=== PATIENT | male | born 1935 | race Caucasian/White ===

== ENCOUNTER → 2016-08-09 | Outpatient (CLI) | payer MEDICARE ==
[2016-08-09 10:20] LABS: Blood Urea Nitrogen 12 mg/dL (9-20); Non-African American GFR(MDRD) >60 (>60 ml/min/1.73 sqM)
--- NOTE | 2016-08-09 13:09 | CT ---
EXAMINATION TYPE: CT ChestAbdPelvis w con DATE OF EXAM: 08/09/2016 11:58 AM COMPARISON: CT CAP April 09, 2016. Original PET/CT April 13, 2014. HISTORY: Patient complains of known history of lymphoma diagnosed 2013. Patient has no complaints at time of service. CT DLP: 1687.4 mGycm. Automated Exposure Control for Dose Reduction was Utilized. CONTRAST: CT scan of the thorax, abdomen and pelvis is performed with oral and with IV Contrast, patient inject ed with 100 mL of Omnipaque 300. FINDINGS: LUNGS: Right basilar linear atelectasis and/or scarring is redemonstrated. No pleural effusion or pne umothorax seen bilaterally. Tracheobronchial tree is patent. MEDIASTINUM: There remain enlarged thoracic lymph nodes predominantly paratracheal and AP window lymp h nodes. Due to multiple lymph nodes present though difficult to accurately measure as they are predo minantly subcentimeter in size but slightly confluent. No significant change from most recent CT is felt present. Improvement from original PET/CT is noted. No cardiomegaly or pericardial effusion is s een. OTHER: Small degree of bilateral gynecomastia is redemonstrated. LIVER/GB: Dependent density or small gallstones is again seen. PANCREAS: No significant abnormality is seen. SPLEEN: Small splenule in inferior splenic hilum on axial image 55 in the anterior superior to spleen on axial image 47 are both redemonstrated. ADRENALS: No significant abnormality is seen. KIDNEYS: There are 3 nonobstructing calculi in the right kidney and single nonobstructing calculus in left kidney all measuring 3 mm in size or smaller redemonstrated. BOWEL: The oral contrast reaches level of the proximal left colon. There is no suspicious small or la rge bowel dilatation. A few diverticula are seen in the sigmoid colon. No CT evidence for acute diver ticulitis. There is stable duodenal diverticulum on axial image 62. GENITAL ORGANS: No gross abnormality seen. LYMPH NODES: No greater than 1cm abdominal or pelvic lymph nodes are appreciated. There are stable pr ominent but subcentimeter retroperitoneal lymph nodes, most prominent are left periaortic level below renal vessels axial image 70. Prominent AP window lymph nodes are stable near axial image 65. OSSEOUS STRUCTURES: S-shaped scoliosis is again seen. There is multilevel spurring and disc space katie rowing. Mild to moderate height loss with sclerosis superior T7 endplate is redemonstrated. OTHER: No significant additional abnormality is seen. IMPRESSION: Stable prominent but subcentimeter adenopathy in the thorax and to lesser degree abdomina l retroperitoneum. No new mass or adenopathy identified.
== END | disposition home or self-care (01) ==
LOC: RADCTMAIN 09:26
PROVIDERS: ATTEND Internal Medicine Hematology & Oncology
DX: C85.90 Non-Hodgkin lymphoma, unspecified, unspecified site (principal); R59.0 Localized enlarged lymph nodes
CPT/HCPCS: 82565; 84520; 71260; 74177; 36415; Q9967

== ENCOUNTER → 2017-02-10 | Outpatient (CLI) | payer MEDICARE ==
[2017-02-10 09:55] LABS: Blood Urea Nitrogen 14 mg/dL (9-20); Non-African American GFR(MDRD) >60 (>60 ml/min/1.73 sqM)
--- NOTE | 2017-02-10 11:21 | CT ---
EXAMINATION TYPE: CT ChestAbdPelvis w con DATE OF EXAM: 02/10/2017 COMPARISON: CT CAP August 09, 2016 and older exams back through PET/CT April 13, 2014 HISTORY: follow up to lymphoma progress study. CT DLP: 2166 mGycm. Automated Exposure Control for Dose Reduction was Utilized. CONTRAST: CT scan of the thorax, abdomen and pelvis is performed with IV Contrast, patient injected with 100 mL of Omnipaque 300. FINDINGS: LUNGS: There is persistent patchy right greater than left bibasilar scarring and/or atelectasis. No concerning new parenchymal nodule or mass is present bilaterally. There is no pleural effusion or pne umothorax seen bilaterally. The tracheobronchial tree is patent. MEDIASTINUM: There are persistent prominent thoracic lymph nodes predominantly paratracheal and AP wi ndow with multiple lymph nodes near 1 cm in size redemonstrated. Due to confluent appearance they're difficult to accurately measure though they are not significantly changed in appearance from prior s tudy, largest measure lymph node right pericarinal region is 1.8 x 1.0 cm on axial image 29 unchanged from prior. No cardiomegaly or pericardial effusion is seen. Supraclavicular region slightly subopt imal evaluation due to streak artifact from left shoulder metallic hardware. OTHER: There is right-sided subclavian Mediport catheter with tip in SVC. Small degree of bilateral g ynecomastia is redemonstrated. LIVER/GB: Dependent density in gallbladder is felt to reflect gallbladder sludge or small stones. PANCREAS: No significant abnormality is seen. SPLEEN: Small splenule's are stable. ADRENALS: No significant abnormality is seen. KIDNEYS: There are small nonobstructing renal calculi redemonstrated bilaterally measuring up to 4 mm in size without significant change in size or number. BOWEL: A few diverticula are redemonstrated in the sigmoid colon. There is no CT evidence for acute d iverticulitis. No suspicious bowel dilatation is seen. GENITAL ORGANS: No gross abnormality seen. LYMPH NODES: No greater than 1cm abdominal or pelvic lymph nodes are appreciated. There are stable pr ominent but subcentimeter retroperitoneal lymph nodes aortocaval region. OSSEOUS STRUCTURES: Slight S-shaped scoliosis is redemonstrated. There is multilevel spurring in the spine. Prominent disc space narrowing with sclerosis and spurring is seen right L1-L2 and L2-L3 level s at left L3-L4 level. Mild to moderate height loss superior T7 endplate is redemonstrated. OTHER: No significant additional abnormality is seen. IMPRESSION: Stable prominent but subcentimeter lymph nodes above and below diaphragm. No new adenopat hy is seen. Findings significantly improved 2014 PET/CT.
== END | disposition home or self-care (01) ==
LOC: RADCTMAIN 09:23
PROVIDERS: ATTEND Internal Medicine Hematology & Oncology
DX: C81.98 Hodgkin lymphoma, unspecified, lymph nodes of multiple sites (principal)
CPT/HCPCS: 82565; 84520; 71260; 74177; 36415; Q9967

== ENCOUNTER → 2017-08-15 | Outpatient (CLI) | payer MEDICARE ==
[2017-08-15 10:49] LABS: Blood Urea Nitrogen 16 mg/dL (9-20)
--- NOTE | 2017-08-15 15:32 | CT ---
EXAMINATION TYPE: CT ChestAbdPelvis w con DATE OF EXAM: 08/15/2017 INDICATION: Follow up to lymphoma COMPARISON: NONE CT DLP: 2626 mGycm CONTRAST: Performed with Oral Contrast and with IV Contrast, patient injected with 100 mL of Omnipaque 300. TECHNIQUE: Axial images at 5 mm thick sections. Reconstructed images in the coronal plane. Delayed images through the kidneys. FINDINGS: CT CHEST: Portion of the thyroid visualized is normal. Some pneumonitis type changes in the periphery of the right upper lobe There are multiple enlarged pretracheal lymph nodes. Two public service representative larger lymph nodes measure 1. 4 and 1.5 cm in transverse dimension. These are slightly greater in size than the comparison study. A dditional smaller lymphadenopathy appears to be present as well. The ascending aorta diameter at the level of the main pulmonary artery is 3.9 cm. The main pulmonary artery diameter at the bifurcation is 4.3 cm. Consider pulmonary hypertension. CT ABDOMEN: A 0.6 cm lymph nodes in the subcarinal space which is slightly prominent. This was presen t previously. Scattered periaortic lymph nodes are present. Liver: Normal Spleen: Normal Pancreas: Normal Adrenal glands: The adrenal glands are normal. Gallbladder: Normal Kidneys: No masses are evident. No hydronephrosis is present. No cysts are present. Some scattered nonobstructing superior pole right renal stones are present measuring approximately 0.3 cm each. The re is an inferior pole nonobstructing left renal stone 0.5 cm. Aorta: Vascular calcification is within the aorta. Inferior vena cava: Normal. CT PELVIS: Loops of bowel within the abdomen and pelvis are normal. Scattered diverticuli within the sigmoid colon. Large pelvic adenopathy is not identified. No suspicious inguinal adenopathy is evident. Appendix: Not identified. Urinary bladder: Normal. Genitourinary structures: Prostate appears unremarkable. Osseous structures: No suspicious lytic or sclerotic lesions. Facet hypertrophy and endplate changes are causing some spinal canal narrowing the region of L4-5. Additional lumbar spine degenerative sherman ges are present. IMPRESSIONS: 1. Multiple prominent mediastinal lymph nodes discussed above. This may has some slight increase in s ize compared to the February 2017 comparison.
== END | disposition home or self-care (01) ==
LOC: RADPROMAIN 09:56
PROVIDERS: ATTEND Internal Medicine Hematology & Oncology
DX: C81.98 Hodgkin lymphoma, unspecified, lymph nodes of multiple sites (principal); Z88.1 Allergy status to other antibiotic agents; Z88.6 Allergy status to analgesic agent; Z88.8 Allergy status to other drugs, medicaments and biological substances
CPT/HCPCS: 82565; 84520; 71260; 74177; 36415; Q9967; J1642

== ENCOUNTER → 2017-11-09 | Outpatient (CLI) | payer MEDICARE ==
[2017-11-09 11:36] LABS: Blood Urea Nitrogen 10 mg/dL (9-20)
--- NOTE | 2017-11-09 12:54 | CT ---
EXAMINATION TYPE: CT ChestAbdPelvis w con DATE OF EXAM: 11/09/2017 COMPARISON: Prior CT chest abdomen and pelvis June 14, 2018 and older studies. Original PET/CT Oc tober 2013 HISTORY: Follow up to hodgkins lymphoma, last chemo [id number] CT DLP: 2056.3 mGycm. Automated Exposure Control for Dose Reduction was Utilized. CONTRAST: CT scan of the thorax, abdomen and pelvis is performed with oral and with IV Contrast, patient inject ed with 100 mL of Isovue 300. FINDINGS: LUNGS: There are some mild scattered areas of linear fibrosis bilaterally The lungs are grossly clear , there is no concerning new greater than 5 mm parenchymal mass or nodule identified. There is stable 2 mm nodule left upper lobe axial image 26. There is no pleural effusion or pneumothorax seen. The tracheobronchial tree is patent. MEDIASTINUM: There are stable prominent thoracic lymph nodes involving anterior superior mediastinum, paratracheal, prevascular, AP window, and to lesser degree bilateral hilar and subcarinal regions. N o new greater than 1 cm adenopathy is present. No cardiomegaly or pericardial effusion is seen. Asc ending aorta measures up to 3.9 cm in diameter stable from prior. Prominent main pulmonary artery at bifurcation is redemonstrated. OTHER: There is stable right-sided Mediport catheter. Bilateral gynecomastia is redemonstrated, left more prominent than right felt stable. LIVER/GB: Small dependent stones and/or gallbladder sludge in gallbladder is identified. PANCREAS: No significant abnormality is seen. SPLEEN: There is subcentimeter splenule axial image 59 redemonstrated. ADRENALS: No significant abnormality is seen. KIDNEYS: A simple appearing 1 cm cyst medially lower pole level right kidney series 5 image 41 is sta ble. There are 4-5 small nonobstructing right-sided renal calculi redemonstrated and 1-2 small left-s ided renal calculi again seen. There is symmetric cortical medullary uptake and excretion from both k idneys without evidence of hydronephrosis bilaterally BOWEL: There is stable duodenal diverticulum near axial image 69. No suspicious small or large bowel dilatation is present. Diverticula in the sigmoid colon are redemonstrated without CT evidence for ac henrietta diverticulitis. There is suboptimal evaluation of stomach due to poor distention. GENITAL ORGANS: No gross abnormality seen. LYMPH NODES: No new greater than 1cm abdominal or pelvic lymph nodes are appreciated. There are stabl e prominent but subcentimeter retroperitoneal lymph nodes OSSEOUS STRUCTURES: No significant abnormality is seen. There is exaggerated curvature to the spine. There is advanced disc space narrowing with endplate sclerosis L1-L2 level. There is mild to moderate compression type fracture at T7 level. S-shaped scoliosis is redemonstrated on coronal images. OTHER: No significant additional abnormality is seen. IMPRESSION: Stable appearance of prominent thoracic and to lesser degree of abdominal retroperitoneal lymph nodes from recent CT. No new suspicious adenopathy identified. Liver and spleen remain normal in size.
== END | disposition home or self-care (01) ==
LOC: RADPROMAIN 10:20
PROVIDERS: ATTEND Internal Medicine Hematology & Oncology
DX: C81.98 Hodgkin lymphoma, unspecified, lymph nodes of multiple sites (principal); Z88.1 Allergy status to other antibiotic agents; Z88.6 Allergy status to analgesic agent; Z88.8 Allergy status to other drugs, medicaments and biological substances
CPT/HCPCS: 82565; 84520; 71260; 74177; J1642; Q9967

== ENCOUNTER → 2018-03-02 | Outpatient (CLI) | payer MEDICARE ==
--- NOTE | 2018-03-02 18:22 | XR ---
EXAMINATION TYPE: PA chest and right rib series DATE OF EXAM: 03/02/2018 COMPARISON: 10/10/2015 HISTORY: 82-year-old male right lower rib pain after fall, intercostal pain. TECHNIQUE: 5 views FINDINGS: Right anterior chest wall injection port with subclavian access in tip at the lower SVC/cavoatrial ju nction region. Heart upper limits of normal in size. Strandy lower lung densities likely relate to at electasis. Otherwise, no consolidation or pleural effusion seen. Reverse left shoulder arthroplasty n oted. Evaluation of the right-sided ribs shows focal angulation of the right eighth anterior rib and some c ortical indentation along the right anterior ninth rib. IMPRESSION: Findings suspicious for fractures of the right anterior eighth and ninth ribs. Bibasilar densities campbell ve a strandy appearance suggesting atelectasis.
== END | disposition home or self-care (01) ==
LOC: RADXRYALE 15:43
PROVIDERS: ATTEND Physician Assistant Medical
DX: R07.82 Intercostal pain (principal); J98.4 Other disorders of lung

== ENCOUNTER → 2018-05-15 | Outpatient (CLI) | payer MEDICARE ==
[2018-05-15 11:01] LABS: Blood Urea Nitrogen 15 mg/dL (9-20)
--- NOTE | 2018-05-15 18:32 | CT ---
EXAMINATION TYPE: CT ChestAbdPelvis w con DATE OF EXAM: 05/15/2018 INDICATION: Follow up known lymphoma, chest. COMPARISON: 11/09/2017 CT DLP: 1742.8 mGycm CONTRAST: Performed with Oral Contrast and with IV Contrast, patient injected with 100 mL of Isovue 300. TECHNIQUE: Axial images at 5 mm thick sections. Reconstructed images in the coronal plane. Delayed images through the kidneys. FINDINGS: CT CHEST: Portion of the thyroid visualized is normal. No suspicious lung nodules or focal infiltrates are present. There are numerous lymph nodes scattered throughout the mediastinum. Number of lymph nodes are enlarg ed by CT criteria. Reference lymph node to include a 1.1 cm lymph node in the anterior superior media stinum, a 1.2 cm node in the pretracheal space. A 1.0 cm lymph node in the paratracheal space, 1.3 cm lymph node and pretracheal space above the right main pulmonary artery. Additional shotty lymphadeno abilio is present. Size of the lymphadenopathy appears to be increasing from the comparison. The ascending aorta diameter at the level of the main pulmonary artery is 4.0 cm. The main pulmonary artery diameter at the bifurcation is 3.[address] ABDOMEN: A few retrocrural lymph nodes are present which are prominent by CT measurement criteria. Liver: Normal Spleen: Normal Pancreas: Normal Adrenal glands: The adrenal glands are normal. Gallbladder: Small gallstones are within the gallbladder. Kidneys: No masses are evident. No hydronephrosis is present. No cysts are present. Punctate renal stones without obstruction may be present within the right mid kidney at the inferior pole left kidn ey. Aorta: Vascular calcification is within the aorta. Inferior vena cava: Normal. CT PELVIS: Loops of bowel within the abdomen and pelvis are normal. There are loops of bowel which are incom pletely distended or lack oral contrast limiting their evaluation. Appendix: Not identified. No suspicious tubular structures or laboratory changes are evident. Urinary bladder: Normal. Genitourinary structures: Prostate is slightly prominent. Osseous structures: No suspicious lytic or sclerotic lesions. Degenerative disc changes are through t he thoracic and lumbar spine. There is a compression deformity in the region of T7 and L1. These were present previously. IMPRESSIONS: 1. Enlarging mediastinal adenopathy. Some prominent retrocrural pleural adenopathy is also present. F indings are increasing in size from 11/09/2017 comparison A Yellow level critical message alert has been initiated for Robby العلي MD via the [employer] on 05/15/2018 6:29 PM. This message alert has been sent to Robby العلي MD via t he preferences provided by the clinician for the receipt of Radiology Critical Findings. Message ID [id number].
== END | disposition home or self-care (01) ==
LOC: RADPROMAIN 10:12
PROVIDERS: ATTEND Internal Medicine Hematology & Oncology
DX: R59.0 Localized enlarged lymph nodes (principal); C81.98 Hodgkin lymphoma, unspecified, lymph nodes of multiple sites; Z88.3 Allergy status to other anti-infective agents; Z88.6 Allergy status to analgesic agent; Z88.8 Allergy status to other drugs, medicaments and biological substances
CPT/HCPCS: 82565; 84520; 71260; 74177; J1642; Q9967

== ENCOUNTER → 2018-05-24 | Outpatient (CLI) | payer MEDICARE ==
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
== END ==
LOC: RADUSWWP 14:13
PROVIDERS: ATTEND Family Medicine
DX: R22.41 Localized swelling, mass and lump, right lower limb (principal)

== ENCOUNTER → 2018-08-16 | Outpatient (CLI) | payer MEDICARE ==
[2018-08-16 10:39] LABS: Blood Urea Nitrogen 19 mg/dL (9-20)
--- NOTE | 2018-08-16 13:48 | CT ---
EXAMINATION TYPE: CT ChestAbdPelvis w con DATE OF EXAM: 08/16/2018 COMPARISON: Prior CT chest abdomen pelvis 05/15/2018 HISTORY: Follow up for Hodgkin's lymphoma. No complaints at time of study. CT DLP: 2134 mGycm Automated exposure control for dose reduction was used. CONTRAST: CT scan of the chest, abdomen and pelvis is performed with Oral Contrast and with IV Contrast, patien t injected with 100 mL of Isovue 300. FINDINGS: LUNGS: The lungs are stable. There is no pleural effusion or pneumothorax seen. The tracheobronchial tree is patent. MEDIASTINUM: There are mediastinal nodes which are too numerous to count varying sizes. Right paratra cheal node shows a short axis measurement of approximately 12 mm as on prior exam but shows a fatty h ilus. Small prevascular nodes are again noted. Multiple retrocaval pretracheal nodes are essentially stable in size mild enlargement AORTA: No significant abnormality is seen. OTHER: No additional significant abnormality is seen. LIVER/GB: No significant interval change is appreciated. Dependent hyperdensity within the gallbladde r is compatible with cholelithiasis. PANCREAS: No significant abnormality is seen. SPLEEN: No significant abnormality is seen. ADRENALS: No significant abnormality is seen. KIDNEYS: No significant interval change is seen. Nonobstructive punctate calculi are present bilatera lly. REPRODUCTIVE ORGANS: No gross abnormality seen. BOWEL: No significant interval change is seen. There is a duodenal diverticulum present at the head of the pancreas. Colonic interposition noted anterior to the liver. Diverticular change associated wi th the sigmoid colon. FREE AIR: No Free Air visible. ASCITES: None seen. RETROPERITONEAL ADENOPATHY: No retroperitoneal adenopathy is seen. LYMPH NODES: No greater than 1 cm abdominal or pelvic lymph nodes are appreciated. URINARY BLADDER: Wall thickening could be due to chronic outlet obstruction. Correlate to exclude cy stitis. PELVIC ADENOPATHY: None visualized. OSSEOUS STRUCTURES: No significant interval change is seen. Degenerative disc disease again noted wi thin the spine, there is a spinal curvature. Wedge compression deformity at T7 is stable. Multilevel intervertebral vacuum disc phenomenon again noted. Possible spinal stenosis L4-5. IMPRESSION: No significant interval change in patient's adenopathy. Additional findings above.
== END | disposition home or self-care (01) ==
LOC: RADCTMAIN 10:02
PROVIDERS: ATTEND Internal Medicine Hematology & Oncology
DX: C81.98 Hodgkin lymphoma, unspecified, lymph nodes of multiple sites (principal)
CPT/HCPCS: 82565; 84520; 71260; 74177; 36415; Q9967

== ENCOUNTER → 2018-11-29 | Outpatient (CLI) | payer MEDICARE ==
--- NOTE | 2018-11-29 15:15 | XR ---
EXAMINATION TYPE: XR chest 2V DATE OF EXAM: 11/29/2018 COMPARISON: March 02, 2018 HISTORY: Shortness of breath TECHNIQUE: Frontal and lateral views of the chest are obtained. FINDINGS: Scattered senescent parenchymal changes noted. Hyperinflation compatible with COPD. No evidence for infiltrate. No evidence for atelectasis. Heart size is stable. Mediastinal structures are stable and grossly unremarkable. No evidence for hilar prominence. Degenerative changes dorsal spine. IMPRESSION: 1. No evidence for acute pulmonary disease.
== END | disposition home or self-care (01) ==
LOC: RADXRYALE 13:39
PROVIDERS: ATTEND Physician Assistant Medical
DX: R05 Cough (principal)
CPT/HCPCS: 71046

== ENCOUNTER → 2019-02-19 | Outpatient (CLI) | payer MEDICARE ==
[2019-02-19 10:26] LABS: African American GFR (CKD) >90 (>60 ml/min/1.73 sqM); Blood Urea Nitrogen 16 mg/dL (9-20); Non-African American GFR(CKD) 81 (>60 ml/min/1.73 sqM)
--- NOTE | 2019-02-19 15:15 | CT ---
EXAMINATION TYPE: CT ChestAbdPelvis w con DATE OF EXAM: 02/19/2019 INDICATION: Lymphoma COMPARISON: 08/16/2018 CT DLP: 2280.5 mGycm CONTRAST: Performed with Oral Contrast and with IV Contrast, patient injected with 100 mL of Isovue 300. TECHNIQUE: Axial images at 5 mm thick sections. Reconstructed images in the coronal plane. Delayed images through the kidneys. FINDINGS: CT CHEST: Portion of the thyroid visualized is normal. There is some minimal infiltrate at right apex. This is an interval development. Series 4 image 9 there is extensive lymphadenopathy within the mediastinum. Enlarged lymph nodes including pretracheal lymph node at the level the lissette measuring 1.3 cm and 1.3 cm pretracheal lymph node at the level o f the aortic arch. Additional superior mediastinal and aortopulmonic window shotty lymphadenopathy is present. The ascending aorta diameter at the level of the main pulmonary artery is 4.1 cm. The main pulmonary artery diameter at the bifurcation is 3.[address] ABDOMEN: Liver: Normal Spleen: Normal. Small splenule is at the splenic hilum. Pancreas: Normal Adrenal glands: The adrenal glands are normal. Gallbladder: Small gallstones are present. Kidneys: No masses are evident. There is thinning of the renal cortex bilaterally. Multiple punctate renal stones are present proximally 0.3 cm each. No hydronephrosis or hydroureter is present. 1.7 cm cyst on the inferior anterior right kidney. No cysts are present. Delayed images were obtained throu gh the kidneys. Aorta: Vascular calcification is within the aorta. Inferior vena cava: Normal. CT PELVIS: Loops of bowel within the abdomen and pelvis are normal. There are loops of bowel which are incom pletely distended or lack oral contrast limiting their evaluation. The proximal stomach wall may be t hickened. This is incompletely distended which may account for the findings well. Appendix: Normal as visualized. Urinary bladder: Normal. Genitourinary structures: Prostate is unremarkable. Osseous structures: No suspicious lytic or sclerotic lesions. Scoliosis is through the lumbar spine. Lymphadenopathy: Below the level of the diaphragm enlarged lymphadenopathy is not evident. Some minim al shotty lymphadenopathy may be in the periaortic region. Obturator canal and iliac regions appear n ormal. No inguinal adenopathy is evident. IMPRESSIONS: 1. Multiple mediastinal lymph nodes some of which are enlarged. Significant change from 08/16/2018 is not apparent. 2. Tiny gallbladder stones 3. Other may be thickening of the proximal stomach wall. Lymphoma involvement is not excluded. Consid er upper GI for additional evaluation. #4 nonobstructing bilateral renal stones, more so on the right than the left.
== END ==
LOC: RADPROMAIN 09:25
PROVIDERS: ATTEND Internal Medicine Hematology & Oncology
DX: C81.98 Hodgkin lymphoma, unspecified, lymph nodes of multiple sites (principal); N20.0 Calculus of kidney; K80.20 Calculus of gallbladder without cholecystitis without obstruction; R59.0 Localized enlarged lymph nodes; Z88.6 Allergy status to analgesic agent; Z88.8 Allergy status to other drugs, medicaments and biological substances; Z88.3 Allergy status to other anti-infective agents
CPT/HCPCS: 82565; 84520; 71260; 74177; 36415; Q9967 ×2

== ENCOUNTER 2019-03-22 10:17 | Day surgery (SDC) | payer MEDICARE ==
[2019-03-20 15:27] VITALS: BMI 35.6
[~2019-03-22 10:17] MED LIST: LACTATED RINGERS 1,000 ML IV SCH; LIDOCAINE 1% 20 ML VIAL (10MG/ML) FOR IV START INTRADERMA PRN
[2019-03-22 10:59] VITALS: TEMP 98
[2019-03-22] MEDS ORDERED: LIDOCAINE 1% INJ 10MG/ML (20 ML MDV) ONE (11:29)
[2019-03-22] MEDS ORDERED: PROPOFOL 10 MG/ML 20 ML VIAL IV ONE (11:29)
--- NOTE | 2019-03-22 12:03 | P.PCN ---
Date of Procedure: 03/22/19 Description of Procedure: BRIEF HISTORY: Patient is a 83-year-old, pleasant, male patient who presents for outpatient EGD. The patient has a history significant for asthma and GERD as well as lymphoma for which she is under the care of Dr. العلي. The patient had computed tomography scan of the abdomen which showed some gastric thickening as well as stable mediastinal lymphadenopathy. Overall the patient is doing well and. No unintentional weight loss, nausea or vomiting. He does report occasional solid food dysphagia which he describes as his throat being dry. Last EGD and colonoscopy were in 2013 and significant for some mild gastritis, hiatal hernia as well as diverticulosis and a cecal polyp. PROCEDURE PERFORMED: Esophagogastroduodenoscopy with biopsy. PREOPERATIVE DIAGNOSIS: GERD, abnormal computed tomography scan abdomen. ESTIMATED BLOOD LOSS: Minimal. IV sedation per anesthesia. PROCEDURE: After informed consent was obtained, the patient was brought into the endoscopy unit. IV sedation was administered by Anesthesia under continuous monitoring. Initially the Olympus GIF-190 video endoscope was inserted into the mouth. Esophagus intubated without any difficulty. It was gradually advanced into the stomach and duodenum and carefully examined. The bulb and the second part of the duodenum appeared normal, with biopsies taken. The scope at this time was withdrawn to the stomach, adequately insufflated with air, and upon careful examination, mucosa of the antrum appeared normal except for some scattered mild erythema suggestive of mild gastritis with biopsies of the antrum taken. There was diffuse nodularity in the body of the stomach with biopsies taken. Nodularity was also noted in the cardia and fundus with biopsies taken.a small 1 cm hiatal hernia was noted. The scope was then withdrawn into the esophagus. The GE junction was located at 41 cm from the incisors. The esophagus appeared normal, except for a widely patent nonobstructing distal esophageal Schatzki's ring, with biopsies of the distal esophagus/GE junction taken. There were no ero sions or ulcerations seen and the patient tolerated the procedure well. IMPRESSION: 1. Mild gastritis antrum, biopsied. 2. Nodularity of the body, cardia and fundus biopsied. 3. Small hiatal hernia. 4. Nonobstructing distal esophageal Schatzki's ring. 5. Biopsies of the distal esophagus/GE junction. RECOMMENDATIONS: The findings of this examination were discussed with the patient and his daughter. Okay to resume diet. Await pathology from biopsies. Continue treatment of underlying reflux disease. Follow-up in clinic as previously scheduled.
[2019-03-22 12:23] VITALS: BP 138/67; PULSE 78; RESP 18
== END 2019-03-22 12:27 | disposition home or self-care (01) ==
LOC: ORWHC2ENDO 10:17
PROVIDERS: ATTEND Internal Medicine
DX: K29.50 Unspecified chronic gastritis without bleeding (principal); K44.9 Diaphragmatic hernia without obstruction or gangrene; K22.2 Esophageal obstruction; K31.7 Polyp of stomach and duodenum; K21.0 Gastro-esophageal reflux disease with esophagitis; J45.909 Unspecified asthma, uncomplicated; E66.9 Obesity, unspecified; I27.20 Pulmonary hypertension, unspecified; M19.90 Unspecified osteoarthritis, unspecified site; E07.9 Disorder of thyroid, unspecified; I10 Essential (primary) hypertension; G57.93 Unspecified mononeuropathy of bilateral lower limbs; Z85.72 Personal history of non-Hodgkin lymphomas; Z85.71 Personal history of Hodgkin lymphoma; Z87.891 Personal history of nicotine dependence; Z88.6 Allergy status to analgesic agent; Z88.8 Allergy status to other drugs, medicaments and biological substances; Z79.82 Long term (current) use of aspirin; Z79.890 Hormone replacement therapy; Z79.899 Other long term (current) drug therapy; Z96.651 Presence of right artificial knee joint; Z98.890 Other specified postprocedural states; Z68.35 Body mass index [BMI] 35.0-35.9, adult; Z86.14 Personal history of Methicillin resistant Staphylococcus aureus infection; Z87.442 Personal history of urinary calculi; Z86.79 Personal history of other diseases of the circulatory system
CPT/HCPCS: 88305; 43239; J2001; J2704

== ENCOUNTER → 2019-08-21 | Outpatient (CLI) | payer MEDICARE ==
[2019-08-21 10:45] LABS: African American GFR (CKD) >90 (>60 ml/min/1.73 sqM); Blood Urea Nitrogen 16 mg/dL (9-20); Non-African American GFR(CKD) 82 (>60 ml/min/1.73 sqM)
--- NOTE | 2019-08-21 14:03 | CT ---
EXAMINATION TYPE: CT ChestAbdPelvis w con DATE OF EXAM: 08/21/2019 COMPARISON: Prior exam 02/19/2019 HISTORY: Hodgkins Lymphoma, retroperitoneum and mediastinum CT DLP: 2330 mGycm Automated exposure control for dose reduction was used. CONTRAST: CT scan of the chest, abdomen and pelvis is performed with Oral Contrast and with IV Contrast, patien t injected with 100 ml mL of Isovue 300. FINDINGS: Right subclavian vein stenosis is present. LUNGS: The lungs are grossly clear, there is no concerning parenchymal mass or nodule identified. T here is no pleural effusion or pneumothorax seen. The tracheobronchial tree is patent. MEDIASTINUM: There are no greater than 1 cm hilar or mediastinal lymph nodes. No pericardial effusi on is seen. Shotty nodes persist as on prior exam AORTA: No significant abnormality is seen. OTHER: No additional significant abnormality is seen. LIVER/GB: No significant abnormality is appreciated. Dependent high attenuation within the gallbladde r compatible with stones. PANCREAS: No significant abnormality is seen. SPLEEN: No significant abnormality is seen. ADRENALS: No significant abnormality is seen. KIDNEYS: Nonobstructive left lower pole renal calculus is stable, there are nonobstructive right-side d renal calculi at the upper pole as on prior exam as well as single calculus in the lower pole REPRODUCTIVE ORGANS: No gross abnormality seen. BOWEL: No significant abnormality is seen. Duodenal diverticulum again noted at the head of the panc reas. FREE AIR: No Free Air visible. No change in shotty retroperitoneal nodes, bones are stable. No pelvic adenopathy. IMPRESSION: Recurrence is not evident. Bilateral nephrolithiasis. Cholelithiasis.
== END | disposition home or self-care (01) ==
LOC: RADCTMAIN 09:47
PROVIDERS: ATTEND Internal Medicine Hematology & Oncology
DX: N20.0 Calculus of kidney (principal); K80.20 Calculus of gallbladder without cholecystitis without obstruction; C81.98 Hodgkin lymphoma, unspecified, lymph nodes of multiple sites; Z88.8 Allergy status to other drugs, medicaments and biological substances; Z88.6 Allergy status to analgesic agent; Z88.3 Allergy status to other anti-infective agents
CPT/HCPCS: 82565; 84520; 71260; 74177; 36415; Q9967

== ENCOUNTER → 2019-08-29 | Outpatient (CLI) | payer MEDICARE ==
--- NOTE | 2019-08-29 16:45 | XR ---
EXAMINATION TYPE: XR lumbosacral spine min 4V DATE OF EXAM: 08/29/2019 COMPARISON: None HISTORY: Chronic low back pain TECHNIQUE: Lumbar spine is examined in 5 views. FINDINGS: Disc space narrowing is present L3-4. Posterior disc space narrowing is present L4-5 L5-S1. There is loss of disc height L2-3 L1-2. Some wedge deformity of L1 is present. Spondylosis is presen t. Facet hypertrophy is present. Scoliosis is present. IMPRESSION: 1. Degenerative disc changes through the lumbar spine. 2. Wedge deformity of L1. This was present on the CT exam of 02/18/2019
== END | disposition home or self-care (01) ==
LOC: RADXRYALE 14:11
PROVIDERS: ATTEND Physician Assistant Medical
DX: M51.26 Other intervertebral disc displacement, lumbar region (principal); M43.8X6 Other specified deforming dorsopathies, lumbar region; M54.41 Lumbago with sciatica, right side
CPT/HCPCS: 72110

== ENCOUNTER → 2019-09-07 | Outpatient (CLI) | payer MEDICARE | END | disposition home or self-care (01) | LOC: RADUSWWP 11:17 | PROVIDERS: ATTEND Family Medicine | DX: I70.203 Unspecified atherosclerosis of native arteries of extremities, bilateral legs (principal); L60.2 Onychogryphosis | CPT/HCPCS: 93922 ==

== ENCOUNTER → 2020-01-01 | Outpatient (CLI) | payer MEDICARE ==
--- NOTE | 2020-01-01 11:45 | CT ---
EXAMINATION TYPE: CT abdomen pelvis wo con DATE OF EXAM: 01/01/2020 COMPARISON: 08/21/2019 HISTORY: 84-year-old male R19.4, change in bowel habits, constipation CT DLP: 880.1 mGycm. Automated exposure control for dose reduction was used. TECHNIQUE: Contiguous axial scanning of the abdomen and pelvis without IV contrast. Coronal and sagit jackson reconstructions performed. FINDINGS: Heart upper limits of normal in size without pericardial effusion. Similar strandy and groundglass re ticular densities at the lung bases suggesting chronic interstitial changes and fibrosis, possible in terstitial pneumonitis. 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 Ectatic abdominal aorta measuring up to 2.6 cm. Noncontrast appearance of the liver, adrenal glands, spleen with anterior and hilar splenules, and at rophic pancreas show no gross abnormality. Small diverticulum of the second portion of the duodenum p rojecting into the pancreatic head region. Numerous tiny gallstones dependently in the gallbladder. No abnormal gallbladder distention. Small ph rygian cap is noted. Bilateral nonobstructive renal calculi. Approximately 4 calculi are present on the right measuring up to 6 mm. One on the left measures 6 mm as well. 1.4 cm cortical hypodensity medial lower pole right kidney inadequately characterized, likely cysts. No dilated small bowel, free fluid, or free air. Numerous scattered nonenlarged borderline sized retroperitoneal lymph nodes measuring up to 6 mm are unchanged. No evident progressive lymphadenopathy seen. Mild stool burden. Mild left-sided colonic diverticulosis. No pericolonic inflammatory change. Bladder is collapsed but with circumferential wall thickening. No abnormal fluid collection in the pe lvis or pelvic lymphadenopathy. Bones: Degenerative changes of the pubic symphysis, mild at the hips and SI joints, and moderate to a dvanced throughout the lumbar spine with a degenerated levoconvex scoliosis. IMPRESSION: 1. Mild overall stool burden. Scattered mild diverticular change along the left seventh colon withou t acute diverticulitis. 2. Cholelithiasis and bilateral nonobstructive renal calculi are demonstrated measuring up to 6 mm. 3. Circumferential bladder wall thickening could represent chronic bladder wall hypertrophy. Correla te to exclude cystitis. 4. Redemonstrated mildly aneurysmal lower descending thoracic aorta at 3.3 cm.
== END | disposition home or self-care (01) ==
LOC: RADCTMAIN 10:28
PROVIDERS: ATTEND Physician Assistant Medical
DX: K59.00 Constipation, unspecified (principal); K80.20 Calculus of gallbladder without cholecystitis without obstruction; N20.0 Calculus of kidney; N32.89 Other specified disorders of bladder; I71.2 Thoracic aortic aneurysm, without rupture
CPT/HCPCS: 74176

== ENCOUNTER → 2020-10-13 | Outpatient (CLI) | payer MEDICARE ==
--- NOTE | 2020-10-13 20:57 | XR ---
EXAMINATION TYPE: XR thoracic spine 2V, XR lumbosacral spine 5 views DATE OF EXAM: 10/13/2020 COMPARISON: CT 08/21/2019 HISTORY: 85-year-old male [id number], M545 THOR PAIN, LBP FINDINGS: Thoracic spine: Right anterior chest wall injection port with catheter tip at the lower SVC level. Th ere is an S-shaped scoliotic curvature of the thoracolumbar spine. Accentuated mid to lower thoracic kyphosis. Moderate endplate spondylosis mid to lower thoracic spine. There is anterior wedge deformit y of a midthoracic vertebral body. Remaining vertebral body heights are preserved and alignment is ma intained. Lumbar spine: Multilevel moderate to advanced degenerative disc disease associated with the levoconve x curvature of the lumbar spine. Degenerative disc disease is more advanced in the upper and mid lumb ar spine. Degenerative grade 1 retrolisthesis L1-L2 and L2-L3. Degenerative grade 1 anterolisthesis L 3-L4. Multilevel hypertrophic facet arthropathy. Vertebral body heights are preserved. IMPRESSION: 1. Thoracic spine: S-shaped scoliosis of the thoracolumbar spine. Moderate endplate spondylosis mid t o lower thoracic spine. Anterior wedge deformity mid thoracic spine was present back to at least 08/21 compatible with old compression injury. Accentuated mid to lower thoracic kyphosis. 2. Lumbar spine: Moderate to advanced degenerative disc disease upper and mid lumbar spine. Hypertrop hic facet arthropathy. Grade 1 spondylolisthesis seen from L1 through L4 levels. No vertebral blanca franki collapse.
== END | disposition home or self-care (01) ==
LOC: RADXRYALE 10:42
PROVIDERS: ATTEND Physician Assistant Medical
DX: M51.36 Other intervertebral disc degeneration, lumbar region (principal); M41.85 Other forms of scoliosis, thoracolumbar region; M47.816 Spondylosis without myelopathy or radiculopathy, lumbar region; M43.16 Spondylolisthesis, lumbar region; M47.814 Spondylosis without myelopathy or radiculopathy, thoracic region; M40.204 Unspecified kyphosis, thoracic region
CPT/HCPCS: 72070; 72110

== ENCOUNTER 2021-03-31 06:05 | Day surgery (SDC) | payer MEDICARE ==
[~2021-03-31 06:05] MED LIST changes: -LACTATED RINGERS 1,000 ML IV SCH; -LIDOCAINE 1% 20 ML VIAL (10MG/ML) FOR IV START INTRADERMA PRN; +SODIUM CHLORIDE 0.9% 1,000 ML IV SCH
[2021-03-31] MEDS ORDERED: SODIUM CHLORIDE 0.9% 500 ML 500 ML IV ONE (06:55)
[2021-03-31 07:16] VITALS: TEMP 99
[2021-03-31] MEDS ORDERED: PROPOFOL 10 MG/ML 20 ML VIAL IV ONE (07:27)
[2021-03-31] MEDS: BENZOCAINE SPRAY 1 CAN MUCOUS MEM ONE ×2 (07:32→07:41)
[2021-03-31] MEDS ORDERED: SODIUM CHLORIDE 0.9% 1,000 ML IV SCH ×2 (08:30)
--- NOTE | 2021-03-31 08:32 | P.PCN ---
Date of Procedure: 03/31/21 Preoperative Diagnosis: Atrial fibrillation with controlled and corresponds Postoperative Diagnosis: Successful conversion to sinus rhythm Procedure(s) Performed: MARLENY followed by cardioversion Description of Procedure: This 85-year-old gentleman was brought in for elective cardioversion. He was diagnosed to have atrial fibrillation with controlled and corresponds associated with exertional shortness of breath. Patient was explained the risks and benefits of the procedure. Procedure: Patient was brought to the lab in a fasting state. He was prepped and draped in the usual fashion. The department of anesthesia is provided anesthesia. He'll lubricated Omni probe was introduced in the oropharynx and was advanced into the esophagus. Multiple views were obtained both from stomach and esophagus. Patient tolerated the procedure well. Findings: The aortic valve is tricuspid and function normally. Mitral valves showed central 1-2+ regurgitation. Tricuspid valve appears to be normal. Left atrial appendage is free of any clot. The interatrial septum appeared to be intact without any spontaneous shunt. Saline contrast bubble injection did not reveal any evidence of bubbles crossing the interatrial septum. Left ventricle function appeared to be fair. Plan: No evidence of clot in the left atrial appendage. We'll proceed with cardioversion. CARDIOVERSION: After completion of the MARLENY, anterior-posterior paddles were applied. Patient continued to be under anesthesia . A synchronized shock of 200 J was applied. Patient converted back to sinus rhythm. No immediate complications. Final impression: #1. Successful cardioversion without any complications. Plan: Patient will continue with current medical therapy including anticoagulation. Follow-up in the office in one week
[2021-03-31 09:54] VITALS: RESP 16
[2021-03-31 09:58] VITALS: BP 148/72
[2021-03-31 12:37] VITALS: PULSE 55
--- NOTE | 2021-04-02 08:14 | CDI ---
Outpatient Documentation Clarification Form Date: 04/02/21 CDS/[employer] Equipment [employer] Name: Berta Garzon Phone: If any questions, call Meri Wills Manager Multicultural at [phone] Patient Name: Venkat Richmond Admit Date: 03/31/21 Discharge Date: 03/31/21 ATTENTION: The [facility] Coding Staff appreciate your assistance in clarifying documentation. Please respond to the clarification below the line at the bottom and electronically sign. The [facility] Coding staff will review the response and follow-up if needed. Please note: Queries are made part of the Legal Health Record. If you have any questions, please contact the Manager Multicultural. Dear Dr. Burton, Please provide clarification as to the test that was performed. In order to code to specificity and medical necessity, a full description of the test is needed. Please clarify which of the following if any were performed. 12389 - Echocardiography, transesophageal, real time with image documentation (2D) (with or without M-mode) complete 13453 - Doppler echocardiography, pulsed wave and/or continuous wave with spectral display - complete 50762 -Doppler echocardiography color flow mapping Thank you for your kind consideration. [id number] - MARLENY complete MTDD
== END 2021-03-31 10:12 | disposition home or self-care (01) ==
LOC: CATHCVL 06:05
PROVIDERS: ATTEND Internal Medicine Cardiovascular Disease
DX: I34.0 Nonrheumatic mitral (valve) insufficiency (principal); I48.19 Other persistent atrial fibrillation; I10 Essential (primary) hypertension; Z72.0 Tobacco use; Z85.72 Personal history of non-Hodgkin lymphomas; Z87.01 Personal history of pneumonia (recurrent); I42.8 Other cardiomyopathies; Z79.01 Long term (current) use of anticoagulants; Z79.890 Hormone replacement therapy; Z79.899 Other long term (current) drug therapy
CPT/HCPCS: 93312; 92960; J2704; 93320; 93325

== ENCOUNTER → 2021-11-04 | Outpatient (CLI) | payer MEDICARE ==
--- NOTE | 2021-11-04 14:32 | XR ---
EXAMINATION TYPE: XR chest 2V DATE OF EXAM: 11/04/2021 COMPARISON: 11/29/2018 HISTORY: Shortness of breath TECHNIQUE: Frontal and lateral views of the chest are obtained. FINDINGS: Scattered senescent parenchymal changes noted. Hyperinflation compatible with COPD. No evidence for infiltrate. Linear atelectasis right lung base. Heart size is stable. Mediastinal structures are stable and grossly unremarkable. No evidence for hilar prominence. Degenerative changes dorsal spine. IMPRESSION: 1. No evidence for acute pulmonary disease.
== END | disposition home or self-care (01) ==
LOC: RADXRYALE 13:38
PROVIDERS: ATTEND Physician Assistant Medical
DX: R06.02 Shortness of breath (principal)
CPT/HCPCS: 71046

== ENCOUNTER 2023-03-03 16:36 | Inpatient (IN) | payer MEDICARE ==
--- NOTE | 2023-03-03 17:56 | XR ---
EXAMINATION TYPE: XR chest 2V DATE OF EXAM: 03/03/2023 5:46 PM COMPARISON: Chest radiographs from 11/04/2021 TECHNIQUE: XR chest 2V Frontal and lateral views of the chest. CLINICAL INDICATION:Male, 87 years old with history of difficulty breathing; FINDINGS: Lungs/Pleura: There is flattening of the diaphragm with increased lucency of the lungs. No evidence o f pneumothorax, pleural effusion or focal consolidation. Chronic senescent parenchymal change. Pulmonary vascularity: Unremarkable. Heart/mediastinum: Cardiomediastinal silhouette is unremarkable. Musculoskeletal: Multiple level degenerative disc disease changes seen throughout the spine. Left clyde ulder prosthesis. Other findings: None Lines/Tubes: Right subclavian approach Mediport catheter in stable position. IMPRESSION: Chronic changes without acute pulmonary process. No significant change from prior.
[2023-03-03 18:07] LABS: HCT 37.3 % (39.0-53.0); HGB 12.3 gm/dL (13.0-17.5); MCH 32.5 pg (25.0-35.0); MCV 98.4 fL (80.0-100.0); Mean Platelet Volume 8.3; Platelet Count 204 k/uL (150-450); RBC 3.79 m/uL (4.30-5.90); RDW 12.9 % (11.5-15.5); WBC 12.7 k/uL (3.8-10.6)
[2023-03-03 18:14] LABS: Partial Thromboplastin Time 24.8 sec (22.0-30.0); Prothrombin Time 10.9 sec (9.0-12.0)
[2023-03-03 18:44] LABS: ALT 24 U/L (4-49); AST 39 U/L (17-59); African American GFR (CKD) 88 (>60 ml/min/1.73 sqM); Albumin 4.6 g/dL (3.5-5.0); Alkaline Phosphatase 73 U/L (38-126); Anion Gap 10 mmol/L; Blood Urea Nitrogen 20 mg/dL (9-20); Calcium 9.4 mg/dL (8.4-10.2); Carbon Dioxide 26 mmol/L (22-30); Chloride 103 mmol/L (98-107); Glucose 93 mg/dL (74-99); Magnesium 1.4 mg/dL (1.6-2.3); Non-African American GFR(CKD) 76 (>60 ml/min/1.73 sqM); Potassium 4.3 mmol/L (3.5-5.1); Sodium 139 mmol/L (137-145); Total Bilirubin 0.6 mg/dL (0.2-1.3); Total Protein 7.3 g/dL (6.3-8.2)
[2023-03-03 18:50] LABS: NT-Pro-B-Type Natriuretic Pept 2790 pg/mL
[2023-03-03 18:57] LABS: Appearance,Urine Clear (Clear); Bilirubin,Urine Negative (Negative); Blood,Urine Negative (Negative); Color,Urine Colorless; Glucose,Urine (UA) Negative (Negative); Hyaline Casts,Urine 1 /lpf (0-2); Ketones,Urine Negative (Negative); Leukocyte Esterase,Urine Moderate (Negative); Mucus,Urine Rare /hpf; Nitrite,Urine Negative (Negative); Protein,Urine Negative (Negative); RBC,Urine 2 /hpf (0-5); Specific Gravity,Urine 1.014 (1.001-1.035); Urobilinogen,Urine <2.0 mg/dL (<2.0); WBC,Urine 6 /hpf (0-5)
[2023-03-03 19:39] LABS: Eosinophils # (M) 0.38 k/uL (0-0.7); Monocytes # (M) 0.51 k/uL (0-1.0); Neutrophils # (M) 2.41 k/uL (1.3-7.7); Neutrophils % (M) 19 %; Nucleated Red Blood Cells 0 /100 WBC (0-0); Total Cells Counted 100
[2023-03-03 19:46] LABS: Polychromasia Present
[2023-03-03] MEDS ORDERED: MAGNESIUM SULFATE-D5W PMX 1 GM in DEXTROSE/WATER 1 100ML.BAG IVPB ONE (20:26)
[2023-03-03] MEDS ORDERED: NALOXONE 0.4 MG/ML 1 ML VIAL IV PRN (20:27)
[2023-03-03] MEDS ORDERED: ALBUTEROL NEBULIZED 2.5 MG/3 ML INHALATION PRN (20:28)
[2023-03-03] MEDS ORDERED: amLODIPine 5 MG TAB PO SCH (21:00)
[2023-03-03] MEDS: METOPROLOL TARTRATE 25 MG TAB PO SCH (22:11)
[2023-03-03] MEDS: PANTOPRAZOLE 40 MG TABLET PO SCH (22:11)
[2023-03-03] MEDS: APIXABAN 5 MG TAB PO SCH (22:11)
[2023-03-03] MEDS: FUROSEMIDE 10 MG/ML 4 ML VIAL IV SCH (22:12)
[2023-03-03] MEDS: MELATONIN 3 MG TABLET PO SCH (22:12)
[2023-03-03] MEDS: LEVOTHYROXINE 75 MCG TAB PO SCH (22:24)
--- NOTE | 2023-03-03 23:01 | ED ---
General Adult HPI - General Chief complaint: Shortness of Breath Stated complaint: sent by UC Time Seen by Provider: 03/03/23 17:11 Source: patient, RN notes reviewed, old records reviewed Mode of arrival: ambulatory Limitations: no limitations - History of Present Illness Initial comments: Patient is an 87-year-old male who presents emergency Department complaining of shortness of breath. Has been ongoing for the last month. States it is worse with exertion. Endorses mild orthopnea. Endorses lower extremity edema. Denies any PND. Denies any chest pain. Denies any abdominal pain, nausea, vomiting. Patient states is been getting slightly worse over the last month each day. He presented to urgent care who recommended he come to the emergency department for further evaluation. Has no other acute complaints at this time. Is resting comfortably in bed. States the shortness of breath is only on exertion at this time. No history of congestive heart failure. Is on blood thinners for atrial fibrillation. No history of blood clots. Patient's for further evaluation at this time. - Related Data Home Medications Medication Instructions Recorded Confirmed Omeprazole [PriLOSEC] 20 mg PO HS 11/14/13 03/03/23 Multivitamin [Men's Multi-Vitamin] 1 tab PO HS 10/09/14 03/03/23 Metoprolol Tartrate [Lopressor] 25 mg PO BID 09/29/15 03/03/23 amLODIPine [Norvasc] 5 mg PO HS 03/20/19 03/03/23 Apixaban [Eliquis] 5 mg PO BID 03/30/21 03/03/23 Levothyroxine Sodium [Synthroid] 150 mcg PO HS 03/30/21 03/03/23 Albuterol Inhaler [Ventolin Hfa 2 puff INHALATION RT-Q6H PRN 03/03/23 03/03/23 Inhaler] Fish Oil/Dha/Epa [Fish Oil 1,200 1 cap PO HS 03/03/23 03/03/23 mg Fish Oil] Melatonin 3 mg PO HS 03/03/23 03/03/23 Allergies Allergy/AdvReac Type Severity Reaction Status Date / Time celecoxib [From Celebrex] AdvReac muscle Verified 03/03/23 18:10 cramps niacin AdvReac muscle Verified 03/03/23 18:10 cramps nystatin AdvReac muscle Verified 03/03/23 18:10 cramps Kdnqrlg-ORL-LuK Reductase AdvReac muscle Verified 03/03/23 18:10 Inhibitor cramps [Wxuclkg-Ski-Kbi Reductase Inhibitor] Review of Systems ROS Statement: Those systems with pertinent positive or pertinent negative responses have been documented in the HPI. Review of Systems: CONST: Denies fever EYES: Denies blurry vision ENT: Denies nasal congestion C/V: Denies Chest pain RESP: Endorses shortness of breath GI: Denies abdominal pain : Denies dysuria SKIN: Denies rash. MSK: Denies joint pain. NEURO: Denies headache ROS Other: All systems not noted in ROS Statement are negative. Past Medical History Past Medical History: Atrial Fibrillation, Cancer, GERD/Reflux, Hypertension, Osteoarthritis (OA), Thyroid Disorder Additional Past Medical History / Comment(s): hx kidney stones, hodgkins lymphoma,. 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 hx rapid heart rate History of Any Multi-Drug Resistant Organisms: MRSA Date of last positivie culture/infection: 2014 MDRO Source:: lung Past Surgical History: Joint Replacement Additional Past Surgical History / Comment(s): right knee replacement, sinan knee scope, sinan carpal tunnel lymph node biopsy, lt shoulder rotator cuff Past Anesthesia/Blood Transfusion Reactions: No Reported Reaction Past Psychological History: No Psychological Hx Reported Additional Psychological History / Comment(s): . Lives with family home with his . She is status post stroke and he has a usual caregiver. 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 Smoking Status: Former smoker Past Alcohol Use History: None Reported Additional Past Alcohol Use History / Comment(s): SMOKED 26 YEARS, < 1/2 PPD. Past Drug Use History: None Reported - Past Family History Sister(s) Family Medical History: Cancer Mother Family Medical History: No Reported History Father Family Medical History: No Reported History General Exam - General Exam Comments Initial Comments: General: Appears in no acute distress. HEAD: Normal with no signs of head trauma. EYES: PERRLA, EOMI, conjunctiva normal, no discharge. ENT: Hearing grossly intact, normal oropharynx. RESPIRATORY: Clear breath sounds bilaterally. No wheezes, rales, or rhonchi. Ambulatory pulse ox results and hypoxia to 88%. C/V: Regular rate and rhythm. S1 and S2 auscultated, bilateral symmetrical pitting edema of the lower extremities, peripheral pulses 2+ and intact throughout ABD: Abd is soft, nontender, nondistended EXT: Normal range of motion, no obvious deformity SKIN: No rashes or lesions observed on exposed skin. NEURO: Alert and oriented 4. Limitations: no limitations Course Vital Signs 03/03/23 03/03/23 03/03/23 16:59 18:12 18:13 Temperature 97.8 F Pulse Rate 66 66 Pulse Rate [ Pulse Oximetery ] Respiratory 18 18 20 Rate Blood Pressure 153/88 149/85 Blood Pressure [Left Arm Sitting] O2 Sat by Pulse 97 97 Oximetry 03/03/23 03/03/23 03/03/23 20:12 20:47 22:03 Temperature 98.4 F Pulse Rate 75 Pulse Rate [ 84 Pulse Oximetery ] Respiratory 18 22 Rate Blood Pressure 139/86 Blood Pressure 156/88 [Left Arm Sitting] O2 Sat by Pulse 89 L 96 97 Oximetry Medical Decision Making - Medical Decision Making Was pt. sent in by a medical professional or institution (, PA, MINING SUPPORT WORKER, urgent care, hospital, or long term...) When possible be specific @ -No Did you speak to anyone other than the patient for history (EMS, parent, family, police, friend...)? What history was obtained from this source @ -No Did you review nursing and triage notes (agree or disagree)? Why? @ -I reviewed and agree with nursing and triage notes Were old charts reviewed (outside hosp., previous admission, EMS record, old EKG, old radiological studies, urgent care reports/EKG's, long term records)? Report findings @ -Old charts reviewed Differential Diagnosis (chest pain, altered mental status, abdominal pain women, abdominal pain men, vaginal bleeding, weakness, fever, dyspnea, syncope, headache, dizziness, GI bleed, back pain, seizure, CVA, palpatations, mental health, musculoskeletal)? @ -Differential Dyspnea: Coronary syndrome, arrhythmia, tamponade, asthma, COPD, pulmonary embolism, pneumonia, pneumothorax, pulmonary effusion, anaphylaxis, diabetic ketoacidosis, flailed chest, pulmonary contusion, diaphragmatic rupture, anemia, neuromuscular, this is not meant to be an all-inclusive list. EKG interpreted by me (3pts min.). @ -As above X-rays interpreted by me (1pt min.). @ -Chest x-ray as interpreted by myself shows mild pulmonary vascular congestion. Radiology did not note this. CT interpreted by me (1pt min.). @ -None done U/S interpreted by me (1pt. min.). @ -None done What testing was considered but not performed or refused? (CT, X-rays, U/S, labs)? Why? @ -None What meds were considered but not given or refused? Why? @ -None Did you discuss the management of the patient with other professionals (professionals i.e. Dr., PA, MINING SUPPORT WORKER, lab, RT, psych nurse, protective services social worker, travel registered nurse oncology, teacher, navy airspace officer, casey saw operator)? Give summary @ -Discussed with the admitting team, Dr. Umaña [facility] who accepted the admission Was smoking cessation discussed for >3mins.? @ -No Was critical care preformed (if so, how long)? @ -No Were there social determinants of health that impacted care today? How? (Homelessness, low income, unemployed, alcoholism, drug addiction, transportation, low edu. Level, literacy, decrease access to med. care, group home, rehab)? @ -No Was there de-escalation of care discussed even if they declined (Discuss DNR or withdrawal of care, Hospice)? DNR status @ -No What co-morbidities impacted this encounter? (DM, HTN, Smoking, COPD, CAD, Cancer, CVA, ARF, Chemo, Hep., AIDS, mental health diagnosis, sleep apnea, morbid obesity)? @ -None Was patient admitted / discharged? Hospital course, mention meds given and route, prescriptions, significant lab abnormalities, going to OR and other pertinent info. @ -Based on the patient's presentation and physical exam, I'm concerned for crit of pulmonary etiology for his current symptoms. Clinically is presenting as congestive heart failure. Chest x-ray and cardiac labs will be obtained. Patient was in agreement this plan. Vital signs within acceptable limits. EKG shows A. fib with no other findings. Chest x-ray shows mild pulmonary vascular congestion. Labs remarkable for mild leukocytosis of 12, hypomagnesemia 1.4, as well as an elevated BNP of 2700. Vital signs negative. Patient hypoxic on ambulation down to 88-90% which improves on rest. Patient ever has chest pain. I discussed the results with the patient. This does seem to be a worsening chronic process and I do highly suspect CHF. Recommended be admitted for cardiology evaluation and echo. He was in agreement this plan. Patient was started on twice a day Lasix. Cardiology consulted. I spoke with Dr. Juarez who accepted the admission. Undiagnosed new problem with uncertain prognosis? @ -No Drug Therapy requiring intensive monitoring for toxicity (Heparin, Nitro, Insulin, Cardizem)? @ -No Were any procedures done? @ -No Diagnosis/symptom? @ -Exertional hypoxia, suspect CHF new-onset Acute, or Chronic, or Acute on Chronic? @ -Acute Uncomplicated (without systemic symptoms) or Complicated (systemic symptoms)? @ -Complicated Side effects of treatment? @ -No Exacerbation, Progression, or Severe Exacerbation? @ -No Poses a threat to life or bodily function? How? (Chest pain, [place], [place], pneumonia, PE, COPD, DKA, ARF, appy, cholecystitis, CVA, Diverticulitis, Homicidal, Suicidal, threat to staff... and all critical care pts) @ -Yes - Lab Data Result diagrams: 03/03/23 17:58 03/03/23 17:58 Lab Results 03/03/23 03/03/23 03/03/23 Range/Units 17:32 17:58 17:58 WBC 12.7 H (3.8-10.6) k/uL RBC 3.79 L (4.30-5.90) m/uL Hgb 12.3 L (13.0-17.5) gm/dL Hct 37.3 L (39.0-53.0) % MCV 98.4 (80.0-100.0) fL MCH 32.5 (25.0-35.0) pg MCHC 33.0 (31.0-37.0) g/dL RDW 12.9 (11.5-15.5) % Plt Count 204 (150-450) k/uL MPV 8.3 Neutrophils % (Manual) 19 % Lymphocytes % (Manual) 74 % Monocytes % (Manual) 4 % Eosinophils % (Manual) 3 % Neutrophils # (Manual) 2.41 (1.3-7.7) k/uL Lymphocytes # (Manual) 9.40 H (1.0-4.8) k/uL Monocytes # (Manual) 0.51 (0-1.0) k/uL Eosinophils # (Manual) 0.38 (0-0.7) k/uL Nucleated RBCs 0 (0-0) /100 WBC Manual Slide Review Performed Polychromasia Present PT 10.9 (9.0-12.0) sec INR 1.0 (<1.2) APTT 24.8 (22.0-30.0) sec Sodium (137-145) mmol/L Potassium (3.5-5.1) mmol/L Chloride (98-107) mmol/L Carbon Dioxide (22-30) mmol/L Anion Gap mmol/L BUN (9-20) mg/dL Creatinine (0.66-1.25) mg/dL Est GFR (CKD-EPI)AfAm (>60 ml/min/1.73 sqM) Est GFR (CKD-EPI)NonAf (>60 ml/min/1.73 sqM) Glucose (74-99) mg/dL Calcium (8.4-10.2) mg/dL Magnesium (1.6-2.3) mg/dL Total Bilirubin (0.2-1.3) mg/dL AST (17-59) U/L ALT (4-49) U/L Alkaline Phosphatase (38-126) U/L NT-Pro-B Natriuret Pep pg/mL Total Protein (6.3-8.2) g/dL Albumin (3.5-5.0) g/dL Urine Color Colorless Urine Appearance Clear (Clear) Urine pH 7.0 (5.0-8.0) Ur Specific [place] 1.014 (1.001-1.035) Urine Protein Negative (Negative) Urine Glucose (UA) Negative (Negative) Urine Ketones Negative (Negative) Urine Blood Negative (Negative) Urine Nitrite Negative (Negative) Urine Bilirubin Negative (Negative) Urine Urobilinogen <2.0 (<2.0) mg/dL Ur Leukocyte Esterase Moderate H (Negative) Urine RBC 2 (0-5) /hpf Urine WBC 6 H (0-5) /hpf Hyaline Casts 1 (0-2) /lpf Urine Mucus Rare H (None) /hpf Influenza Type A (PCR) (Not Detectd) Influenza Type B (PCR) (Not Detectd) RSV (PCR) (Not Detectd) SARS-CoV-2 (PCR) (Not Detectd) 03/03/23 03/03/23 Range/Units 17:58 18:17 WBC (3.8-10.6) k/uL RBC (4.30-5.90) m/uL Hgb (13.0-17.5) gm/dL Hct (39.0-53.0) % MCV (80.0-100.0) fL MCH (25.0-35.0) pg MCHC (31.0-37.0) g/dL RDW (11.5-15.5) % Plt Count (150-450) k/uL MPV Neutrophils % (Manual) % Lymphocytes % (Manual) % Monocytes % (Manual) % Eosinophils % (Manual) % Neutrophils # (Manual) (1.3-7.7) k/uL Lymphocytes # (Manual) (1.0-4.8) k/uL Monocytes # (Manual) (0-1.0) k/uL Eosinophils # (Manual) (0-0.7) k/uL Nucleated RBCs (0-0) /100 WBC Manual Slide Review Polychromasia PT (9.0-12.0) sec INR (<1.2) APTT (22.0-30.0) sec Sodium 139 (137-145) mmol/L Potassium 4.3 (3.5-5.1) mmol/L Chloride 103 (98-107) mmol/L Carbon Dioxide 26 (22-30) mmol/L Anion Gap 10 mmol/L BUN 20 (9-20) mg/dL Creatinine 0.91 (0.66-1.25) mg/dL Est GFR (CKD-EPI)AfAm 88 (>60 ml/min/1.73 sqM) Est GFR (CKD-EPI)NonAf 76 (>60 ml/min/1.73 sqM) Glucose 93 (74-99) mg/dL Calcium 9.4 (8.4-10.2) mg/dL Magnesium 1.4 L (1.6-2.3) mg/dL Total Bilirubin 0.6 (0.2-1.3) mg/dL AST 39 (17-59) U/L ALT 24 (4-49) U/L Alkaline Phosphatase 73 (38-126) U/L NT-Pro-B Natriuret Pep 2790 pg/mL Total Protein 7.3 (6.3-8.2) g/dL Albumin 4.6 (3.5-5.0) g/dL Urine Color Urine Appearance (Clear) Urine pH (5.0-8.0) Ur Specific [place] (1.001-1.035) Urine Protein (Negative) Urine Glucose (UA) (Negative) Urine Ketones (Negative) Urine Blood (Negative) Urine Nitrite (Negative) Urine Bilirubin (Negative) Urine Urobilinogen (<2.0) mg/dL Ur Leukocyte Esterase (Negative) Urine RBC (0-5) /hpf Urine WBC (0-5) /hpf Hyaline Casts (0-2) /lpf Urine Mucus (None) /hpf Influenza Type A (PCR) Not Detected (Not Detectd) Influenza Type B (PCR) Not Detected (Not Detectd) RSV (PCR) Not Detected (Not Detectd) SARS-CoV-2 (PCR) Not Detected (Not Detectd) - EKG Data -: EKG Interpreted by Me EKG Comments: 12-lead Electrocardiogram Interpretation Note EKG was reviewed and interpreted by myself. 12-lead ECG performed at 1746 is interpreted by me as revealing atrial fibrillation at a rate of 72 beats per minute. [place] is leftward deviated. QRS duration is 129 ms, QTc is 431 ms.. There were no ST or T wave abnormalities to suggest myocardial ischemia or i njury. R wave progression across the precordium was satisfactory. By my interpretation this EKG is non-diagnostic for acute ischemia. Disposition Clinical Impression: Congestive heart failure, Hypomagnesemia, Exercise hypoxemia Disposition: ADMITTED IP TO THIS HOSP Condition: Stable Time of Disposition: 20:10
--- NOTE | 2023-03-04 01:26 | P.HPIM ---
History of Present Illness H&P Date: 03/03/23 Patient is a 87 -year-old male with a PMH of A. fib on Eliquis, history of Hodgkin's lymphoma (diagnosed March 2014 status post chemotherapy now in remission), hypertension, and hypothyroidism who presented to the emergency room with complaints of shortness of breath. Patient reports that he has been having intermittent exertional dyspnea over the past 1 month. Reports that earlier today he was using his sit on lawnmower and when he walked back into the house, he felt very short of breath and had to sit down. During the last one month he was also noted some lower extremity edema and has been experiencing some orthopnea. He denied experiencing chest discomfort. Also denied fever, chills, cough. The patient does have a history of A. fib with no prior MIs or congestive heart failure history. Patient lives at home with his and is independent in essentially all ADLs. In the emergency room, chest x-ray revealed chronic changes without acute abnormalities noted. Laboratory evaluation was remarkable for leukocytosis of 12.7, hemoglobin 12.3, magnesium 1.4, with proBNP 2790. In the emergency room, the patient and SpO2 97% on room air which dropped to 89% upon ambulation. ED documentation reviewed and case discussed with ED provider. Review of systems: Pertinent positives and negatives as discussed in HPI, a complete review of systems was performed and all other systems are negative. Physical examination: Vital signs reviewed General: non toxic, no distress, appears at stated age, normal weight Derm: no unusual rashes/lesions, warm Head: atraumatic, normocephalic, symmetric Eyes: EOMI, no lid lag, anicteric sclera, pupils equal round reactive to light ENT: Nose and ears atraumatic Neck: No cervical lymphadenopathy, trachea midline, supple Mouth: no lip lesion, mucus membranes moist Cardiovascular: S1S2 reg, no murmur, positive dorsalis pedis pulse bilateral, trace bilateral lower extremity pitting edema Lungs: CTA bilateral, no rhonchi, no rales, no accessory muscle use Abdominal: soft, nontender to palpation, no guarding Ext: muscle strength 5 out of 5 in all 4 extremities grossly, no gross muscle a trophy, no contractures, Neuro: CN II-XI grossly intact, no gross focal neuro deficits Psych: Alert, oriented, appropriate affect Assessment: Acute hypoxic respiratory failure, suspected secondary to fluid overload with newly diagnosed CHF Leukocytosis, appears chronic Hypomagnesemia Chronic conditions: A. fib, history of Hodgkin's lymphoma, hypertension, hypothyroidism Imaging: In the emergency room, chest x-ray revealed chronic changes without acute abnormalities noted. Data Review: Laboratory evaluation was remarkable for leukocytosis of 12.7, hemoglobin 12.3, magnesium 1.4, with proBNP 2790. In the emergency room, the patient and SpO2 97% on room air which dropped to 89% upon ambulation. Plan: Continue Lasix IVP 40 mg IV every 12 hourly Cardiac monitoring Cardiology consult Intake and output Daily weights Obtain echocardiogram Replace magnesium and monitor Monitor electrolytes Continue home medications including Norvasc, Synthroid, Lopressor, and Eliquis DVT prophylaxis: Eliquis The patient is admitted with an anticipated greater than 2 midnight stay for evaluation of fluid overload CODE STATUS: Full Code Discussed with: Patient Anticipated discharge place: Home Past Medical History Past Medical History: Atrial Fibrillation, Cancer, GERD/Reflux, Hypertension, Osteoarthritis (OA), Thyroid Disorder Additional Past Medical History / Comment(s): hx kidney stones, hodgkins lymphoma,. 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 hx rapid heart rate History of Any Multi-Drug Resistant Organisms: MRSA Date of last positivie culture/infection: 2014 MDRO Source:: lung Past Surgical History: Joint Replacement Additional Past Surgical History / Comment(s): right knee replacement, sinan knee scope, isnan carpal tunnel lymph node biopsy, lt shoulder rotator cuff Past Anesthesia/Blood Transfusion Reactions: No Reported Reaction Past Psychological History: No Psychological Hx Reported Additional Psychological History / Comment(s): . Lives with family home with his . She is status post stroke and he has a usual caregiver. 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 Smoking Status: Former smoker Past Alcohol Use History: None Reported Additional Past Alcohol Use History / Comment(s): SMOKED 26 YEARS, < 1/2 PPD. Past Drug Use History: None Reported - Past Family History Sister(s) Family Medical History: Cancer Mother Family Medical History: No Reported History Father Family Medical History: Hypertension Medications and Allergies Home Medications Medication Instructions Recorded Confirmed Type Omeprazole [PriLOSEC] 20 mg PO HS 11/14/13 03/03/23 History Multivitamin [Men's Multi-Vitamin] 1 tab PO HS 10/09/14 03/03/23 History Metoprolol Tartrate [Lopressor] 25 mg PO BID 09/29/15 03/03/23 History amLODIPine [Norvasc] 5 mg PO HS 03/20/19 03/03/23 History Apixaban [Eliquis] 5 mg PO BID 03/30/21 03/03/23 History Levothyroxine Sodium [Synthroid] 150 mcg PO HS 03/30/21 03/03/23 History Albuterol Inhaler [Ventolin Hfa 2 puff INHALATION RT-Q6H PRN 03/03/23 03/03/23 History Inhaler] Fish Oil/Dha/Epa [Fish Oil 1,200 1 cap PO HS 03/03/23 03/03/23 History mg Fish Oil] Melatonin 3 mg PO HS 03/03/23 03/03/23 History Allergies Allergy/AdvReac Type Severity Reaction Status Date / Time celecoxib [From Celebrex] AdvReac muscle Verified 03/03/23 18:10 cramps niacin AdvReac muscle Verified 03/03/23 18:10 cramps nystatin AdvReac muscle Verified 03/03/23 18:10 cramps Xdqkgft-VGC-BeK Reductase AdvReac muscle Verified 03/03/23 18:10 Inhibitor cramps [Xgoknnp-Lxr-Oms Reductase Inhibitor] Physical Exam Vitals: Vital Signs Temp Pulse Pulse Resp BP BP Pulse Ox 03/03/23 22:03 98.4 F 84 22 156/88 97 03/03/23 20:47 75 18 139/86 96 03/03/23 20:12 89 L 03/03/23 18:13 20 03/03/23 18:12 66 18 149/85 97 03/03/23 16:59 97.8 F 66 18 153/88 97 Intake and Output 03/03/23 03/03/23 03/04/23 14:59 22:59 06:59 Intake Total 240 Output Total 150 600 Balance 90 -600 Intake: Oral 240 Output: Urine 150 600 Other: Voiding Method Urinal # Voids 1 Weight 101.151 kg Results CBC & Chem 7: 03/03/23 17:58 03/03/23 17:58 Labs: Abnormal Lab Results - Last 24 Hours (Table) 03/03/23 03/03/23 03/03/23 Range/Units 17:32 17:58 17:58 WBC 12.7 H (3.8-10.6) k/uL RBC 3.79 L (4.30-5.90) m/uL Hgb 12.3 L (13.0-17.5) gm/dL Hct 37.3 L (39.0-53.0) % Lymphocytes # (Manual) 9.40 H (1.0-4.8) k/uL Magnesium 1.4 L (1.6-2.3) mg/dL Ur Leukocyte Esterase Moderate H (Negative) Urine WBC 6 H (0-5) /hpf Urine Mucus Rare H (None) /hpf Thrombosis Risk Factor Assmnt - Choose All That Apply Any of the Below Risk Factors Present?: Yes Each Factor Represents 1 point: History of prior major surgery (<1month), Obesity (BMI >25), Swollen legs (current) Other Risk Factors: Yes Each Risk Factor Represents 3 Points: Age 75 years or older Other congenital or acquired thrombophilia - If yes, enter type in comment: No Thrombosis Risk Factor Assessment Total Risk Factor Score: 6 Thrombosis Risk Factor Assessment Level: High Risk
[2023-03-04] MEDS: FUROSEMIDE 10 MG/ML 4 ML VIAL IV SCH ×2 (08:05→20:06)
[2023-03-04] MEDS: METOPROLOL TARTRATE 25 MG TAB PO SCH ×2 (08:05→20:06)
[2023-03-04] MEDS: APIXABAN 5 MG TAB PO SCH ×2 (08:05→20:06)
[2023-03-04 09:15] LABS: African American GFR (CKD) 82 (>60 ml/min/1.73 sqM); Anion Gap 12 mmol/L; Basophils # (A) 0.1 k/uL (0-0.2); Basophils % (A) 1 %; Blood Urea Nitrogen 19 mg/dL (9-20); Calcium 9.5 mg/dL (8.4-10.2); Carbon Dioxide 27 mmol/L (22-30); Chloride 101 mmol/L (98-107); Eosinophils # (A) 0.3 k/uL (0-0.7); Eosinophils % (A) 2 %; Glucose 128 mg/dL (74-99); HCT 39.8 % (39.0-53.0); HGB 13.3 gm/dL (13.0-17.5); Lymphocytes # (A) 7.1 k/uL (1.0-4.8); Lymphocytes % (A) 62 %; MCH 33.1 pg (25.0-35.0); MCHC 33.3 g/dL (31.0-37.0); MCV 99.4 fL (80.0-100.0); Mean Platelet Volume 8.5; Monocytes # (A) 0.6 k/uL (0-1.0); Monocytes % (A) 5 %; Neutrophils # (A) 3.1 k/uL (1.3-7.7); Neutrophils % (A) 27 %; Non-African American GFR(CKD) 71 (>60 ml/min/1.73 sqM); Platelet Count 206 k/uL (150-450); Potassium 4.1 mmol/L (3.5-5.1); Sodium 140 mmol/L (137-145); WBC 11.4 k/uL (3.8-10.6)
--- NOTE | 2023-03-04 12:19 | CA ---
Transthoracic Echo Report Name: Venkat Richmond Age: 87 Gender: M : 1935 Exam Date: 03/04/2023 08:58 Exam Location: [facility] Ht (in): 69 Wt (lb): 223 Ordering Physician: Cecil Gilliam MD Attending/Referring Phys: Milk Pasteurizer Shanell Castro RDCS Procedure CPT: Indications: chf Cardiac Hx: Technical Quality: Fair Contrast 1: Total Dose (mL): Contrast 2: Total Dose (mL): MEASUREMENTS (Male / Female) Normal Values 2D ECHO LV Diastolic Diameter PLAX 4.1 cm 4.2 - 5.9 / 3.9 - 5.3 cm LV Systolic Diameter PLAX 2.4 cm IVS Diastolic Thickness 1.2 cm 0.6 - 1.0 / 0.6 - 0.9 cm LVPW Diastolic Thickness 1.6 cm 0.6 - 1.0 / 0.6 - 0.9 cm LV Relative Wall Thickness 0.7 RV Internal Dim ED PLAX 3.3 cm LV Diastolic Volume MOD BP 127.0 cm??? 67 - 155 / 56 - 104 cm??? LV Systolic Volume MOD BP 85.2 cm??? 22 - 58 / 19 - 49 cm??? LV Ejection Fraction MOD BP 32.9 % >= 55 % LV Cardiac Index MOD BP 1094.5 cm???/min???m??? LV Diastolic Volume MOD 4C 159.0 cm??? LV Systolic Volume MOD 4C 88.8 cm??? LV Ejection Fraction MOD 4C 44.2 % LV Cardiac Index MOD 4C 1839.5 cm???/min???m??? LV Diastolic Length 4C 8.8 cm LV Systolic Length 4C 8.1 cm LV Diastolic Volume MOD 2C 96.7 cm??? LV Systolic Volume MOD 2C 72.8 cm??? LV Ejection Fraction MOD 2C 24.7 % LV Cardiac Index MOD 2C 624.3 cm???/min???m??? LV Diastolic Length 2C 8.3 cm LV Systolic Length 2C 6.9 cm LA Volume 113.6 cm??? 18 - 58 / 22 - 52 cm??? M-MODE Aortic Root Diameter MM 3.5 cm AV Cusp Separation MM 1.8 cm DOPPLER AV Peak Velocity 166.5 cm/s AV Peak Gradient 11.1 mmHg AV Mean Velocity 113.9 cm/s AV Mean Gradient 5.7 mmHg AV Velocity Time Integral 29.0 cm LVOT Peak Velocity 94.7 cm/s LVOT Peak Gradient 3.6 mmHg LVOT Velocity Time Integral 16.3 cm MV Area PHT 3.0 cm??? Mitral E Point Velocity 78.1 cm/s Mitral A Point Velocity 30.4 cm/s Mitral E to A Ratio 2.6 MV Deceleration Time 250.7 ms MV E' Velocity 8.6 cm/s Mitral E to MV E' Ratio 9.0 TR Peak Velocity 208.7 cm/s TR Peak Gradient 17.4 mmHg Right Ventricular Systolic Press 22.2 mmHg FINDINGS Left Ventricle Mildly increased septal wall thickness. Severely increased left ventricular systolic volume. Moderately decreased left ventricular ejection fraction. Left ventricular ejection fraction is estimated at 35-40 %. Right Ventricle Normal right ventricular size and function. Right ventricular systolic pressure within normal limits. Right Atrium Normal right atrial size. Left Atrium Severely increased left atrial volume. Mildly increased left atrial area. Mitral Valve Structurally normal mitral valve. No mitral stenosis. Mild mitral annular calcification. Jwzl-zo-vdttjnqf mitral regurgitation. Aortic Valve No aortic valve stenosis or regurgitation. Thickened aortic valve without stenosis. Tricuspid Valve Structurally normal tricuspid valve. Mild tricuspid regurgitation. Pulmonic Valve Trace pulmonic regurgitation. Pericardium No pericardial effusion. Aorta Normal size aortic root and proximal ascending aorta. CONCLUSIONS Dilated LV. Impaired LV function. The ejection fraction is about 40% Normal RV systolic function Peom-uy-dvnoeack mitral regurgitation Aortic sclerosis with mild gradient across aortic valve Previewed by: Dr. Kevin Hendrickson MD (Electronically Signed) Final Date: 04 March 2023 12:17
[2023-03-04] MEDS: DAPAGLIFLOZIN PROPANEDIOL 10 MG TABLET PO SCH (12:24)
--- NOTE | 2023-03-04 13:27 | P.CRDCN ---
History of Present Illness Consult date: 03/04/23 Consult reason: congestive heart failure (New onset) History of present illness: History of present illness: This is an 87-year-old female patient of Dr. Patel with past medical history of paroxysmal atrial fibrillation, moderate mitral insufficiency, hypertension, hyperlipidemia, coronary artery disease. We have been asked to evaluate the [place] for new onset heart failure. Patient has history that yesterday morning he was out with friends and for about one hour he felt faint and weak. This subsided somewhat and he drove home. He watched TV, fell asleep for a bit and was feeling well when he woke up. He then went outside to mow the lawn and when he went into the house he had to sit down he was having shortness of breath that lasted briefly for a few minutes. He states he is having this occur a couple times every day for the past 6 months. He denies any weight gain but he states he's had increased lower extremity edema. When he is shopping at [employer], he needs to lean on the cart in [employer] through the building but if he was not leaning on the car he would have significant shortness of breath. He also has cough with phlegm production that has been chronic. He states he has been on Lasix 1-2 years ago but it caused cramps in his legs and was discontinued. Patient quit smoking in 1984, no alcohol abuse. Patient is status post IV Lasix with good urine output and he feels his symptoms are significantly better. He denies shortness of breath with short ambulation to the bathroom. He states the lower extremity edema has resolved. EKG atrial fibrillation at a ventricular rate of 72 Chest x-ray: Chronic changes without acute pulmonary process WBC 11.4, hemoglobin 13.3. Potassium 4.1 with normal electrolytes, blood sugar 128. BUN 19 creatinine 0.97. Troponin negative 1. ProBNP 2790 Home cardiac medications: Amlodipine 5 mg at bedtime, eliquis 5 mg twice daily, fish oil at bedtime, metoprolol tartrate 25 mg twice daily, levothyroxine 150 g at bedtime Echocardiogram performed in the office 08/2022 and normal EF with ejection fraction of 50%. Moderate left ventricular hypertrophy. Moderate FRIEDA. Dilated left atrium. Moderate mitral regurgitation, moderate tricuspid regurgitation, moderately increased pulmonary artery systolic pressure of 58 mmHg, trace to mild pulmonary regurgitation [facility] performed 01/2021 negative ejection fraction 40% Review Of Systems: At the time of my evaluation: Constitutional: No fever, no chills. No weakness, fatigue or lethargy. EENT: No headache. No dizziness. Lungs: No shortness of breath, cough, no sputum production. No wheezing. Dyspnea with exertion Cardiovascular: No chest pain, no lower extremity edema. No palpitations. No paroxysmal nocturnal dyspnea. No orthopnea. No lightheadedness or dizziness. No syncopal episodes. Abdominal: No abdominal pain. No nausea, vomiting. No diarrhea. No constipation. No bloody or tarry stools. Genitourinary: No dysuria.. No urinary retention. Musculoskeletal: No myalgias. No muscle weakness, no frequent falls. No back pain. No neck pain. Integumentary: No wounds. No rash. No unusual bruising. Neurologic: No aphasia. No facial droop. No change in mentation. No head injury. No headache. Physical examination: Gen: This is an 87-year-old male. He is resting in bed appears to be comfortable in no acute distress. VS: reviewed HEENT: Head is atraumatic, normocephalic. Pupils equal, round. Sclerae is anicteric. NECK: Supple. No JVD. . LUNGS: Clear to auscultation. No wheezes or rhonchi. No intercostal retractions. HEART: Regular rate and rhythm. Systolic murmur. ABDOMEN: Soft No tenderness. EXTREMITIES: No pedal edema. No calf tenderness. NEUROLOGICAL: Patient is awake, alert and oriented x3. Assessment: Acute diastolic heart failure Paroxysmal atrial fibrillation, possible permanent Moderate mitral regurgitation Hypertension Hyperlipidemia Coronary artery disease Plan: Resume patient's home medications with the following changes Discontinue amlodipine and start patient on lisinopril 5 mg twice daily Add Farxiga 10 mg daily Continue patient on IV Lasix Monitor I&O, daily weights, electrolytes and renal function Obtain 2-D echocardiogram and Doppler study to assess cardiac structure and function Further recommendations to follow based upon clinical course Thank you kindly for this consultation. Nurse practitioner note has been reviewed, I agree with documented findings and plan of care. Patient was seen and examined. Past Medical History Past Medical History: Atrial Fibrillation, Cancer, GERD/Reflux, Hypertension, Osteoarthritis (OA), Thyroid Disorder Additional Past Medical History / Comment(s): hx kidney stones, hodgkins lymphoma,. 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 hx rapid heart rate History of Any Multi-Drug Resistant Organisms: MRSA Date of last positivie culture/infection: 2014 MDRO Source:: lung Past Surgical History: Joint Replacement Additional Past Surgical History / Comment(s): right knee replacement, sinan knee scope, sinan carpal tunnel lymph node biopsy, lt shoulder rotator cuff Past Anesthesia/Blood Transfusion Reactions: No Reported Reaction Past Psychological History: No Psychological Hx Reported Additional Psychological History / Comment(s): . Lives with family home with his . She is status post stroke and he has a usual caregiver. 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 Smoking Status: Former smoker Past Alcohol Use History: None Reported Additional Past Alcohol Use History / Comment(s): SMOKED 26 YEARS, < 1/2 PPD. Past Drug Use History: None Reported - Past Family History Sister(s) Family Medical History: Cancer Mother Family Medical History: No Reported History Father Family Medical History: Hypertension Medications and Allergies Home Medications Medication Instructions Recorded Confirmed Type Omeprazole [PriLOSEC] 20 mg PO HS 11/14/13 03/03/23 History Multivitamin [Men's Multi-Vitamin] 1 tab PO HS 10/09/14 03/03/23 History Metoprolol Tartrate [Lopressor] 25 mg PO BID 09/29/15 03/03/23 History amLODIPine [Norvasc] 5 mg PO HS 03/20/19 03/03/23 History Apixaban [Eliquis] 5 mg PO BID 03/30/21 03/03/23 History Levothyroxine Sodium [Synthroid] 150 mcg PO HS 03/30/21 03/03/23 History Albuterol Inhaler [Ventolin Hfa 2 puff INHALATION RT-Q6H PRN 03/03/23 03/03/23 History Inhaler] Fish Oil/Dha/Epa [Fish Oil 1,200 1 cap PO HS 03/03/23 03/03/23 History mg Fish Oil] Melatonin 3 mg PO HS 03/03/23 03/03/23 History Allergies Allergy/AdvReac Type Severity Reaction Status Date / Time celecoxib [From Celebrex] AdvReac muscle Verified 03/03/23 18:10 cramps niacin AdvReac muscle Verified 03/03/23 18:10 cramps nystatin AdvReac muscle Verified 03/03/23 18:10 cramps Thfqnou-XQP-DwH Reductase AdvReac muscle Verified 03/03/23 18:10 Inhibitor cramps [Jgduxyn-Wwm-Rmi Reductase Inhibitor] Physical Exam Vitals: Vital Signs Temp Pulse Pulse Resp BP BP Pulse Ox 03/04/23 07:52 97.6 F 91 15 113/76 98 03/04/23 03:13 98.2 F 68 20 119/73 98 03/03/23 22:03 98.4 F 84 22 156/88 97 03/03/23 20:47 75 18 139/86 96 03/03/23 20:12 89 L 03/03/23 18:13 20 03/03/23 18:12 66 18 149/85 97 03/03/23 16:59 97.8 F 66 18 153/88 97 Intake and Output 03/03/23 03/04/23 03/04/23 22:59 06:59 14:59 Intake Total 240 250 Output Total 150 2150 625 Balance 90 -2150 -375 Intake: IV 10 Invasive Line 1 10 Oral 240 240 Output: Urine 150 2150 625 Other: Voiding Method Urinal Urinal Urinal # Voids 1 500 Weight 101.151 kg 95.5 kg Results 03/04/23 08:11 03/04/23 08:11 Cardiac Enzymes 03/03/23 03/04/23 Range/Units 17:58 08:11 AST 39 (17-59) U/L Troponin I <0.012 (0.000-0.034) ng/mL Coagulation 03/03/23 Range/Units 17:58 PT 10.9 (9.0-12.0) sec APTT 24.8 (22.0-30.0) sec CBC 03/03/23 03/04/23 Range/Units 17:58 08:11 WBC 12.7 H 11.4 H (3.8-10.6) k/uL RBC 3.79 L 4.00 L (4.30-5.90) m/uL Hgb 12.3 L 13.3 (13.0-17.5) gm/dL Hct 37.3 L 39.8 (39.0-53.0) % Plt Count 204 206 (150-450) k/uL Comprehensive Metabolic Panel 03/03/23 03/04/23 Range/Units 17:58 08:11 Sodium 139 140 (137-145) mmol/L Potassium 4.3 4.1 (3.5-5.1) mmol/L Chloride 103 101 (98-107) mmol/L Carbon Dioxide 26 27 (22-30) mmol/L BUN 20 19 (9-20) mg/dL Creatinine 0.91 0.97 (0.66-1.25) mg/dL Glucose 93 128 H (74-99) mg/dL Calcium 9.4 9.5 (8.4-10.2) mg/dL AST 39 (17-59) U/L ALT 24 (4-49) U/L Alkaline Phosphatase 73 (38-126) U/L Total Protein 7.3 (6.3-8.2) g/dL Albumin 4.6 (3.5-5.0) g/dL Current Medications Generic Name Dose Route Start Last Admin Trade Name Freq PRN Reason Stop Dose Admin Albuterol Sulfate 2.5 mg 03/03/23 20:28 Albuterol Nebulized 2.5 Mg/3 Ml INHALATION RT-Q6H PRN Shortness Of Breath Amlodipine Besylate 5 mg 03/03/23 21:00 03/03/23 22:11 Amlodipine 5 Mg Tab PO 5 mg HS CHRISTIANA Administration Apixaban 5 mg 03/03/23 21:00 03/04/23 08:05 Apixaban 5 Mg Tab PO 5 mg BID CHRISTIANA Administration Protocol Furosemide 40 mg 03/03/23 21:00 03/04/23 08:05 Furosemide 10 Mg/Ml 4 Ml Vial IV 40 mg Q12HR CHRISTIANA Administration Levothyroxine Sodium 150 mcg 03/03/23 21:00 03/03/23 22:24 Levothyroxine 75 Mcg Tab PO Not Given HS CHRISTIANA Melatonin 3 mg 03/03/23 21:00 03/03/23 22:12 Melatonin 3 Mg Tablet PO 3 mg HS CHRISTIANA Administration Metoprolol Tartrate 25 mg 03/03/23 21:00 03/04/23 08:05 Metoprolol Tartrate 25 Mg Tab PO 25 mg BID CHRISTIANA Administration Naloxone HCl 0.2 mg 03/03/23 20:27 Naloxone 0.4 Mg/Ml 1 Ml Vial IV Q2M PRN Opioid Reversal Pantoprazole Sodium 40 mg 03/03/23 21:00 03/03/23 22:11 Pantoprazole 40 Mg Tablet PO 40 mg HS CHRISTIANA Administration Intake and Output 03/03/23 03/04/23 03/04/23 22:59 06:59 14:59 Intake Total 240 250 Output Total 150 2150 625 Balance 90 -2150 -375 Intake: IV 10 Invasive Line 1 10 Oral 240 240 Output: Urine 150 2150 625 Other: Voiding Method Urinal Urinal Urinal # Voids 1 500 Weight 101.151 kg 95.5 kg 03/04/23 08:11 03/04/23 08:11
--- NOTE | 2023-03-04 14:24 | P.PN ---
Subjective Progress Note Date: 03/04/23 Hospital Course: 87 -year-old male with a PMH of Jeane tellez on Eliquis, history of Hodgkin's lymphoma (diagnosed March 2014 status post chemotherapy now in remission), hypertension, and hypothyroidism who presented to the emergency room with complaints of shortness of breath. In the emergency room, chest x-ray revealed chronic changes without acute abnormalities noted. Laboratory evaluation was remarkable for leukocytosis of 12.7, hemoglobin 12.3, magnesium 1.4, with proBNP 2790. In the emergency room, the patient and SpO2 97% on room air which dropped to 89% upon ambulation. Patient admitted for acute hypoxic respiratory failure secondary to likely newly diagnosed CHF. Echo shows reduced LVEF 35-40%. Currently on IV Lasix. Cardiology consulted. Subjective: Patient seen and examined at bedside. No acute events overnight. He claims that his breathing is slightly better. Pertinent positives and negatives as discussed above, a complete review of systems was performed and all other systems are negative. Vitals Signs Reviewed. General: nontoxic, no distress, appears at stated age Derm: warm, dry Head: atraumatic, normocephalic, symmetric Eyes: EOMI, no lid lag, anicteric sclera Mouth: no lip lesion, mucus membranes moist Cardiovascular: S1S2 reg, no murmur Lungs: CTA bilateral, no rhonchi, no rales , no accessory muscle use Abdominal: soft, nontender to palpation, no guarding, no appreciable organomegaly Ext: no gross muscle atrophy, trace peripheral edema, no contractures Neuro: CN II-XI grossly intact, no focal neuro deficits Psych: Alert, oriented, appropriate affect Data Reviewed Today: Pertinent Labs: WBC 11.4, potassium 4.1, creatinine 0.97, magnesium 1.6, troponin negative 2 Imaging: Echocardiogram report, moderately decreased LV systolic function EF 35- 40% Assessment and Plan: Systolic heart failure exacerbation Cardiomyopathy, unclear etiology Paroxysmal atrial fibrillation, currently rate controlled Hypertension Dyslipidemia Hypomagnesemia, resolved -Cardiology note reviewed, amlodipine discontinued, patient started on l isinopril, farxiga added -Patient was reduced systolic function, unsure if ischemic or nonischemic -Continue Lasix 40 mg IV twice a day, monitor renal function and electrolytes -Continue Eliquis -Lipid panel pending, patient ALLERGIC to statins -can consider zetia DVT ppx: eliquis Code status: full code Anticipated discharge place: home Anticipated discharge time: 1-2 days Objective - Vital Signs Vital signs: Vital Signs Temp 97.6 F 03/04/23 07:52 Pulse 99 03/04/23 12:23 Resp 20 03/04/23 12:23 BP 113/76 03/04/23 12:23 Pulse Ox 98 03/04/23 12:23 FiO2 Intake & Output 03/03/23 03/04/23 03/04/23 18:59 06:59 18:59 Intake Total 240 368 Output Total 2300 1425 Balance -2059 Weight 101.151 kg 95.5 kg Intake: IV 10 Invasive Line 1 10 Oral 240 358 Output: Urine 2300 1425 Other: Voiding Method Urinal Urinal # Voids 500 - Labs CBC & Chem 7: 03/04/23 08:11 03/04/23 08:11 Labs: Abnormal Lab Results - Last 24 Hours (Table) 03/03/23 03/03/23 03/03/23 Range/Units 17:32 17:58 17:58 WBC 12.7 H (3.8-10.6) k/uL RBC 3.79 L (4.30-5.90) m/uL Hgb 12.3 L (13.0-17.5) gm/dL Hct 37.3 L (39.0-53.0) % Lymphocytes # (1.0-4.8) k/uL Lymphocytes # (Manual) 9.40 H (1.0-4.8) k/uL Glucose (74-99) mg/dL Magnesium 1.4 L (1.6-2.3) mg/dL Ur Leukocyte Esterase Moderate H (Negative) Urine WBC 6 H (0-5) /hpf Urine Mucus Rare H (None) /hpf 03/04/23 03/04/23 Range/Units 08:11 08:11 WBC 11.4 H (3.8-10.6) k/uL RBC 4.00 L (4.30-5.90) m/uL Hgb (13.0-17.5) gm/dL Hct (39.0-53.0) % Lymphocytes # 7.1 H (1.0-4.8) k/uL Lymphocytes # (Manual) (1.0-4.8) k/uL Glucose 128 H (74-99) mg/dL Magnesium (1.6-2.3) mg/dL Ur Leukocyte Esterase (Negative) Urine WBC (0-5) /hpf Urine Mucus (None) /hpf
[2023-03-04] MEDS: PANTOPRAZOLE 40 MG TABLET PO SCH (20:06)
[2023-03-04] MEDS: LEVOTHYROXINE 75 MCG TAB PO SCH (20:06)
[2023-03-04] MEDS: MELATONIN 3 MG TABLET PO SCH (20:06)
[2023-03-04] MEDS: lisinopriL 5 MG TAB PO SCH (20:06)
[2023-03-05] MEDS: METOPROLOL TARTRATE 25 MG TAB PO SCH ×2 (08:12→20:01)
[2023-03-05] MEDS: FUROSEMIDE 10 MG/ML 4 ML VIAL IV SCH (08:12)
[2023-03-05] MEDS: APIXABAN 5 MG TAB PO SCH ×2 (08:12→20:00)
[2023-03-05] MEDS: DAPAGLIFLOZIN PROPANEDIOL 10 MG TABLET PO SCH (08:12)
[2023-03-05 10:16] LABS: Basophils % (A) 0 %; Eosinophils # (A) 0.3 k/uL (0-0.7); Eosinophils % (A) 2 %; HCT 39.1 % (39.0-53.0); HGB 13.1 gm/dL (13.0-17.5); Lymphocytes # (A) 7.3 k/uL (1.0-4.8); Lymphocytes % (A) 65 %; MCH 33.4 pg (25.0-35.0); MCHC 33.5 g/dL (31.0-37.0); MCV 99.8 fL (80.0-100.0); Mean Platelet Volume 8.5; Monocytes # (A) 0.5 k/uL (0-1.0); Monocytes % (A) 4 %; Neutrophils # (A) 2.7 k/uL (1.3-7.7); Neutrophils % (A) 24 %; Platelet Count 208 k/uL (150-450); RBC 3.92 m/uL (4.30-5.90); RDW 12.8 % (11.5-15.5); WBC 11.2 k/uL (3.8-10.6)
[2023-03-05 10:34] LABS: African American GFR (CKD) 50 (>60 ml/min/1.73 sqM); Anion Gap 9 mmol/L; Blood Urea Nitrogen 35 mg/dL (9-20); Calcium 9.2 mg/dL (8.4-10.2); Carbon Dioxide 29 mmol/L (22-30); Chloride 100 mmol/L (98-107); Glucose 80 mg/dL (74-99); Non-African American GFR(CKD) 44 (>60 ml/min/1.73 sqM); Potassium 3.9 mmol/L (3.5-5.1); Sodium 138 mmol/L (137-145)
[2023-03-05] MEDS: lisinopriL 5 MG TAB PO SCH (11:22)
[2023-03-05] MEDS: MAGNESIUM SULFATE-D5W PMX 1 GM in DEXTROSE/WATER 1 100ML.BAG IVPB SCH ×3 (12:49→15:14)
[2023-03-05 13:55] LABS: Chol/HDL Ratio 4.41 Ratio; LDL Cholesterol,Calculated 103.9 mg/dL (0.0-131.0); VLDL Calculation 18.34 mg/dL (5.00-40.00)
--- NOTE | 2023-03-05 13:56 | P.PN ---
Subjective Progress Note Date: 03/05/23 PROGRESS NOTE The patient is an 87-year-old male with history of atrial fibrillation, mitral regurgitation, coronary disease, hypertension, hyperlipidemia who presented with symptoms progressive dyspnea. He is feeling better at this point, continues to have mild dyspnea but no chest discomfort. He denies any dizziness or palpitations. His echocardiogram showed a moderately impaired left ventricular systolic function. His ejection fraction is 35-40% with qtub-mb-[id number] mitral regurgitation. He continues to be in atrial fibrillation Medications: Furosemide 40 mg IV every 12, Zestril 2.5 mg twice a day, metoprolol 25 mg twice a day, Farxiga 10 mg daily, Eliquis 5 mg twice a day PHYSICAL EXAMINATION: Blood pressure 100/60 heart rate 60 LUNGS: Clear to auscultation HEART: Irregular rate and rhythm, S1, S2. No S3. Systolic ejection murmur ABDOMEN: Soft, nontender, no organomegaly EXTREMETIES: No edema LAB: BUN 35, creatinine 1.44, potassium 3.9 IMPRESSION: 1. CHF with reduced ejection fraction 2. Atrial fibrillation, rate controlled 3. Acute renal injury from diuresis 4. History of CAD PLAN: 1. Changed to oral diuretics 2. Follow renal functions 3. Increase physical activity 4. Depending on his progress further recommendations will be made Objective - Vital Signs Vital signs: Vital Signs Temp 97.8 F 03/05/23 11:13 Pulse 55 L 03/05/23 11:13 Resp 16 03/05/23 11:13 BP 85/54 03/05/23 11:13 Pulse Ox 99 03/05/23 11:13 FiO2 Intake & Output 03/04/23 03/05/23 03/05/23 18:59 06:59 18:59 Intake Total 888 240 370 Output Total 1425 500 Balance -537 -260 370 Intake: IV 10 10 Invasive Line 1 10 10 Oral 878 240 360 Output: Urine 1425 500 Other: Voiding Method Urinal Urinal Urinal - Labs CBC & Chem 7: 03/05/23 08:48 03/05/23 08:48 Labs: Abnormal Lab Results - Last 24 Hours (Table) 03/05/23 03/05/23 03/05/23 Range/Units 08:48 08:48 08:48 WBC 11.2 H (3.8-10.6) k/uL RBC 3.92 L (4.30-5.90) m/uL BUN 35 H (9-20) mg/dL Creatinine 1.44 H (0.66-1.25) mg/dL Magnesium 1.4 L (1.6-2.3) mg/dL
[2023-03-05] MEDS: FUROSEMIDE 20 MG TAB PO SCH (15:14)
--- NOTE | 2023-03-05 16:02 | P.PN ---
Subjective Progress Note Date: 03/05/23 (delayed charting seen at 1130) Patient is an 87-year-old male with atrial fibrillation on Eliquis, history of non-Hodgkin's lymphoma (status post chemo in 2013 currently in remission), hy pertension, and hypothyroidism who initially presented to the ER with complaints of shortness of breath. In the ER he underwent extensive evaluation. Initial chest x-ray didn't showed chronic changes. Initial laboratory analysis was remarkable for white blood cell count 12.7, hemoglobin 12.3, magnesium 1.4, and BNP 2790. He was slightly hypoxic in the ER at 89% with ambulation. He was subsequently admitted for acute hypoxic respiratory failure likely secondary to the acute exacerbation of CHF. Cardiology was consulted. He underwent an echocardiogram which showed a reduced left ventricular ejection fraction of 35- 40%, prior 50% in August 2021. He was continued on IV Lasix. Cardiology started him on farxigaand lisinopril. He did have a slight increase in his creatinine on the morning of 03/05/23. Patient seen and examined at bedside. He states that his breathing is doing fine, his edema significantly improved. He denies any nausea or vomiting. He has come off of oral Lasix in the past due to severe muscle cramping. However he had never been on magnesium replacement and this hospital stay his magnesium is 1.4. He is in agreement of trialing Lasix again with magnesium s upplementation on discharge. Vital signs reviewed General: nontoxic, no distress, appears at stated age Cardiovascular: S1S2 reg, no murmur, positive posterior tibial pulse bilateral, Lungs: Coarse breath sounds bilateral, no rhonchi, no rales , no accessory muscle use Abdominal: soft, nontender to palpation, no guarding, no appreciable organomegaly Ext: no gross muscle atrophy, 1+ edema b/l lower extremities, no contractures Neuro: CN II-XI grossly intact, no focal neuro deficits Psych: Alert, oriented, appropriate affect Assessment/Plan: Acute exacerbation of systolic congestive heart failure with ejection fraction 35-40% Acute hypoxic respiratory failure Paroxysmal atrial fibrillation, currently rate controlled Hypertension Dyslipidemia -Metoprolol 25 mg twice daily, lisinopril 2.5 mg twice daily, Farxiga 10 mg daily, ELqiuis 5 mg BID -Cardiology note reviewed: Change to oral diuretics, follow renal function -Strict I's and O's, daily weight Elevated creatinine -Suspect that elevated creatinine is likely due to low blood pressures in conjunction with initiating lisinopril. However the increased creatinine is near the 30% increase expected when starting an Aime or an ARB. Therefore we will continue lisinopril but decrease dose to 2.5 mg twice daily given the patient's blood pressures of 85/55. -Repeat renal profile in a.m. Hypomagnesemia -Magnesium sulfate 3 g IV piggyback -Repeat in a.m. Chronic: GERD Hypothyroidism History of Hodgkin's lymphoma Imaging: None new Data Review: Vitals reviewed temperature 97.8, pulse 55, respirations 16, blood pressure 85/54, O2 sat 99% on room air Afebrile the last 24 hours White blood cell count 11.2, BUN 35, creatinine 1.44, magnesium 1.4, cholesterol profile reviewed and within normal limits other than a mildly depressed HDL at 35.8 DVT prophylaxis: Elqiuis Anticipated discharge date: in AM Anticipated discharge place: Home This dictation was prepared using [employer] voice recognition software. Though every attempt is made to correct errors during dictation some may still exist. Objective - Vital Signs Vital signs: Vital Signs Temp 97.6 F 03/05/23 15:15 Pulse 56 L 03/05/23 15:15 Resp 16 03/05/23 15:15 BP 86/54 03/05/23 15:15 Pulse Ox 99 03/05/23 15:15 FiO2 Intake & Output 03/04/23 03/05/23 03/05/23 18:59 06:59 18:59 Intake Total 888 240 370 Output Total 1425 500 Balance -537 -260 370 Intake: IV 10 10 Invasive Line 1 10 10 Oral 878 240 360 Output: Urine 1425 500 Other: Voiding Method Urinal Urinal Urinal - Labs CBC & Chem 7: 03/05/23 08:48 03/05/23 08:48 Labs: Abnormal Lab Results - Last 24 Hours (Table) 03/05/23 03/05/23 03/05/23 Range/Units 08:48 08:48 08:48 WBC 11.2 H (3.8-10.6) k/uL RBC 3.92 L (4.30-5.90) m/uL Lymphocytes # 7.3 H (1.0-4.8) k/uL BUN (9-20) mg/dL Creatinine (0.66-1.25) mg/dL Magnesium 1.4 L (1.6-2.3) mg/dL HDL Cholesterol 35.80 L (40.00-60.00) mg/dL 03/05/23 Range/Units 08:48 WBC (3.8-10.6) k/uL RBC (4.30-5.90) m/uL Lymphocytes # (1.0-4.8) k/uL BUN 35 H (9-20) mg/dL Creatinine 1.44 H (0.66-1.25) mg/dL Magnesium (1.6-2.3) mg/dL HDL Cholesterol (40.00-60.00) mg/dL
[2023-03-05] MEDS: PANTOPRAZOLE 40 MG TABLET PO SCH (20:00)
[2023-03-05] MEDS: MELATONIN 3 MG TABLET PO SCH (20:00)
[2023-03-05] MEDS: LEVOTHYROXINE 75 MCG TAB PO SCH (20:01)
[2023-03-06 08:25] VITALS: RESP 16
[2023-03-06] MEDS: FUROSEMIDE 20 MG TAB PO SCH ×2 (08:31→16:18)
[2023-03-06] MEDS: APIXABAN 5 MG TAB PO SCH (08:31)
[2023-03-06] MEDS: DAPAGLIFLOZIN PROPANEDIOL 10 MG TABLET PO SCH (08:31)
--- NOTE | 2023-03-06 11:24 | P.PN ---
Subjective Progress Note Date: 03/06/23 PROGRESS NOTE The patient is an 87-year-old male with history of atrial fibrillation, mitral regurgitation, coronary disease, hypertension, hyperlipidemia who presented with symptoms progressive dyspnea. He is feeling better at this point, continues to have mild dyspnea but no chest discomfort. He denies any dizziness or palpitations. His echocardiogram showed a moderately impaired left ventricular systolic function. His ejection fraction is 35-40% with [id number] mitral regurgitation. He continues to be in atrial fibrillation March 06: The patient feels better today, he is ambulating. He denies any chest discomfort, dizziness or palpitations. He continues to be in atrial fibrillati on. He is on oral diuretics. He has episodes of hypotension. He has no nausea or vomiting. Medications: Furosemide 20 mg by mouth every 12, Zestril 2.5 mg once a day, metoprolol 25 mg twice a day, Farxiga 10 mg daily, Eliquis 5 mg twice a day PHYSICAL EXAMINATION: Blood pressure 108/70 heart rate 63 LUNGS: Clear to auscultation HEART: Irregular rate and rhythm, S1, S2. No S3. Systolic ejection murmur ABDOMEN: Soft, nontender, no organomegaly EXTREMETIES: No edema LAB: Pending IMPRESSION: 1. CHF with reduced ejection fraction 2. Atrial fibrillation, rate controlled 3. Acute renal injury from diuresis 4. History of CAD PLAN: 1. Decrease beta vania 2. Follow renal functions 3. Increase physical activity 4. Depending on his progress further recommendations will be made Objective - Vital Signs Vital signs: Vital Signs Temp 98.0 F 03/06/23 11:09 Pulse 63 03/06/23 11:09 Resp 16 03/06/23 11:09 BP 108/70 03/06/23 11:09 Pulse Ox 99 03/06/23 11:09 FiO2 Intake & Output 03/05/23 03/06/23 03/06/23 18:59 06:59 18:59 Intake Total 488 10 Balance 488 10 Weight 95.5 kg Intake: IV 10 10 Invasive Line 1 10 10 Oral 478 Other: Voiding Method Urinal Urinal Urinal - Labs CBC & Chem 7: 03/05/23 08:48 03/05/23 08:48 Labs: Abnormal Lab Results - Last 24 Hours (Table) 03/05/23 03/05/23 Range/Units 08:48 08:48 WBC 11.2 H (3.8-10.6) k/uL RBC 3.92 L (4.30-5.90) m/uL Lymphocytes # 7.3 H (1.0-4.8) k/uL HDL Cholesterol 35.80 L (40.00-60.00) mg/dL
[2023-03-06] MEDS: METOPROLOL TARTRATE 25 MG TAB PO SCH (11:34)
[2023-03-06 12:13] LABS: African American GFR (CKD) 64 (>60 ml/min/1.73 sqM); Anion Gap 14 mmol/L; Blood Urea Nitrogen 38 mg/dL (9-20); Calcium 9.5 mg/dL (8.4-10.2); Carbon Dioxide 21 mmol/L (22-30); Chloride 101 mmol/L (98-107); Glucose 85 mg/dL (74-99); Non-African American GFR(CKD) 56 (>60 ml/min/1.73 sqM); Potassium 4.8 mmol/L (3.5-5.1); Sodium 136 mmol/L (137-145)
[2023-03-06 14:48] VITALS: BP 103/67; PULSE 65; TEMP 97.8
--- NOTE | 2023-03-06 15:35 | P.DS ---
Providers Date of admission: 03/03/23 20:27 Expected date of discharge: 03/06/23 Attending physician: Kyle Juarez MD Consults: 03/03/23 20:27 Consult Physician Routine Consulting Provider: [facility] Consult Reason/Comments: suspect new onset chf Do you want consulting provider notified?: Yes Primary care physician: Gama Moses Hospital Course: Discharge Diagnosis: Acute exacerbation of systolic congestive heart failure with ejection fraction 35-40% Acute hypoxic respiratory failure Paroxysmal atrial fibrillation, currently rate controlled Hypertension Dyslipidemia Elevated creatinine, improved Hypomagnesemia GERD Hypothyroidism History of Hodgkin's lymphoma Hospital Course: Patient is an 87-year-old male with atrial fibrillation on Eliquis, history of non-Hodgkin's lymphoma (status post chemo in 2013 currently in remission), hypertension, and hypothyroidism who initially presented to the ER with complaints of shortness of breath. In the ER he underwent extensive evaluation. Initial chest x-ray didn't showed chronic changes. Initial laboratory analysis was remarkable for white blood cell count 12.7, hemoglobin 12.3, magnesium 1.4, and BNP 2790. He was slightly hypoxic in the ER at 89% with ambulation. He was subsequently admitted for acute hypoxic respiratory failure likely secondary to the acute exacerbation of CHF. Cardiology was consulted. He underwent an echocardiogram which showed a reduced left ventricular ejection fraction of 35- 40%, prior 50% in August 2021. He was continued on IV Lasix. Cardiology started him on farxiga and lisinopril. He did have a slight increase in his creatinine on the morning of 03/05/23 and he was slight hypotension. His lisinopri l and lasix doses were adjusted. his renal function and BP improved.He was felling better and he was determined stable for discharge home. Follow-up: Dr. Patel in 1 week, Dr. Moses in 1 week, Repeat BMP and Mg on 03/09 or 03/10. Lasix 20 mg twice dialy, lisinoprli 2.5 mg daily, and metoprolol 12.5 mg twice daily, monitor BP at home make a log to bring to Dr. Patel's appointment . Magnesium 400 mg daily. Jardiance 10 mg daily Patient seen and examined at bedside. Doing well. Breathing much easier, swelling resolved. No lightheadedness, dizziness, chest pain. Wants to go home. Amenable to home health. Vital signs reviewed and stable. General: nontoxic, no distress, appears at stated age Cardiovascular: S1S2 reg, no murmur, positive posterior tibial pulse bilateral, Lungs: CTA bilateral, no rhonchi, no rales , no accessory muscle use Abdominal: soft, nontender to palpation, no guarding, no appreciable organomegaly Ext: no gross muscle atrophy, no edema b/l lower extremities, no contractures Neuro: CN II-XI grossly intact, no focal neuro deficits Psych: Alert, oriented, appropriate affect A total of 42 minutes of time were spent preparing this complex discharge summa ry. Patient was discharged on 03/06/23. This dictation was prepared using [employer] voice recognition software. Though every attempt is made to correct errors during dictation some may still exist. Patient Condition at Discharge: Stable Plan - Discharge Summary Discharge Rx Participant: No New Discharge Prescriptions: New Empagliflozin [Jardiance] 10 mg PO DAILY #30 tablet Metoprolol Tartrate [Lopressor] 12.5 mg PO BID #60 tab Magnesium Oxide [Mag-Ox] 400 mg PO DAILY #30 tablet lisinopriL [Zestril] 2.5 mg PO DAILY #30 tab Furosemide [Lasix] 20 mg PO BID@0900,1600 #60 tab Continue Omeprazole [PriLOSEC] 20 mg PO HS Multivitamin [Men's Multi-Vitamin] 1 tab PO HS Levothyroxine Sodium [Synthroid] 150 mcg PO HS Apixaban [Eliquis] 5 mg PO BID Fish Oil/Dha/Epa [Fish Oil 1,200 mg Fish Oil] 1 cap PO HS Melatonin 3 mg PO HS Albuterol Inhaler [Ventolin Hfa Inhaler] 2 puff INHALATION RT-Q6H PRN PRN Reason: Shortness Of Breath Discontinued Metoprolol Tartrate [Lopressor] 25 mg PO BID amLODIPine [Norvasc] 5 mg PO HS Discharge Medication List Omeprazole [PriLOSEC] 20 mg PO HS 11/14/13 [History] Multivitamin [Men's Multi-Vitamin] 1 tab PO HS 10/09/14 [History] Apixaban [Eliquis] 5 mg PO BID 03/30/21 [History] Levothyroxine Sodium [Synthroid] 150 mcg PO HS 03/30/21 [History] Albuterol Inhaler [Ventolin Hfa Inhaler] 2 puff INHALATION RT-Q6H PRN 03/03/23 [History] Fish Oil/Dha/Epa [Fish Oil 1,200 mg Fish Oil] 1 cap PO HS 03/03/23 [History] Melatonin 3 mg PO HS 03/03/23 [History] Empagliflozin [Jardiance] 10 mg PO DAILY #30 tablet 03/06/23 [Rx] Furosemide [Lasix] 20 mg PO BID@0900,1600 #60 tab 03/06/23 [Rx] Magnesium Oxide [Mag-Ox] 400 mg PO DAILY #30 tablet 03/06/23 [Rx] Metoprolol Tartrate [Lopressor] 12.5 mg PO BID #60 tab 03/06/23 [Rx] lisinopriL [Zestril] 2.5 mg PO DAILY #30 tab 03/06/23 [Rx] Follow up Appointment(s)/Referral(s): Gama Moses DO [Primary Care Provider] - 1 Week (Please call office Tuesday03/08/2023 when offices are open to make a post hospital follow up appointment.) Rick Patel MD [STAFF PHYSICIAN] - 1 Week Ambulatory/Diagnostic Orders: Basic Metabolic Panel [LAB.AMB] Time Frame: 3 Days, Location: None Selected Magnesium [LAB.AMB] Time Frame: 3 Days, Location: None Selected Patient Instructions/Handouts: Heart Failure (DC) Activity/Diet/Wound Care/Special Instructions: Activity: As tolerated Diet: Low salt, heart healthy Special Instructions: Weigh yourself every morning after you urinate. If you gain 2-3 pounds overnight or 5 pounds in one week, call your primary physician for guidance on your medications. Keep a log of your weights. Avoid salt, or foods with hidden salt. Extra salt makes your heart work harder and traps the fluid in your body for longer. Take all of your medications as directed, especially your water pills. NEVER skip a dose. Elevate your legs when you are not up moving around to help with circulation and prevent swelling. Call your physician if you notice any extra swelling in your legs, ankles, feet or abdomen, if you have a new dry cough, if your shortness of breath worsens with activity or at rest, or if you feel more fatigued. Please take your blood pressure daily and orantes a log to bring to our appointment with Dr. Patel If Jardiance is cost-prohibitive you can chose to not fill this medication (it decrease the risk of hospitalization and major cardiac events, but does not help with symptom management) Thank you for trusting us with your care. We wish you well on your journey to better health. Discharge Disposition: HOME WITH HOME HEALTH SERVICES
[2023-03-06] MEDS ORDERED: METOPROLOL TARTRATE 12.5 MG TAB PO SCH (21:00)
== END 2023-03-06 16:32 | disposition home health service (06) | DRG 291 ==
LOC: EC 16:36 → 3SCARD 20:27
PROVIDERS: ADMIT Internal Medicine; ATTEND Internal Medicine
DX: I11.0 Hypertensive heart disease with heart failure (principal); I50.23 Acute on chronic systolic (congestive) heart failure; J96.01 Acute respiratory failure with hypoxia; N17.9 Acute kidney failure, unspecified; I42.9 Cardiomyopathy, unspecified; I25.10 Atherosclerotic heart disease of native coronary artery without angina pectoris; I48.0 Paroxysmal atrial fibrillation; I08.1 Rheumatic disorders of both mitral and tricuspid valves; K21.9 Gastro-esophageal reflux disease without esophagitis; E83.42 Hypomagnesemia; Z96.651 Presence of right artificial knee joint; E78.5 Hyperlipidemia, unspecified; E03.9 Hypothyroidism, unspecified; Z20.822 Contact with and (suspected) exposure to COVID-19; Z79.01 Long term (current) use of anticoagulants; Z79.84 Long term (current) use of oral hypoglycemic drugs; Z79.890 Hormone replacement therapy; Z79.899 Other long term (current) drug therapy; Z82.49 Family history of ischemic heart disease and other diseases of the circulatory system; Z85.71 Personal history of Hodgkin lymphoma; Z85.72 Personal history of non-Hodgkin lymphomas; Z86.73 Personal history of transient ischemic attack (TIA), and cerebral infarction without residual deficits; Z87.442 Personal history of urinary calculi; Z88.8 Allergy status to other drugs, medicaments and biological substances; Z92.21 Personal history of antineoplastic chemotherapy; Z87.891 Personal history of nicotine dependence
CPT/HCPCS: 36415; 71046; 80048; 80053; 80061; 81001; 83735; 83880; 84100; 84484; 85025; 85610; 85730; 87636; 93005; 93306; 94760; 96365; 99285

== ENCOUNTER 2023-05-10 15:41 | Emergency (ER) | payer MEDICARE ==
[2023-05-10 16:23] VITALS: TEMP 97.8
--- NOTE | 2023-05-10 17:02 | ED ---
Nausea/Vomiting/Diarrhea HPI - General Chief complaint: Nausea/Vomiting/Diarrhea Stated complaint: Diarrhea Source: patient, RN notes reviewed Mode of arrival: wheelchair Limitations: no limitations - History of Present Illness Initial comments: 87-year-old male coming in for diarrhea for the last 3 weeks. States he was diagnosed with Giardia. Has been on vancomycin. Complaining of mild abdominal discomfort but states no pain. Patient had stool studies done in [place] he was initially treated with vancomycin. Apparently resulting back today and he was instructed to switch the medication. Patient here with his daughter. Patient states that they tested positive for Giardia, they did not test positive for C. diff colitis. Patient is not vomiting. Able to hold down fluids. Denying any abdominal pain. Denies any hematochezia or melena. No fever or chills. Patient does have a history of CLL, atrial fibrillation, hypertension. - Related Data Home Medications Medication Instructions Recorded Confirmed Omeprazole [PriLOSEC] 20 mg PO HS 11/14/13 03/03/23 Multivitamin [Men's Multi-Vitamin] 1 tab PO HS 10/09/14 03/03/23 Apixaban [Eliquis] 5 mg PO BID 03/30/21 03/03/23 Levothyroxine Sodium [Synthroid] 150 mcg PO HS 03/30/21 03/03/23 Albuterol Inhaler [Ventolin Hfa 2 puff INHALATION RT-Q6H PRN 03/03/23 03/03/23 Inhaler] Fish Oil/Dha/Epa [Fish Oil 1,200 1 cap PO HS 03/03/23 03/03/23 mg Fish Oil] Melatonin 3 mg PO HS 03/03/23 03/03/23 Previous Rx's Medication Instructions Recorded Empagliflozin [Jardiance] 10 mg PO DAILY #30 tab 03/06/23 Furosemide [Lasix] 20 mg PO BID@0900,1600 #60 tab 03/06/23 Magnesium Oxide [Mag-Ox] 400 mg PO DAILY #30 tablet 03/06/23 Metoprolol Tartrate [Lopressor] 12.5 mg PO BID #60 tab 03/06/23 lisinopriL [Zestril] 2.5 mg PO DAILY #30 tab 03/06/23 metroNIDAZOLE [Flagyl] 250 mg PO TID 10 Days #30 tab 11/07/23 Allergies Allergy/AdvReac Type Severity Reaction Status Date / Time celecoxib [From Celebrex] AdvReac muscle Verified 03/03/23 18:10 cramps niacin AdvReac muscle Verified 03/03/23 18:10 cramps nystatin AdvReac muscle Verified 03/03/23 18:10 cramps Ifaldci-OFY-UwA Reductase AdvReac muscle Verified 03/03/23 18:10 Inhibitor cramps [Oeqozsg-Ybk-Tnf Reductase Inhibitor] Review of Systems ROS Statement: Those systems with pertinent positive or pertinent negative responses have been documented in the HPI. ROS Other: All systems not noted in ROS Statement are negative. Past Medical History Past Medical History: Atrial Fibrillation, Cancer, GERD/Reflux, Hypertension, Osteoarthritis (OA), Thyroid Disorder Additional Past Medical History / Comment(s): hx kidney stones, hodgkins lymphoma,. 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 hx rapid heart rate History of Any Multi-Drug Resistant Organisms: MRSA Date of last positivie culture/infection: 2014 MDRO Source:: lung Past Surgical History: Joint Replacement Additional Past Surgical History / Comment(s): right knee replacement, sinan knee scope, sinan carpal tunnel lymph node biopsy, lt shoulder rotator cuff Past Anesthesia/Blood Transfusion Reactions: No Reported Reaction Past Psychological History: No Psychological Hx Reported Smoking Status: Former smoker Past Alcohol Use History: None Reported Past Drug Use History: None Reported - Past Family History Sister(s) Family Medical History: Cancer Mother Family Medical History: No Reported History Father Family Medical History: Hypertension General Exam - General Exam Comments Initial Comments: This does not appear to be ill or toxic. Vital signs stable, patient afebrile. Does not appear to be in any distress. Refill less than 2 seconds. No mottling. Limitations: no limitations General appearance: alert, in no apparent distress Head exam: Present: atraumatic, normocephalic, normal inspection Eye exam: Present: normal appearance, PERRL, EOMI. Absent: scleral icterus, conjunctival injection, periorbital swelling ENT exam: Present: normal exam, mucous membranes moist Neck exam: Present: normal inspection, full ROM. Absent: tenderness, meningismus, lymphadenopathy Respiratory exam: Present: normal lung sounds bilaterally. Absent: respiratory distress, wheezes, rales, rhonchi, stridor, chest wall tenderness, accessory muscle use, decreased breath sounds, prolonged expiratory Cardiovascular Exam: Present: regular rate, normal rhythm, normal heart sounds. Absent: systolic murmur, diastolic murmur, rubs, gallop, clicks GI/Abdominal exam: Present: soft, normal bowel sounds. Absent: distended, tenderness, guarding, rebound, rigid Extremities exam: Present: normal inspection, full ROM, normal capillary refill. Absent: tenderness, pedal edema, joint swelling, calf tenderness Back exam: Present: normal inspection, full ROM Neurological exam: Present: alert, oriented X3, CN II-XII intact, normal gait. Absent: motor sensory deficit Psychiatric exam: Present: normal affect, normal mood. Absent: anxious, flat affect Skin exam: Present: warm, dry, intact, normal color. Absent: rash Course Vital Signs 05/10/23 16:05 Temperature 97.8 F Pulse Rate 106 H Respiratory 20 Rate Blood Pressure 118/67 O2 Sat by Pulse 99 Oximetry - Reevaluation(s) Reevaluation #1: 05/10/23 22:24 Patient reevaluated, patient had no distress. No abdominal tenderness. Stable. The white blood cell count, likely due to the patient's known leukemia. Medical Decision Making - Medical Decision Making Visual Physical Exam Vital signs reviewed General: Well-appearing, nontoxic, no acute distress. Head: Normocephalic, atraumatic Eyes: PERRLA, EOMI ENT: Airway patent Chest: Nonlabored breathing Skin: No visual rash, normal skin tone Neuro: Alert and oriented 3 Musculoskeletal: No gross abnormalities Signed by Manish Pearson PAC Was pt. sent in by a medical professional or institution? @ -Sent in by PCP Did you speak to anyone other than the patient for history? @ -Daughter Did you review nursing and triage notes? @ -Agree Were old charts reviewed? @ -Old charts reviewed Differential Diagnosis? @ -Differential diagnosis includes but not limited to: C. diff colitis, viral gastroenteritis, other causes of infectious diarrhea such as Salmonella, Campylobacter, Shigella, patient apparently tested positive for Giardia outside laboratory. By the patient's daughter. EKG interpreted by me (3pts min.)? @ -[none] X-rays interpreted by me (1pt min.)? @ -[none] CT interpreted by me (1pt min.)? @ -[none] U/S interpreted by me (1pt. min.)? @ -[none] What testing was considered but not performed? (CT, X-rays, U/S, labs)? Why? @ Imaging was considered, however the patient had no abdominal tenderness. Was in no distress. She tested positive for Giardia both per the patient's report as well as the daughter's report. We'll switch the patient from vancomycin to metronidazole 250 mg daily for 10 days. Eyes no alcohol. What meds were considered but not given? Why? @ -[none] Did you discuss the management of the patient with other professionals? @ -The case was discussed in detail with ED attending physician. Presentation, findings, treatment plan discussed in detail. Did you reconcile home meds? @ -[none] Was smoking cessation discussed for >3mins.? @ -[none] Was critical care preformed (if so, how long)? @ -[none] Were there social determinants of health that impacted care today? How? (Homelessness, low income, unemployed, alcoholism, drug addiction, transportation, low edu. Level, literacy, decrease access to med. care, penitentiary, rehab)? @ -Elderly patient, here with daughter. Was there de-escalation of care discussed even if they declined? (Discuss DNR or withdrawal of care, Hospice)? @ -[Discuss DNR or withdrawal of care, Hospice?] What co-morbidities impacted this encounter? (DM, HTN, Smoking, COPD, CAD, Cancer, CVA, Hep., AIDS, mental health diagnosis, sleep apnea, morbid obesity)? @ History of leukemia, atrial fibrillation. Was patient admitted / discharged? @ -Patient discharged to shared decision-making. Did offer admission to the patient. After long discussion with both patient and his daughter. Patient feels well enough to go home. In no distress. Did hydrate the patient, give the patient his first dose of metronidazole here. Undiagnosed new problem with uncertain prognosis? @ -Diagnosed, laboratory results not available from the outside facility Drug Therapy requiring intensive monitoring for toxicity (Heparin, Nitro, Insulin, Cardizem)? @ -[none] Were any procedures done? @ -[none] Diagnosis/symptom? @ -Acute diarrheaGiardia by outside testing and patient/daughter's report Acute, or Chronic, or Acute on Chronic? @ -Patient looks well, unlikely depose threat to life or bodily function., Acute Uncomplicated (without systemic symptoms) or Complicated (systemic symptoms)? @ -Uncomplicated Side effects of treatment? @ -[none] Exacerbation, Progression, or Severe Exacerbation] @ -[no] Poses a threat to life or bodily function? @ -Unlikely depose threat to life or bodily function at this time Patient was told to return to the ER for any signs or symptoms worsen. Told to return immediately if any other problems arise. All questions answered. Treatment plan discussed. Patient in agreement Every effort has been made to ensure accuracy of this dictation. However, due to the limitations of electronic medical records and dictation devices, errors in charting still occur. Metronidazole 250 mg 3 times a day for 10 days. Rest treatment plan in detail with the patient and his daughter. Patient informed that this is a provisional diagnosis East on the fact that we cannot obtain the outside laboratory investigations. Patient feels well enough to go home. - Lab Data Result diagrams: 05/10/23 18:27 05/10/23 18:27 Lab Results 05/10/23 05/10/23 Range/Units 18:27 18:27 WBC 15.9 H (3.8-10.6) k/uL RBC 3.81 L (4.30-5.90) m/uL Hgb 12.8 L (13.0-17.5) gm/dL Hct 37.7 L (39.0-53.0) % MCV 98.9 (80.0-100.0) fL MCH 33.4 (25.0-35.0) pg MCHC 33.8 (31.0-37.0) g/dL RDW 13.2 (11.5-15.5) % Plt Count 255 (150-450) k/uL MPV 8.4 Neutrophils % (Manual) 32 % Lymphocytes % (Manual) 65 % Monocytes % (Manual) 3 % Eosinophils % (Manual) 1 % Neutrophils # (Manual) 5.09 (1.3-7.7) k/uL Lymphocytes # (Manual) 10.34 H (1.0-4.8) k/uL Monocytes # (Manual) 0.48 (0-1.0) k/uL Eosinophils # (Manual) 0.16 (0-0.7) k/uL Nucleated RBCs 0 (0-0) /100 WBC Manual Slide Review Performed Sodium 139 (137-145) mmol/L Potassium 4.5 (3.5-5.1) mmol/L Chloride 106 (98-107) mmol/L Carbon Dioxide 22 (22-30) mmol/L Anion Gap 11 mmol/L BUN 19 (9-20) mg/dL Creatinine 1.06 (0.66-1.25) mg/dL Est GFR (CKD-EPI)AfAm 74 (>60 ml/min/1.73 sqM) Est GFR (CKD-EPI)NonAf 64 (>60 ml/min/1.73 sqM) Glucose 85 (74-99) mg/dL Calcium 9.0 (8.4-10.2) mg/dL Total Bilirubin 0.7 (0.2-1.3) mg/dL AST 40 (17-59) U/L ALT 20 (4-49) U/L Alkaline Phosphatase 77 (38-126) U/L Total Protein 6.3 (6.3-8.2) g/dL Albumin 3.8 (3.5-5.0) g/dL Lipase 35 (23-300) U/L Disposition Clinical Impression: Diarrhea, Giardia Disposition: HOME SELF-CARE Condition: Stable Instructions (If sedation given, give patient instructions): Acute Diarrhea (ED), Giardiasis (ED) Additional Instructions: Take the antibiotic as directed. Call your regular physician for further guidance in the morning. Ensure adequate hydration with plenty of oral fluids. Call at 8 AM tomorrow morning to set up a follow-up appointment with your regular physician in one to 2 days. Follow-up with your regular physician as directed. Return to the ER immediately if any symptoms worsen, new symptoms arise, or any other problems develop. Is patient prescribed a controlled substance at d/c from ED?: No When asked, does pt state using other controlled substances?: No Referrals: Gama Moses DO [Primary Care Provider] - 1-2 days Time of Disposition: 22:28
[2023-05-10 18:44] LABS: HCT 37.7 % (39.0-53.0); HGB 12.8 gm/dL (13.0-17.5); MCH 33.4 pg (25.0-35.0); MCHC 33.8 g/dL (31.0-37.0); MCV 98.9 fL (80.0-100.0); Mean Platelet Volume 8.4; Platelet Count 255 k/uL (150-450); RBC 3.81 m/uL (4.30-5.90); RDW 13.2 % (11.5-15.5); WBC 15.9 k/uL (3.8-10.6)
[2023-05-10 18:59] LABS: ALT 20 U/L (4-49); AST 40 U/L (17-59); African American GFR (CKD) 74 (>60 ml/min/1.73 sqM); Albumin 3.8 g/dL (3.5-5.0); Alkaline Phosphatase 77 U/L (38-126); Anion Gap 11 mmol/L; Blood Urea Nitrogen 19 mg/dL (9-20); Carbon Dioxide 22 mmol/L (22-30); Chloride 106 mmol/L (98-107); Glucose 85 mg/dL (74-99); Lipase 35 U/L (23-300); Non-African American GFR(CKD) 64 (>60 ml/min/1.73 sqM); Potassium 4.5 mmol/L (3.5-5.1); Sodium 139 mmol/L (137-145); Total Bilirubin 0.7 mg/dL (0.2-1.3); Total Protein 6.3 g/dL (6.3-8.2)
[2023-05-10 19:56] LABS: Eosinophils # (M) 0.16 k/uL (0-0.7); Lymphocytes # (M) 10.34 k/uL (1.0-4.8); Monocytes # (M) 0.48 k/uL (0-1.0); Neutrophils # (M) 5.09 k/uL (1.3-7.7); Neutrophils % (M) 32 %; Nucleated Red Blood Cells 0 /100 WBC (0-0); Total Cells Counted 200
[2023-05-10] MEDS ORDERED: SODIUM CHLORIDE 0.9% 500 ML 500 ML IV ONE (21:36)
[2023-05-10] MEDS ORDERED: metroNIDAZOLE 500 MG TAB PO STA (21:45)
[2023-05-10] MEDS ORDERED: SODIUM CHLORIDE 0.9% 1,000 ML IV ONE (21:52)
[2023-05-10 23:29] VITALS: BP 134/105; PULSE 99; RESP 19
== END 2023-05-10 23:22 | disposition home or self-care (01) ==
LOC: EC 15:41
DX: A07.1 Giardiasis [lambliasis] (principal); K21.9 Gastro-esophageal reflux disease without esophagitis; I10 Essential (primary) hypertension; I48.91 Unspecified atrial fibrillation; M19.90 Unspecified osteoarthritis, unspecified site; E07.9 Disorder of thyroid, unspecified; Z79.1 Long term (current) use of non-steroidal anti-inflammatories (NSAID); Z79.01 Long term (current) use of anticoagulants; Z79.899 Other long term (current) drug therapy; Z79.890 Hormone replacement therapy; Z87.891 Personal history of nicotine dependence; Z88.8 Allergy status to other drugs, medicaments and biological substances; Z88.1 Allergy status to other antibiotic agents; Z88.6 Allergy status to analgesic agent
CPT/HCPCS: 36415; 80053; 83690; 85025; 96360; 99284

== ENCOUNTER → 2023-09-12 | Outpatient (CLI) | payer MEDICARE ==
[2023-09-12 19:04] LABS: NT-Pro-B-Type Natriuretic Pept 1586 pg/mL (0-450)
[2023-09-12 19:46] LABS: Calcium 9.9 mg/dL (8.7-10.3); Carbon Dioxide 23.6 mmol/L (21.6-31.8); Chloride 106 mmol/L (96-109); Glucose 100 mg/dL (70-110); Potassium 4.5 mmol/L (3.5-5.5); Sodium 144 mmol/L (135-145)
== END | disposition home or self-care (01) ==
LOC: LABWHC1 10:14
PROVIDERS: ATTEND Internal Medicine Cardiovascular Disease
DX: I25.10 Atherosclerotic heart disease of native coronary artery without angina pectoris (principal); I48.0 Paroxysmal atrial fibrillation; I50.22 Chronic systolic (congestive) heart failure; E78.2 Mixed hyperlipidemia
CPT/HCPCS: 36415; 80048; 83880

== ENCOUNTER → 2023-10-24 | Outpatient (CLI) | payer MEDICARE ==
--- NOTE | 2023-10-25 10:57 | XR ---
EXAMINATION TYPE: XR chest 2V DATE OF EXAM: 10/24/2023 1:31 PM CLINICAL INDICATION:Male, 88 years old with history of R0602 SOB; [facility] COMPARISON: Chest radiographs from 03/03/2023 TECHNIQUE: XR chest 2V Frontal and lateral views of the chest. FINDINGS: Lungs/Pleura: Patchy airspace disease right lung base. No pleural effusion. No pneumothorax. Pulmonary vascularity: Unremarkable. Heart/mediastinum: Cardiomediastinal silhouette is unremarkable. Musculoskeletal: No acute osseous pathology. Other findings: None Lines/Tubes: Central venous port bridging from the right has its tip in the cavoatrial junction IMPRESSION: No acute cardiopulmonary disease/process.
== END | disposition home or self-care (01) ==
LOC: RADXRYALE 11:54
PROVIDERS: ATTEND Physician Assistant Medical
DX: R06.02 Shortness of breath (principal)
CPT/HCPCS: 71046

== ENCOUNTER → 2023-11-02 | Outpatient (CLI) | payer MEDICARE ==
[2023-11-02 21:56] LABS: NT-Pro-B-Type Natriuretic Pept 2742 pg/mL (0-450)
[2023-11-02 22:12] LABS: BUN/Creat Ratio 13.64 Ratio (12.00-20.00); Calcium 9.5 mg/dL (8.7-10.3); Carbon Dioxide 25.6 mmol/L (21.6-31.8); Chloride 102 mmol/L (96-109); Glucose 116 mg/dL (70-110); Potassium 4.4 mmol/L (3.5-5.5); Sodium 142 mmol/L (135-145)
== END | disposition home or self-care (01) ==
LOC: LABWHC1 14:04
PROVIDERS: ATTEND Internal Medicine Cardiovascular Disease
DX: I50.23 Acute on chronic systolic (congestive) heart failure (principal)
CPT/HCPCS: 36415; 80048; 83880

== ENCOUNTER → 2023-11-25 | Outpatient (CLI) | payer MEDICARE ==
[2023-11-25 15:32] LABS: NT-Pro-B-Type Natriuretic Pept 2082 pg/mL (0-450)
[2023-11-25 18:17] LABS: BUN/Creat Ratio 17.73 Ratio (12.00-20.00); Blood Urea Nitrogen 19.5 mg/dL (9.0-27.0); Calcium 9.5 mg/dL (8.7-10.3); Carbon Dioxide 27.6 mmol/L (21.6-31.8); Chloride 104 mmol/L (96-109); Glucose 96 mg/dL (70-110); Potassium 4.4 mmol/L (3.5-5.5); Sodium 144 mmol/L (135-145)
== END | disposition home or self-care (01) ==
LOC: LABWHC1 10:29
PROVIDERS: ATTEND Internal Medicine Cardiovascular Disease
DX: I50.23 Acute on chronic systolic (congestive) heart failure (principal)
CPT/HCPCS: 36415; 80048; 83880

== ENCOUNTER 2024-01-13 13:43 | Emergency (ER) | payer MEDICARE ==
--- NOTE | 2024-01-13 14:01 | ED ---
Back Pain HPI - General Chief Complaint: Back Pain/Injury Stated Complaint: Back Pain Time Seen by Provider: 01/13/24 14:00 Source: patient, EMS, RN notes reviewed Limitations: no limitations - History of Present Illness Initial Comments: This is an 88-year-old male with a past medical history of chronic back pain presents to the emergency department via EMS for chief complaint of left lumbar back pain. Patient states that over the past 2 weeks his back pain has been worsening. He denies any acute injuries or falls that may have provoked his back pain. Denies radiation of pain down posterior legs, denies saddle anesthesias or loss of bladder or bowel continence. Denies fevers or chills. [facility] due to chronic back pain where epidura l injections were done on his back and he has a history of compression fractures. States that he has not followed up with specialist in 5 years. - Related Data Home Medications Medication Instructions Recorded Confirmed Omeprazole [PriLOSEC] 20 mg PO HS 11/14/13 03/03/23 Multivitamin [Men's Multi-Vitamin] 1 tab PO HS 10/09/14 03/03/23 Apixaban [Eliquis] 5 mg PO BID 03/30/21 03/03/23 Levothyroxine Sodium [Synthroid] 150 mcg PO HS 03/30/21 03/03/23 Albuterol Inhaler [Ventolin Hfa 2 puff INHALATION RT-Q6H PRN 03/03/23 03/03/23 Inhaler] Fish Oil/Dha/Epa [Fish Oil 1,200 1 cap PO HS 03/03/23 03/03/23 mg Fish Oil] Melatonin 3 mg PO HS 03/03/23 03/03/23 Previous Rx's Medication Instructions Recorded Empagliflozin [Jardiance] 10 mg PO DAILY #30 tab 03/06/23 Furosemide [Lasix] 20 mg PO BID@0900,1600 #60 tab 03/06/23 Magnesium Oxide [Mag-Ox] 400 mg PO DAILY #30 tablet 03/06/23 Metoprolol Tartrate [Lopressor] 12.5 mg PO BID #60 tab 03/06/23 lisinopriL [Zestril] 2.5 mg PO DAILY #30 tab 03/06/23 metroNIDAZOLE [Flagyl] 250 mg PO TID 10 Days #30 tab 05/10/23 Ketorolac [Toradol] 10 mg PO Q8HR #15 tab 01/13/24 Allergies Allergy/AdvReac Type Severity Reaction Status Date / Time celecoxib [From Celebrex] AdvReac muscle Verified 01/13/24 13:57 cramps niacin AdvReac muscle Verified 01/13/24 13:57 cramps nystatin AdvReac muscle Verified 01/13/24 13:57 cramps Wumcdve-WUP-[id number] Reductase AdvReac muscle Verified 01/13/24 13:57 Inhibitor cramps [Oejlxvu-Aig-Efj Reductase Inhibitor] Review of Systems ROS Statement: Those systems with pertinent positive or pertinent negative responses have been documented in the HPI. ROS Other: All systems not noted in ROS Statement are negative. Past Medical History Past Medical History: Atrial Fibrillation, Cancer, GERD/Reflux, Hypertension, Osteoarthritis (OA), Thyroid Disorder Additional Past Medical History / Comment(s): hx kidney stones, hodgkins lymphoma,. 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 hx rapid heart rate History of Any Multi-Drug Resistant Organisms: MRSA Date of last positivie culture/infection: 2014 MDRO Source:: lung Past Surgical History: Joint Replacement Additional Past Surgical History / Comment(s): right knee replacement, sinan knee scope, sinan carpal tunnel lymph node biopsy, lt shoulder rotator cuff Past Anesthesia/Blood Transfusion Reactions: No Reported Reaction Past Psychological History: No Psychological Hx Reported Smoking Status: Former smoker Past Alcohol Use History: None Reported Past Drug Use History: None Reported - Past Family History Sister(s) Family Medical History: Cancer Mother Family Medical History: No Reported History Father Family Medical History: Hypertension General Exam Limitations: no limitations General appearance: alert, in no apparent distress Head exam: Present: atraumatic, normocephalic, normal inspection ENT exam: Present: normal exam, mucous membranes moist Neck exam: Present: normal inspection. Absent: tenderness, meningismus, lymphadenopathy Respiratory exam: Present: normal lung sounds bilaterally. Absent: respiratory distress, wheezes, rales, rhonchi, stridor Cardiovascular Exam: Present: regular rate, normal rhythm, normal heart sounds. Absent: systolic murmur, diastolic murmur, rubs, gallop, clicks GI/Abdominal exam: Present: soft, normal bowel sounds. Absent: distended, tenderness, guarding, rebound, rigid Extremities exam: Present: normal inspection, full ROM, normal capillary refill. Absent: tenderness, pedal edema, joint swelling, calf tenderness Back exam: Present: normal inspection, full ROM, tenderness (left lumber), other (pain with ROM, pain of lumbar back with straight leg movement of bilateral LE) Neurological exam: Present: alert, oriented X3, CN II-XII intact Course Vital Signs 01/13/24 01/13/24 13:49 15:46 Temperature 98.7 F 98.9 F Pulse Rate 64 110 H Respiratory 18 15 Rate Blood Pressure 133/93 144/113 O2 Sat by Pulse 98 97 Oximetry Medical Decision Making - Medical Decision Making Was pt. sent in by a medical professional or institution ([facility] [employer], MI[employer] EQUIPMENT INSPECTOR, urgent care, hospital, or jail...) When possible be specific @ -No Did you speak to anyone other than the patient for history (EMS, parent, family, police, friend...)? What history was obtained from this source @ -No Did you review nursing and triage notes (agree or disagree)? Why? @ -I reviewed and agree with nursing and triage notes Were old charts reviewed (outside hosp., previous admission, EMS record, old EKG, old radiological studies, urgent care reports/EKG's, jail records)? Report findings @ -No old charts were reviewed Differential Diagnosis (chest pain, altered mental status, abdominal pain women, abdominal pain men, vaginal bleeding, weakness, fever, dyspnea, syncope, headache, dizziness, GI bleed, back pain, seizure, CVA, palpatations, mental health, musculoskeletal)? @ -Differential Back Pain: Strain, zoster, cauda equina syndrome, epidural abscess, vertebral osteomyelitis, discitis, fracture, subluxation, disc herniation, DJD, spinal stenosis, dissection, AAA, pancreatitis, peptic ulcer disease, pyelonephritis, kidney stone, this is not meant to be an all-inclusive list. EKG interpreted by me (3pts min.). @ -none X-rays interpreted by me (1pt min.). @ -XR of the lumbar spine reveals mild to moderate compression fracture of L1, multilevel degenerative disc disease. No significant interval change compared to previous. CT interpreted by me (1pt min.). @ -None done U/S interpreted by me (1pt. min.). @ -None done What testing was considered but not performed or refused? (CT, X-rays, U/S, labs)? Why? @ -None What meds were considered but not given or refused? Why? @ -None Did you discuss the management of the patient with other professionals (professionals i.e. , PA, MICROFILM EQUIPMENT INSPECTOR, lab, RT, psych nurse, oncology social worker, window glass installer, teacher, air defense artillery officer, case monitor)? Give summary @ -No Was smoking cessation discussed for >3mins.? @ -No Was critical care preformed (if so, how long)? @ -No Were there social determinants of health that impacted care today? How? (Homelessness, low income, unemployed, alcoholism, drug addiction, transportation, low edu. Level, literacy, decrease access to med. care, longterm, rehab)? @ -No Was there de-escalation of care discussed even if they declined (Discuss DNR or withdrawal of care, Hospice)? DNR status @ -No What co-morbidities impacted this encounter? (DM, HTN, Smoking, COPD, CAD, Cancer, CVA, ARF, Chemo, Hep., AIDS, mental health diagnosis, sleep apnea, morbid obesity)? @ -None Was patient admitted / discharged? Hospital course, mention meds given and route, prescriptions, significant lab abnormalities, going to OR and other pertinent info. @ -Discharge. 88-year-old male with back pain. On examination there are no red flag findings for cauda equina or further emergent pathology. Additionally patient's pain is provoked with range of motion. Patient's vitals are stable upon arrival. He will be provided with pain medication and in addition to send for imaging of his back for further evaluation. X-ray remarkable for a compression fracture of L1 however there are no significant changes compared to previous imaging. Recommend the patient follows up with his primary care provider for further evaluation. Patient states that he has an appointment scheduled with his primary care provider for referral to physical therapy. Patient will be sent a prescription for pain medication as needed over the next few days. All questions answered at bedside and strict return parameters discussed with the patient he is verbalized understanding. Case discussed with Dr. Mary Undiagnosed new problem with uncertain prognosis? @ -No Drug Therapy requiring intensive monitoring for toxicity (Heparin, Nitro, Insulin, Cardizem)? @ -No Were any procedures done? @ -No Diagnosis/symptom? @ -Lumbar back pain Acute, or Chronic, or Acute on Chronic? @ -Acute on chronic Uncomplicated (without systemic symptoms) or Complicated (systemic symptoms)? @ -Uncomplicated Side effects of treatment? @ -No Exacerbation, Progression, or Severe Exacerbation? @ -No Poses a threat to life or bodily function? How? (Chest pain, [place], [place], pneumonia, PE, COPD, DKA, ARF, appy, cholecystitis, CVA, Diverticulitis, Homicidal, S uicidal, threat to staff... and all critical care pts) @ -No Disposition Clinical Impression: Lumbar back pain Disposition: HOME SELF-CARE Condition: Good Instructions (If sedation given, give patient instructions): Chronic Back Pain (DC) Additional Instructions: Return to the emergency department if symptoms worsen or not improved. Recommend follow-up with your primary care provider next week for further evaluation. Take prescribed medication as needed for pain relief. Prescriptions: Ketorolac [Toradol] 10 mg PO Q8HR #15 tab Is patient prescribed a controlled substance at d/c from ED?: No Referrals: Gama Moses DO [Primary Care Provider] - 1-2 days Time of Disposition: 16:11
--- NOTE | 2024-01-13 14:53 | XR ---
Lumbar spine HISTORY: Neck pain COMPARISON: 10/13/2020. TECHNIQUE: 3 views of the lumbar spine. There is mild levoscoliosis of the thoracolumbar junction. There is a stable mild to moderate superior endplate compression fracture of L1. There is severe disc space narrowing and spondylosis at the L1-2, L2-3, L3-4 and L5-S1 levels. There is mild narrowing of the L4-5 disc space. IMPRESSION: Mild to moderate compression fracture of L1. Multilevel degenerative disc disease. No significant int erval change compared to previous.
[2024-01-13] MEDS: MORPHINE SULFATE 2 MG/ML SYRINGE IVP ONE (15:37)
[2024-01-13 16:47] VITALS: BP 148/97; PULSE 97; RESP 16; TEMP 98.6
== END 2024-01-13 16:58 | disposition home or self-care (01) ==
LOC: EC 13:43
DX: S32.010A Wedge compression fracture of first lumbar vertebra, initial encounter for closed fracture (principal); M51.36 Other intervertebral disc degeneration, lumbar region; Z88.1 Allergy status to other antibiotic agents; Z88.3 Allergy status to other anti-infective agents; Z88.6 Allergy status to analgesic agent; Z88.8 Allergy status to other drugs, medicaments and biological substances; Z87.891 Personal history of nicotine dependence; X58.XXXA Exposure to other specified factors, initial encounter
CPT/HCPCS: 72100; 99284; 96374; J2270

== ENCOUNTER → 2024-03-21 | Outpatient (CLI) | payer MEDICARE ==
[2024-03-21 14:23] VITALS: BP 150/103; PULSE 118; RESP 16; TEMP 98
--- NOTE | 2024-03-21 14:46 | P.PAINPG ---
PQRS Measure Charge Sheet Comment: HISTORY OF PRESENT ILLNESS: A 88 yr old male as a referral from Dr Justice presents today w severe and chronic LBP > 1 yr secondary to radiculopathy, spondylosis and facet arthropathy without myelopathy for evaluation. Pt states pain level is provoked at 6 /10 in intensity, constant, localized in the lumbar spine, predominantly axial, dull in character w occasional shooting pain towards the LEs. Pain is provoked by standing from a sitting position. Pain is alleviated by massage therapy in 2022, physician guided home stretches every other day since 2019, heat, ice, medications, use of a LSO, use of a walker for ambulatory assistance, repositioning and rest . Pt is frail, scoliotic and walks with a hunched forward gait. He has been told he is not a candidate for PT. PMH: OA, aFib, Hodgkins Lymphoma, GERD, HTN, Hypothyroidism, Nephrolithiasis PSH: R Knee Replacement, BL Knee Arthroscopies, BL CTR, Lymph Node Biopsy, L RCT Repair SH: Former tobacco user, No ETOH use, No illicit drug use FH: Sis- Ca. Mo- No Reported History. Fa- CAD All: See list Meds: See list including Lyrica REVIEW OF ORGAN SYSTEMS: CONSTITUTIONAL: No fevers or chills. No recent weight loss. NEUROLOGICAL: + numbness and tingling along the distal extremities. No seizure disorders or headaches. MUSCULOSKELETAL: + pain PSYCHIATRIC: Denies current depression or suicidal thoughts. Physical Examinations : Constitutional : Cooperative , not in acute distress . Neurologic : Cranial nerve II to XII intact. No focal neurological deficits. Psychiatric : alert & oriented x 3. Matching mood & appropriate affect. Judgment & insight intact. Musculoskeletal : Cervical Spine Motor strength in the deltoid and biceps: Normal right side. Normal Left side Motor strength biceps and the wrist extensors: Normal right side . Normal left side Motor strength in the triceps muscle: Normal right side. Normal left side Deep tendon reflexes: Normal at the biceps. Normal at Brachioradialis. Normal at triceps Vertebral body tenderness to deep palpation over Cervical facet loading test: positive bilaterally Spurling test: positive bilaterally Neck distraction test: positive bilaterally Alverto sign: positive bilaterally Lumbar spine Motor strength lower extremities ,thigh and legs 5/5 Right side , 5/5 Left side Deep tendon reflexes : Normal Knee Jerk. Normal Ankle Jerk Vertebral body tenderness over Beaver Test positive Lumbar facet Loading Test: positive Right / positive Left Range of motion of the lumbar spine Flexion 30 degrees, extension 10 degrees Straight Leg Raise test: Left/ Right positive at degrees Archana test: positive right / positive left. Severe tenderness over the Sacroiliac joint on the Right / Left sides Gaenslen test: positive bilaterally Seated flexion test: positive bilaterally. Sacral spine : Severe tenderness over the Sacroiliac joint: right side / left side Range of motion: Flexion of the lumbar spine <60 degrees Range of motion: Extension of the lumbar spine <20 degrees Gaenslen's Test positive Archana test: positive right side / left side Thigh Thrust Test Sacral Thrust Test Imaging: MRI non contrast of the lumbar spine from 01/26/24 reviewed Assessment/ Plan : Lumbar radiculopathy Recommendation of medication management. Diclofenac gel 3% apply to AA BID for pain Disp 1 tube w 1 RF. Use, side effects, adverse reactions, safe storage discussed. Pt is disinterested in injections as they've been ineffective in the past. He does not want narcotic pain management. All questions answered. I have spent greater than 30 minutes on patient care today. Dr Hussein was available by phone for the evaluation of this patient. The time was used to review the medical records including relevant urine studies and Prescription history (MAPs), review of the available imaging, evaluation and examination of the patient, coordination of care with the medical staff and if applicable referring physicians, as well as creation of the medical record PQRS Narrative: Smoking Status Former smoker Home Medications: Ambulatory Orders Omeprazole [PriLOSEC] 20 mg PO HS 11/14/13 Multivitamin [Men's Multi-Vitamin] 1 tab PO HS 10/09/14 Apixaban [Eliquis] 5 mg PO BID 03/30/21 Levothyroxine Sodium [Synthroid] 150 mcg PO HS 03/30/21 Albuterol Inhaler [Ventolin Hfa Inhaler] 2 puff INHALATION RT-Q6H PRN 03/03/23 Fish Oil/Dha/Epa [Fish Oil 1,200 mg Fish Oil] 1 cap PO HS 03/03/23 Melatonin 3 mg PO HS 03/03/23 Empagliflozin [Jardiance] 10 mg PO DAILY #30 tab 03/06/23 Furosemide [Lasix] 20 mg PO BID@0900,1600 #60 tab 03/06/23 Magnesium Oxide [Mag-Ox] 400 mg PO DAILY #30 tablet 03/06/23 Metoprolol Tartrate [Lopressor] 12.5 mg PO BID #60 tab 03/06/23 lisinopriL [Zestril] 2.5 mg PO DAILY #30 tab 03/06/23 metroNIDAZOLE [Flagyl] 250 mg PO TID 10 Days #30 tab 05/10/23 Ketorolac [Toradol] 10 mg PO Q8HR #15 tab 01/13/24 Diclofenac Sodium Gel [Voltaren 1% Gel] 50 gm TOPICAL DAILY 30 Days #1 each 03/21/24 Controlled Substance Measures - Controlled Substance Measures Is patient prescribed a controlled substance at discharge?: No
== END ==
LOC: PNWHC3 13:31
PROVIDERS: ATTEND Specialist
DX: M51.16 Intervertebral disc disorders with radiculopathy, lumbar region (principal); M47.26 Other spondylosis with radiculopathy, lumbar region; Z87.891 Personal history of nicotine dependence; Z88.8 Allergy status to other drugs, medicaments and biological substances; Z88.1 Allergy status to other antibiotic agents
CPT/HCPCS: 99211

== ENCOUNTER 2024-04-27 08:11 | Emergency (ER) | payer MEDICARE ==
[2024-04-27 08:21] VITALS: PULSE 72; TEMP 98.1
--- NOTE | 2024-04-27 08:33 | ED ---
General Adult HPI - General Chief complaint: Weakness Stated complaint: Feeling unwell Time Seen by Provider: 04/27/24 08:31 Source: patient, RN notes reviewed Mode of arrival: EMS Limitations: physical limitation - History of Present Illness Initial comments: 88-year-old male presented to the ER with a chief complaint of insomnia. Patient states last night he went through his normal nighttime routine. He typically sleeps in his recliner due to back pain. He was sitting in his recliner and turned off the television around 11 PM. He states he was unable to fall asleep until 5:30 AM when he decided to be seen as he was concerned something may be going on. He does report he started taking Flomax approximately 48 hours ago. He denies any fevers, cough, congestion, chest discomfort/pain/palpitations, shortness of breath, abdominal pain, const ipation/diarrhea, urinary complaints or peripheral edema. - Related Data Home Medications Medication Instructions Recorded Confirmed Omeprazole [PriLOSEC] 20 mg PO DAILY 11/14/13 04/27/24 Apixaban [Eliquis] 5 mg PO DIRECTED 03/30/21 04/27/24 Levothyroxine Sodium [Synthroid] 150 mcg PO DAILY 03/30/21 04/27/24 Furosemide [Lasix] 40 mg PO Q2D 04/27/24 04/27/24 Metoprolol Tartrate [Lopressor] 12.5 mg PO BID 04/27/24 04/27/24 Tamsulosin [Flomax] 0.4 mg PO HS 04/27/24 04/27/24 fluorouraciL [Efudex] 1 applic TOPICAL DIRECTED 04/27/24 04/27/24 Previous Rx's Medication Instructions Recorded Magnesium Oxide [Mag-Ox] 400 mg PO DAILY #30 tablet 03/06/23 lisinopriL [Zestril] 2.5 mg PO DAILY #30 tab 03/06/23 Allergies Allergy/AdvReac Type Severity Reaction Status Date / Time celecoxib [From Celebrex] AdvReac muscle Verified 04/27/24 10:55 cramps niacin AdvReac muscle Verified 04/27/24 10:55 cramps nystatin AdvReac muscle Verified 04/27/24 10:55 cramps [id number]-IWE-GbF Reductase AdvReac muscle Verified 04/27/24 10:55 Inhibitor cramps [Frpnnid-Fpy-Rrg Reductase Inhibitor] Review of Systems ROS Statement: Those systems with pertinent positive or pertinent negative responses have been documented in the HPI. ROS Other: All systems not noted in ROS Statement are negative. Past Medical History Past Medical History: Atrial Fibrillation, Cancer, GERD/Reflux, Hypertension, Osteoarthritis (OA), Thyroid Disorder Additional Past Medical History / Comment(s): hx kidney stones, hodgkins lymphoma,. 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 hx rapid heart rate History of Any Multi-Drug Resistant Organisms: MRSA Date of last positivie culture/infection: 2014 MDRO Source:: lung Past Surgical History: Joint Replacement Additional Past Surgical History / Comment(s): right knee replacement, sinan knee scope, sinan carpal tunnel lymph node biopsy, lt shoulder rotator cuff Past Anesthesia/Blood Transfusion Reactions: No Reported Reaction Past Psychological History: No Psychological Hx Reported Smoking Status: Former smoker Past Alcohol Use History: None Reported Past Drug Use History: None Reported - Past Family History Sister(s) Family Medical History: Cancer Mother Family Medical History: No Reported History Father Family Medical History: Hypertension General Exam Limitations: physical limitation General appearance: alert, in no apparent distress Respiratory exam: Present: normal lung sounds bilaterally. Absent: respiratory distress, wheezes, rales, rhonchi, stridor Cardiovascular Exam: Present: regular rate, irregular rhythm, normal heart sound s GI/Abdominal exam: Present: soft, normal bowel sounds. Absent: distended, tenderness, guarding, rebound, rigid Extremities exam: Present: normal inspection, full ROM, normal capillary refill. Absent: tenderness, pedal edema, joint swelling, calf tenderness Neurological exam: Present: alert, oriented X3, CN II-XII intact Skin exam: Present: warm, dry, intact, normal color. Absent: rash Course Vital Signs 04/27/24 04/27/24 08:13 11:00 Temperature 98.1 F Pulse Rate 72 72 Respiratory 16 20 Rate Blood Pressure 162/94 134/79 O2 Sat by Pulse 99 98 Oximetry EKG Findings - EKG Comments: EKG Findings:: EKG taken at 8: 37 showing atrial fibrillation. No acute ST segment or T wave abnormalities. Ventricular rate 71, QRS duration 126, QT/QTc 405/427. Medical Decision Making - Medical Decision Making Was pt. sent in by a medical professional or institution ([facility], SQL ENGINEER, urgent care, hospital, or shelter...) When possible be specific @ -No Did you speak to anyone other than the patient for history (EMS, parent, family, police, friend...)? What history was obtained from this source @ -No Did you review nursing and triage notes (agree or disagree)? Why? @ -I reviewed and agree with nursing and triage notes Were old charts reviewed (outside hosp., previous admission, EMS record, old EKG, old radiological studies, urgent care reports/EKG's, shelter records)? Report findings @ -No old charts were reviewed Differential Diagnosis (chest pain, altered mental status, abdominal pain women, abdominal pain men, vaginal bleeding, weakness, fever, dyspnea, syncope, headache, dizziness, GI bleed, back pain, seizure, CVA, palpatations, mental health, musculoskeletal)? @ -Differential Weakness:Hypoglycemia, shock, sepsis, hyponatremia, anemia, infection, MN, ETOH, adverse medicine reaction, overdose, stroke, this is not meant to be an all-inclusive list. EKG interpreted by me (3pts min.). @ -As above X-rays interpreted by me (1pt min.). @ -CXR interpreted by me negative for acute cardiopulmonary process. CT interpreted by me (1pt min.). @ -None done U/S interpreted by me (1pt. min.). @ -None done What testing was considered but not performed or refused? (CT, X-rays, U/S, lab s)? Why? @ -None What meds were considered but not given or refused? Why? @ -None Did you discuss the management of the patient with other professionals (professionals i.e. [facility], SQL ENGINEER, lab, RT, psych nurse, social media manager, 4th grade teacher, teacher, legal compliance officer, egg caser)? Give summary @ -No Was smoking cessation discussed for >3mins.? @ -No Was critical care preformed (if so, how long)? @ -No Were there social determinants of health that impacted care today? How? (Homelessness, low income, unemployed, alcoholism, drug addiction, transportation, low edu. Level, literacy, decrease access to med. care, [facility], rehab)? @ -No Was there de-escalation of care discussed even if they declined (Discuss DNR or withdrawal of care, Hospice)? DNR status @ -No What co-morbidities impacted this encounter? (DM, HTN, Smoking, COPD, CAD, Cancer, CVA, ARF, Chemo, Hep., AIDS, mental health diagnosis, sleep apnea, morbid obesity)? @ -None Was patient admitted / discharged? Hospital course, mention meds given and route, prescriptions, significant lab abnormalities, going to OR and other pertinent info. @ -Discharged. 88-year-old male presenting to the ER with a chief complaint of insomnia. History and physical exam completed. Vitals within normal limits. Patient in no signs of acute distress. Laboratory studies show mild dehydration. Chronic anemia hemoglobin 11.3. Magnesium 1.4 patient states he is taking oral magnesium at home. Viral swabs negative. EKG showing in no acute evidence of infarct. As patient reports a history of heart failure IV bolus held. Patient stable for discharge and outpatient follow-up. Strict return parameters discussed. Patient discharged in stable condition with follow-up to PCP. Patient verbally expressed understanding and agreement with care plan. Case discussed with ED attending, Dr. Sue Undiagnosed new problem with uncertain prognosis? @ -No Drug Therapy requiring intensive monitoring for toxicity (Heparin, Nitro, I nsulin, Cardizem)? @ -No Were any procedures done? @ -No Diagnosis/symptom? @ -Insomnia Acute, or Chronic, or Acute on Chronic? @ -Acute Uncomplicated (without systemic symptoms) or Complicated (systemic symptoms)? @ -Uncomplicated Side effects of treatment? @ -No Exacerbation, Progression, or Severe Exacerbation? @ -No Poses a threat to life or bodily function? How? (Chest pain, USA, MN, pneumonia, PE, COPD, DKA, ARF, appy, cholecystitis, CVA, Diverticulitis, Homicidal, Suicidal, threat to staff... and all critical care pts) @ -No - Lab Data Result diagrams: 04/27/24 08:32 04/27/24 08:32 Lab Results 04/27/24 04/27/24 04/27/24 Range/Units 08:32 08:32 08:32 WBC 5.5 (3.8-10.6) k/uL RBC 3.36 L (4.30-5.90) m/uL Hgb 11.3 L (13.0-17.5) gm/dL Hct 33.4 L (39.0-53.0) % MCV 99.5 (80.0-100.0) fL MCH 33.7 (25.0-35.0) pg MCHC 33.9 (31.0-37.0) g/dL RDW 13.4 (11.5-15.5) % Plt Count 186 (150-450) k/uL MPV 8.6 Neutrophils % (Manual) 38 % Lymphocytes % (Manual) 53 % Monocytes % (Manual) 9 % Eosinophils % (Manual) 1 % Neutrophils # (Manual) 2.09 (1.3-7.7) k/uL Lymphocytes # (Manual) 2.92 (1.0-4.8) k/uL Monocytes # (Manual) 0.50 (0-1.0) k/uL Eosinophils # (Manual) 0.06 (0-0.7) k/uL Nucleated RBCs 0 (0-0) /100 WBC Manual Slide Review Performed RBC Morphology Normal Sodium 140 (137-145) mmol/L Potassium 3.9 (3.5-5.1) mmol/L Chloride 100 (98-107) mmol/L Carbon Dioxide 32 H (22-30) mmol/L Anion Gap 8 mmol/L BUN 31 H (9-20) mg/dL Creatinine 1.21 (0.66-1.25) mg/dL Est GFR (CKD-EPI)AfAm 62 (>60 ml/min/1.73 sqM) Est GFR (CKD-EPI)NonAf 54 (>60 ml/min/1.73 sqM) Glucose 103 H (74-99) mg/dL Calcium 9.4 (8.4-10.2) mg/dL Magnesium 1.4 L (1.6-2.3) mg/dL Total Bilirubin 0.8 (0.2-1.3) mg/dL AST 37 (17-59) U/L ALT 20 (4-49) U/L Alkaline Phosphatase 78 (38-126) U/L Total Protein 6.8 (6.3-8.2) g/dL Albumin 4.5 (3.5-5.0) g/dL Influenza Type A (PCR) Not Detected (Not Detectd) Influenza Type B (PCR) Not Detected (Not Detectd) RSV (PCR) Not Detected (Not Detectd) SARS-CoV-2 (PCR) Not Detected (Not Detectd) - Radiology Data Radiology results: report reviewed, image reviewed Disposition Clinical Impression: Insomnia, Hypomagnesemia Disposition: HOME SELF-CARE Condition: Stable Instructions (If sedation given, give patient instructions): Insomnia (ED) Additional Instructions: Follow-up with PCP in the next 1 to 2 days. Return to the ER for any new or worsening concerns. Is patient prescribed a controlled substance at d/c from ED?: No Referrals: Gama Moses DO [Primary Care Provider] - 1-2 days Time of Disposition: 10:44
[2024-04-27 09:06] LABS: HCT 33.4 % (39.0-53.0); HGB 11.3 gm/dL (13.0-17.5); MCH 33.7 pg (25.0-35.0); MCHC 33.9 g/dL (31.0-37.0); MCV 99.5 fL (80.0-100.0); Mean Platelet Volume 8.6; Platelet Count 186 k/uL (150-450); RBC 3.36 m/uL (4.30-5.90); RDW 13.4 % (11.5-15.5); WBC 5.5 k/uL (3.8-10.6)
[2024-04-27 09:28] LABS: ALT 20 U/L (4-49); AST 37 U/L (17-59); African American GFR (CKD) 62 (>60 ml/min/1.73 sqM); Albumin 4.5 g/dL (3.5-5.0); Alkaline Phosphatase 78 U/L (38-126); Anion Gap 8 mmol/L; Blood Urea Nitrogen 31 mg/dL (9-20); Calcium 9.4 mg/dL (8.4-10.2); Carbon Dioxide 32 mmol/L (22-30); Chloride 100 mmol/L (98-107); Glucose 103 mg/dL (74-99); Magnesium 1.4 mg/dL (1.6-2.3); Non-African American GFR(CKD) 54 (>60 ml/min/1.73 sqM); Potassium 3.9 mmol/L (3.5-5.1); Sodium 140 mmol/L (137-145); Total Bilirubin 0.8 mg/dL (0.2-1.3); Total Protein 6.8 g/dL (6.3-8.2)
--- NOTE | 2024-04-27 09:28 | XR ---
EXAMINATION TYPE: XR chest 2V DATE OF EXAM: 04/27/2024 COMPARISON: 10/24/2023 HISTORY: Shortness of breath TECHNIQUE: Frontal and lateral views of the chest are obtained. FINDINGS: Scattered senescent parenchymal changes noted. No evidence for infiltrate. No evidence for atelectasis. Heart size is stable. Mediastinal structures are stable and grossly unremarkable. No evidence for hilar prominence. Degenerative changes dorsal spine. IMPRESSION: 1. No evidence for acute pulmonary disease. [facility], , 04/27/2024 9:17 AM
[2024-04-27 10:47] LABS: Eosinophils # (M) 0.06 k/uL (0-0.7); Lymphocytes # (M) 2.92 k/uL (1.0-4.8); Neutrophils # (M) 2.09 k/uL (1.3-7.7); Neutrophils % (M) 38 %; Nucleated Red Blood Cells 0 /100 WBC (0-0); Total Cells Counted 200
[2024-04-27 10:48] LABS: RBC Morphology Normal
[2024-04-27 11:01] VITALS: BP 134/79; RESP 20
== END 2024-04-27 11:01 | disposition home or self-care (01) ==
LOC: EC 08:11
CPT/HCPCS: 36415; 71046; 80053; 83735; 85025; 87636; 93005; 99285

== ENCOUNTER → 2024-06-13 | Outpatient (CLI) | payer MEDICARE ==
--- NOTE | 2024-06-13 11:32 | XR ---
EXAMINATION TYPE: XR chest 2V DATE OF EXAM: 06/13/2024 11:20 AM COMPARISON: Chest radiographs from 04/27/2024 TECHNIQUE: XR chest 2V Frontal and lateral views of the chest. CLINICAL INDICATION:Male, 88 years old with history of [id number] ACUTE COUGH,SOB; FINDINGS: Lungs/Pleura: There is flattening of the diaphragm with increased lucency of the lungs. No evidence o f pneumothorax, pleural effusion or focal consolidation. Chronic senescent parenchymal change. Pulmonary vascularity: Unremarkable. Heart/mediastinum: Cardiomediastinal silhouette is stable. Atherosclerotic calcifications are seen i n the aorta. Musculoskeletal: No acute osseous pathology. Postsurgical changes from left shoulder arthropathy. Lef t AC joint arthropathy. Dextrocurvature of the thoracic spine. Multilevel degenerative disc disease. Other findings: Right subclavian approach Mediport catheter in stable position. IMPRESSION: Chronic changes without acute pulmonary process. No significant change from prior. [facility], , 06/13/2024 11:30 AM
== END | disposition home or self-care (01) ==
LOC: RADXRYALE 11:06
PROVIDERS: ATTEND Physician Assistant Medical
DX: I70.0 Atherosclerosis of aorta (principal); R05.1 Acute cough; R06.02 Shortness of breath
CPT/HCPCS: 71046

== ENCOUNTER 2024-07-21 11:58 | Emergency (ER) | payer MEDICARE, OTHER ==
[2024-07-21 12:05] VITALS: TEMP 97.9
--- NOTE | 2024-07-21 12:39 | ED ---
Weakness HPI - General Chief complaint: Weakness Stated complaint: weakness Time Seen by Provider: 07/21/24 12:01 Source: patient, EMS, RN notes reviewed Mode of arrival: EMS Limitations: no limitations - History of Present Illness Initial comments: This is an 88-year-old male who presents to the emergency department for generalized weakness. This has been a progressive issue over the last 6 months, but seems to be getting worse over the last 5 days. Patient states that he has compression fractures in his back and this causes him to have to sleep in a recliner most of the nights because of the pain. He tried tried getting a new mattress, but states that he is still unable to sleep more than a few hours each night, which he believes is contributing to his problem. He does take Trevor as needed for pain relief, but tries to only take this once or twice a day. He is also not eating as he states he has no appetite. Denies any abdominal pain, nausea, or vomiting. He does report some shortness of breath. Denies any chest pain. His daughter states that she has been concerned about some increased confusion over the last couple of days. She was looking over his bills and checkbooks and states that words and dates were put in the wrong place. MD Complaint: generalized weakness - Related Data Home Medications Medication Instructions Recorded Confirmed Omeprazole [PriLOSEC] 20 mg PO DAILY 11/14/13 04/27/24 Apixaban [Eliquis] 5 mg PO DIRECTED 03/30/21 04/27/24 Levothyroxine Sodium [Synthroid] 150 mcg PO DAILY 03/30/21 04/27/24 Furosemide [Lasix] 40 mg PO Q2D 04/27/24 04/27/24 Metoprolol Tartrate [Lopressor] 12.5 mg PO BID 04/27/24 04/27/24 Tamsulosin [Flomax] 0.4 mg PO HS 04/27/24 04/27/24 fluorouraciL [Efudex] 1 applic TOPICAL DIRECTED 04/27/24 04/27/24 Previous Rx's Medication Instructions Recorded Magnesium Oxide [Mag-Ox] 400 mg PO DAILY #30 tablet 03/06/23 lisinopriL [Zestril] 2.5 mg PO DAILY #30 tab 03/06/23 Cyclobenzaprine [Flexeril] 5 mg PO HS #20 tab 07/21/24 Cyclobenzaprine [Flexeril] 5 mg PO HS #20 tab 07/21/24 Allergies Allergy/AdvReac Type Severity Reaction Status Date / Time celecoxib [From Celebrex] AdvReac muscle Verified 07/21/24 12:05 cramps niacin AdvReac muscle Verified 07/21/24 12:05 cramps nystatin AdvReac muscle Verified 07/21/24 12:05 cramps Locpsyp-WGH-HdO Reductase AdvReac muscle Verified 07/21/24 12:05 Inhibitor cramps [Prqyvya-Xzx-Ywf Reductase Inhibitor] Review of Systems ROS Statement: Those systems with pertinent positive or pertinent negative responses have been documented in the HPI. ROS Other: All systems not noted in ROS Statement are negative. Past Medical History Past Medical History: Atrial Fibrillation, Cancer, GERD/Reflux, Hypertension, Osteoarthritis (OA), Thyroid Disorder Additional Past Medical History / Comment(s): hx kidney stones, hodgkins lymphoma,. 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 hx rapid heart rate History of Any Multi-Drug Resistant Organisms: MRSA Date of last positivie culture/infection: 2014 MDRO Source:: lung Past Surgical History: Joint Replacement Additional Past Surgical History / Comment(s): right knee replacement, sinan knee scope, sinan carpal tunnel lymph node biopsy, lt shoulder rotator cuff Past Anesthesia/Blood Transfusion Reactions: No Reported Reaction Past Psychological History: No Psychological Hx Reported Smoking Status: Former smoker Past Alcohol Use History: None Reported Past Drug Use History: None Reported - Past Family History Sister(s) Family Medical History: Cancer Mother Family Medical History: No Reported History Father Family Medical History: Hypertension General Exam Limitations: no limitations General appearance: alert, in no apparent distress Head exam: Present: atraumatic, normocephalic, normal inspection Respiratory exam: Present: normal lung sounds bilaterally. Absent: respiratory distress, wheezes, rales, rhonchi, stridor Cardiovascular Exam: Present: regular rate, normal rhythm, normal heart sounds. Absent: systolic murmur, diastolic murmur, rubs, gallop, clicks GI/Abdominal exam: Present: soft, normal bowel sounds. Absent: distended, tenderness, guarding, rebound, rigid Neurological exam: Present: alert, oriented X3, CN II-XII intact Psychiatric exam: Present: normal affect, normal mood Skin exam: Present: warm, dry, intact, normal color. Absent: rash Course Vital Signs 07/21/24 07/21/24 11:59 14:18 Temperature 97.9 F Pulse Rate 78 72 Respiratory 16 18 Rate Blood Pressure 163/83 170/89 O2 Sat by Pulse 98 93 L Oximetry Medical Decision Making - Medical Decision Making This is an 88 year old male who presents to the emergency department for weakness. Was pt. sent in by a medical professional or institution? @ -No Did you speak to anyone other than the patient for history? @ -Family provided information about his confusion Did you review nursing and triage notes? @ -Yes, and I agree, it is accurate with regards to the patient's symptoms. Were old charts reviewed? @ -No Differential Diagnosis? @ -Differential Weakness: Hypoglycemia, shock, sepsis, hyponatremia, anemia, infection, MD, ETOH, adverse medicine reaction, overdose, stroke, this is not meant to be an all-inclusive list. EKG interpreted by me (3pts min.)? @ -EKG interpreted by me demonstrating the following: Atrial fibrillation. Ventricular rate 75 bpm, QRS duration 114 ms, QTc 401 ms. X-rays interpreted by me (1pt min.)? @ -Chest x-ray obtained, my interpretation identifies no localized con solidations or infiltrates. CT interpreted by me (1pt min.)? @ -Not obtained U/S interpreted by me (1pt. min.)? @ -Not obtained What testing was considered but not performed? (CT, X-rays, U/S, labs)? Why? @ -None What meds were considered but not given? Why? @ -None Did you discuss the management of the patient with other professionals? @ -No Did you reconcile home meds? @ -No Was smoking cessation discussed for >3mins.? @ -No Was critical care preformed (if so, how long)? @ -No Were there social determinants of health that impacted care today? How? (Homelessness, low income, unemployed, alcoholism, drug addiction, transportation, low edu. Level, literacy, decrease access to med. care, longterm, rehab)? @ -No Was there de-escalation of care discussed even if they declined? (Discuss DNR or withdrawal of care, Hospice)? @ -No What co-morbidities impacted this encounter? (DM, HTN, Smoking, COPD, CAD, Cancer, CVA, Hep., AIDS, mental health diagnosis, sleep apnea, morbid obesity)? @ -A-fib, history of cancer Was patient admitted / discharged? @ -Discharged. Lab work demonstrates slightly decreased hemoglobin which has been similar in the past. Lab work also demonstrate signs of dehydration. Magnesium slightly low at 1.5. BNP elevated at 5730, however he has no pulmonary vascular congestion or pleural effusions and is clinically not presenting like a CHF case. Urinalysis negative for signs of infection. Chest x-ray reveals no acute process. He was given a liter bolus of IV fluids for the dehydration along with 800 mg of magnesium oxide. Patient's progressive weakn ess is likely due to poor dietary intake as well as poor sleeping habits. Additionally, his age and potential anemia are also likely contributing to this. Flexeril 5 mg prescribed to be taken at night to see if this helps with his pain and sleeping. We also discussed the importance of adequate nutritional intake. Advised an [id number]-xcjqbhy iron supplement for the possible anemia. He may benefit from physical and occupational therapy to help improve his strength. Family did not think he was ready for a care home or rehab placement. We did get the patient up to ambulate and after receiving the medication and IV fluids he was more energetic and able to move around easier. Advised discussing more long-term options with his primary care provider as well. Patient discharged home with family in stable condition. Case discussed with ED attending Dr. Ramirez. Return precautions reviewed in depth, the patient is instructed to return to the emergency department with any new, worsening, or concerning symptoms. Patient verbalized understanding. Undiagnosed new problem with uncertain prognosis? @ -None Drug Therapy requiring intensive monitoring for toxicity (Heparin, Nitro, Insulin, Cardizem)? @ -None Were any procedures done? @ -None Diagnosis/symptom? @ -Weakness, insomnia, dehydration, anemia Acute, or Chronic, or Acute on Chronic? @ -Acute Uncomplicated (without systemic symptoms) or Complicated (systemic symptoms)? @ -Uncomplicated Side effects of treatment? @ -None Exacerbation, Progression, or Severe Exacerbation] @ -Not applicable Poses a threat to life or bodily function? @ -This will depend on how he progresses - Lab Data Result diagrams: 07/21/24 12:28 07/21/24 12:28 Lab Results 07/21/24 07/21/24 07/21/24 Range/Units 12:28 12:28 12:28 WBC 6.4 (3.8-10.6) k/uL RBC 2.87 L (4.30-5.90) m/uL Hgb 9.6 L (13.0-17.5) gm/dL Hct 28.7 L (39.0-53.0) % MCV 100.1 H (80.0-100.0) fL MCH 33.5 (25.0-35.0) pg MCHC 33.5 (31.0-37.0) g/dL RDW 13.1 (11.5-15.5) % Plt Count 188 (150-450) k/uL MPV 8.1 Neutrophils % 43 % Lymphocytes % 47 % Monocytes % 5 % Eosinophils % 1 % Basophils % 0 % Neutrophils # 2.7 (1.3-7.7) k/uL Lymphocytes # 3.0 (1.0-4.8) k/uL Monocytes # 0.3 (0-1.0) k/uL Eosinophils # 0.0 (0-0.7) k/uL Basophils # 0.0 (0-0.2) k/uL PT 13.3 H (10.0-12.5) sec INR 1.2 H (<1.2) APTT 28.2 (22.0-30.0) sec Sodium (137-145) mmol/L Potassium (3.5-5.1) mmol/L Chloride (98-107) mmol/L Carbon Dioxide (22-30) mmol/L Anion Gap mmol/L BUN (9-20) mg/dL Creatinine (0.66-1.25) mg/dL Est GFR (CKD-EPI)AfAm (>60 ml/min/1.73 sqM) Est GFR (CKD-EPI)NonAf (>60 ml/min/1.73 sqM) Glucose (74-99) mg/dL Plasma Lactic Acid Adam (0.7-2.0) mmol/L Calcium (8.4-10.2) mg/dL Magnesium (1.6-2.3) mg/dL Total Bilirubin (0.2-1.3) mg/dL AST (17-59) U/L ALT (4-49) U/L Alkaline Phosphatase (38-126) U/L NT-Pro-B Natriuret Pep pg/mL Total Protein (6.3-8.2) g/dL Albumin (3.5-5.0) g/dL TSH (0.465-4.680) mIU/L Urine Color Light Yellow Urine Appearance Clear (Clear) Urine pH 6.5 (5.0-8.0) Ur Specific [place] 1.015 (1.001-1.035) Urine Protein 1+ H (Negative) Urine Glucose (UA) Negative (Negative) Urine Ketones Negative (Negative) Urine Blood Moderate H (Negative) Urine Nitrite Negative (Negative) Urine Bilirubin Negative (Negative) Urine Urobilinogen <2.0 (<2.0) mg/dL Ur Leukocyte Esterase Trace H (Negative) Urine RBC 28 H (0-5) /hpf Urine WBC 7 H (0-5) /hpf Ur Squamous Epith Cells 1 (0-4) /hpf Hyaline Casts 1 (0-2) /lpf Urine Mucus Rare H (None) /hpf 07/21/24 07/21/24 Range/Units 12:28 12:28 WBC (3.8-10.6) k/uL RBC (4.30-5.90) m/uL Hgb (13.0-17.5) gm/dL Hct (39.0-53.0) % MCV (80.0-100.0) fL MCH (25.0-35.0) pg MCHC (31.0-37.0) g/dL RDW (11.5-15.5) % Plt Count (150-450) k/uL MPV Neutrophils % % Lymphocytes % % Monocytes % % Eosinophils % % Basophils % % Neutrophils # (1.3-7.7) k/uL Lymphocytes # (1.0-4.8) k/uL Monocytes # (0-1.0) k/uL Eosinophils # (0-0.7) k/uL Basophils # (0-0.2) k/uL PT (10.0-12.5) sec INR (<1.2) APTT (22.0-30.0) sec Sodium 139 (137-145) mmol/L Potassium 3.8 (3.5-5.1) mmol/L Chloride 103 (98-107) mmol/L Carbon Dioxide 29 (22-30) mmol/L Anion Gap 7 mmol/L BUN 26 H (9-20) mg/dL Creatinine 1.34 H (0.66-1.25) mg/dL Est GFR (CKD-EPI)AfAm 55 (>60 ml/min/1.73 sqM) Est GFR (CKD-EPI)NonAf 48 (>60 ml/min/1.73 sqM) Glucose 88 (74-99) mg/dL Plasma Lactic Acid Adam 0.8 (0.7-2.0) mmol/L Calcium 10.8 H (8.4-10.2) mg/dL Magnesium 1.5 L (1.6-2.3) mg/dL Total Bilirubin 0.7 (0.2-1.3) mg/dL AST 54 (17-59) U/L ALT 31 (4-49) U/L Alkaline Phosphatase 88 (38-126) U/L NT-Pro-B Natriuret Pep 5730 pg/mL Total Protein 6.0 L (6.3-8.2) g/dL Albumin 3.9 (3.5-5.0) g/dL TSH 3.030 (0.465-4.680) mIU/L Urine Color Urine Appearance (Clear) Urine pH (5.0-8.0) Ur Specific [place] (1.001-1.035) Urine Protein (Negative) Urine Glucose (UA) (Negative) Urine Ketones (Negative) Urine Blood (Negative) Urine Nitrite (Negative) Urine Bilirubin (Negative) Urine Urobilinogen (<2.0) mg/dL Ur Leukocyte Esterase (Negative) Urine RBC (0-5) /hpf Urine WBC (0-5) /hpf Ur Squamous Epith Cells (0-4) /hpf Hyaline Casts (0-2) /lpf Urine Mucus (None) /hpf - Radiology Data Radiology results: report reviewed, image reviewed Disposition Clinical Impression: Weakness, Insomnia, Dehydration, Anemia Disposition: HOME SELF-CARE Instructions (If sedation given, give patient instructions): Dehydration (ED), Insomnia (ED), Anemia (ED) Additional Instructions: Return to the emergency department with any new, worsening, or concerning symptoms. Try taking the Flexeril at night to see if this helps with your pain and helps you sleep better. You can take this up to 3 times a day, however it may make you drowsy. If the dose is too strong you can also try breaking it in half. You can also try something like [id number] melatonin to see if this helps. Additionally, your blood work showed that you are likely anemic. Try taking a daily iron supplement. Ferrous gluconate is less likely to make you constipated. However, discuss iron replacement options with your primary care provider in the event something like an iron transfusion may be more beneficial for you. Consider starting a daily multivitamin as well. Do your best to try to eat even when you do not have an appetite. Increasing how much you eat each day in small increments will also help to increase your appetite. Follow up with your primary care provider in 1-2 days. Prescriptions: Cyclobenzaprine [Flexeril] 5 mg PO HS #20 tab Cyclobenzaprine [Flexeril] 5 mg PO HS #20 tab Is patient prescribed a controlled substance at d/c from ED?: No Referrals: Gama Moses DO [Primary Care Provider] - 1-2 days Time of Disposition: 14:51
[2024-07-21 12:46] LABS: Basophils % (A) 0 %; Eosinophils % (A) 1 %; HCT 28.7 % (39.0-53.0); HGB 9.6 gm/dL (13.0-17.5); Lymphocytes % (A) 47 %; MCH 33.5 pg (25.0-35.0); MCHC 33.5 g/dL (31.0-37.0); MCV 100.1 fL (80.0-100.0); Mean Platelet Volume 8.1; Monocytes # (A) 0.3 k/uL (0-1.0); Monocytes % (A) 5 %; Neutrophils # (A) 2.7 k/uL (1.3-7.7); Neutrophils % (A) 43 %; Platelet Count 188 k/uL (150-450); RBC 2.87 m/uL (4.30-5.90); RDW 13.1 % (11.5-15.5); WBC 6.4 k/uL (3.8-10.6)
[2024-07-21 12:56] LABS: INR 1.2 (<1.2); Partial Thromboplastin Time 28.2 sec (22.0-30.0); Prothrombin Time 13.3 sec (10.0-12.5)
[2024-07-21] MEDS: SODIUM CHLORIDE 0.9% 1,000 ML IV STA (13:00)
--- NOTE | 2024-07-21 13:00 | XR ---
EXAMINATION TYPE: XR chest 2V DATE OF EXAM: 07/21/2024 12:48 PM COMPARISON: Chest radiographs from 06/13/2024 CLINICAL INDICATION: Male, 88 years old with history of Weakness; [facility] TECHNIQUE: XR chest 2V Frontal and lateral views of the chest. FINDINGS: Lungs/Pleura: Low lung volumes are present. There is no evidence of pleural effusion, focal consolida tion, or pneumothorax. Pulmonary vascularity: Unremarkable. Heart/mediastinum: Cardiomediastinal silhouette is unremarkable. Musculoskeletal: No acute osseous pathology. Left shoulder reverse arthroplasty appears intact. Right shoulder degeneration changes. Other findings: None Lines/Tubes: Right internal jugular central venous catheter with distal tip at the cavoatrial junction. IMPRESSION: No acute cardiopulmonary disease/process. [facility], , 07/21/2024 12:58 PM
[2024-07-21 13:01] LABS: ALT 31 U/L (4-49); AST 54 U/L (17-59); African American GFR (CKD) 55 (>60 ml/min/1.73 sqM); Albumin 3.9 g/dL (3.5-5.0); Alkaline Phosphatase 88 U/L (38-126); Anion Gap 7 mmol/L; Blood Urea Nitrogen 26 mg/dL (9-20); Calcium 10.8 mg/dL (8.4-10.2); Carbon Dioxide 29 mmol/L (22-30); Chloride 103 mmol/L (98-107); Glucose 88 mg/dL (74-99); Magnesium 1.5 mg/dL (1.6-2.3); Non-African American GFR(CKD) 48 (>60 ml/min/1.73 sqM); Potassium 3.8 mmol/L (3.5-5.1); Sodium 139 mmol/L (137-145); Total Bilirubin 0.7 mg/dL (0.2-1.3)
[2024-07-21 13:03] LABS: Appearance,Urine Clear (Clear); Bilirubin,Urine Negative (Negative); Blood,Urine Moderate (Negative); Color,Urine Light Yellow; Glucose,Urine (UA) Negative (Negative); Hyaline Casts,Urine 1 /lpf (0-2); Ketones,Urine Negative (Negative); Leukocyte Esterase,Urine Trace (Negative); Mucus,Urine Rare /hpf; Nitrite,Urine Negative (Negative); PH, Urine 6.5 (5.0-8.0); Protein,Urine 1+ (Negative); RBC,Urine 28 /hpf (0-5); Specific Gravity,Urine 1.015 (1.001-1.035); Squamous Epithelial Cell,Urine 1 /hpf (0-4); Urobilinogen,Urine <2.0 mg/dL (<2.0); WBC,Urine 7 /hpf (0-5)
[2024-07-21 13:10] LABS: NT-Pro-B-Type Natriuretic Pept 5730 pg/mL
[2024-07-21] MEDS: MAGNESIUM OXIDE 400 MG TAB PO STA ×2 (13:41)
--- NOTE | 2024-07-21 14:15 | CT ---
EXAMINATION TYPE: CT brain wo con DATE OF EXAM: 07/21/2024 1:43 PM COMPARISON: None. CLINICAL INDICATION: Male, 88 years old with history of Confusion, confused TECHNIQUE: Brain: Axial CT images of the brain were obtained with coronal and sagittal reformats created and rev iewed. Contrast used: None. Oral contrast used: None. CT DLP: 1213.4 mGycm, Automated exposure control for dose reduction was used. FINDINGS: Brain: Extra-axial spaces: No abnormal extra-axial fluid collections. Ventricular system: Dilatation in proportion to cerebral atrophy. Cerebral parenchyma: Cerebral atrophy. No acute intraparenchymal hemorrhage or mass effect. The calvillo -white junction is well differentiated. Scattered hypoattenuating areas are seen within the white mat ter. Cerebellum: Unremarkable. Mass effect: No evidence of midline shift. Intracranial vasculature: Atherosclerotic calcifications of the intracranial vessels. Soft tissues: Normal. Calvarium/osseous structures: No depressed skull fracture. Paranasal sinuses and mastoid air cells: Mild scattered paranasal sinus disease. Visualized orbits: Orbital contents are intact. IMPRESSION: 1. No acute intracranial process. 2. Nonspecific white matter changes, likely secondary to chronic small vessel ischemic disease. [facility], , 07/21/2024 2:13 PM
[2024-07-21 14:24] VITALS: BP 170/89; PULSE 72; RESP 18
[2024-07-21] MEDS: CYCLOBENZAPRINE 10MG STARTER 3 TAB BTL PO STA (15:26)
[2024-07-21] MEDS: ONDANSETRON 4 MG ODT STARTER PACK 2 TAB BTL PO STA (15:26)
== END 2024-07-21 15:34 | disposition home or self-care (01) ==
LOC: EC 11:58
DX: R53.1 Weakness (principal); D64.9 Anemia, unspecified; E86.0 Dehydration; G47.00 Insomnia, unspecified; I48.91 Unspecified atrial fibrillation; Z85.9 Personal history of malignant neoplasm, unspecified; Z87.891 Personal history of nicotine dependence; Z88.6 Allergy status to analgesic agent; Z88.8 Allergy status to other drugs, medicaments and biological substances; Z88.1 Allergy status to other antibiotic agents
CPT/HCPCS: 36415; 93005; 83880; 80053; 84443; 83605; 83735; 85025; 85610; 85730; 81001; 71046; 70450; 99285; S0119

== ENCOUNTER 2024-07-28 10:09 | Observation (INO) | payer OTHER, MEDICARE ==
--- NOTE | 2024-07-28 10:28 | ED ---
General Adult HPI - General Chief complaint: Abdominal Pain Stated complaint: Constipation Time Seen by Provider: 07/28/24 10:19 Source: patient, RN notes reviewed Limitations: no limitations - History of Present Illness Initial comments: Patient is a 88-year-old male present to the emergency department with concerns for constipation. Last bowel movement was around 8 days ago. No nausea or vomiting. No back pain. Patient states only mild abdominal discomfort. Patient states most of his discomfort is the right hip and extends down. No history of chronic hip pain however patient does have chronic back problems, no worse from normal. Discomfort does not increase with movement. Patient has some leg edema which is fairly chronic for him. - Related Data Home Medications Medication Instructions Recorded Confirmed Omeprazole [PriLOSEC] 20 mg PO DAILY 11/14/13 04/27/24 Apixaban [Eliquis] 5 mg PO DIRECTED 03/30/21 04/27/24 Levothyroxine Sodium [Synthroid] 150 mcg PO DAILY 03/30/21 04/27/24 Furosemide [Lasix] 40 mg PO Q2D 04/27/24 04/27/24 Metoprolol Tartrate [Lopressor] 12.5 mg PO BID 04/27/24 04/27/24 Tamsulosin [Flomax] 0.4 mg PO HS 04/27/24 04/27/24 fluorouraciL [Efudex] 1 applic TOPICAL DIRECTED 04/27/24 04/27/24 Previous Rx's Medication Instructions Recorded Magnesium Oxide [Mag-Ox] 400 mg PO DAILY #30 tablet 03/06/23 lisinopriL [Zestril] 2.5 mg PO DAILY #30 tab 03/06/23 Cyclobenzaprine [Flexeril] 5 mg PO HS #20 tab 07/21/24 Cyclobenzaprine [Flexeril] 5 mg PO HS #20 tab 07/21/24 Allergies Allergy/AdvReac Type Severity Reaction Status Date / Time celecoxib [From Celebrex] AdvReac muscle Verified 07/28/24 10:30 cramps niacin AdvReac muscle Verified 07/28/24 10:30 cramps nystatin AdvReac muscle Verified 07/28/24 10:30 cramps Bimqnde-VCF-KcV Reductase AdvReac muscle Verified 07/28/24 10:30 Inhibitor cramps [Dbodlvu-Yfm-Qdz Reductase Inhibitor] Review of Systems ROS Statement: Those systems with pertinent positive or pertinent negative responses have been documented in the HPI. ROS Other: All systems not noted in ROS Statement are negative. Constitutional: Denies: fever Eyes: Denies: eye pain ENT: Denies: ear pain Cardiovascular: Denies: chest pain Endocrine: Denies: fatigue Gastrointestinal: Reports: as per HPI, constipation Musculoskeletal: Reports: as per HPI. Denies: back pain, joint swelling Past Medical History Past Medical History: Atrial Fibrillation, Cancer, GERD/Reflux, Hypertension, Osteoarthritis (OA), Thyroid Disorder Additional Past Medical History / Comment(s): hx kidney stones, hodgkins lymphoma,. 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 hx rapid heart rate History of Any Multi-Drug Resistant Organisms: MRSA Date of last positivie culture/infection: 2014 MDRO Source:: lung Past Surgical History: Joint Replacement Additional Past Surgical History / Comment(s): right knee replacement, sinan knee scope, sinan carpal tunnel lymph node biopsy, lt shoulder rotator cuff Past Anesthesia/Blood Transfusion Reactions: No Reported Reaction Past Psychological History: No Psychological Hx Reported Smoking Status: Former smoker Past Alcohol Use History: None Reported Past Drug Use History: None Reported - Past Family History Sister(s) Family Medical History: Cancer Mother Family Medical History: No Reported History Father Family Medical History: Hypertension General Exam Limitations: no limitations General appearance: alert, in no apparent distress Head exam: Present: normocephalic Eye exam: Present: normal appearance Neck exam: Present: normal inspection Respiratory exam: Present: normal lung sounds bilaterally Cardiovascular Exam: Present: irregular rhythm Expanded Peripheral pulses: 2+: Dorsalis Pedis (R), Dorsalis Pedis (L) GI/Abdominal exam: Present: soft, normal bowel sounds. Absent: distended, tenderness, guarding, rebound, rigid, pulsatile mass Rectal exam: Present: normal inspection. Absent: fecal impaction Extremities exam: Present: normal inspection, full ROM. Absent: tenderness Back exam: Present: normal inspection. Absent: tenderness, vertebral tenderness Neurological exam: Present: alert Psychiatric exam: Present: normal affect, normal mood Skin exam: Present: normal color Course Vital Signs 07/28/24 07/28/24 07/28/24 10:12 10:30 12:30 Temperature 97.9 F Pulse Rate 87 96 81 Respiratory 17 17 17 Rate Blood Pressure 155/109 154/115 150/91 O2 Sat by Pulse 97 97 97 Oximetry EKG Findings - EKG Results: EKG: interpreted by ERICKA (Left axis. LVH criteria. QRS 129. QT 381. Nonspecific T waves.) EKG shows: atrial fibrillation Medical Decision Making - Medical Decision Making Family arrives and provides additional history of concerns for patient not being able to take care of himself. Patient has chronic back pain and this limits his ability to ambulate, patient is only able to ambulate a couple steps and not able to make it to the bathroom and has had accidents. They feel patient is all longer able to walk or take care of himself and needs rehab. Was pt. sent in by a medical professional or institution (, PA, RN PARALEGAL, urgent care, hospital, or detention...) When possible be specific @ -No Did you speak to anyone other than the patient for history (EMS, parent, family, police, friend...)? What history was obtained from this source @ -See above Did you review nursing and triage notes (agree or disagree)? Why? @ -I reviewed and agree with nursing and triage notes Were old charts reviewed (outside hosp., previous admission, EMS record, old EKG, old radiological studies, urgent care reports/EKG's, detention records)? Report findings @ -Previous x-ray lumbar spine reviewed Differential Diagnosis (chest pain, altered mental status, abdominal pain women, abdominal pain men, vaginal bleeding, weakness, fever, dyspnea, syncope, hea dache, dizziness, GI bleed, back pain, seizure, CVA, palpatations, mental health, musculoskeletal)? @ -Differential Weakness: Hypoglycemia, shock, sepsis, hyponatremia, anemia, infection, AR, ETOH, adverse medicine reaction, overdose, stroke, this is not meant to be an all-inclusive list. EKG interpreted by me (3pts min.). @ -As above X-rays interpreted by me (1pt min.). @ -Right hip and pelvis x-ray showed no acute process. Abdominal x-ray shows some increase stool. Chest x-ray unremarkable. Lumbar x-ray shows L4 compression new from January 2024 CT interpreted by me (1pt min.). @ -None done U/S interpreted by me (1pt. min.). @ -None done What testing was considered but not performed or refused? (CT, X-rays, U/S, labs)? Why? @ -None What meds were considered but not given or refused? Why? @ -None Did you discuss the management of the patient with other professionals (professionals i.e. , PA, RN PARALEGAL, lab, RT, psych nurse, licensed social worker, environmental lawyer, teacher, biosecurity officer, clinical case manager)? Give summary @ -Case was discussed with Dr. Saunders who will admit covering Dr. Parmar Was smoking cessation discussed for >3mins.? @ -No Was critical care preformed (if so, how long)? @ -No Were there social determinants of health that impacted care today? How? (Homelessness, low income, unemployed, alcoholism, drug addiction, transportation, low edu. Level, literacy, decrease access to med. care, fci, rehab)? @ -No Was there de-escalation of care discussed even if they declined (Discuss DNR or withdrawal of care, Hospice)? DNR status @ -No What co-morbidities impacted this encounter? (DM, HTN, Smoking, COPD, CAD, Cancer, CVA, ARF, Chemo, Hep., AIDS, mental health diagnosis, sleep apnea, morbid obesity)? @ -Chronic back problems Was patient admitted / discharged? Hospital course, mention meds given and route, prescriptions, significant lab abnormalities, going to OR and other pertinent info. @ -Patient presents with acute on chronic pain and inability to walk or take c are of himself. Family and patient feels he needs rehab. Patient to be admitted. [place] orders written. Patient and family updated. Undiagnosed new problem with uncertain prognosis? @ -No Drug Therapy requiring intensive monitoring for toxicity (Heparin, Nitro, Insulin, Cardizem)? @ -No Were any procedures done? @ -No Diagnosis/symptom? @ -Weakness, inability to ambulate, back pain Acute, or Chronic, or Acute on Chronic? @ -Acute, acute, chronic Uncomplicated (without systemic symptoms) or Complicated (systemic symptoms)? @ -Complicated with chronic back pain Side effects of treatment? @ -No Exacerbation, Progression, or Severe Exacerbation? @ -No Poses a threat to life or bodily function? How? (Chest pain, USA, AR, pneumonia, PE, COPD, DKA, ARF, appy, cholecystitis, CVA, Diverticulitis, Homicidal, Suicidal, threat to staff... and all critical care pts) @ -No - Lab Data Result diagrams: 07/28/24 12:15 07/28/24 12:15 Lab Results 07/28/24 07/28/24 07/28/24 Range/Units 12:15 12:15 12:15 WBC 6.2 (3.8-10.6) k/uL RBC 2.89 L (4.30-5.90) m/uL Hgb 10.0 L (13.0-17.5) gm/dL Hct 28.8 L (39.0-53.0) % MCV 99.8 (80.0-100.0) fL MCH 34.7 (25.0-35.0) pg MCHC 34.8 (31.0-37.0) g/dL RDW 14.0 (11.5-15.5) % Plt Count 188 (150-450) k/uL MPV 8.4 Neutrophils % 51 % Lymphocytes % 41 % Monocytes % 4 % Eosinophils % 1 % Basophils % 0 % Neutrophils # 3.2 (1.3-7.7) k/uL Lymphocytes # 2.5 (1.0-4.8) k/uL Monocytes # 0.2 (0-1.0) k/uL Eosinophils # 0.0 (0-0.7) k/uL Basophils # 0.0 (0-0.2) k/uL Sodium 137 (137-145) mmol/L Potassium 4.4 (3.5-5.1) mmol/L Chloride 100 (98-107) mmol/L Carbon Dioxide 27 (22-30) mmol/L Anion Gap 10 mmol/L BUN 26 H (9-20) mg/dL Creatinine 1.12 (0.66-1.25) mg/dL Est GFR (CKD-EPI)AfAm 68 (>60 ml/min/1.73 sqM) Est GFR (CKD-EPI)NonAf 59 (>60 ml/min/1.73 sqM) Glucose 86 (74-99) mg/dL Calcium 10.5 H (8.4-10.2) mg/dL Total Bilirubin 0.9 (0.2-1.3) mg/dL AST 37 (17-59) U/L ALT 21 (4-49) U/L Alkaline Phosphatase 83 (38-126) U/L Total Protein 6.2 L (6.3-8.2) g/dL Albumin 4.0 (3.5-5.0) g/dL Urine Color Colorless Urine Appearance Clear (Clear) Urine pH 7.5 (5.0-8.0) Ur Specific [place] 1.009 (1.001-1.035) Urine Protein Trace H (Negative) Urine Glucose (UA) Negative (Negative) Urine Ketones Negative (Negative) Urine Blood Trace H (Negative) Urine Nitrite Negative (Negative) Urine Bilirubin Negative (Negative) Urine Urobilinogen <2.0 (<2.0) mg/dL Ur Leukocyte Esterase Negative (Negative) Urine RBC 9 H (0-5) /hpf Urine WBC 1 (0-5) /hpf Urine Mucus Rare H (None) /hpf Disposition Clinical Impression: Weakness Disposition: ADMITTED IP TO THIS HOSP Is patient prescribed a controlled substance at d/c from ED?: No Referrals: Gama Moses DO [Primary Care Provider] - 1-2 days Time of Disposition: 14:58
[2024-07-28] MEDS: METOPROLOL TARTRATE 12.5 MG TAB PO STA (11:07)
--- NOTE | 2024-07-28 11:07 | XR ---
EXAMINATION TYPE: XR Hip RT and AP Pelvis DATE OF EXAM: 07/28/2024 COMPARISON: 02/02/2014 CLINICAL INDICATION: Male, 88 years old with history of constipation and hip pain; TECHNIQUE: A single AP view of the pelvis is obtained. Two views of the right hip are obtained. FINDINGS: There is no acute fracture/dislocation evident in the pelvis. The hip and sacroiliac join ts appear symmetric and unremarkable. The overlying soft tissue appears unremarkable. Two views of right hip show no acute fracture or dislocation. No focal lytic or sclerotic lesion see n in the proximal right femur. The overlying soft tissue is unremarkable. IMPRESSION: There is no acute fracture or dislocation in the pelvis or right hip. [facility], , 07/28/2024 11:05 AM
--- NOTE | 2024-07-28 11:09 | XR ---
Abdomen, 2 view. HISTORY: Constipation. COMPARISON: None TECHNIQUE: 2 supine views of the abdomen were obtained FINDINGS: Bowel gas pattern is nonspecific and there is no evidence of obstruction. There is a moderate amount of dense stool within the rectum. There are no suspicious abdominal or pelvic calcifications. There is multilevel advanced degenerative disc disease in the lumbar spine. Hips are normal and symmetric. IMPRESSION: 1. Nonspecific bowel gas pattern. 2. Moderate dense stool within the rectum. 3. Advanced degenerative disc disease throughout the lumbar spine [facility], , 07/28/2024 11:07 AM
[2024-07-28 12:52] LABS: Basophils % (A) 0 %; Eosinophils % (A) 1 %; HCT 28.8 % (39.0-53.0); Lymphocytes # (A) 2.5 k/uL (1.0-4.8); Lymphocytes % (A) 41 %; MCH 34.7 pg (25.0-35.0); MCHC 34.8 g/dL (31.0-37.0); MCV 99.8 fL (80.0-100.0); Mean Platelet Volume 8.4; Monocytes # (A) 0.2 k/uL (0-1.0); Monocytes % (A) 4 %; Neutrophils # (A) 3.2 k/uL (1.3-7.7); Neutrophils % (A) 51 %; Platelet Count 188 k/uL (150-450); RBC 2.89 m/uL (4.30-5.90); WBC 6.2 k/uL (3.8-10.6)
[2024-07-28 12:59] LABS: Appearance,Urine Clear (Clear); Bilirubin,Urine Negative (Negative); Blood,Urine Trace (Negative); Color,Urine Colorless; Glucose,Urine (UA) Negative (Negative); Ketones,Urine Negative (Negative); Leukocyte Esterase,Urine Negative (Negative); Mucus,Urine Rare /hpf; Nitrite,Urine Negative (Negative); PH, Urine 7.5 (5.0-8.0); Protein,Urine Trace (Negative); RBC,Urine 9 /hpf (0-5); Specific Gravity,Urine 1.009 (1.001-1.035); Urobilinogen,Urine <2.0 mg/dL (<2.0); WBC,Urine 1 /hpf (0-5)
[2024-07-28 13:40] LABS: ALT 21 U/L (4-49); AST 37 U/L (17-59); African American GFR (CKD) 68 (>60 ml/min/1.73 sqM); Alkaline Phosphatase 83 U/L (38-126); Anion Gap 10 mmol/L; Blood Urea Nitrogen 26 mg/dL (9-20); Calcium 10.5 mg/dL (8.4-10.2); Carbon Dioxide 27 mmol/L (22-30); Chloride 100 mmol/L (98-107); Glucose 86 mg/dL (74-99); Non-African American GFR(CKD) 59 (>60 ml/min/1.73 sqM); Potassium 4.4 mmol/L (3.5-5.1); Sodium 137 mmol/L (137-145); Total Bilirubin 0.9 mg/dL (0.2-1.3); Total Protein 6.2 g/dL (6.3-8.2)
--- NOTE | 2024-07-28 14:33 | XR ---
EXAMINATION TYPE: XR chest 2V DATE OF EXAM: 07/28/2024 2:26 PM COMPARISON: Previous chest radiograph 07/21/2024. CLINICAL INDICATION: Male, 88 years old with history of Weakness; [facility] TECHNIQUE: XR chest 2V Frontal and lateral views of the chest. FINDINGS: Lungs/Pleura: There is no evidence of pleural effusion, focal consolidation, or pneumothorax. Pulmonary vascularity: Unremarkable. Heart/mediastinum: Cardiomediastinal silhouette is unremarkable. Musculoskeletal: No acute osseous pathology. Left shoulder arthroplasty. Other findings: None Lines/Tubes: Right chest wall port catheter in stable position. IMPRESSION: No acute cardiopulmonary disease/process. [facility], , 07/28/2024 2:31 PM
--- NOTE | 2024-07-28 14:38 | XR ---
EXAMINATION TYPE: XR lumbar spine 2 or 3V DATE OF EXAM: 07/28/2024 2:26 PM COMPARISON: Previous radiograph of 01/13/2024. CLINICAL INDICATION: Male, 88 years old with history of pain; [facility] TECHNIQUE: XR lumbar spine 2 or 3V - Frontal, lateral and coned in L5-S1 lateral views of the spine. FINDINGS: 5 lumbar type vertebral bodies are present for the purposes of this examination. Worsening compressio n deformity involving the L4 vertebral body with approximately 50-60% height loss on today's study. O sseous structures demineralized. Multilevel intervertebral disc space loss. Mild compression deformit y of L1 and T12 again noted. Moderate T11 compression deformity similar to prior study. Multilevel ad vanced facet arthropathy, most pronounced at L4-5 and L5-S1. Levoconvex curvature centered at L1-L2. IMPRESSION: 1. Worsening age indeterminate moderate compression deformity of the L4 vertebral body compared to p revious study 01/13/2024. 2. Multilevel lumbosacral spinal degenerative changes. [facility], , 07/28/2024 2:35 PM
[2024-07-28] MEDS ORDERED: ACETAMINOPHEN TAB 325 MG TAB PO PRN (14:59)
[2024-07-28] MEDS ORDERED: NALOXONE 0.4 MG/ML 1 ML VIAL IV PRN (14:59)
[2024-07-28] MEDS ORDERED: HYDROmorphone 1 MG/ML 1 ML SYRINGE IVP PRN (14:59)
[2024-07-28] MEDS: HYDROmorphone 0.5 MG/0.5 ML SYRINGE IVP PRN (16:04)
--- NOTE | 2024-07-28 17:22 | P.HPIM ---
History of Present Illness H&P Date: 07/28/24 Patient is a an 88-year-old male with past medical history of A-fib on Eliquis, history of non-Hodgkin's lymphoma status post chemo in 2013, in remission, hypertension, hypothyroidism, systolic CHF, compression fractures, who presented to the ED with concern for constipation, inability to take care of himself. Patient has chronic back pain limiting his ADLs, ability to ambulate, can only make couple steps, needs placement. He was seen by orthopedic surgery in the outpatient settings, it was decided that he is not a candidate for surgery, proceed with medical management. ED course: Afebrile, BP mildly elevated 150s over 100s, heart rate in 80s, satting well on room air. Lab work significant for no leukocytosis, stable hemoglobin of 10.0, normal platelet count, normal sodium, potassium, chloride, creatinine, BUN, calcium is elevated 10.5. UA negative for UTI.. Patient received enema in the ED, had bowel movement, abdominal pressure resolved. Patient was provided with pain medications, admitted for placement, PT OT consulted. Of note, he was seen in the ER on 07/21/2024 for generalized weakness. Reported was progressively worsening over the past 6 months. It was believed that patient's weakness is likely due to poor dietary intake, poor sleeping habits. He was provided with Flexeril. Recommended to be evaluated by PT OT, family was not ready for care home or rehab placement at that time, patient was more energetic after IV fluids and magnesium. Discharged home Pertinent positives and negatives as discussed in HPI, a complete review of systems was performed and all other systems are negative. Patient seen and examined at bedside. Patient's family present. Patient complains of right hip pain, back pain Vital signs reviewed General: nontoxic, no distress, appears at stated age Derm: warm, dry Head: atraumatic, normocephalic, symmetric Eyes: EOMI, no lid lag, anicteric sclera, pupils equal round reactive to light ENT: Nose and ears atraumatic Neck: No thyromegaly, supple Mouth: no lip lesion, mucus membranes moist Cardiovascular: S1S2 reg, no murmur, no edema Lungs: clear to auscultation bilateral, no rhonchi, no rales, no wheeze, no accessory muscle use Abdominal: soft, nontender to palpation, no guarding, no appreciable organomegaly Ext: Right hip decreased range of motion mostly by muscle stretching, lateral aspect of the hip is tender to palpation, no groin tenderness, back tenderness present Neuro: CN II-XII grossly intact Psych: Alert, oriented, appropriate affect Assessment/Plan: Generalized weakness, debility Decreased oral intake Constipation -PT OT, social work -Nutrition consult -TSH, B12, B9, vitamin D - bowel regimen Urinary frequency, likely BPH -UA negative, start Flomax -Tylenol, Percocet, Dilaudid as needed -Orthopedic surgery consult discontinued as patient was previously evaluated multiple times, family states that he will be managed medically only, he also refused steroid injections in the past as they were not effective of A-fib on Eliquis systolic CHF history of non-Hodgkin's lymphoma status post chemo in 2013, in remission hypertension hypothyroidism compression fractures, -Resume home medications The patient is admitted with an anticipated [greater] than 2 midnight stay as [inpatient/observation] status for evaluation of acute on chronic back pain, constipation, decreased oral intake, needs placement CODE STATUS: DNR/DNI DVT prophylaxis: Eliquis Anticipated discharge date: Pending case management, PT OT evaluation Anticipated discharge place: [] A total of [] minutes was spent on the care of this complex patient more than 50% of the time was spent in counseling and care coordination. Past Medical History Past Medical History: Atrial Fibrillation, Cancer, GERD/Reflux, Hypertension, Osteoarthritis (OA), Thyroid Disorder Additional Past Medical History / Comment(s): hx kidney stones, hodgkins lymphoma,. 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 hx rapid heart rate History of Any Multi-Drug Resistant Organisms: MRSA Date of last positivie culture/infection: 2014 MDRO Source:: lung Past Surgical History: Joint Replacement Additional Past Surgical History / Comment(s): right knee replacement, sinan knee scope, sinan carpal tunnel lymph node biopsy, lt shoulder rotator cuff Past Anesthesia/Blood Transfusion Reactions: No Reported Reaction Past Psychological History: No Psychological Hx Reported Smoking Status: Former smoker Past Alcohol Use History: None Reported Past Drug Use History: None Reported - Past Family History Sister(s) Family Medical History: Cancer Mother Family Medical History: No Reported History Father Family Medical History: Hypertension Medications and Allergies Home Medications Medication Instructions Recorded Confirmed Type Omeprazole [PriLOSEC] 20 mg PO DAILY 11/14/13 07/28/24 History Apixaban [Eliquis] 5 mg PO BID 03/30/21 07/28/24 History Levothyroxine Sodium [Synthroid] 150 mcg PO HS 03/30/21 07/28/24 History lisinopriL [Zestril] 2.5 mg PO DAILY #30 tab 03/06/23 07/28/24 Rx Metoprolol Tartrate [Lopressor] 12.5 mg PO BID 04/27/24 07/28/24 History Cyclobenzaprine [Flexeril] 5 mg PO HS #20 tab 07/21/24 07/28/24 Rx Cholecalciferol [Vitamin D3 (125 125 mcg PO HS 07/28/24 07/28/24 History Mcg = 5000 Iu)] Diclofenac Sodium Gel [Voltaren 1% 2 gm TOPICAL DAILY 07/28/24 07/28/24 History Gel] Docusate [Colace] 100 mg PO HS 07/28/24 07/28/24 History Magnesium Oxide [Mag-Ox] 400 mg PO HS 07/28/24 07/28/24 History Allergies Allergy/AdvReac Type Severity Reaction Status Date / Time celecoxib [From Celebrex] AdvReac muscle Verified 07/28/24 16:59 cramps niacin AdvReac muscle Verified 07/28/24 16:59 cramps nystatin AdvReac muscle Verified 07/28/24 16:59 cramps Cgmecqo-QNY-VmX Reductase AdvReac muscle Verified 07/28/24 16:59 Inhibitor cramps [Xoddznd-Ttq-Mqv Reductase Inhibitor] Physical Exam Vitals: Vital Signs Temp Pulse Resp BP Pulse Ox 07/28/24 12:30 81 17 150/91 97 07/28/24 10:30 96 17 154/115 97 07/28/24 10:12 97.9 F 87 17 155/109 97 Intake and Output 07/28/24 07/28/24 07/28/24 06:59 14:59 22:59 Other: Weight 83.007 kg Results CBC & Chem 7: 07/28/24 12:15 07/28/24 12:15 Labs: Abnormal Lab Results - Last 24 Hours (Table) 07/28/24 07/28/24 07/28/24 Range/Units 12:15 12:15 12:15 RBC 2.89 L (4.30-5.90) m/uL Hgb 10.0 L (13.0-17.5) gm/dL Hct 28.8 L (39.0-53.0) % BUN 26 H (9-20) mg/dL Calcium 10.5 H (8.4-10.2) mg/dL Total Protein 6.2 L (6.3-8.2) g/dL Urine Protein Trace H (Negative) Urine Blood Trace H (Negative) Urine RBC 9 H (0-5) /hpf Urine Mucus Rare H (None) /hpf
[2024-07-28] MEDS: TAMSULOSIN 0.4 MG CAP.ER.24H PO SCH (17:57)
[2024-07-28] MEDS: oxyCODONE-APAP 7.5-325MG 1 EACH TAB PO PRN (18:29)
[2024-07-28] MEDS: DOCUSATE 100 MG CAP PO SCH (21:19)
[2024-07-28] MEDS: CHOLECALCIFEROL 125 MCG (5000 IU) TABLET PO SCH (21:19)
[2024-07-28] MEDS: MAGNESIUM OXIDE 400 MG TAB PO SCH (21:19)
[2024-07-28] MEDS: APIXABAN 5 MG TAB PO SCH (21:19)
[2024-07-28] MEDS: CYCLOBENZAPRINE 5 MG TAB PO SCH (21:19)
[2024-07-28] MEDS: LEVOTHYROXINE 75 MCG TAB PO SCH (21:19)
[2024-07-29] MEDS: DICLOFENAC SODIUM GEL 50 GM TUBE TOPICAL SCH (08:08)
[2024-07-29] MEDS: polyethylene glycoL 3350 17 GM POWD.PACK PO SCH (08:08)
[2024-07-29] MEDS: PANTOPRAZOLE 40 MG TABLET PO SCH (08:08)
[2024-07-29 09:39] LABS: HCT 29.1 % (39.6-50.0); HGB 9.3 g/dL (13.0-17.0); MCH 32.6 pg (27.0-32.0); MCV 102.1 FL (80.0-97.0); Mean Platelet Volume 11.1 FL (9.5-12.2); NRBC Per 100 WBC 0 X 10*3/uL (0.00-0.01); Platelet Count 187 X 10*3/uL (140-440); RBC 2.85 X 10*6/uL (4.40-5.60); RDW 13.7 % (11.5-14.5)
[2024-07-29 09:49] LABS: BUN/Creat Ratio 18.58 Ratio (12.00-20.00); Blood Urea Nitrogen 22.3 mg/dL (9.0-27.0); Calcium 9.9 mg/dL (8.7-10.3); Carbon Dioxide 26.1 mmol/L (21.6-31.8); Chloride 102 mmol/L (96-109); Glucose 82 mg/dL (70-110); Potassium 4.4 mmol/L (3.5-5.5); Sodium 139 mmol/L (135-145)
[2024-07-29 11:49] LABS: Basophils # (A) 0.02 X 10*3/uL (0.00-0.10); Basophils % (A) 0.3 %; Eosinophils # (A) 0.04 X 10*3/uL (0.04-0.35); Eosinophils % (A) 0.5 %; Lymphocytes # (A) 3.63 X 10*3/uL (0.90-5.00); Lymphocytes % (A) 49.7 %; Monocytes # (A) 0.46 X 10*3/uL (0.20-1.00); Monocytes % (A) 6.3 %; Neutrophils # (A) 3.11 X 10*3/uL (1.80-7.70); Neutrophils % (A) 42.7 %
[2024-07-29 11:50] LABS: RBC Morphology Normal (Normal)
--- NOTE | 2024-07-29 14:32 | P.PN ---
Subjective Progress Note Date: 07/29/24 Hospital Course: Patient is a an 88-year-old male with past medical history of A-fib on Eliquis, history of non-Hodgkin's lymphoma status post chemo in 2013, in remission, hypertension, hypothyroidism, systolic CHF, compression fractures, who presented to the ED with concern for constipation, inability to take care of himself. Patient has chronic back pain limiting his ADLs, ability to ambulate, can only make couple steps, needs placement. He was seen by orthopedic surgery in the outpatient settings, it was decided that he is not a candidate for surgery, proceed with medical management. ED course: Afebrile, BP mildly elevated 150s over 100s, heart rate in 80s, satting well on room air. Lab work significant for no leukocytosis, stable hemoglobin of 10.0, normal platelet count, normal sodium, potassium, chloride, creatinine, BUN, calcium is elevated 10.5. UA negative for UTI.. Patient received enema in the ED, had bowel movement, abdominal pressure resolved. Patient was provided with pain medications, admitted for placement, PT OT consulted. TSH normal, folate, B12, vitamin D normal. He was started on Flomax for concern of urinary frequency, nocturia, no signs of UTI on UA. 07/29, significantly improved patient's condition, his pain is well-controlled, abdomen does not bother him Pertinent Imaging: Imaging Subjective: Feeling better, pain is well-controlled Pertinent positives and negatives as discussed above, a complete review of systems was performed and all other systems are negative. Vitals Signs Reviewed. Vital signs reviewed General: nontoxic, no distress, appears at stated age Derm: warm, dry Head: atraumatic, normocephalic, symmetric Eyes: EOMI, no lid lag, anicteric sclera, pupils equal round reactive to light ENT: Nose and ears atraumatic Neck: No thyromegaly, supple Mouth: no lip lesion, mucus membranes moist Cardiovascular: S1S2 reg, no murmur, no edema Lungs: clear to auscultation bilateral, no rhonchi, no rales, no wheeze, no accessory muscle use Abdominal: soft, nontender to palpation, no guarding, no appreciable organomegaly Ext: Right hip decreased range of motion mostly by muscle stretching, lateral aspect of the hip is tender to palpation, no groin tenderness, back tenderness present Neuro: CN II-XII grossly intact Psych: Alert, oriented, appropriate affect Data Reviewed Today: Pertinent Labs: No leukocytosis, hemoglobin stable 9.3, platelet count normal, sodium, potassium, creatinine and BUN normal Assessment and Plan: Generalized weakness, debility Decreased oral intake Constipation -PT OT, social work -Nutrition consult -TSH normal, folate, B12, vitamin D normal - bowel regimen Urinary frequency, nocturia, likely BPH -UA negative, start Flomax -Tylenol, Percocet, Dilaudid as needed -Orthopedic surgery consult discontinued as patient was previously evaluated multiple times, family states that he will be managed medically only, he also refused steroid injections in the past as they were not effective of A-fib on Eliquis systolic CHF history of non-Hodgkin's lymphoma status post chemo in 2013, in remission hypertension hypothyroidism compression fractures, -Resume home medications DVT ppx: Eliquis Code status: DNR/DNI Anticipated discharge place: TBD Anticipated discharge time: Pending PT Objective - Vital Signs Vital signs: Vital Signs Temp 97.8 F 07/29/24 07:00 Pulse 75 07/29/24 07:00 Resp 18 07/29/24 13:11 BP 154/93 07/29/24 07:00 Pulse Ox 99 07/29/24 07:00 FiO2 Intake & Output 07/28/24 07/29/24 07/29/24 18:59 06:59 18:59 Intake Total 240 Output Total 200 300 Balance -200 -300 240 Weight 83.007 kg Intake: Oral 240 Output: Urine 200 300 Other: Voiding Method Urinal Urinal # Voids 3 2 - Labs CBC & Chem 7: 07/29/24 06:00 07/29/24 06:00 Labs: Abnormal Lab Results - Last 24 Hours (Table) 07/29/24 07/29/24 Range/Units 06:00 06:00 RBC 2.85 L (4.40-5.60) X 10*6/uL Hgb 9.3 L (13.0-17.0) g/dL Hct 29.1 L (39.6-50.0) % MCV 102.1 H (80.0-97.0) FL MCH 32.6 H (27.0-32.0) pg Est GFR (CKD-EPI) 59 L (>=60)
[2024-07-29] MEDS: ZINC OXIDE PASTE (Z-GUARD) 1 APPLIC TOPICAL PRN (17:37)
--- NOTE | 2024-07-30 13:26 | P.PN ---
Subjective Progress Note Date: 07/30/24 Hospital Course: Patient is a an 88-year-old male with past medical history of A-fib on Eliquis, history of non-Hodgkin's lymphoma status post chemo in 2013, in remission, hypertension, hypothyroidism, systolic CHF, compression fractures, who presented to the ED with concern for constipation, inability to take care of himself. Patient has chronic back pain limiting his ADLs, ability to ambulate, can only make couple steps, needs placement. He was seen by orthopedic surgery in the outpatient settings, it was decided that he is not a candidate for surgery, proceed with medical management. ED course: Afebrile, BP mildly elevated 150s over 100s, heart rate in 80s, satting well on room air. Lab work significant for no leukocytosis, stable hemoglobin of 10.0, normal platelet count, normal sodium, potassium, chloride, creatinine, BUN, calcium is elevated 10.5. UA negative for UTI.. Patient received enema in the ED, had bowel movement, abdominal pressure resolved. Patient was provided with pain medications, admitted for placement, PT OT consulted. TSH normal, folate, B12, vitamin D normal. He was started on Flomax for concern of urinary frequency, nocturia, no signs of UTI on UA. 07/29, significantly improved patient's condition, his pain is well-controlled, abdomen does not bother him Pertinent Imaging: Imaging Subjective: Feeling better, pain is well-controlled. Patient's family at bedside Pertinent positives and negatives as discussed above, a complete review of sys tems was performed and all other systems are negative. Vitals Signs Reviewed. Vital signs reviewed General: nontoxic, no distress, appears at stated age Derm: warm, dry Head: atraumatic, normocephalic, symmetric Eyes: EOMI, no lid lag, anicteric sclera, pupils equal round reactive to light ENT: Nose and ears atraumatic Neck: No thyromegaly, supple Mouth: no lip lesion, mucus membranes moist Cardiovascular: S1S2 reg, no murmur, no edema Lungs: clear to auscultation bilateral, no rhonchi, no rales, no wheeze, no accessory muscle use Abdominal: soft, nontender to palpation, no guarding, no appreciable organomegaly Ext: Right hip decreased range of motion mostly by muscle stretching, lateral aspect of the hip is tender to palpation, no groin tenderness, back tenderness present Neuro: CN II-XII grossly intact Psych: Alert, oriented, appropriate affect Data Reviewed Today: Pertinent Labs: No new blood work Assessment and Plan: Generalized weakness, debility Decreased oral intake Constipation -PT OT, social work -Nutrition consult -TSH normal, folate, B12, vitamin D normal - bowel regimen Urinary frequency, nocturia, likely BPH -UA negative, start Flomax -Tylenol, Percocet, Dilaudid as needed -Orthopedic surgery consult discontinued as patient was previously evaluated multiple times, family states that he will be managed medically only, he also refused steroid injections in the past as they were not effective -Discussed with case management of A-fib on Eliquis systolic CHF history of non-Hodgkin's lymphoma status post chemo in 2013, in remission hypertension hypothyroidism compression fractures, -Resume home medications DVT ppx: Eliquis Code status: DNR/DNI Anticipated discharge place: [facility] from, medically stable Anticipated discharge time: pEnding insurance authorization Objective - Vital Signs Vital signs: Vital Signs Temp 97.6 F 07/30/24 07:00 Pulse 90 07/30/24 07:00 Resp 18 07/30/24 07:00 BP 164/92 07/30/24 07:00 Pulse Ox 97 07/30/24 07:00 FiO2 Intake & Output 07/29/24 07/30/24 07/30/24 18:59 06:59 18:59 Intake Total 476 359 Balance 476 359 Intake: Oral 476 359 Other: Voiding Method Urinal Urinal # Voids 2 2 # Bowel Movements 1 - Labs CBC & Chem 7: 07/29/24 06:00 07/29/24 06:00
[2024-07-30 16:47] VITALS: BMI 27.0
--- NOTE | 2024-07-31 12:41 | P.PN ---
Subjective Progress Note Date: 07/31/24 Principal diagnosis: Hospital Course: Patient is a an 88-year-old male with past medical history of A-fib on Eliquis, history of non-Hodgkin's lymphoma status post chemo in 2013, in remission, hypertension, hypothyroidism, systolic CHF, compression fractures, who presented to the ED with concern for constipation, inability to take care of himself. Patient has chronic back pain limiting his ADLs, ability to ambulate, can only make couple steps, needs placement. He was seen by orthopedic surgery in the outpatient settings, it was decided that he is not a candidate for surgery, proceed with medical management. ED course: Afebrile, BP mildly elevated 150s over 100s, heart rate in 80s, satting well on room air. Lab work significant for no leukocytosis, stable hemoglobin of 10.0, normal platelet count, normal sodium, potassium, chloride, creatinine, BUN, calcium is elevated 10.5. UA negative for UTI.. patient seen and examined. daughter at bedside from [place]. no nausea/vomiting. pain under control. Objective - Vital Signs Vital signs: Vital Signs Temp 98.1 F 07/31/24 07:00 Pulse 79 07/31/24 07:00 Resp 18 07/31/24 08:00 BP 132/72 07/31/24 07:00 Pulse Ox 100 07/31/24 07:00 FiO2 Intake & Output 07/30/24 07/31/24 07/31/24 18:59 06:59 18:59 Intake Total 713 Balance 713 Weight 83.007 kg Intake: Oral 713 Other: Voiding Method Urinal # Voids 4 2 - Exam General: nontoxic, no distress, appears at stated age Derm: warm, dry Head: atraumatic, normocephalic, symmetric Eyes: EOMI, no lid lag, anicteric sclera, pupils equal round reactive to light ENT: Nose and ears atraumatic Neck: No thyromegaly, supple Mouth: no lip lesion, mucus membranes moist Cardiovascular: S1S2 reg, no murmur, no edema Lungs: clear to auscultation bilateral, no rhonchi, no rales, no wheeze, no accessory muscle use Abdominal: soft, nontender to palpation, no guarding, no appreciable organomegaly Ext: Right hip decreased range of motion mostly by muscle stretching Neuro: moving all extremeties spontanously Psych: calm and cooperative - Labs CBC & Chem 7: 07/29/24 06:00 07/29/24 06:00 Assessment and Plan Assessment: #) Generalized weakness/debility. along with decreased oral intake/constipation. PT/OT. medically acceptable for d/c planning #) BPH Continue flomasx #) Hx of non-hodkin's lymphoma s/p chemo in 2013, in remission #) Primary htn #) Hypothyroid dz Plan: awaiting d/c planning
[2024-08-01 07:45] VITALS: BP 128/82; PULSE 82; RESP 16; TEMP 98.3
--- NOTE | 2024-08-01 12:01 | P.DS ---
Providers Date of admission: 07/28/24 14:59 Attending physician: Shelley Benedict MD Primary care physician: [place] Hospital Course: Patient is a an 88-year-old male with past medical history of A-fib on Eliquis, history of non-Hodgkin's lymphoma status post chemo in 2013, in remission, hypertension, hypothyroidism, systolic CHF, compression fractures, who presented to the ED with concern for constipation, inability to take care of himself. Mahi dela cruz has chronic back pain limiting his ADLs, ability to ambulate, can only make couple steps, needs placement. He was seen by orthopedic surgery in the outpatient settings, it was decided that he is not a candidate for surgery, proceed with medical management. He was seen by therapy who recommended custodial rehab placement. The patient was not discharged to custodial rehab when checked right after the pain medication. Assessment: #) Generalized weakness/debility. along with decreased oral intake/constipation. The patient is to be discharged to custodial facility on August 01 #) Compression defmormit of l4- pain control with oxycodone-acetaminophen #) BPH Continue flomasx #) Hx of non-hodkin's lymphoma s/p chemo in 2013, in remission #) Primary htn #) Hypothyroid dz Patient Condition at Discharge: Fair Plan - Discharge Summary Discharge Rx Participant: No New Discharge Prescriptions: New Tamsulosin [Flomax] 0.4 mg PO PC-BRKFST cap polyethylene glycoL 3350 [Miralax] 17 gm PO DAILY packet oxyCODONE-APAP 7.5-325MG [Percocet 7.5-325 mg] 1 each PO Q6HR PRN 3 Days #12 tab PRN Reason: Moderate Pain (Scale 4 To 6) Acetaminophen Tab [Tylenol] 650 mg PO Q6HR PRN tab PRN Reason: Mild Pain Or Fever > 100.5 Continue Omeprazole [PriLOSEC] 20 mg PO DAILY Levothyroxine Sodium [Synthroid] 150 mcg PO HS Apixaban [Eliquis] 5 mg PO BID Cholecalciferol [Vitamin D3 (125 Mcg = 5000 Iu)] 125 mcg PO HS Docusate [Colace] 100 mg PO HS lisinopriL [Zestril] 2.5 mg PO DAILY #30 tab Metoprolol Tartrate [Lopressor] 12.5 mg PO BID Cyclobenzaprine [Flexeril] 5 mg PO HS #20 tab Diclofenac Sodium Gel [Voltaren 1% Gel] 2 gm TOPICAL DAILY Magnesium Oxide [Mag-Ox] 400 mg PO HS Discharge Medication List Omeprazole [PriLOSEC] 20 mg PO DAILY 11/14/13 [History] Apixaban [Eliquis] 5 mg PO BID 03/30/21 [History] Levothyroxine Sodium [Synthroid] 150 mcg PO HS 03/30/21 [History] lisinopriL [Zestril] 2.5 mg PO DAILY #30 tab 03/06/23 [Rx] Metoprolol Tartrate [Lopressor] 12.5 mg PO BID 04/27/24 [History] Cyclobenzaprine [Flexeril] 5 mg PO HS #20 tab 07/21/24 [Rx] Cholecalciferol [Vitamin D3 (125 Mcg = 5000 Iu)] 125 mcg PO HS 07/28/24 [History] Diclofenac Sodium Gel [Voltaren 1% Gel] 2 gm TOPICAL DAILY 07/28/24 [History] Docusate [Colace] 100 mg PO HS 07/28/24 [History] Magnesium Oxide [Mag-Ox] 400 mg PO HS 07/28/24 [History] Acetaminophen Tab [Tylenol] 650 mg PO Q6HR PRN tab 08/01/24 [Rx] Tamsulosin [Flomax] 0.4 mg PO PC-BRKFST cap 08/01/24 [Rx] oxyCODONE-APAP 7.5-325MG [Percocet 7.5-325 mg] 1 each PO Q6HR PRN 3 Days #12 tab 08/01/24 [Rx] polyethylene glycoL 3350 [Miralax] 17 gm PO DAILY packet 08/01/24 [Rx] Follow up Appointment(s)/Referral(s): Gama Moses DO [Primary Care Provider] - 1-2 days Discharge Disposition: TRANSFER TO SNF/ECF
[2024-08-01 12:57] LABS: Glucose,Whole Blood 198 mg/dL (70-110)
== END 2024-08-01 14:18 ==
LOC: EC 10:09 → 6NMEDSUR 14:59
PROVIDERS: ADMIT Student in an Organized Health Care Education/Training Program; ATTEND Student in an Organized Health Care Education/Training Program
DX: R53.1 Weakness (principal); K59.00 Constipation, unspecified; N40.1 Benign prostatic hyperplasia with lower urinary tract symptoms; R35.0 Frequency of micturition; I48.91 Unspecified atrial fibrillation; K21.9 Gastro-esophageal reflux disease without esophagitis; E03.9 Hypothyroidism, unspecified; I11.0 Hypertensive heart disease with heart failure; I50.22 Chronic systolic (congestive) heart failure; M48.56XA Collapsed vertebra, not elsewhere classified, lumbar region, initial encounter for fracture; Z66 Do not resuscitate; Z85.71 Personal history of Hodgkin lymphoma; Z87.891 Personal history of nicotine dependence; Z92.21 Personal history of antineoplastic chemotherapy; Z79.01 Long term (current) use of anticoagulants; Z79.890 Hormone replacement therapy; Z79.899 Other long term (current) drug therapy; Z88.6 Allergy status to analgesic agent
CPT/HCPCS: 96374; 99285; 36415; 97530; 97162; 97166; 80053; 80048; 84443; 82607; 82746; 85025 ×2; 81001; 82306; 72100; 73502; 71046; 74018; G0378 ×5; J1171

== ENCOUNTER 2024-08-08 12:22 | Inpatient (IN) | payer OTHER, MEDICARE ==
--- NOTE | 2024-08-08 12:43 | ED ---
General Adult HPI - General Chief complaint: Recheck/Abnormal Lab/Rx Stated complaint: abn labs Time Seen by Provider: 08/08/24 12:30 Source: patient, EMS, RN notes reviewed, old records reviewed Mode of arrival: EMS - History of Present Illness Initial comments: This is an 88-year-old male who presents to the emergency department complaining of chronic back pain. Patient was [facility] from the [facility] because his BUN/creatinine and potassium were elevated. Patient states his only complaint is his chronic back pain but according to the [facility]dc he has multiple comp ression fractures that is why he is at the [facility] to get rehabilitation. Patient denies chest pain difficulty breathing or shortness of breath. Patient [place] any fever chills or cough. Patient has any recent trauma. Patient denies any abdominal pain - Related Data Home Medications Medication Instructions Recorded Confirmed Omeprazole [PriLOSEC] 20 mg PO DAILY 11/14/13 07/28/24 Apixaban [Eliquis] 5 mg PO BID 03/30/21 07/28/24 Levothyroxine Sodium [Synthroid] 150 mcg PO HS 03/30/21 07/28/24 Metoprolol Tartrate [Lopressor] 12.5 mg PO BID 04/27/24 07/28/24 Cholecalciferol [Vitamin D3 (125 125 mcg PO HS 07/28/24 07/28/24 Mcg = 5000 Iu)] Diclofenac Sodium Gel [Voltaren 1% 2 gm TOPICAL DAILY 07/28/24 07/28/24 Gel] Docusate [Colace] 100 mg PO HS 07/28/24 07/28/24 Magnesium Oxide [Mag-Ox] 400 mg PO HS 07/28/24 07/28/24 Previous Rx's Medication Instructions Recorded lisinopriL [Zestril] 2.5 mg PO DAILY #30 tab 03/06/23 Cyclobenzaprine [Flexeril] 5 mg PO HS #20 tab 07/21/24 Acetaminophen Tab [Tylenol] 650 mg PO Q6HR PRN tab 08/01/24 Tamsulosin [Flomax] 0.4 mg PO PC-BRKFST cap 08/01/24 oxyCODONE-APAP 7.5-325MG [Percocet 1 each PO Q6HR PRN 3 Days #12 tab 08/01/24 7.5-325 mg] polyethylene glycoL 3350 [Miralax] 17 gm PO DAILY packet 08/01/24 Allergies Allergy/AdvReac Type Severity Reaction Status Date / Time celecoxib [From Celebrex] AdvReac muscle Verified 08/08/24 12:30 cramps niacin AdvReac muscle Verified 08/08/24 12:30 cramps nystatin AdvReac muscle Verified 08/08/24 12:30 cramps Zilclbd-UFS-HhO Reductase AdvReac muscle Verified 08/08/24 12:30 Inhibitor cramps [Rxnbmlr-Bbq-Apb Reductase Inhibitor] Review of Systems ROS Statement: Those systems with pertinent positive or pertinent negative responses have been documented in the HPI. ROS Other: All systems not noted in ROS Statement are negative. Past Medical History Past Medical History: Atrial Fibrillation, Cancer, GERD/Reflux, Hypertension, Osteoarthritis (OA), Thyroid Disorder Additional Past Medical History / Comment(s): hx kidney stones, hodgkins lymphoma,. 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 hx rapid heart rate History of Any Multi-Drug Resistant Organisms: MRSA Date of last positivie culture/infection: 2014 MDRO Source:: lung Past Surgical History: Joint Replacement Additional Past Surgical History / Comment(s): right knee replacement, sinan knee scope, sinan carpal tunnel lymph node biopsy, lt shoulder rotator cuff Past Anesthesia/Blood Transfusion Reactions: No Reported Reaction Past Psychological History: No Psychological Hx Reported Smoking Status: Former smoker Past Alcohol Use History: None Reported Past Drug Use History: None Reported - Past Family History Sister(s) Family Medical History: Cancer Mother Family Medical History: No Reported History Father Family Medical History: Hypertension General Exam - General Exam Comments Initial Comments: GENERAL: Patient is well-developed and well-nourished. Patient is nontoxic and well- hydrated and is in no acute distress. ENT: Neck is soft and supple. No significant lymphadenopathy is noted. Oropharynx is clear. Moist mucous membranes. Neck has full range of motion without eliciting any pain. EYES: The sclera were anicteric and conjunctiva were pink and moist. Extraocular movements were intact and pupils were equal round and reactive to light. Eyelids were unremarkable. PULMONARY: Unlabored respirations. Good breath sounds bilaterally. No audible rales rhonchi or wheezing was noted. CARDIOVASCULAR: There is a regular rate and rhythm without any murmurs gallops or rubs. ABDOMEN: Soft and nontender with normal bowel sounds. No palpable organomegaly was noted. There is no palpable pulsatile mass. SKIN: Skin is clear with no lesions or rashes and otherwise unremarkable. NEUROLOGIC: Patient is alert and oriented x3. Cranial nerves II through XII are grossly intact. Motor and sensory are also intact. Normal speech, volume and content. Symmetrical smile. MUSCULOSKELETAL: Normal extremities with adequate strength and full range of motion. No lower extremity swelling or edema. No calf tenderness. I was unable to reproduce the back pain with palpation however with movement and twisting that did seem to cause him some pain. LYMPHATICS: No significant lymphadenopathy is noted PSYCHIATRIC: Normal psychiatric evaluation. Course Vital Signs 08/08/24 12:26 Temperature 98.7 F Pulse Rate 96 Respiratory 18 Rate Blood Pressure 129/84 O2 Sat by Pulse 96 Oximetry Medical Decision Making - Medical Decision Making EKG is interpreted by myself. EKG shows atrial fibrillation at 81 bpm QRS 130 QT interval 361 QTc is 399. Patient's EKG shows no ST segment ovation or depression. Patient does have a right bundle branch block. Was pt. sent in by a medical professional or institution (, PA, TRANSPORTATION ECONOMICS TEACHER, urgent care, hospital, or fdc...) When possible be specific @ -No Did you speak to anyone other than the patient for history (EMS, parent, family, police, friend...)? What history was obtained from this source @ -No Did you review nursing and triage notes (agree or disagree)? Why? @ -I reviewed and agree with nursing and triage notes Were old charts reviewed (outside hosp., previous admission, EMS record, old EKG, old radiological studies, urgent care reports/EKG's, fdc records)? Report findings @ -No old charts were reviewed Differential Diagnosis? @ -Elevated potassium, hemolyzed outpatient draw, renal failure, this is not an all-inclusive list EKG interpreted by me (3pts min.). @ -As above X-rays interpreted by me (1pt min.). @ -None done CT interpreted by me (1pt min.). @ -None done U/S interpreted by me (1pt. min.). @ -None done What testing was considered but not performed or refused? (CT, X-rays, U/S, labs)? Why? @ -None What meds were considered but not given or refused? Why? @ -None Did you discuss the management of the patient with other professionals (professionals i.e. , SUZIE, TRANSPORTATION ECONOMICS TEACHER, lab, RT, psych nurse, psychiatric social worker, electrician constructor supervisor, teacher, district resource officer, case management specialist)? Give summary @ -I spoke with Dr. Gentile he agreed to admit the patient admit the patient recommending orders Was smoking cessation discussed for >3mins.? @ -No Was critical care preformed (if so, how long)? @ -35 minutes Were there social determinants of health that impacted care today? How? (Homelessness, low income, unemployed, alcoholism, drug addiction, transportation, low edu. Level, literacy, decrease access to med. care, halfway, rehab)? @ -No Was there de-escalation of care discussed even if they declined (Discuss DNR or withdrawal of care, Hospice)? DNR status @ -No What co-morbidities impacted this encounter? (DM, HTN, Smoking, COPD, CAD, Cancer, CVA, ARF, Chemo, Hep., AIDS, mental health diagnosis, sleep apnea, morbid obesity)? @ -None Was patient admitted / discharged? Hospital course, mention meds given and route, prescriptions, significant lab abnormalities, going to OR and other pertinent info. @ -Patient had an elevated potassium I gave the patient Lokelma, sodium bicarb, calcium chloride, D50, Lasix, insulin, I spoke with sound physicians he agreed to admit the patient I consulted nephrology and had her contacted immediately. Undiagnosed new problem with uncertain prognosis? @ -No Drug Therapy requiring intensive monitoring for toxicity (Heparin, Nitro, Insulin, Cardizem)? @ -No Were any procedures done? @ -No Diagnosis/symptom? @ -Acute renal failure Acute, or Chronic, or Acute on Chronic? @ -Acute Uncomplicated (without systemic symptoms) or Complicated (systemic symptoms)? @ -Complicated Side effects of treatment? @ -No Exacerbation, Progression, or Severe Exacerbation? @ -No Poses a threat to life or bodily function? How? (Chest pain, USA, VT, pneumonia, PE, COPD, DKA, ARF, appy, cholecystitis, CVA, Diverticulitis, Homicidal, Suicidal, threat to staff... and all critical care pts) @ -Yes this can lead to electrolyte abnormalities which could lead to Diagnosis/symptom? @ -Hyperkalemia Acute, or Chronic, or Acute on Chronic? @ -Acute Uncomplicated (without systemic symptoms) or Complicated (systemic symptoms)? @ -Complicated Side effects of treatment? @ -None Exacerbation, Progression, or Severe Exacerbation] @ -No Poses a threat to life or bodily function? @ -Yes this can lead to an arrhythmia and cause - Lab Data Result diagrams: 08/08/24 13:12 08/08/24 13:12 Lab Results 08/08/24 08/08/24 Range/Units 13:12 13:12 WBC 5.9 (3.8-10.6) k/uL RBC 2.95 L (4.30-5.90) m/uL Hgb 10.3 L (13.0-17.5) gm/dL Hct 29.9 L (39.0-53.0) % MCV 101.4 H (80.0-100.0) fL MCH 34.8 (25.0-35.0) pg MCHC 34.3 (31.0-37.0) g/dL RDW 13.5 (11.5-15.5) % Plt Count 189 (150-450) k/uL MPV 8.0 Neutrophils % 44 % Lymphocytes % 47 % Monocytes % 4 % Eosinophils % 1 % Basophils % 0 % Neutrophils # 2.6 (1.3-7.7) k/uL Lymphocytes # 2.8 (1.0-4.8) k/uL Monocytes # 0.2 (0-1.0) k/uL Eosinophils # 0.1 (0-0.7) k/uL Basophils # 0.0 (0-0.2) k/uL Macrocytosis Slight Sodium 133 L (137-145) mmol/L Potassium 6.6 H* (3.5-5.1) mmol/L Chloride 95 L (98-107) mmol/L Carbon Dioxide 26 (22-30) mmol/L Anion Gap 12 mmol/L BUN 74 H (9-20) mg/dL Creatinine 7.88 H* (0.66-1.25) mg/dL Est GFR (CKD-EPI)AfAm 6 (>60 ml/min/1.73 sqM) Est GFR (CKD-EPI)NonAf 6 (>60 ml/min/1.73 sqM) Glucose 86 (74-99) mg/dL Calcium 10.7 H (8.4-10.2) mg/dL Magnesium 2.7 H (1.6-2.3) mg/dL Total Bilirubin 0.8 (0.2-1.3) mg/dL AST 31 (17-59) U/L ALT 17 (4-49) U/L Alkaline Phosphatase 96 (38-126) U/L Total Protein 6.2 L (6.3-8.2) g/dL Albumin 4.0 (3.5-5.0) g/dL Disposition Clinical Impression: Hyperkalemia, Acute renal failure Dis[facility] Time of Disposition: 14:10
[2024-08-08 13:23] LABS: Basophils % (A) 0 %; Eosinophils # (A) 0.1 k/uL (0-0.7); Eosinophils % (A) 1 %; HCT 29.9 % (39.0-53.0); HGB 10.3 gm/dL (13.0-17.5); Lymphocytes # (A) 2.8 k/uL (1.0-4.8); Lymphocytes % (A) 47 %; MCH 34.8 pg (25.0-35.0); MCHC 34.3 g/dL (31.0-37.0); MCV 101.4 fL (80.0-100.0); Macrocytosis Slight; Monocytes # (A) 0.2 k/uL (0-1.0); Monocytes % (A) 4 %; Neutrophils # (A) 2.6 k/uL (1.3-7.7); Neutrophils % (A) 44 %; Platelet Count 189 k/uL (150-450); RBC 2.95 m/uL (4.30-5.90); RDW 13.5 % (11.5-15.5); WBC 5.9 k/uL (3.8-10.6)
[2024-08-08 13:34] LABS: ALT 17 U/L (4-49); AST 31 U/L (17-59); African American GFR (CKD) 6 (>60 ml/min/1.73 sqM); Alkaline Phosphatase 96 U/L (38-126); Anion Gap 12 mmol/L; Blood Urea Nitrogen 74 mg/dL (9-20); Calcium 10.7 mg/dL (8.4-10.2); Carbon Dioxide 26 mmol/L (22-30); Chloride 95 mmol/L (98-107); Glucose 86 mg/dL (74-99); Magnesium 2.7 mg/dL (1.6-2.3); Non-African American GFR(CKD) 6 (>60 ml/min/1.73 sqM); Sodium 133 mmol/L (137-145); Total Bilirubin 0.8 mg/dL (0.2-1.3); Total Protein 6.2 g/dL (6.3-8.2)
[2024-08-08 13:40] LABS: Potassium 6.6 mmol/L (3.5-5.1)
[2024-08-08] MEDS: DEXTROSE 50% SYRINGE 50 ML IVP STA (14:27)
[2024-08-08] MEDS: INSULIN REGULAR 100 UNIT/ML VIAL (IV) IV ONE (14:27)
[2024-08-08] MEDS: CALCIUM CHLORIDE 100 MG/ML 10 ML SYRINGE IVP STA (14:31)
[2024-08-08] MEDS: SODIUM BICARB 8.4% 50 ML SYR (1 MEQ/ML) IV STA (14:33)
[2024-08-08] MEDS: SODIUM ZIRCONIUM CYCLOSILICATE 10 GM PACKET PO ONE (14:34)
[2024-08-08] MEDS: KETOROLAC 15 MG/ML 1 ML VIAL IVP STA (14:41)
[2024-08-08] MEDS: FUROSEMIDE 10 MG/ML 2 ML VIAL IV ONE (15:48)
--- NOTE | 2024-08-08 17:12 | P.HPIM ---
History of Present Illness H&P Date: 08/08/24 History of present illness; 88-year-old man with PMH of atrial fibrillation currently on Eliquis, non- Hodgkin's lymphoma s/p chemotherapy in 2013 now in remission, hypertension, hypothyroidism, Systolic CHF, compression fractures in his back and GERD. Presenting to the emergency department to be sent from his detention due to elevation of his BUN/creatinine and potassium. Additionally, he was placed in the detention for rehabilitation purposes due to his chronic back pain due to multiple compression fractures. He endorses having had decreased urge to urinate over the past week or so. He denies chest pain, difficulty breathing, shortness of breath, fever, chills or cough. Labratory review: -WBC 5.9, hemoglobin 10.3, hematocrit 29.9, MCV 101.4, platelet 189; sodium 133, potassium 6.6, chloride 95, BUN 74, creatinine 7.88, calcium 10.7, magnesium 2.7 Imaging: N/A Vitals: Blood pressure 129/84, heart rate 96, respirate 18, SpO2 96% on room air Patient admitted to internal medicine service REVIEW OF SYSTEMS: Pertinent positives and negatives noted in HPI. Physical Exam: General: nontoxic, no distress, appears at stated age; Worrell catheter in place Derm: warm, dry, intact Head: atraumatic, normocephalic, symmetric Eyes: EOMI, anicteric sclera ENT: Patient has bilateral ear tubes Mouth: no lip lesion, mucus membranes moist Cardiovascular: Irregularly irregular rhythm Lungs: CTA bilateral, bilateral rhonchi, no rales, no accessory muscle use Abdominal: soft, non-tender to palpataion, no appreciable organomegaly Extremities: no gross muscle atrophy, no edema, no contractures. Back pain reproducible with twisting/movement. Neuro: Alert, Oriented, CNII-XII grossly intact, gait normal. Psych: well appearing, appropriate affect Assessment and plan 88-year-old PMH atrial fibrillation currently on Eliquis, non-Hodgkin's lymphoma s/p chemotherapy in 2013 on admission, hypertension, systolic CHF, compression fractures in his back, hypothyroidism, and GERD. Presents to the emergency department after being sent by his detention due to an elevation of his BUN/creatinine and potassium. #Oliguric or Non-oliguric Acute Kidney Injury in the setting of stage IIIa chronic kidney disease #Hyperkalemia #Hyponatremia #Hypercalcemia #Hypermagnesemia -Given 1000 mg IV push calcium chloride, 20 mg IV once Lasix, 10 units insulin, 50 mL IV push dextrose 50%, 50 mL IV sodium bicarb, 10 g Lokelma in the ED -Recheck BMP, magnesium after 1 hour; recheck in a.m. -Continue hourly glucose measurements for 3 hours -Worrell catheter placed -Started on LR 75 cc/h -US Bladder/Kidney ordered -UA ordered -Strict Is & O's -Cardiac monitoring -Nephrology consulted #Chronic anemia #Macrocytosis -Continue to monitor CBC daily -Most recent vitamin B12 381 (07/28/2024) -Most recent serum folate 18.2 (07/28/2024) #Systolic CHF, not in exacerbation -Continue current home medications -Most recent echocardiogram (03/03/2023) showed EF 35-40% #Chronic low back pain, secondary to compression fractures -Continue with lidocaine patch daily and Voltaren gel -Tylenol 650 mg every 6 hours as needed for pain #Hypothyroidism -Continue Synthroid 150 mcg daily #Hypertension -Continue to monitor vital signs -Continue home Lopressor 12.5 mg twice daily -Hold home lisinopril 2.5 mg daily secondary to HUNTER #GERD -Continue home omeprazole 20 mg daily #Benign prostatic hyperplasia -Continue home Flomax 0.4 mg daily GI prophylaxis: Omeprazole 20 mg daily DVT prophylaxis: Eliquis 5 mg twice daily The patient is admitted with an anticipated more than than 2 midnight stay for evaluation of of his hyperkalemia in the setting of acute kidney injury CODE STATUS: Full code Discussed with: Patient Anticipated discharge place: Pending clinical course Dictation was produced using [employer] dictation software. please excuse any grammatical, word or spelling errors. I have seen and evaluated the patient today. Discussed with the resident and agree with the residents finding and plan as documented in the resident's note. Changes highlighted in blue font. Past Medical History Past Medical History: Atrial Fibrillation, Cancer, GERD/Reflux, Hypertension, Osteoarthritis (OA), Thyroid Disorder Additional Past Medical History / Comment(s): hx kidney stones, hodgkins lymphoma,. 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 hx rapid heart rate History of Any Multi-Drug Resistant Organisms: MRSA Date of last positivie culture/infection: 2014 MDRO Source:: lung Past Surgical History: Joint Replacement Additional Past Surgical History / Comment(s): right knee replacement, sinan knee scope, sinan carpal tunnel lymph node biopsy, lt shoulder rotator cuff Past Anesthesia/Blood Transfusion Reactions: No Reported Reaction Past Psychological History: No Psychological Hx Reported Smoking Status: Former smoker Past Alcohol Use History: None Reported Past Drug Use History: None Reported - Past Family History Sister(s) Family Medical History: Cancer Mother Family Medical History: No Reported History Father Family Medical History: Hypertension Medications and Allergies Home Medications Medication Instructions Recorded Confirmed Type Omeprazole [PriLOSEC] 20 mg PO DAILY 11/14/13 08/08/24 History Apixaban [Eliquis] 5 mg PO BID 03/30/21 08/08/24 History Levothyroxine Sodium [Synthroid] 150 mcg PO HS 03/30/21 08/08/24 History lisinopriL [Zestril] 2.5 mg PO DAILY #30 tab 03/06/23 08/08/24 Rx Metoprolol Tartrate [Lopressor] 12.5 mg PO BID 04/27/24 08/08/24 History Cyclobenzaprine [Flexeril] 5 mg PO HS #20 tab 07/21/24 08/08/24 Rx Cholecalciferol [Vitamin D3 (125 125 mcg PO HS 07/28/24 08/08/24 History Mcg = 5000 Iu)] Diclofenac Sodium Gel [Voltaren 1% 1 applic TOPICAL DAILY 07/28/24 08/08/24 History Gel] Docusate [Colace] 100 mg PO BID@0800,1600 07/28/24 08/08/24 History Magnesium Oxide [Mag-Ox] 400 mg PO HS 07/28/24 08/08/24 History Acetaminophen Tab [Tylenol] 650 mg PO Q6HR PRN tab 08/01/24 08/08/24 Rx polyethylene glycoL 3350 [Miralax] 17 gm PO DAILY packet 08/01/24 08/08/24 Rx Lidocaine 4% Patch 1 patch TOPICAL DAILY 08/08/24 08/08/24 History Magnesium Hydroxide [Milk of 2,400 mg PO DAILY PRN 08/08/24 08/08/24 History Magnesia] Naloxone HCl [Narcan] 4 mg NASAL DIRECTED PRN 08/08/24 08/08/24 History Tamsulosin [Flomax] 0.4 mg PO DAILY 08/08/24 08/08/24 History bisacodyL [Dulcolax] 10 mg RECTAL DAILY PRN 08/08/24 08/08/24 History oxyCODONE-APAP 7.5-325MG [Percocet 1 tab PO Q6HR PRN 08/08/24 08/08/24 History 7.5-325 mg] Allergies Allergy/AdvReac Type Severity Reaction Status Date / Time celecoxib [From Celebrex] AdvReac muscle Verified 08/08/24 15:18 cramps niacin AdvReac muscle Verified 08/08/24 15:18 cramps nystatin AdvReac muscle Verified 08/08/24 15:18 cramps Lhualud-SFO-ZaJ Reductase AdvReac muscle Verified 08/08/24 15:18 Inhibitor cramps [Vwlhdsx-Hiz-Qef Reductase Inhibitor] Physical Exam Vitals: Vital Signs Temp Pulse Resp BP Pulse Ox 08/08/24 12:26 98.7 F 96 18 129/84 96 Intake and Output 08/08/24 08/08/24 08/08/24 06:59 14:59 22:59 Other: Weight 78.018 kg Results CBC & Chem 7: 08/08/24 13:12 08/08/24 13:12 Labs: Abnormal Lab Results - Last 24 Hours (Table) 08/08/24 08/08/24 Range/Units 13:12 13:12 RBC 2.95 L (4.30-5.90) m/uL Hgb 10.3 L (13.0-17.5) gm/dL Hct 29.9 L (39.0-53.0) % MCV 101.4 H (80.0-100.0) fL Sodium 133 L (137-145) mmol/L Potassium 6.6 H* (3.5-5.1) mmol/L Chloride 95 L (98-107) mmol/L BUN 74 H (9-20) mg/dL Creatinine 7.88 H* (0.66-1.25) mg/dL Calcium 10.7 H (8.4-10.2) mg/dL Magnesium 2.7 H (1.6-2.3) mg/dL Total Protein 6.2 L (6.3-8.2) g/dL
[2024-08-08 17:13] LABS: Glucose,Whole Blood 80 mg/dL (70-110)
--- NOTE | 2024-08-08 17:21 | US ---
EXAMINATION TYPE: US kidneys/renal and bladder DATE OF EXAM: 08/08/2024 COMPARISON: NONE CLINICAL INDICATION: Male, 88 years old with history of Hyperkalemia, HUNTER; HUNTER TECHNIQUE: Grayscale imaging of the bilateral kidneys and urinary bladder: FINDINGS: EXAM MEASUREMENTS: Right Kidney: 11.6x5.5x6.6 cm Left Kidney: 11.9x6.1x5.5 cm Right Kidney: cystic structure measures 1.6x1.6x1.6cm. punctuate echogenic foci scattered throughout Increased echotexture to the kidney. Left Kidney: 0.8cm shadowing echogenic focus. Several other scattered echogenic foci. Increased ech otexture to the kidney. Bladder: catheter in place exam limited by bowel and catheter IMPRESSION: 1. Medical renal disease suggested with increased echotexture to kidneys. 2. Right renal cysts. 3. Right nonobstructing renal calculi. 4. Worrell catheter in place. [facility], , 08/08/2024 5:18 PM
[2024-08-08 17:28] LABS: African American GFR (CKD) 6 (>60 ml/min/1.73 sqM); Anion Gap 12 mmol/L; Blood Urea Nitrogen 73 mg/dL (9-20); Calcium 11.6 mg/dL (8.4-10.2); Carbon Dioxide 28 mmol/L (22-30); Chloride 94 mmol/L (98-107); Glucose 52 mg/dL (74-99); Magnesium 2.8 mg/dL (1.6-2.3); Non-African American GFR(CKD) 5 (>60 ml/min/1.73 sqM); Potassium 5.7 mmol/L (3.5-5.1); Sodium 134 mmol/L (137-145)
[2024-08-08] MEDS: DOCUSATE 100 MG CAP PO SCH (17:51)
[2024-08-08] MEDS: LACTATED RINGERS 1,000 ML IV SCH (17:51)
[2024-08-08 17:58] LABS: Glucose,Whole Blood 63 mg/dL (70-110)
[2024-08-08 18:22] LABS: Glucose,Whole Blood 74 mg/dL (70-110)
[2024-08-08 18:56] LABS: Glucose,Whole Blood 71 mg/dL (70-110)
[2024-08-08] MEDS: METOPROLOL TARTRATE 12.5 MG TAB PO SCH (20:13)
[2024-08-08] MEDS: CHOLECALCIFEROL 125 MCG (5000 IU) TABLET PO SCH (20:13)
[2024-08-08] MEDS: APIXABAN 2.5 MG TABLET PO SCH (20:13)
[2024-08-08] MEDS: LEVOTHYROXINE 75 MCG TAB PO SCH (20:13)
[2024-08-08 20:35] LABS: Glucose,Whole Blood 141 mg/dL (70-110)
[2024-08-08] MEDS ORDERED: CYCLOBENZAPRINE 5 MG TAB PO SCH (21:00)
[2024-08-08] MEDS ORDERED: APIXABAN 5 MG TAB PO SCH (21:00)
[2024-08-08 23:40] LABS: Appearance,Urine Clear (Clear); Bilirubin,Urine Negative (Negative); Blood,Urine Moderate (Negative); Budding Yeast,Urine Occasional /hpf; Color,Urine Colorless; Glucose,Urine (UA) Negative (Negative); Hyaline Casts,Urine 1 /lpf (0-2); Ketones,Urine Negative (Negative); Leukocyte Esterase,Urine Negative (Negative); Mucus,Urine Rare /hpf; Nitrite,Urine Negative (Negative); Protein,Urine 1+ (Negative); RBC,Urine 38 /hpf (0-5); Squamous Epithelial Cell,Urine <1 /hpf (0-4); Urobilinogen,Urine <2.0 mg/dL (<2.0); WBC,Urine 2 /hpf (0-5)
[2024-08-09 00:26] LABS: African American GFR (CKD) 6 (>60 ml/min/1.73 sqM); Anion Gap 10 mmol/L; Blood Urea Nitrogen 73 mg/dL (9-20); Calcium 10.9 mg/dL (8.4-10.2); Carbon Dioxide 27 mmol/L (22-30); Chloride 94 mmol/L (98-107); Glucose 100 mg/dL (74-99); Magnesium 2.7 mg/dL (1.6-2.3); Non-African American GFR(CKD) 5 (>60 ml/min/1.73 sqM); Sodium 131 mmol/L (137-145)
[2024-08-09] MEDS: DEXTROSE 50% SYRINGE 50 ML IVP STA ×4 (00:54→20:39)
[2024-08-09] MEDS: SODIUM ZIRCONIUM CYCLOSILICATE 10 GM PACKET PO ONE ×3 (00:54→20:48)
[2024-08-09] MEDS: INSULIN REGULAR 100 UNIT/ML VIAL (IV) IV ONE ×3 (01:01→20:39)
[2024-08-09 07:22] LABS: Glucose,Whole Blood 52 mg/dL (70-110)
[2024-08-09 07:23] LABS: Basophils % (A) 0 %; Eosinophils % (A) 1 %; HCT 28.2 % (39.0-53.0); HGB 9.6 gm/dL (13.0-17.5); Lymphocytes # (A) 2.5 k/uL (1.0-4.8); Lymphocytes % (A) 39 %; MCH 34.3 pg (25.0-35.0); MCHC 33.8 g/dL (31.0-37.0); MCV 101.2 fL (80.0-100.0); Macrocytosis Slight; Mean Platelet Volume 8.3; Monocytes # (A) 0.3 k/uL (0-1.0); Monocytes % (A) 4 %; Neutrophils # (A) 3.5 k/uL (1.3-7.7); Neutrophils % (A) 54 %; Platelet Count 201 k/uL (150-450); RBC 2.79 m/uL (4.30-5.90); RDW 13.5 % (11.5-15.5); WBC 6.5 k/uL (3.8-10.6)
[2024-08-09 07:45] LABS: African American GFR (CKD) 6 (>60 ml/min/1.73 sqM); Anion Gap 9 mmol/L; Blood Urea Nitrogen 75 mg/dL (9-20); Calcium 10.9 mg/dL (8.4-10.2); Carbon Dioxide 29 mmol/L (22-30); Chloride 94 mmol/L (98-107); Magnesium 2.7 mg/dL (1.6-2.3); Non-African American GFR(CKD) 5 (>60 ml/min/1.73 sqM); Potassium 5.5 mmol/L (3.5-5.1); Sodium 132 mmol/L (137-145)
[2024-08-09 07:47] LABS: Glucose 48 mg/dL (74-99)
[2024-08-09] MEDS: LIDOCAINE 4% PATCH TOPICAL SCH (07:59)
[2024-08-09] MEDS: TAMSULOSIN 0.4 MG CAP.ER.24H PO SCH (08:00)
[2024-08-09] MEDS: PANTOPRAZOLE 40 MG TABLET PO SCH (08:00)
[2024-08-09 08:04] LABS: Glucose,Whole Blood 62 mg/dL (70-110)
[2024-08-09 08:38] LABS: Glucose,Whole Blood 86 mg/dL (70-110)
[2024-08-09] MEDS ORDERED: DICLOFENAC SODIUM GEL 100 GM TUBE TOPICAL PRN (09:00)
--- NOTE | 2024-08-09 10:53 | P.PN ---
Subjective Progress Note Date: 08/09/24 88-year-old man with PMH of atrial fibrillation currently on Eliquis, non- Hodgkin's lymphoma s/p chemotherapy in 2014 now in remission, hypertension, hypothyroidism, Systolic CHF, compression fractures in his back and GERD. Presenting to the emergency department to be [facility] due to elevation of his BUN/creatinine and potassium. Additionally, he was placed in the penitentiary for rehabilitation purposes due to his chronic back pain due to multiple compression fractures. He endorses having had decreased urge to urinate over the past week or so. He denies chest pain, difficulty breathing, shortness of breath, fever, chills or cough. 08/09/24 - Patient seen and examined at bedside this morning. Resting comfortably in bed. Stating he has no acute complaints. Overnight his potassium remained persistently elevated at 6.0 and he received 10 units IV insulin, one 50 mL IVP dextrose 50% syringe and 10 g Lokelma. Overnight course was uneventful. CBC and BMP this morning significant for Hgb 9.6, hct 28.2, MCV 101.2, sodium 132, potassium 5.5, chloride 94, BUN 75, creatinine 8.33, glucose 48, calcium 10.9, magnesium 2.7. As result of his glucose being 48 he received another one 50 mg IVP dextrose 50% syringe. Since placement, 500 cc urine collected from Worrell catheter. Fluid balance since arrival +1.4 L. Urinalysis completed yesterday showed 1+ urine protein, moderate urine blood, 38 urine RBCs. REVIEW OF SYSTEMS: Pertinent positives and negatives noted in HPI. Physical Exam: General: nontoxic, no distress, appears at stated age; Worrell catheter in place Derm: warm, dry, intact Head: atraumatic, normocephalic, symmetric Eyes: EOMI, anicteric sclera ENT: Patient has bilateral ear tubes Mouth: no lip lesion, mucus membranes moist Cardiovascular: Irregularly irregular rhythm Lungs: CTA bilateral, bilateral rhonchi, no rales, no accessory muscle use Abdominal: soft, non-tender to palpataion, no appreciable organomegaly Extremities: no gross muscle atrophy, no edema, no contractures. Back pain reproducible with twisting/movement. Neuro: Alert, Oriented, CNII-XII grossly intact, gait normal. Psych: well appearing, appropriate affect Data Received Today: Labs: WBC 6.5, hemoglobin 9.6, hematocrit 28.2, MCV one 1.2, platelet 201; sodium 132, potassium 5.5, chloride 94, BUN 75, creatinine 8.33, glucose 48, calcium 10.9, magnesium 2.7 -UA: 1+ urine protein, moderate urine blood, 38 urine RBCs Imagining: -Kidney/bladder ultrasound showed medical renal disease suggested with increased echotexture to the kidneys, right renal cyst, right nonobstructing renal calculi, Worrell catheter in place Assessment and plan 88-year-old PMH atrial fibrillation currently on Eliquis, non-Hodgkin's lymphoma s/p chemotherapy in 2013 on admission, hypertension, systolic CHF, compression fractures in his back, hypothyroidism, and GERD. Presents to the emergency department after being sent by his penitentiary due to an elevation of his BUN/creatinine and potassium. #Oliguric or Non-oliguric Acute Kidney Injury in the setting of stage IIIa chronic kidney disease #Hyperkalemia #Hyponatremia #Hypercalcemia #Hypermagnesemia -Given 1000 mg IV push calcium chloride, 20 mg IV once Lasix, 10 units insulin, 50 mL IV push dextrose 50%, 50 mL IV sodium bicarb, 10 g Lokelma in the ED -Worrell catheter placed -US Bladder/Kidney showed no evidence of hydronephrosis -UA showed 1+ protein, with moderate blood and 38 urine RBCs -Discontinued LR due to progressively worsening kidney function -Administered Lasix 80 mg IV once -Recheck BMP this afternoon and tomorrow a.m. -Strict Is & O's -Cardiac monitoring -Nephrology consulted #Episodic hypoglycemia -Multiple episodes of serum glucose <65 -This a.m. serum glucose 48, 52 and POC glucose recheck -Administered 50 mL IVP dextrose 50% syringe -Accu-Cheks ACHS ordered #Chronic anemia #Macrocytosis -Continue to monitor CBC daily -Most recent vitamin B12 381 (07/28/2024) -Most recent serum folate 18.2 (07/28/2024) #Systolic CHF, not in exacerbation -Continue current home medications -Most recent echocardiogram (03/03/2023) showed EF 35-40% #Chronic low back pain, secondary to compression fractures -Continue with lidocaine patch daily and Voltaren gel -Tylenol 650 mg every 6 hours as needed for pain #Hypothyroidism -Continue Synthroid 150 mcg daily #Hypertension -Continue to monitor vital signs -Continue home Lopressor 12.5 mg twice daily -Hold home lisinopril 2.5 mg daily secondary to HUNTER #GERD -Continue home omeprazole 20 mg daily #Benign prostatic hyperplasia -Continue home Flomax 0.4 mg daily GI prophylaxis: Omeprazole 20 mg daily DVT prophylaxis: Eliquis 5 mg twice daily Code status: No code F: None E: Replete as needed N: Renal diet A: Ambulatory Anticipated discharge place: Pending clinical course Anticipated discharge time: Pending clinical course Dictation was produced using [employer] dictation software. please excuse any grammatical, word or spelling errors. I have seen and evaluated the patient today. Discussed with the resident and agree with the residents finding and plan as documented in the resident's note. Changes highlighted in blue font. Objective - Vital Signs Vital signs: Vital Signs Temp 97.6 F 08/09/24 01:25 Pulse 68 08/09/24 01:25 Resp 16 08/09/24 01:25 BP 107/63 08/09/24 01:25 Pulse Ox 94 L 08/09/24 01:25 FiO2 Intake & Output 08/08/24 08/09/24 08/09/24 18:59 06:59 18:59 Intake Total 458 1460 Output Total 500 Balance 458 960 Weight 78.018 kg Intake: Intake, IV Titration 900 Amount Lactated Ringers 1,000 ml 900 @ 75 mls/hr IV .[id number] [facility] Rx#:[id number] Oral 458 560 Output: Urine 500 Other: Voiding Method Indwelling Catheter - Labs CBC & Chem 7: 08/09/24 07:05 08/09/24 07:00 Labs: Abnormal Lab Results - Last 24 Hours (Table) 08/08/24 08/08/24 08/08/24 Range/Units 13:12 13:12 16:15 RBC 2.95 L (4.30-5.90) m/uL Hgb 10.3 L (13.0-17.5) gm/dL Hct 29.9 L (39.0-53.0) % MCV 101.4 H (80.0-100.0) fL Sodium 133 L 134 L (137-145) mmol/L Potassium 6.6 H* 5.7 H (3.5-5.1) mmol/L Chloride 95 L 94 L (98-107) mmol/L BUN 74 H 73 H (9-20) mg/dL Creatinine 7.88 H* 8.02 H* (0.66-1.25) mg/dL Glucose 52 L (74-99) mg/dL POC Glucose (mg/dL) (70-110) mg/dL Calcium 10.7 H 11.6 H (8.4-10.2) mg/dL Magnesium 2.7 H 2.8 H (1.6-2.3) mg/dL Total Protein 6.2 L (6.3-8.2) g/dL Urine Protein (Negative) Urine Blood (Negative) Urine RBC (0-5) /hpf Urine Mucus (None) /hpf Urine Yeast (Budding) (None) /hpf 08/08/24 08/08/24 08/08/24 Range/Units 17:57 20:25 23:08 RBC (4.30-5.90) m/uL Hgb (13.0-17.5) gm/dL Hct (39.0-53.0) % MCV (80.0-100.0) fL Sodium (137-145) mmol/L Potassium (3.5-5.1) mmol/L Chloride (98-107) mmol/L BUN (9-20) mg/dL Creatinine (0.66-1.25) mg/dL Glucose (74-99) mg/dL POC Glucose (mg/dL) 63 L 141 H (70-110) mg/dL Calcium (8.4-10.2) mg/dL Magnesium (1.6-2.3) mg/dL Total Protein (6.3-8.2) g/dL Urine Protein 1+ H (Negative) Urine Blood Moderate H (Negative) Urine RBC 38 H (0-5) /hpf Urine Mucus Rare H (None) /hpf Urine Yeast (Budding) Occasional H (None) /hpf 08/08/24 08/09/24 08/09/24 Range/Units 23:32 07:00 07:05 RBC 2.79 L (4.30-5.90) m/uL Hgb 9.6 L (13.0-17.5) gm/dL Hct 28.2 L (39.0-53.0) % MCV 101.2 H (80.0-100.0) fL Sodium 131 L 132 L (137-145) mmol/L Potassium 6.0 H 5.5 H (3.5-5.1) mmol/L Chloride 94 L 94 L (98-107) mmol/L BUN 73 H 75 H (9-20) mg/dL Creatinine 8.18 H* 8.33 H* (0.66-1.25) mg/dL Glucose 100 H 48 L* (74-99) mg/dL POC Glucose (mg/dL) (70-110) mg/dL Calcium 10.9 H 10.9 H (8.4-10.2) mg/dL Magnesium 2.7 H 2.7 H (1.6-2.3) mg/dL Total Protein (6.3-8.2) g/dL Urine Protein (Negative) Urine Blood (Negative) Urine RBC (0-5) /hpf Urine Mucus (None) /hpf Urine Yeast (Budding) (None) /hpf 08/09/24 Range/Units 07:21 RBC (4.30-5.90) m/uL Hgb (13.0-17.5) gm/dL Hct (39.0-53.0) % MCV (80.0-100.0) fL Sodium (137-145) mmol/L Potassium (3.5-5.1) mmol/L Chloride (98-107) mmol/L BUN (9-20) mg/dL Creatinine (0.66-1.25) mg/dL Glucose (74-99) mg/dL POC Glucose (mg/dL) 52 L (70-110) mg/dL Calcium (8.4-10.2) mg/dL Magnesium (1.6-2.3) mg/dL Total Protein (6.3-8.2) g/dL Urine Protein (Negative) Urine Blood (Negative) Urine RBC (0-5) /hpf Urine Mucus (None) /hpf Urine Yeast (Budding) (None) /hpf
[2024-08-09] MEDS: FUROSEMIDE 10 MG/ML 10 ML VIAL IV STA (11:18)
[2024-08-09 12:24] LABS: Glucose,Whole Blood 187 mg/dL (70-110)
--- NOTE | 2024-08-09 13:07 | P.NPCON ---
History of Present Illness - Reason for Consult acute renal failure - History of Present Illness Patient is an 88-year-old male with history of non-Hodgkin's lymphoma status postchemotherapy in 2013 currently in remission. He also has a history of hypertension, chronic A-fib and CHF. He is admitted to the hospital due to elevated BUN and creatinine and potassium at [facility]. Serum creatinine was 7.8 on admission yesterday and it is 8.3 today. Previous creatinine 1.2 on 07/29/2024. Patient states he has not voided much recently. Currently with indwelling Worrell catheter with 500 mL of urine charted. Maintained on low-dose lisinopril at home. No NSAIDs noted. Blood pressure not significantly low. No significant nausea or vomiting. No evidence of obstruction on ultrasound of the kidneys. Serum potassium was 6.6 on admission and now down to 5.5. Past Medical History Past Medical History: Atrial Fibrillation, Cancer, GERD/Reflux, Hypertension, Osteoarthritis (OA), Thyroid Disorder Additional Past Medical History / Comment(s): hx kidney stones, hodgkins lymphoma,. 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 hx rapid heart rate History of Any Multi-Drug Resistant Organisms: MRSA Date of last positivie culture/infection: 2014 MDRO Source:: lung Past Surgical History: Joint Replacement Additional Past Surgical History / Comment(s): right knee replacement, sinan knee scope, sinan carpal tunnel lymph node biopsy, lt shoulder rotator cuff Past Anesthesia/Blood Transfusion Reactions: No Reported Reaction Past Psychological History: No Psychological Hx Reported Additional Psychological History / Comment(s): . Lives with family home with his . She is status post stroke and he has a usual caregiver. 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 Smoking Status: Former smoker Past Alcohol Use History: None Reported Additional Past Alcohol Use History / Comment(s): SMOKED 26 YEARS, < 1/2 PPD. quit 1984 Past Drug Use History: None Reported - Past Family History Sister(s) Family Medical History: Cancer Mother Family Medical History: No Reported History Father Family Medical History: Hypertension Medications and Allergies Home Medications Medication Instructions Recorded Confirmed Type Omeprazole [PriLOSEC] 20 mg PO DAILY 11/14/13 08/08/24 History Apixaban [Eliquis] 5 mg PO BID 03/30/21 08/08/24 History Levothyroxine Sodium [Synthroid] 150 mcg PO HS 03/30/21 08/08/24 History lisinopriL [Zestril] 2.5 mg PO DAILY #30 tab 03/06/23 08/08/24 Rx Metoprolol Tartrate [Lopressor] 12.5 mg PO BID 04/27/24 08/08/24 History Cyclobenzaprine [Flexeril] 5 mg PO HS #20 tab 07/21/24 08/08/24 Rx Cholecalciferol [Vitamin D3 (125 125 mcg PO HS 07/28/24 08/08/24 History Mcg = 5000 Iu)] Diclofenac Sodium Gel [Voltaren 1% 1 applic TOPICAL DAILY 07/28/24 08/08/24 History Gel] Docusate [Colace] 100 mg PO BID@0800,1600 07/28/24 08/08/24 History Magnesium Oxide [Mag-Ox] 400 mg PO HS 07/28/24 08/08/24 History Acetaminophen Tab [Tylenol] 650 mg PO Q6HR PRN tab 08/01/24 08/08/24 Rx polyethylene glycoL 3350 [Miralax] 17 gm PO DAILY packet 08/01/24 08/08/24 Rx Lidocaine 4% Patch 1 patch TOPICAL DAILY 08/08/24 08/08/24 History Magnesium Hydroxide [Milk of 2,400 mg PO DAILY PRN 08/08/24 08/08/24 History Magnesia] Naloxone HCl [Narcan] 4 mg NASAL DIRECTED PRN 08/08/24 08/08/24 History Tamsulosin [Flomax] 0.4 mg PO DAILY 08/08/24 08/08/24 History bisacodyL [Dulcolax] 10 mg RECTAL DAILY PRN 08/08/24 08/08/24 History oxyCODONE-APAP 7.5-325MG [Percocet 1 tab PO Q6HR PRN 08/08/24 08/08/24 History 7.5-325 mg] Allergies Allergy/AdvReac Type Severity Reaction Status Date / Time celecoxib [From Celebrex] AdvReac muscle Verified 08/08/24 15:18 cramps niacin AdvReac muscle Verified 08/08/24 15:18 cramps nystatin AdvReac muscle Verified 08/08/24 15:18 cramps Upujkde-CUR-AqA Reductase AdvReac muscle Verified 08/08/24 15:18 Inhibitor cramps [Jibeiup-Hwc-Yfc Reductase Inhibitor] Physical Exam Vitals: Vital Signs Temp Pulse Pulse Resp BP BP Pulse Ox 08/09/24 11:18 113/78 08/09/24 07:14 97.5 F L 52 L 18 108/66 96 08/09/24 01:25 97.6 F 68 16 107/63 94 L 08/08/24 19:52 97.6 F 55 L 16 127/75 98 08/08/24 19:40 55 L 16 08/08/24 17:34 97.8 F 65 18 146/78 93 L 08/08/24 15:58 66 20 107/83 95 Intake and Output 08/08/24 08/09/24 08/09/24 22:59 06:59 14:59 Intake Total 458 1460 Output Total 500 Balance 458 960 Intake: Intake, IV Titration 900 Amount Lactated Ringers 1,000 ml 900 @ 75 mls/hr IV .[id number] [facility] Rx#:[id number] Oral 458 560 Output: Urine 500 Other: Voiding Method Indwelling Catheter Indwelling Catheter Weight 78.018 kg Patient is awake, comfortable, no acute distress. Examination of the heart S1 and S2 Examination of the lungs bilateral breath sounds are heard Abdomen is soft nontender obese Examination of lower extremities shows chronic skin changes no significant edema. SODA JERKER exam grossly intact Results - Lab Results Most recent lab results Calcium 10.9 mg/dL (8.4-10.2) H 08/09/24 07:00 Magnesium 2.7 mg/dL (1.6-2.3) H 08/09/24 07:00 08/09/24 07:05 08/09/24 07:00 Assessment and Plan Assessment: 1. Acute kidney injury most likely ATN. Rule out acute interstitial nephritis. It is a rather significant and acute kidney injury with previous creatinine 1.2 on 07/29/2024. Proteinuria is not new. Hypercalcemia also possibly contributing to the acute kidney injury. 2. Chronic kidney disease stage IIIa with with baseline creatinine around 1 to 1.2 mg/dL, proteinuria noted. This needs to be quantified. 3. Hyperkalemia associated with acute kidney injury 4. Hypercalcemia rule out vitamin D toxicity. Basic workup will be ordered 5. Anemia rule out iron deficiency 6. A-fib maintained on Eliquis Plan: Check urine eosinophils Check basic serologies for workup for proteinuria and significant acute kidney injury Check immunofixation rule out underlying paraproteinemia DC vitamin D Check 25-hydroxy vitamin D level and PTH Check chest x-ray Add IV fluids Patient will likely need renal replacement therapy if there is no further improvement in renal function Thank you for the consultation. We will continue to follow the patient with you during his hospitalization.
[2024-08-09] MEDS: SODIUM CHLORIDE 0.9% 1,000 ML IV SCH (13:48)
[2024-08-09] MEDS: SODIUM CHLORIDE 0.9% 500 ML 500 ML IV ONE (13:48)
[2024-08-09 14:04] VITALS: BMI 25.4
[2024-08-09 15:08] LABS: African American GFR (CKD) 6 (>60 ml/min/1.73 sqM); Anion Gap 8 mmol/L; Blood Urea Nitrogen 76 mg/dL (9-20); Calcium 10.8 mg/dL (8.4-10.2); Carbon Dioxide 29 mmol/L (22-30); Chloride 95 mmol/L (98-107); Glucose 90 mg/dL (74-99); Non-African American GFR(CKD) 5 (>60 ml/min/1.73 sqM); Sodium 132 mmol/L (137-145)
[2024-08-09 15:09] LABS: Potassium 6.8 mmol/L (3.5-5.1)
[2024-08-09 15:11] LABS: Protein, Total 5.5 g/dL (6.2-8.2)
[2024-08-09] MEDS: DEXTROSE 50% SYRINGE 50 ML IVP ONE (15:40)
[2024-08-09] MEDS: SODIUM BICARB 8.4% 50 ML SYR (1 MEQ/ML) IV ONE (15:40)
--- NOTE | 2024-08-09 15:41 | XR ---
EXAMINATION TYPE: XR chest 1V DATE OF EXAM: 08/09/2024 3:18 PM COMPARISON: Chest radiographs from07/28/2024 CLINICAL INDICATION: Male, 88 years old with history of chf; TECHNIQUE: XR chest 1V Frontal view of the chest. FINDINGS: Lungs/Pleura: There is no evidence of pleural effusion, focal consolidation, or pneumothorax. Pulmonary vascularity: Unremarkable. Heart/mediastinum: Cardiomediastinal silhouette is unremarkable. Musculoskeletal: No acute osseous pathology. Other findings: None Lines/Tubes: Jbuaws-d-Kwwv projecting over the right hemithorax with distal tip at the cavoatrial junction. IMPRESSION: Cardiomegaly and mild pulmonary vascular congestion. Correlate with BNP for congestive heart failure. [facility], , 08/09/2024 3:39 PM
[2024-08-09 17:00] LABS: Glucose,Whole Blood 124 mg/dL (70-110)
[2024-08-09] MEDS: LIDOCAINE 1% INJ 10MG/ML (20 ML MDV) SQ ONE (17:21)
[2024-08-09] MEDS: IOPAMIDOL-370 100ML BTL INJ ONE (17:30)
--- NOTE | 2024-08-09 17:41 | P.GSCN ---
History of Present Illness History of present illness: 88-year-old gentleman patient had a history of renal failure with oliguria with high BUN/creatinine and potassium consulted for placement of a dialysis catheter. History of Hodgkin lymphoma postchemotherapy patient also has a history of A-fib on Eliquis On examination neck is supple no bruit appreciated Chest the lung bases. Second sound present Abdomen soft nontender femorals are 2+ bilateral plan is for femoral dialysis catheter risk and complication discussed Past Medical History Past Medical History: Atrial Fibrillation, Cancer, GERD/Reflux, Hypertension, Osteoarthritis (OA), Thyroid Disorder Additional Past Medical History / Comment(s): hx kidney stones, hodgkins lymphoma,. 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 hx rapid heart rate History of Any Multi-Drug Resistant Organisms: MRSA Year Discovered:: 2014 MDRO Source:: lung Past Surgical History: Joint Replacement Additional Past Surgical History / Comment(s): right knee replacement, sinan knee scope, sinan carpal tunnel lymph node biopsy, lt shoulder rotator cuff Past Anesthesia/Blood Transfusion Reactions: No Reported Reaction Past Psychological History: No Psychological Hx Reported Additional Psychological History / Comment(s): . Lives with family home with his . She is status post stroke and he has a usual caregiver. 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 Smoking Status: Former smoker Past Alcohol Use History: None Reported Additional Past Alcohol Use History / Comment(s): SMOKED 26 YEARS, < 1/2 PPD. quit 1984 Past Drug Use History: None Reported - Past Family History Sister(s) Family Medical History: Cancer Mother Family Medical History: No Reported History Father Family Medical History: Hypertension Medications and Allergies Home Medications Medication Instructions Recorded Confirmed Type Omeprazole [PriLOSEC] 20 mg PO DAILY 11/14/13 08/08/24 History Apixaban [Eliquis] 5 mg PO BID 03/30/21 08/08/24 History Levothyroxine Sodium [Synthroid] 150 mcg PO HS 03/30/21 08/08/24 History lisinopriL [Zestril] 2.5 mg PO DAILY #30 tab 03/06/23 08/08/24 Rx Metoprolol Tartrate [Lopressor] 12.5 mg PO BID 04/27/24 08/08/24 History Cyclobenzaprine [Flexeril] 5 mg PO HS #20 tab 07/21/24 08/08/24 Rx Cholecalciferol [Vitamin D3 (125 125 mcg PO HS 07/28/24 08/08/24 History Mcg = 5000 Iu)] Diclofenac Sodium Gel [Voltaren 1% 1 applic TOPICAL DAILY 07/28/24 08/08/24 History Gel] Docusate [Colace] 100 mg PO BID@0800,1600 07/28/24 08/08/24 History Magnesium Oxide [Mag-Ox] 400 mg PO HS 07/28/24 08/08/24 History Acetaminophen Tab [Tylenol] 650 mg PO Q6HR PRN tab 08/01/24 08/08/24 Rx polyethylene glycoL 3350 [Miralax] 17 gm PO DAILY packet 08/01/24 08/08/24 Rx Lidocaine 4% Patch 1 patch TOPICAL DAILY 08/08/24 08/08/24 History Magnesium Hydroxide [Milk of 2,400 mg PO DAILY PRN 08/08/24 08/08/24 History Magnesia] Naloxone HCl [Narcan] 4 mg NASAL DIRECTED PRN 08/08/24 08/08/24 History Tamsulosin [Flomax] 0.4 mg PO DAILY 08/08/24 08/08/24 History bisacodyL [Dulcolax] 10 mg RECTAL DAILY PRN 08/08/24 08/08/24 History oxyCODONE-APAP 7.5-325MG [Percocet 1 tab PO Q6HR PRN 08/08/24 08/08/24 History 7.5-325 mg] Allergies Allergy/AdvReac Type Severity Reaction Status Date / Time celecoxib [From Celebrex] AdvReac muscle Verified 08/08/24 15:18 cramps niacin AdvReac muscle Verified 08/08/24 15:18 cramps nystatin AdvReac muscle Verified 08/08/24 15:18 cramps Mdxgzej-QWT-MkV Reductase AdvReac muscle Verified 08/08/24 15:18 Inhibitor cramps [Nygvkfj-Jho-Pzm Reductase Inhibitor] Surgical - Exam Vital Signs Temp Pulse Resp BP Pulse Ox 98.7 F 96 18 129/84 96 08/08/24 12:26 08/08/24 12:26 08/08/24 12:26 08/08/24 12:26 08/08/24 12:26 Results - Labs 08/09/24 07:05 08/09/24 14:26 Abnormal Lab Results - Last 24 Hours (Table) 08/08/24 08/08/24 08/08/24 Range/Units 17:57 20:25 23:08 RBC (4.30-5.90) m/uL Hgb (13.0-17.5) gm/dL Hct (39.0-53.0) % MCV (80.0-100.0) fL Sodium (137-145) mmol/L Potassium (3.5-5.1) mmol/L Chloride (98-107) mmol/L BUN (9-20) mg/dL Creatinine (0.66-1.25) mg/dL Glucose (74-99) mg/dL POC Glucose (mg/dL) 63 L 141 H (70-110) mg/dL Calcium (8.4-10.2) mg/dL Magnesium (1.6-2.3) mg/dL Total Protein (PEP) (6.2-8.2) g/dL Urine Protein 1+ H (Negative) Urine Blood Moderate H (Negative) Urine RBC 38 H (0-5) /hpf Urine Mucus Rare H (None) /hpf Urine Yeast (Budding) Occasional H (None) /hpf 08/08/24 08/09/24 08/09/24 Range/Units 23:32 07:00 07:00 RBC (4.30-5.90) m/uL Hgb (13.0-17.5) gm/dL Hct (39.0-53.0) % MCV (80.0-100.0) fL Sodium 131 L 132 L (137-145) mmol/L Potassium 6.0 H 5.5 H (3.5-5.1) mmol/L Chloride 94 L 94 L (98-107) mmol/L BUN 73 H 75 H (9-20) mg/dL Creatinine 8.18 H* 8.33 H* (0.66-1.25) mg/dL Glucose 100 H 48 L* (74-99) mg/dL POC Glucose (mg/dL) (70-110) mg/dL Calcium 10.9 H 10.9 H (8.4-10.2) mg/dL Magnesium 2.7 H 2.7 H (1.6-2.3) mg/dL Total Protein (PEP) 5.5 L (6.2-8.2) g/dL Urine Protein (Negative) Urine Blood (Negative) Urine RBC (0-5) /hpf Urine Mucus (None) /hpf Urine Yeast (Budding) (None) /hpf 08/09/24 08/09/24 08/09/24 Range/Units 07:05 07:21 08:00 RBC 2.79 L (4.30-5.90) m/uL Hgb 9.6 L (13.0-17.5) gm/dL Hct 28.2 L (39.0-53.0) % MCV 101.2 H (80.0-100.0) fL Sodium (137-145) mmol/L Potassium (3.5-5.1) mmol/L Chloride (98-107) mmol/L BUN (9-20) mg/dL Creatinine (0.66-1.25) mg/dL Glucose (74-99) mg/dL POC Glucose (mg/dL) 52 L 62 L (70-110) mg/dL Calcium (8.4-10.2) mg/dL Magnesium (1.6-2.3) mg/dL Total Protein (PEP) (6.2-8.2) g/dL Urine Protein (Negative) Urine Blood (Negative) Urine RBC (0-5) /hpf Urine Mucus (None) /hpf Urine Yeast (Budding) (None) /hpf 08/09/24 08/09/24 08/09/24 Range/Units 12:22 14:26 16:58 RBC (4.30-5.90) m/uL Hgb (13.0-17.5) gm/dL Hct (39.0-53.0) % MCV (80.0-100.0) fL Sodium 132 L (137-145) mmol/L Potassium 6.8 H* (3.5-5.1) mmol/L Chloride 95 L (98-107) mmol/L BUN 76 H (9-20) mg/dL Creatinine 8.06 H* (0.66-1.25) mg/dL Glucose (74-99) mg/dL POC Glucose (mg/dL) 187 H 124 H (70-110) mg/dL Calcium 10.8 H (8.4-10.2) mg/dL Magnesium (1.6-2.3) mg/dL Total Protein (PEP) (6.2-8.2) g/dL Urine Protein (Negative) Urine Blood (Negative) Urine RBC (0-5) /hpf Urine Mucus (None) /hpf Urine Yeast (Budding) (None) /hpf Diabetes panel 08/08/24 08/09/24 08/09/24 Range/Units 23:32 07:00 14:26 Sodium 131 L 132 L 132 L (137-145) mmol/L Potassium 6.0 H 5.5 H 6.8 H* (3.5-5.1) mmol/L Chloride 94 L 94 L 95 L (98-107) mmol/L Carbon Dioxide 27 29 29 (22-30) mmol/L BUN 73 H 75 H 76 H (9-20) mg/dL Creatinine 8.18 H* 8.33 H* 8.06 H* (0.66-1.25) mg/dL Glucose 100 H 48 L* 90 (74-99) mg/dL Calcium 10.9 H 10.9 H 10.8 H (8.4-10.2) mg/dL Calcium panel 08/08/24 08/09/24 08/09/24 Range/Units 23:32 07:00 14:26 Calcium 10.9 H 10.9 H 10.8 H (8.4-10.2) mg/dL Pituitary panel 08/08/24 08/09/24 08/09/24 Range/Units 23:32 07:00 14:26 Sodium 131 L 132 L 132 L (137-145) mmol/L Potassium 6.0 H 5.5 H 6.8 H* (3.5-5.1) mmol/L Chloride 94 L 94 L 95 L (98-107) mmol/L Carbon Dioxide 27 29 29 (22-30) mmol/L BUN 73 H 75 H 76 H (9-20) mg/dL Creatinine 8.18 H* 8.33 H* 8.06 H* (0.66-1.25) mg/dL Glucose 100 H 48 L* 90 (74-99) mg/dL Calcium 10.9 H 10.9 H 10.8 H (8.4-10.2) mg/dL Adrenal panel 08/08/24 08/09/24 08/09/24 Range/Units 23:32 07:00 14:26 Sodium 131 L 132 L 132 L (137-145) mmol/L Potassium 6.0 H 5.5 H 6.8 H* (3.5-5.1) mmol/L Chloride 94 L 94 L 95 L (98-107) mmol/L Carbon Dioxide 27 29 29 (22-30) mmol/L BUN 73 H 75 H 76 H (9-20) mg/dL Creatinine 8.18 H* 8.33 H* 8.06 H* (0.66-1.25) mg/dL Glucose 100 H 48 L* 90 (74-99) mg/dL Calcium 10.9 H 10.9 H 10.8 H (8.4-10.2) mg/dL
--- NOTE | 2024-08-09 17:43 | P.PCN ---
Description of Procedure: Preop diagnosis is acute chronic renal failure with high potassium BUN/creatinine postop same Procedure patient was brought to the Mailroom Manager right groin was prepped and draped in Prestel manner 1% lidocaine were infiltrated to the right groin area. Sound guided puncture micropuncture introduced right femoral vein micropuncture guide was passed and 4 4 dilator 2 out of the guidewire then we passed a regular guidewire then we placed a 30 cm dialysis catheter on the top of the Glidewire guidewire was removed flushed with half percent hep-locked secured with 3-0 nylon dressing applied patient tarted the procedure well
[2024-08-09 18:41] LABS: Glucose,Whole Blood 57 mg/dL (70-110)
[2024-08-09 19:17] LABS: Glucose,Whole Blood 63 mg/dL (70-110)
[2024-08-09 19:50] LABS: Glucose,Whole Blood 97 mg/dL (70-110)
--- NOTE | 2024-08-09 20:00 | XR ---
EXAMINATION TYPE: XR chest 1V portable DATE OF EXAM: 08/09/2024 6:28 PM COMPARISON: None. CLINICAL INDICATION: Male, 88 years old with history of Post hemodialysis catheter placement, TECHNIQUE: XR chest 1V portable view(s) obtained. FINDINGS: The heart size is enlarged. The pulmonary vasculature is normal. Right lower lobe atelectatic type changes are present. Report is on the right with the tip in the distal superior vena cava region. Left shoulder prosthesis is evident. Chronic rotator cuff tear and degenerative changes are at the right shoulder. IMPRESSION: 1. Right lower lobe atelectatic type changes. 2. Cardiomegaly [facility], Workstation: [facility], 08/09/2024 7:57 PM
--- NOTE | 2024-08-09 20:31 | IR ---
Fluoroscopy INDICATION: Pain, catheter placement FINDINGS: Fluoroscopy time: 38.2 seconds. Total dose area product (DAP) in uGy*m?, mGy*cm? (or similar): 490.36 Images obtained: 21. Images demonstrate placement of a needle with contrast over the right femoral head IMPRESSION: 1. Documentation of fluoroscopy. [facility], Workstation: [facility], 08/09/2024 8:28 PM
[2024-08-09 20:36] LABS: Complement C3 99.1 mg/dL (80.0-207.0)
[2024-08-09 22:33] LABS: Hepatitis B Surface Antigen Nonreactive (Nonreactive); Hepatitis C IgG Antibody Nonreactive (Nonreactive)
[2024-08-09 23:41] LABS: Hepatitis B Surface AB- Quant 3.5 mIU/mL
[2024-08-09 23:58] LABS: Glucose,Whole Blood 60 mg/dL (70-110)
[2024-08-10 00:37] LABS: Glucose,Whole Blood 70 mg/dL (70-110)
[2024-08-10 00:43] LABS: Anti-DNA, DS unit <1.0 IU/mL; DNA Double-Stranded Negative (Negative)
[2024-08-10 01:03] LABS: Magnesium 2.5 mg/dL (1.6-2.3); Phosphorus 6.4 mg/dL (2.5-4.5)
[2024-08-10 01:32] LABS: African American GFR (CKD) 6 (>60 ml/min/1.73 sqM); Anion Gap 13 mmol/L; Blood Urea Nitrogen 77 mg/dL (9-20); Calcium 10.4 mg/dL (8.4-10.2); Carbon Dioxide 25 mmol/L (22-30); Chloride 95 mmol/L (98-107); Glucose 68 mg/dL (74-99); Non-African American GFR(CKD) 6 (>60 ml/min/1.73 sqM); Potassium 5.5 mmol/L (3.5-5.1); Sodium 133 mmol/L (137-145)
[2024-08-10 04:04] LABS: Glucose,Whole Blood 110 mg/dL (70-110)
[2024-08-10 07:15] LABS: Glucose,Whole Blood 81 mg/dL (70-110)
[2024-08-10 12:18] LABS: Glucose,Whole Blood 267 mg/dL (70-110)
--- NOTE | 2024-08-10 16:20 | P.PN ---
Subjective Progress Note Date: 08/10/24 88-year-old man with PMH of atrial fibrillation currently on Eliquis, non- Hodgkin's lymphoma s/p chemotherapy in 2013 now in remission, hypertension, hypothyroidism, Systolic CHF, compression fractures in his back and GERD. Presenting to the emergency department [facility] due to elevation of his BUN/creatinine and potassium. Additionally, he was placed in the jail for rehabilitation purposes due to his chronic back pain due to multiple compression fractures. He endorses having had decreased urge to urinate over the past week or so. He denies chest pain, difficulty breathing, shortness of breath, fever, chills or cough. 08/09/24 - Patient seen and examined at bedside this morning. Resting comfortably in bed. Stating he has no acute complaints. Overnight his potassium remained persistently elevated at 6.0 and he received 10 units IV insulin, one 50 mL IVP dextrose 50% syringe and 10 g Lokelma. Overnight course was uneventful. CBC and BMP this morning significant for Hgb 9.6, hct 28.2, MCV 101.2, sodium 132, potassium 5.5, chloride 94, BUN 75, creatinine 8.33, glucose 48, calcium 10.9, magnesium 2.7. As result of his glucose being 48 he received another one 50 mg IVP dextrose 50% syringe. Since placement, 500 cc urine collected from Worrell catheter. Fluid balance since arrival +1.4 L. Urinalysis completed yesterday showed 1+ urine protein, moderate urine blood, 38 urine RBCs. 08/10/24 - Patient seen and examined at bedside this morning. Resting comfortably in bed. Stating he has no acute complaints. His potassium, calcium, magnesium continue to all be elevated. BMP this morning significant for sodium 133, potassium 5.5, chloride 95, BUN 77, creatinine 7.84, calcium 10.4, phosphorus 6.4, magnesium 2.5. As of the past 24 hours he continues to have Worrell catheter which produced 775 cc urine. Had hemodialysis catheter placed in the right femoral vein yesterday preparation for dialysis today. Worrell catheter remains in place. REVIEW OF SYSTEMS: Pertinent positives and negatives noted in HPI. Physical Exam: General: nontoxic, no distress, appears at stated age; Worrell catheter in place Derm: warm, dry, intact Head: atraumatic, normocephalic, symmetric Eyes: EOMI, anicteric sclera ENT: Patient has bilateral ear tubes Mouth: no lip lesion, mucus membranes moist Cardiovascular: Irregularly irregular rhythm Lungs: CTA bilateral, bilateral rhonchi, no rales, no accessory muscle use Abdominal: soft, non-tender to palpataion, no appreciable organomegaly Extremities: no gross muscle atrophy, no edema, no contractures. Back pain reproducible with twisting/movement. Neuro: Alert, Oriented, CNII-XII grossly intact, gait normal. Psych: well appearing, appropriate affect Data Received Today: Labs: Sodium 133, potassium 5.5, chloride 95, BUN 77, creatinine 7.84, calcium 10.4, phosphorus 6.4, magnesium 2.5, total protein (PEP) 5.5, vitamin D 78.7, PTH 8.2 Imagining: -Kidney/bladder ultrasound showed medical renal disease suggested with increased echotexture to the kidneys, right renal cyst, right nonobstructing renal calculi, Worrell catheter in place Assessment and plan 88-year-old PMH atrial fibrillation currently on Eliquis, non-Hodgkin's lymphoma s/p chemotherapy in 2013 on admission, hypertension, systolic CHF, compression fractures in his back, hypothyroidism, and GERD. Presents to the emergency department after being sent by his jail due to an elevation of his BUN/creatinine and potassium. #Oliguric or Non-oliguric Acute Kidney Injury in the setting of stage IIIa chronic kidney disease #Hyperkalemia #Hyponatremia #Hypercalcemia #Hypermagnesemia -Given 1000 mg IV push calcium chloride, 20 mg IV once Lasix, 10 units insulin, 50 mL IV push dextrose 50%, 50 mL IV sodium bicarb, 10 g Lokelma in the ED -Worrell catheter placed -US Bladder/Kidney showed no evidence of hydronephrosis -UA showed 1+ protein, with moderate blood and 38 urine RBCs -Recheck BMP this afternoon and tomorrow a.m. -Strict Is & O's -Cardiac monitoring -Nephrology consulted -Hemodialysis catheter placed in the right femoral on 08/09/2024; to receive his dialysis session 08/10/2024 -Serum protein electrophoresis, urine protein electrophoresis, APURVA, ANCA, free kappa lambda light chain, serum and urine immunofixation, MPO antibody, vitamin D, cortisol pending #Episodic hypoglycemia -Multiple episodes of serum glucose <65 -This a.m. serum glucose 48, 52 and POC glucose recheck -Administered 50 mL IVP dextrose 50% syringe -Accu-Cheks ACHS ordered #Chronic anemia #Macrocytosis -Continue to monitor CBC daily -Most recent vitamin B12 381 (07/28/2024) -Most recent serum folate 18.2 (07/28/2024) #Systolic CHF, not in exacerbation -Continue current home medications -Most recent echocardiogram (03/03/2023) showed EF 35-40% #Chronic low back pain, secondary to compression fractures -Continue with lidocaine patch daily and Voltaren gel -Tylenol 650 mg every 6 hours as needed for pain #Hypothyroidism -Continue Synthroid 150 mcg daily #Hypertension -Continue to monitor vital signs -Continue home Lopressor 12.5 mg twice daily -Hold home lisinopril 2.5 mg daily secondary to HUNTER #GERD -Continue home omeprazole 20 mg daily #Benign prostatic hyperplasia -Continue home Flomax 0.4 mg daily GI prophylaxis: Omeprazole 20 mg daily DVT prophylaxis: Eliquis 5 mg twice daily Code status: No code F: None E: Replete as needed N: Renal diet A: Ambulatory Anticipated discharge place: Pending clinical course Anticipated discharge time: Pending clinical course Dictation was produced using [employer] dictation software. please excuse any grammatical, word or spelling errors. I saw and evaluated the patient during the hicks and critical portions of this en counter, and discussed the case in detail with the resident author of this note, I agree with the Assessment and Plan, and my changes, if any, are highlighted in blue. Objective - Vital Signs Vital signs: Vital Signs Temp 97.6 F 08/10/24 01:36 Pulse 108 H 08/10/24 01:36 Resp 12 08/10/24 01:36 BP 104/66 08/10/24 01:36 Pulse Ox 98 08/10/24 01:36 FiO2 Intake & Output 08/09/24 08/10/24 08/10/24 18:59 06:59 18:59 Intake Total 1847 Output Total 775 Balance 1072 Weight 78.018 kg Intake: Intake, IV Titration 825 Amount Sodium Chloride 0.9% 1, 825 000 ml @ 75 mls/hr IV . [id number] [facility] Rx#:[id number] Oral 1022 Output: Urine 775 Other: Voiding Method Indwelling Catheter Indwelling Catheter - Labs CBC & Chem 7: 08/09/24 07:05 08/10/24 00:31 Labs: Abnormal Lab Results - Last 24 Hours (Table) 08/09/24 08/09/24 08/09/24 Range/Units 07:00 07:00 07:05 RBC 2.79 L (4.30-5.90) m/uL Hgb 9.6 L (13.0-17.5) gm/dL Hct 28.2 L (39.0-53.0) % MCV 101.2 H (80.0-100.0) fL Sodium 132 L (137-145) mmol/L Potassium 5.5 H (3.5-5.1) mmol/L Chloride 94 L (98-107) mmol/L BUN 75 H (9-20) mg/dL Creatinine 8.33 H* (0.66-1.25) mg/dL Glucose 48 L* (74-99) mg/dL POC Glucose (mg/dL) (70-110) mg/dL Calcium 10.9 H (8.4-10.2) mg/dL Phosphorus (2.5-4.5) mg/dL Magnesium 2.7 H (1.6-2.3) mg/dL Total Protein (PEP) 5.5 L (6.2-8.2) g/dL PTH Intact (14.0-72.0) pg/mL 08/09/24 08/09/24 08/09/24 Range/Units 07:21 08:00 12:22 RBC (4.30-5.90) m/uL Hgb (13.0-17.5) gm/dL Hct (39.0-53.0) % MCV (80.0-100.0) fL Sodium (137-145) mmol/L Potassium (3.5-5.1) mmol/L Chloride (98-107) mmol/L BUN (9-20) mg/dL Creatinine (0.66-1.25) mg/dL Glucose (74-99) mg/dL POC Glucose (mg/dL) 52 L 62 L 187 H (70-110) mg/dL Calcium (8.4-10.2) mg/dL Phosphorus (2.5-4.5) mg/dL Magnesium (1.6-2.3) mg/dL Total Protein (PEP) (6.2-8.2) g/dL PTH Intact (14.0-72.0) pg/mL 08/09/24 08/09/24 08/09/24 Range/Units 14:26 14:26 16:58 RBC (4.30-5.90) m/uL Hgb (13.0-17.5) gm/dL Hct (39.0-53.0) % MCV (80.0-100.0) fL Sodium 132 L (137-145) mmol/L Potassium 6.8 H* (3.5-5.1) mmol/L Chloride 95 L (98-107) mmol/L BUN 76 H (9-20) mg/dL Creatinine 8.06 H* (0.66-1.25) mg/dL Glucose (74-99) mg/dL POC Glucose (mg/dL) 124 H (70-110) mg/dL Calcium 10.8 H (8.4-10.2) mg/dL Phosphorus (2.5-4.5) mg/dL Magnesium (1.6-2.3) mg/dL Total Protein (PEP) (6.2-8.2) g/dL PTH Intact 8.2 L (14.0-72.0) pg/mL 08/09/24 08/09/24 08/09/24 Range/Units 18:38 19:05 19:15 RBC (4.30-5.90) m/uL Hgb (13.0-17.5) gm/dL Hct (39.0-53.0) % MCV (80.0-100.0) fL Sodium (137-145) mmol/L Potassium 6.3 H* (3.5-5.1) mmol/L Chloride (98-107) mmol/L BUN (9-20) mg/dL Creatinine (0.66-1.25) mg/dL Glucose (74-99) mg/dL POC Glucose (mg/dL) 57 L 63 L (70-110) mg/dL Calcium (8.4-10.2) mg/dL Phosphorus (2.5-4.5) mg/dL Magnesium (1.6-2.3) mg/dL Total Protein (PEP) (6.2-8.2) g/dL PTH Intact (14.0-72.0) pg/mL 08/09/24 08/10/24 08/10/24 Range/Units 23:55 00:21 00:31 RBC (4.30-5.90) m/uL Hgb (13.0-17.5) gm/dL Hct (39.0-53.0) % MCV (80.0-100.0) fL Sodium 133 L (137-145) mmol/L Potassium 5.5 H (3.5-5.1) mmol/L Chloride 95 L (98-107) mmol/L BUN 77 H (9-20) mg/dL Creatinine 7.84 H* (0.66-1.25) mg/dL Glucose 68 L (74-99) mg/dL POC Glucose (mg/dL) 60 L (70-110) mg/dL Calcium 10.4 H (8.4-10.2) mg/dL Phosphorus 6.4 H (2.5-4.5) mg/dL Magnesium 2.5 H (1.6-2.3) mg/dL Total Protein (PEP) (6.2-8.2) g/dL PTH Intact (14.0-72.0) pg/mL
[2024-08-10 17:12] LABS: Glucose,Whole Blood 110 mg/dL (70-110)
--- NOTE | 2024-08-10 19:08 | P.PN ---
Subjective Patient is seen for follow-up for acute kidney injury. Serum creatinine only slightly improved to 7.8. Potassium remains elevated at 5.5. Currently maintained on IV fluids. Serologies negative thus far. Objective - Vital Signs Vital signs: Vital Signs Temp 97.8 F 08/10/24 12:51 Pulse 71 08/10/24 12:51 Resp 18 08/10/24 12:51 BP 103/67 08/10/24 12:51 Pulse Ox 96 08/10/24 07:10 FiO2 Intake & Output 08/10/24 08/10/24 08/11/24 06:59 18:59 06:59 Intake Total 1847 1580 Output Total 775 1625 Balance 1072 -45 Intake: Intake, IV Titration 825 Amount Sodium Chloride 0.9% 1, 825 000 ml @ 75 mls/hr IV . [id number] [facility] Rx#:[id number] Oral 1022 780 Hemodialysis 800 Output: Urine 775 825 Hemodialysis 800 Hemodialysis Net Amount 0 Other: Voiding Method Indwelling Catheter Indwelling Catheter # Bowel Movements 1 - Exam Patient is awake, comfortable he is having his dialysis catheter accessed. No acute distress. No significant edema noted. Alert oriented x 3. - Labs CBC & Chem 7: 08/09/24 07:05 08/10/24 00:31 Labs: Abnormal Lab Results - Last 24 Hours (Table) 08/09/24 08/09/24 08/09/24 Range/Units 14:26 19:05 19:15 Sodium (137-145) mmol/L Potassium 6.3 H* (3.5-5.1) mmol/L Chloride (98-107) mmol/L BUN (9-20) mg/dL Creatinine (0.66-1.25) mg/dL Glucose (74-99) mg/dL POC Glucose (mg/dL) 63 L (70-110) mg/dL Calcium (8.4-10.2) mg/dL Phosphorus (2.5-4.5) mg/dL Magnesium (1.6-2.3) mg/dL PTH Intact 8.2 L (14.0-72.0) pg/mL 08/09/24 08/10/24 08/10/24 Range/Units 23:55 00:21 00:31 Sodium 133 L (137-145) mmol/L Potassium 5.5 H (3.5-5.1) mmol/L Chloride 95 L (98-107) mmol/L BUN 77 H (9-20) mg/dL Creatinine 7.84 H* (0.66-1.25) mg/dL Glucose 68 L (74-99) mg/dL POC Glucose (mg/dL) 60 L (70-110) mg/dL Calcium 10.4 H (8.4-10.2) mg/dL Phosphorus 6.4 H (2.5-4.5) mg/dL Magnesium 2.5 H (1.6-2.3) mg/dL PTH Intact (14.0-72.0) pg/mL 08/10/24 Range/Units 12:16 Sodium (137-145) mmol/L Potassium (3.5-5.1) mmol/L Chloride (98-107) mmol/L BUN (9-20) mg/dL Creatinine (0.66-1.25) mg/dL Glucose (74-99) mg/dL POC Glucose (mg/dL) 267 H (70-110) mg/dL Calcium (8.4-10.2) mg/dL Phosphorus (2.5-4.5) mg/dL Magnesium (1.6-2.3) mg/dL PTH Intact (14.0-72.0) pg/mL Assessment and Plan Assessment: 1. Acute kidney injury most likely ATN. Rule out acute interstitial nephritis. It is a rather significant acute kidney injury with previous creatinine 1.2 on 07/29/2024. Proteinuria is not new. Hypercalcemia also possibly contributing to the acute kidney injury. 2. Chronic kidney disease stage IIIa with with baseline creatinine around 1 to 1.2 mg/dL, proteinuria noted. This needs to be quantified. 3. Hyperkalemia associated with acute kidney injury 4. Hypercalcemia rule out vitamin D toxicity. Basic workup will be ordered 5. Anemia rule out iron deficiency 6. A-fib maintained on Eliquis Plan: Continue IV fluids Hemodialysis today mostly for hyperkalemia. No uremic symptoms. Continue to monitor for recovery of renal function Hold hemodialysis in a.m. and reassess for treatment on Tuesday if there is no recovery of renal function.
[2024-08-10 20:37] LABS: Glucose,Whole Blood 104 mg/dL (70-110)
[2024-08-11 01:35] LABS: Glucose,Whole Blood 97 mg/dL (70-110)
[2024-08-11 07:01] LABS: Glucose,Whole Blood 99 mg/dL (70-110)
--- NOTE | 2024-08-11 08:26 | P.PN ---
Subjective Patient is seen in follow-up for acute kidney injury. Underwent first treatment of hemodialysis August 10, 2024. Nonoliguric. Denies chest pain or shortness of breath. Vital signs are stable. General: No acute distress. HEENT: Head exam is unremarkable. LUNGS: No audible rhonchi or wheezes. HEART: Rate and Rhythm are regular. ABDOMEN: Nontender. EXTREMITITES: No edema. Objective - Vital Signs Vital signs: Vital Signs Temp 97.9 F 08/11/24 07:02 Pulse 74 08/11/24 07:02 Resp 16 08/11/24 07:02 BP 134/76 08/11/24 07:02 Pulse Ox 96 08/11/24 07:02 FiO2 Intake & Output 08/10/24 08/11/24 08/11/24 18:59 06:59 18:59 Intake Total 1580 540 Output Total 1625 800 Balance -45 -260 Intake: Oral 780 540 Hemodialysis 800 Output: Urine 825 800 Hemodialysis 800 Hemodialysis Net Amount 0 Other: Voiding Method Indwelling Catheter Indwelling Catheter # Bowel Movements 1 - Labs CBC & Chem 7: 08/09/24 07:05 08/10/24 00:31 Labs: Abnormal Lab Results - Last 24 Hours (Table) 08/10/24 Range/Units 12:16 POC Glucose (mg/dL) 267 H (70-110) mg/dL Assessment and Plan Plan: Assessment: 1. Acute kidney injury likely ATN. Serologies negative so far. Creatinine over 8 this admission. Noted to be 1.05 July 2024. No hydronephrosis noted on kidney ultrasound. 2. Chronic kidney disease stage IIIa with baseline creatinine 1-1.2. 3. Hyperkalemia secondary to acute kidney injury and lisinopril. Improved postdialysis. 4. Hypercalcemia secondary to volume contraction and vitamin D. Improved. PTH appropriately suppressed at 8.2. Plan: Maintain IV fluids. Check labs today and assess for dialysis. Monitor for renal recovery. Avoid calcium and vitamin D supplementation. Check urine eosinophils. Maintain Worrell catheter. Strict I's and O's. Follow-up pending serologies and hypercalcemia workup.
[2024-08-11 09:30] LABS: African American GFR (CKD) 9 (>60 ml/min/1.73 sqM); Anion Gap 9 mmol/L; Blood Urea Nitrogen 44 mg/dL (9-20); Calcium 9.6 mg/dL (8.4-10.2); Carbon Dioxide 29 mmol/L (22-30); Chloride 96 mmol/L (98-107); Glucose 89 mg/dL (74-99); Non-African American GFR(CKD) 8 (>60 ml/min/1.73 sqM); Potassium 5.5 mmol/L (3.5-5.1); Sodium 134 mmol/L (137-145)
[2024-08-11 09:36] LABS: Basophils % (A) 0 %; Eosinophils # (A) 0.1 k/uL (0-0.7); Eosinophils % (A) 1 %; HCT 28.4 % (39.0-53.0); HGB 9.7 gm/dL (13.0-17.5); Lymphocytes # (A) 2.1 k/uL (1.0-4.8); Lymphocytes % (A) 37 %; MCH 34.1 pg (25.0-35.0); MCHC 34.1 g/dL (31.0-37.0); Macrocytosis Slight; Mean Platelet Volume 8.5; Monocytes # (A) 0.4 k/uL (0-1.0); Monocytes % (A) 6 %; Neutrophils # (A) 3.1 k/uL (1.3-7.7); Neutrophils % (A) 54 %; Platelet Count 189 k/uL (150-450); RBC 2.84 m/uL (4.30-5.90); RDW 13.9 % (11.5-15.5); WBC 5.7 k/uL (3.8-10.6)
[2024-08-11 12:10] LABS: Glucose,Whole Blood 77 mg/dL (70-110)
--- NOTE | 2024-08-11 12:57 | P.PN ---
Subjective Progress Note Date: 08/11/24 88-year-old man with PMH of atrial fibrillation currently on Eliquis, non- Hodgkin's lymphoma s/p chemotherapy in 2013 now in remission, hypertension, hypothyroidism, Systolic CHF, compression fractures in his back and GERD. Presenting to the emergency department to be sent from his custodial due to elevation of his BUN/creatinine and potassium. Additionally, he was placed in the custodial for rehabilitation purposes due to his chronic back pain due to multiple compression fractures. He endorses having had decreased urge to urinate over the past week or so. He denies chest pain, difficulty breathing, shortness of breath, fever, chills or cough. 08/09/24 - Patient seen and examined at bedside this morning. Resting comfortably in bed. Stating he has no acute complaints. Overnight his potassium remained persistently elevated at 6.0 and he received 10 units IV insulin, one 50 mL IVP dextrose 50% syringe and 10 g Lokelma. Overnight course was uneventful. CBC and BMP this morning significant for Hgb 9.6, hct 28.2, MCV 101.2, sodium 132, potassium 5.5, chloride 94, BUN 75, creatinine 8.33, glucose 48, calcium 10.9, magnesium 2.7. As result of his glucose being 48 he received another one 50 mg IVP dextrose 50% syringe. Since placement, 500 cc urine collected from Worrell catheter. Fluid balance since arrival +1.4 L. Urinalysis completed yesterday showed 1+ urine protein, moderate urine blood, 38 urine RBCs. 08/10/24 - Patient seen and examined at bedside this morning. Resting comfortably in bed. Stating he has no acute complaints. His potassium, calcium, magnesium continue to all be elevated. BMP this morning significant for sodium 133, potassium 5.5, chloride 95, BUN 77, creatinine 7.84, calcium 10.4, phosphorus 6.4, magnesium 2.5. As of the past 24 hours he continues to have Worrell catheter which produced 775 cc urine. Had hemodialysis catheter placed in the right femoral vein yesterday preparation for dialysis today. Worrell catheter remains in place. 08/11/24 - Patient seen and examined at bedside this morning. Resting comfortably in bed, stating he has no acute complaints. Patient underwent hemodialysis yesterday which tolerated without incident with all goals met, 0 UF. BMP this morning significant for. Worrell catheter continues to be in place. Per nephrology's recommendation he will receive hemodialysis again today. REVIEW OF SYSTEMS: Pertinent positives and negatives noted in HPI. Physical Exam: General: nontoxic, no distress, appears at stated age; Worrell catheter in place Derm: warm, dry, intact Head: atraumatic, normocephalic, symmetric Eyes: EOMI, anicteric sclera ENT: Patient has bilateral ear tubes Mouth: no lip lesion, mucus membranes moist Cardiovascular: Irregularly irregular rhythm Lungs: CTA bilateral, bilateral rhonchi, no rales, no accessory muscle use Abdominal: soft, non-tender to palpataion, no appreciable organomegaly Extremities: no gross muscle atrophy, no edema, no contractures. Back pain reproducible with twisting/movement. Neuro: Alert, Oriented, CNII-XII grossly intact, gait normal. Psych: well appearing, appropriate affect Data Received Today: Labs: WBCs 5.7, hemoglobin 9.7, hematocrit 28.4, platelet 189; sodium 134, potassium 5.5, chloride 96, BUN 44, creatinine 5.77, calcium 9.6 -APURVA screen negative, double-stranded DNA antibody negative, anti-DNA antibody interp <1.0, complement C3 99.1, complement C4 37.1, hep B antigen nonreactive, hep B antibody 3.5, hep C IgG antibody nonreactive -3 urine eosinophils Imagining: N/A Assessment and plan 88-year-old PMH atrial fibrillation currently on Eliquis, non-Hodgkin's lymphoma s/p chemotherapy in 2013 on admission, hypertension, systolic CHF, compression fractures in his back, hypothyroidism, and GERD. Presents to the emergency department after being sent by his custodial due to an elevation of his BUN/creatinine and potassium. #Oliguric or Non-oliguric Acute Kidney Injury in the setting of stage IIIa chronic kidney disease #Hyperkalemia #Hyponatremia #Hypercalcemia #Hypermagnesemia -Given 1000 mg IV push calcium chloride, 20 mg IV once Lasix, 10 units insulin, 50 mL IV push dextrose 50%, 50 mL IV sodium bicarb, 10 g Lokelma in the ED -Worrell catheter placed -US Bladder/Kidney showed no evidence of hydronephrosis -UA showed 1+ protein, with moderate blood and 38 urine RBCs -Recheck BMP this afternoon and tomorrow a.m. -Strict Is & O's -Continue with normal saline 75 cc/h -Cardiac monitoring -Nephrology consulted -Hemodialysis catheter placed in the right femoral on 08/09/2024; to receive his dialysis session 08/11/2024 -Serum protein electrophoresis, urine protein electrophoresis, free kappa lambda light chain, serum and urine immunofixation, MPO antibody, vitamin D, cortisol pending #Episodic hypoglycemia -Multiple episodes of serum glucose <65 -Accu-Cheks ACHS ordered #Chronic anemia #Macrocytosis -Continue to monitor CBC daily -Most recent vitamin B12 381 (07/28/2024) -Most recent serum folate 18.2 (07/28/2024) #Systolic CHF, not in exacerbation -Continue current home medications -Most recent echocardiogram (03/03/2023) showed EF 35-40% #Chronic low back pain, secondary to compression fractures -Continue with lidocaine patch daily and Voltaren gel -Tylenol 650 mg every 6 hours as needed for pain #Hypothyroidism -Continue Synthroid 150 mcg daily #Hypertension -Continue to monitor vital signs -Continue home Lopressor 12.5 mg twice daily -Hold home lisinopril 2.5 mg daily secondary to HUNTER #GERD -Continue home omeprazole 20 mg daily #Benign prostatic hyperplasia -Continue home Flomax 0.4 mg daily GI prophylaxis: Omeprazole 20 mg daily DVT prophylaxis: Eliquis 5 mg twice daily Code status: No code F: Normal saline 75 cc per E: Replete as needed N: Renal diet A: Ambulatory Anticipated discharge place: Pending clinical course Anticipated discharge time: Pending clinical course Dictation was produced using [employer] dictation software. please excuse any grammatical, word or spelling errors. I saw and evaluated the patient during the hicks and critical portions of this encounter, and discussed the case in detail with the resident author of this note, I agree with the Assessment and Plan, and my changes, if any, are highli ghted in blue. Objective - Vital Signs Vital signs: Vital Signs Temp 97.9 F 08/11/24 07:02 Pulse 74 08/11/24 07:02 Resp 16 08/11/24 07:02 BP 134/76 08/11/24 07:02 Pulse Ox 96 08/11/24 07:02 FiO2 Intake & Output 08/10/24 08/11/24 08/11/24 18:59 06:59 18:59 Intake Total 1580 540 Output Total 1625 800 Balance -45 -260 Intake: Oral 780 540 Hemodialysis 800 Output: Urine 825 800 Hemodialysis 800 Hemodialysis Net Amount 0 Other: Voiding Method Indwelling Catheter Indwelling Catheter # Bowel Movements 1 - Labs CBC & Chem 7: 08/11/24 08:46 08/11/24 08:46 Labs: Abnormal Lab Results - Last 24 Hours (Table) 08/10/24 Range/Units 12:16 POC Glucose (mg/dL) 267 H (70-110) mg/dL
[2024-08-11 17:08] LABS: Glucose,Whole Blood 115 mg/dL (70-110)
[2024-08-11 20:17] LABS: Glucose,Whole Blood 121 mg/dL (70-110)
[2024-08-12 06:51] LABS: Basophils % (A) 0 %; Eosinophils # (A) 0.1 k/uL (0-0.7); Eosinophils % (A) 2 %; HCT 26.4 % (39.0-53.0); HGB 8.9 gm/dL (13.0-17.5); Lymphocytes # (A) 2.1 k/uL (1.0-4.8); Lymphocytes % (A) 43 %; MCH 34.4 pg (25.0-35.0); MCHC 33.6 g/dL (31.0-37.0); MCV 102.3 fL (80.0-100.0); Macrocytosis Slight; Mean Platelet Volume 7.6; Monocytes # (A) 0.2 k/uL (0-1.0); Monocytes % (A) 5 %; Neutrophils # (A) 2.3 k/uL (1.3-7.7); Neutrophils % (A) 48 %; Platelet Count 169 k/uL (150-450); RBC 2.58 m/uL (4.30-5.90); RDW 13.3 % (11.5-15.5); WBC 4.8 k/uL (3.8-10.6)
[2024-08-12 07:07] LABS: Glucose,Whole Blood 101 mg/dL (70-110)
[2024-08-12 12:12] LABS: Glucose,Whole Blood 122 mg/dL (70-110)
[2024-08-12 12:27] LABS: Magnesium 1.8 mg/dL (1.5-2.4); Phosphorus 3.7 mg/dL (2.4-5.1)
[2024-08-12 12:42] LABS: BUN/Creat Ratio 5.92 Ratio (12.00-20.00); Blood Urea Nitrogen 23.7 mg/dL (9.0-27.0); Calcium 8.9 mg/dL (8.7-10.3); Carbon Dioxide 26.1 mmol/L (21.6-31.8); Chloride 103 mmol/L (96-109); Glucose 90 mg/dL (70-110); Potassium 4.2 mmol/L (3.5-5.5); Sodium 139 mmol/L (135-145)
--- NOTE | 2024-08-12 14:31 | P.PN ---
Subjective Progress Note Date: 08/12/24 No new complaints today. No acute events overnight. Gen: In NAD, non-toxic HEENT: normocephalic, atraumatic, hearing acuity is intant, mucous membranes moist CVS: perfusing all extremities well, no pitting edema, Respiratory: symmetric chest expansion, no accessory muscle use, GI: soft, NTTP, ND, : no suprapubic tenderness, no CVA tenderness MSK/Derm: no rashes, cyanosis Neuro: CN II-XII intact, no motor weakness, Psych: cooperative, euthymic mood, judgment and insight is intact Hospital course: 88-year-old man with PMH of atrial fibrillation currently on Eliquis, non- Hodgkin's lymphoma s/p chemotherapy in 2013 now in remission, hypertension, hypothyroidism, Systolic CHF, compression fractures in his back and GERD who presented to the emergency department from his detention due to elevation of his BUN/creatinine and potassium. Patient was noted to be hyperkalemic, hypercalcemic, and despite conservative measures for hyperkalemia, he was refractory and had to be initiated on dialysis. Rheumatologic workup has largely been negative thus far. We are still pending UPEP, free light chains. Assessment and plan 88-year-old PMH atrial fibrillation currently on Eliquis, non-Hodgkin's lymphoma s/p chemotherapy in 2013 on admission, hypertension, systolic CHF, compression fractures in his back, hypothyroidism, and GERD. Presents to the emergency department after being sent by his detention due to an elevation of his BUN/creatinine and potassium. #Oliguric or Non-oliguric Acute Kidney Injury in the setting of stage IIIa chronic kidney disease #Hyperkalemia #Hyponatremia #Hypercalcemia #Hypermagnesemia -Given 1000 mg IV push calcium chloride, 20 mg IV once Lasix, 10 units insulin, 50 mL IV push dextrose 50%, 50 mL IV sodium bicarb, 10 g Lokelma in the ED -Worrell catheter placed -US Bladder/Kidney showed no evidence of hydronephrosis -UA showed 1+ protein, with moderate blood and 38 urine RBCs -Recheck BMP this afternoon and tomorrow a.m. -Strict Is & O's -Continue with normal saline 75 cc/h -Cardiac monitoring -Nephrology consulted -Hemodialysis catheter placed in the right femoral on 08/09/2024; to receive his dialysis session 08/11/2024 -Serum protein electrophoresis, urine protein electrophoresis, free kappa lambda light chain, serum and urine immunofixation, MPO antibody, vitamin D, cortisol pending #Episodic hypoglycemia -Multiple episodes of serum glucose <65 -Accu-Cheks ACHS ordered #Chronic anemia #Macrocytosis -Continue to monitor CBC daily -Most recent vitamin B12 381 (07/28/2024) -Most recent serum folate 18.2 (07/28/2024) #Systolic CHF, not in exacerbation -Continue current home medications -Most recent echocardiogram (03/03/2023) showed EF 35-40% #Chronic low back pain, secondary to compression fractures -Continue with lidocaine patch daily and Voltaren gel -Tylenol 650 mg every 6 hours as needed for pain #Hypothyroidism -Continue Synthroid 150 mcg daily #Hypertension -Continue to monitor vital signs -Continue home Lopressor 12.5 mg twice daily -Hold home lisinopril 2.5 mg daily secondary to HUNTER #GERD -Continue home omeprazole 20 mg daily #Benign prostatic hyperplasia -Continue home Flomax 0.4 mg daily GI prophylaxis: Omeprazole 20 mg daily DVT prophylaxis: Eliquis 5 mg twice daily Code status: No code F: Normal saline 75 cc per E: Replete as needed N: Renal diet A: Ambulatory Anticipated discharge place: Pending clinical course Anticipated discharge time: Pending clinical course Dictation was produced using [employer] dictation software. please excuse any grammatical, word or spelling errors. Objective - Vital Signs Vital signs: Vital Signs Temp 98.9 F 08/12/24 12:46 Pulse 65 08/12/24 12:46 Resp 17 08/12/24 12:46 BP 124/75 08/12/24 12:46 Pulse Ox 96 08/12/24 12:46 FiO2 Intake & Output 08/11/24 08/12/24 08/12/24 18:59 06:59 18:59 Intake Total 1180 540 Output Total 1450 600 Balance -270 -60 Intake: Oral 780 540 Hemodialysis 400 Output: Urine 1050 600 Hemodialysis 400 Hemodialysis Net Amount 0 Other: Voiding Method Indwelling Catheter Indwelling Catheter Indwelling Catheter # Bowel Movements 1 - Labs CBC & Chem 7: 08/12/24 06:33 08/12/24 06:33 Labs: Abnormal Lab Results - Last 24 Hours (Table) 0208/11/24 08/12/24 Range/Units 17:07 20:14 06:33 RBC (4.30-5.90) m/uL Hgb (13.0-17.5) gm/dL Hct (39.0-53.0) % MCV (80.0-100.0) fL Creatinine 4.0 H (0.6-1.5) mg/dL Est GFR (CKD-EPI) 14 L (>=60) BUN/Creatinine Ratio 5.92 L (12.00-20.00) Ratio POC Glucose (mg/dL) 115 H 121 H (70-110) mg/dL 08/12/24 08/12/24 Range/Units 06:33 12:11 RBC 2.58 L (4.30-5.90) m/uL Hgb 8.9 L (13.0-17.5) gm/dL Hct 26.4 L (39.0-53.0) % MCV 102.3 H (80.0-100.0) fL Creatinine (0.6-1.5) mg/dL Est GFR (CKD-EPI) (>=60) BUN/Creatinine Ratio (12.00-20.00) Ratio POC Glucose (mg/dL) 122 H (70-110) mg/dL
[2024-08-12 17:15] LABS: Glucose,Whole Blood 97 mg/dL (70-110)
[2024-08-12 21:01] LABS: Glucose,Whole Blood 133 mg/dL (70-110)
[2024-08-13] MEDS ORDERED: HYDROcodone/APAP 5-325MG 1 EACH TAB PO PRN (04:09)
[2024-08-13 07:28] LABS: Glucose,Whole Blood 94 mg/dL (70-110)
[2024-08-13 08:37] LABS: Basophils % (A) 0 %; Eosinophils # (A) 0.1 k/uL (0-0.7); Eosinophils % (A) 1 %; HCT 27.1 % (39.0-53.0); HGB 9.1 gm/dL (13.0-17.5); Lymphocytes # (A) 2.2 k/uL (1.0-4.8); Lymphocytes % (A) 39 %; MCH 34.2 pg (25.0-35.0); MCHC 33.6 g/dL (31.0-37.0); MCV 101.8 fL (80.0-100.0); Macrocytosis Slight; Mean Platelet Volume 8.3; Monocytes # (A) 0.3 k/uL (0-1.0); Monocytes % (A) 6 %; Neutrophils # (A) 2.8 k/uL (1.3-7.7); Neutrophils % (A) 50 %; Platelet Count 184 k/uL (150-450); RBC 2.67 m/uL (4.30-5.90); RDW 13.2 % (11.5-15.5); WBC 5.6 k/uL (3.8-10.6)
[2024-08-13 08:52] LABS: African American GFR (CKD) 13 (>60 ml/min/1.73 sqM); Anion Gap 7 mmol/L; Blood Urea Nitrogen 32 mg/dL (9-20); Calcium 9.4 mg/dL (8.4-10.2); Carbon Dioxide 26 mmol/L (22-30); Chloride 101 mmol/L (98-107); Glucose 102 mg/dL (74-99); Non-African American GFR(CKD) 11 (>60 ml/min/1.73 sqM); Potassium 4.4 mmol/L (3.5-5.1); Sodium 134 mmol/L (137-145)
--- NOTE | 2024-08-13 10:14 | P.PN ---
Subjective Patient is seen in follow-up for acute kidney injury. Underwent first treatment of hemodialysis August 10, 2024. Nonoliguric. Denies chest pain or shortness of breath. Vital signs are stable. General: No acute distress. HEENT: Head exam is unremarkable. LUNGS: No audible rhonchi or wheezes. HEART: Rate and Rhythm are regular. ABDOMEN: Nontender. EXTREMITITES: No edema. Objective - Vital Signs Vital signs: Vital Signs Temp 97.5 F L 08/13/24 07:25 Pulse 80 08/13/24 07:25 Resp 17 08/13/24 07:25 BP 135/85 08/13/24 07:25 Pulse Ox 96 08/13/24 07:25 FiO2 Intake & Output 08/12/24 08/13/24 08/13/24 18:59 06:59 18:59 Intake Total 700 Output Total 625 Balance 75 Intake: Oral 700 Output: Urine 625 Other: Voiding Method Indwelling Catheter Indwelling Catheter - Labs CBC & Chem 7: 08/13/24 08:20 08/13/24 08:20 Labs: Abnormal Lab Results - Last 24 Hours (Table) 08/12/24 08/12/24 08/12/24 Range/Units 06:33 12:11 21:00 RBC (4.30-5.90) m/uL Hgb (13.0-17.5) gm/dL Hct (39.0-53.0) % MCV (80.0-100.0) fL Sodium (137-145) mmol/L BUN (9-20) mg/dL Creatinine 4.0 H (0.6-1.5) mg/dL Est GFR (CKD-EPI) 14 L (>=60) BUN/Creatinine Ratio 5.92 L (12.00-20.00) Ratio Glucose (74-99) mg/dL POC Glucose (mg/dL) 122 H 133 H (70-110) mg/dL 08/13/24 08/13/24 Range/Units 08:20 08:20 RBC 2.67 L (4.30-5.90) m/uL Hgb 9.1 L (13.0-17.5) gm/dL Hct 27.1 L (39.0-53.0) % MCV 101.8 H (80.0-100.0) fL Sodium 134 L (137-145) mmol/L BUN 32 H (9-20) mg/dL Creatinine 4.50 H (0.6-1.5) mg/dL Est GFR (CKD-EPI) (>=60) BUN/Creatinine Ratio (12.00-20.00) Ratio Glucose 102 H (74-99) mg/dL POC Glucose (mg/dL) (70-110) mg/dL Assessment and Plan Plan: Assessment: 1. Acute kidney injury likely ATN. Serologies negative so far. Urine eosinophils positive. Creatinine over 8 this admission. Noted to be 1.05 July 2024. No hydronephrosis noted on kidney ultrasound. 2. Chronic kidney disease stage IIIa with baseline creatinine 1-1.2. 3. Hyperkalemia secondary to acute kidney injury and lisinopril. Improved postdialysis. 4. Hypercalcemia secondary to volume contraction and vitamin D. Improved. PTH appropriately suppressed at 8.2. Vitamin D level 78. 5. Anemia. Rule out iron deficiency. Plan: Maintain IV fluids. Hold dialysis today. Patient is nonoliguric with stable electrolytes. Monitor for renal recovery. Avoid calcium and vitamin D supplementation. Stop PPI. Add Pepcid. Add prednisone. Maintain Worrell catheter. Strict I's and O's. Follow-up pending serologies and hypercalcemia workup. Check iron studies.
[2024-08-13 12:08] LABS: Glucose,Whole Blood 96 mg/dL (70-110)
--- NOTE | 2024-08-13 12:45 | P.PN ---
Subjective Progress Note Date: 08/13/24 88-year-old man with PMH of atrial fibrillation currently on Eliquis, non- Hodgkin's lymphoma s/p chemotherapy in 2013 now in remission, hypertension, hypothyroidism, Systolic CHF, compression fractures in his back and GERD. Presenting to the emergency department to be sent from his long term due to elevation of his BUN/creatinine and potassium. Additionally, he was placed in the long term for rehabilitation purposes due to his chronic back pain due to multiple compression fractures. He endorses having had decreased urge to urinate over the past week or so. He denies chest pain, difficulty breathing, shortness of breath, fever, chills or cough. 08/09/24 - Patient seen and examined at bedside this morning. Resting comfortably in bed. Stating he has no acute complaints. Overnight his potassium remained persistently elevated at 6.0 and he received 10 units IV insulin, one 50 mL IVP dextrose 50% syringe and 10 g Lokelma. Overnight course was uneventful. CBC and BMP this morning significant for Hgb 9.6, hct 28.2, MCV 101.2, sodium 132, potassium 5.5, chloride 94, BUN 75, creatinine 8.33, glucose 48, calcium 10.9, magnesium 2.7. As result of his glucose being 48 he received another one 50 mg IVP dextrose 50% syringe. Since placement, 500 cc urine collected from Worrell catheter. Fluid balance since arrival +1.4 L. Urinalysis completed yesterday showed 1+ urine protein, moderate urine blood, 38 urine RBCs. 08/10/24 - Patient seen and examined at bedside this morning. Resting comfortably in bed. Stating he has no acute complaints. His potassium, calcium, magnesium continue to all be elevated. BMP this morning significant for sodium 133, potassium 5.5, chloride 95, BUN 77, creatinine 7.84, calcium 10.4, phosphorus 6.4, magnesium 2.5. As of the past 24 hours he continues to have Worrell catheter which produced 775 cc urine. Had hemodialysis catheter placed in the right femoral vein yesterday preparation for dialysis today. Worrell catheter remains in place. 08/11/24 - Patient seen and examined at bedside this morning. Resting comfortably in bed, stating he has no acute complaints. Patient underwent hemodialysis yesterday which tolerated without incident with all goals met, 0 UF. BMP this morning significant for. Worrell catheter continues to be in place. Per nephrology's recommendation he will receive hemodialysis again today. 08/12/24 - Patient seen and examined. No new complaints today. No acute events overnight. 08/13/24 - Patient seen and examined at bedside this morning. He has no acute complaints today. Plan is to hold hemodialysis today with reevaluation tomorrow a renal recovery. REVIEW OF SYSTEMS: Pertinent positives and negatives noted in HPI. Physical Exam: General: nontoxic, no distress, appears at stated age; Worrell catheter in place Derm: warm, dry, intact Head: atraumatic, normocephalic, symmetric Eyes: EOMI, anicteric sclera ENT: Patient has bilateral ear tubes Mouth: no lip lesion, mucus membranes moist Cardiovascular: Irregularly irregular rhythm Lungs: CTA bilateral, bilateral rhonchi, no rales, no accessory muscle use Abdominal: soft, non-tender to palpataion, no appreciable organomegaly Extremities: no gross muscle atrophy, no edema, no contractures. Back pain reproducible with twisting/movement. Neuro: Alert, Oriented, CNII-XII grossly intact, gait normal. Psych: well appearing, appropriate affect Data Received Today: Labs: Imagining: N/A Assessment and plan 88-year-old PMH atrial fibrillation currently on Eliquis, non-Hodgkin's lymphoma s/p chemotherapy in 2013 on admission, hypertension, systolic CHF, compression fractures in his back, hypothyroidism, and GERD. Presents to the emergency department after being sent by his long term due to an elevation of his BUN/creatinine and potassium. #Oliguric or Non-oliguric Acute Kidney Injury in the setting of stage IIIa chronic kidney disease #Hyperkalemia #Hyponatremia #Hypercalcemia #Hypermagnesemia -Maintain Worrell catheter -Hold dialysis today, continue monitoring for renal recovery -Recheck BMP this afternoon and tomorrow a.m. -Strict Is & O's -Continue with normal saline 75 cc/h -Cardiac monitoring -Nephrology consulted -Hemodialysis catheter placed in the right femoral on 08/09/2024; to receive his dialysis session 08/11/2024 -Serum cortisol 14 -Pending UPEP, free light chains #Episodic hypoglycemia -Multiple episodes of serum glucose <65 -Accu-Cheks ACHS ordered #Chronic anemia #Macrocytosis -Continue to monitor CBC daily -Most recent vitamin B12 381 (07/28/2024) -Most recent serum folate 18.2 (07/28/2024) #Systolic CHF, not in exacerbation -Continue current home medications -Most recent echocardiogram (03/03/2023) showed EF 35-40% #Chronic low back pain, secondary to compression fractures -Continue with lidocaine patch daily and Voltaren gel -Tylenol 650 mg every 6 hours as needed for pain #Hypothyroidism -Continue Synthroid 150 mcg daily #Hypertension -Continue to monitor vital signs -Continue home Lopressor 12.5 mg twice daily -Hold home lisinopril 2.5 mg daily secondary to HUNTER #GERD -Continue home omeprazole 20 mg daily #Benign prostatic hyperplasia -Continue home Flomax 0.4 mg daily GI prophylaxis: Famotidine 40 mg daily DVT prophylaxis: Eliquis 5 mg twice daily Code status: No code F: Normal saline 75 cc per E: Replete as needed N: Renal diet A: Ambulatory Anticipated discharge place: Pending clinical course Anticipated discharge time: Pending clinical course Dictation was produced using [employer] dictation software. please excuse any grammatical, word or spelling errors. I saw and evaluated the patient during the hicks and critical portions of this encounter, and discussed the case in detail with the resident author of this note, I agree with the Assessment and Plan, and my changes, if any, are highlighted in blue. Objective - Vital Signs Vital signs: Vital Signs Temp 97.6 F 08/13/24 02:00 Pulse 88 08/13/24 02:00 Resp 14 08/13/24 02:00 BP 143/78 08/13/24 02:00 Pulse Ox 95 08/13/24 02:00 FiO2 Intake & Output 08/12/24 08/13/24 08/13/24 18:59 06:59 18:59 Intake Total 700 Output Total 625 Balance 75 Intake: Oral 700 Output: Urine 625 Other: Voiding Method Indwelling Catheter Indwelling Catheter - Labs CBC & Chem 7: 08/13/24 08:20 08/13/24 08:20 Labs: Abnormal Lab Results - Last 24 Hours (Table) 08/12/24 08/12/24 08/12/24 Range/Units 06:33 12:11 21:00 Creatinine 4.0 H (0.6-1.5) mg/dL Est GFR (CKD-EPI) 14 L (>=60) BUN/Creatinine Ratio 5.92 L (12.00-20.00) Ratio POC Glucose (mg/dL) 122 H 133 H (70-110) mg/dL
[2024-08-13 14:10] LABS: C-ANCA <1:20 Titer (<1:20)
[2024-08-13 15:32] LABS: % Iron Saturation 31.61 (15.00-50.00)
[2024-08-13 16:04] LABS: Albumin 3.29 g/dL (3.80-4.90); Gamma Globulin 0.62 g/dL (0.70-1.50)
[2024-08-13 17:14] LABS: Glucose,Whole Blood 100 mg/dL (70-110)
[2024-08-13 20:01] LABS: Glucose,Whole Blood 127 mg/dL (70-110)
[2024-08-13] MEDS: predniSONE 10 MG TAB PO SCH (20:27)
[2024-08-13 22:13] LABS: Vitamin D, 1, 25-Dihydroxy 29 pg/mL (20 - 79)
[2024-08-14 02:06] LABS: Glucose,Whole Blood 131 mg/dL (70-110)
[2024-08-14] MEDS: ZINC OXIDE PASTE (Z-GUARD) 1 APPLIC TOPICAL PRN (05:38)
[2024-08-14 06:20] LABS: Basophils % (A) 0 %; Eosinophils % (A) 0 %; HGB 8.4 gm/dL (13.0-17.5); Lymphocytes # (A) 0.9 k/uL (1.0-4.8); Lymphocytes % (A) 22 %; MCH 34.5 pg (25.0-35.0); MCHC 33.5 g/dL (31.0-37.0); MCV 103.1 fL (80.0-100.0); Macrocytosis Slight; Mean Platelet Volume 7.9; Monocytes # (A) 0.1 k/uL (0-1.0); Monocytes % (A) 3 %; Neutrophils # (A) 2.9 k/uL (1.3-7.7); Neutrophils % (A) 73 %; Platelet Count 183 k/uL (150-450); RBC 2.42 m/uL (4.30-5.90); RDW 13.2 % (11.5-15.5); WBC 4.1 k/uL (3.8-10.6)
[2024-08-14 06:38] LABS: African American GFR (CKD) 12 (>60 ml/min/1.73 sqM); Anion Gap 10 mmol/L; Blood Urea Nitrogen 36 mg/dL (9-20); Calcium 9.2 mg/dL (8.4-10.2); Carbon Dioxide 21 mmol/L (22-30); Chloride 103 mmol/L (98-107); Glucose 125 mg/dL (74-99); Non-African American GFR(CKD) 11 (>60 ml/min/1.73 sqM); Potassium 4.4 mmol/L (3.5-5.1); Sodium 134 mmol/L (137-145)
[2024-08-14 07:26] LABS: Glucose,Whole Blood 261 mg/dL (70-110)
[2024-08-14 10:26] LABS: Free Kappa Lt Chain Qnt, Urine 4.11 mg/dL (0.00-3.29)
--- NOTE | 2024-08-14 11:04 | P.PN ---
Subjective Patient is seen in follow-up for acute kidney injury. Underwent first treatment of hemodialysis August 10, 2024. Last treatment was August 11, 2024. Nonoliguric. Denies chest pain or shortness of breath. Creatinine stable at 4.56. Vital signs are stable. General: No acute distress. HEENT: Head exam is unremarkable. LUNGS: No audible rhonchi or wheezes. HEART: Rate and Rhythm are regular. ABDOMEN: Nontender. EXTREMITITES: No edema. Objective - Vital Signs Vital signs: Vital Signs Temp 97.8 F 08/14/24 07:58 Pulse 85 08/14/24 09:23 Resp 15 08/14/24 07:58 BP 148/94 08/14/24 07:58 Pulse Ox 97 08/14/24 07:58 FiO2 Intake & Output 08/13/24 08/14/24 08/14/24 18:59 06:59 18:59 Intake Total 240 Output Total 675 1 Balance -435 -1 Weight 78.018 kg Intake: Oral 240 Output: Urine 675 Stool 1 Other: Voiding Method Indwelling Catheter Indwelling Catheter Indwelling Catheter - Labs CBC & Chem 7: 08/14/24 05:04 08/14/24 05:04 Labs: Abnormal Lab Results - Last 24 Hours (Table) 08/09/24 08/10/24 08/13/24 Range/Units 07:00 13:46 08:20 RBC (4.30-5.90) m/uL Hgb (13.0-17.5) gm/dL Hct (39.0-53.0) % MCV (80.0-100.0) fL Lymphocytes # (1.0-4.8) k/uL Sodium (137-145) mmol/L Carbon Dioxide (22-30) mmol/L BUN (9-20) mg/dL Creatinine (0.66-1.25) mg/dL Glucose (74-99) mg/dL POC Glucose (mg/dL) (70-110) mg/dL Iron 61 L (65-175) UG/DL TIBC 193 L (228-460) UG/DL Transferrin 138.0 L (204.0-354.0) mg/dL Ferritin 548.0 H (22.0-322.0) ng/mL Albumin (PEP) 3.29 L (3.80-4.90) g/dL Beta Globulins 0.54 L (0.60-1.30) g/dL Gamma Globulins 0.62 L (0.70-1.50) g/dL U Free [place] Ch 4.11 H (0.00-3.29) mg/dL U Free Lambda Light Ch 995.03 H (0.00-0.38) mg/dL 08/13/24 08/14/24 08/14/24 Range/Units 20:00 02:04 05:04 RBC 2.42 L (4.30-5.90) m/uL Hgb 8.4 L (13.0-17.5) gm/dL Hct 25.0 L (39.0-53.0) % MCV 103.1 H (80.0-100.0) fL Lymphocytes # 0.9 L (1.0-4.8) k/uL Sodium (137-145) mmol/L Carbon Dioxide (22-30) mmol/L BUN (9-20) mg/dL Creatinine (0.66-1.25) mg/dL Glucose (74-99) mg/dL POC Glucose (mg/dL) 127 H 131 H (70-110) mg/dL Iron (65-175) UG/DL TIBC (228-460) UG/DL Transferrin (204.0-354.0) mg/dL Ferritin (22.0-322.0) ng/mL Albumin (PEP) (3.80-4.90) g/dL Beta Globulins (0.60-1.30) g/dL Gamma Globulins (0.70-1.50) g/dL U Free [place] Ch (0.00-3.29) mg/dL U Free Lambda Light Ch (0.00-0.38) mg/dL 08/14/24 08/14/24 Range/Units 05:04 07:25 RBC (4.30-5.90) m/uL Hgb (13.0-17.5) gm/dL Hct (39.0-53.0) % MCV (80.0-100.0) fL Lymphocytes # (1.0-4.8) k/uL Sodium 134 L (137-145) mmol/L Carbon Dioxide 21 L (22-30) mmol/L BUN 36 H (9-20) mg/dL Creatinine 4.56 H (0.66-1.25) mg/dL Glucose 125 H (74-99) mg/dL POC Glucose (mg/dL) 261 H (70-110) mg/dL Iron (65-175) UG/DL TIBC (228-460) UG/DL Transferrin (204.0-354.0) mg/dL Ferritin (22.0-322.0) ng/mL Albumin (PEP) (3.80-4.90) g/dL Beta Globulins (0.60-1.30) g/dL Gamma Globulins (0.70-1.50) g/dL U Free [place] Ch (0.00-3.29) mg/dL U Free Lambda Light Ch (0.00-0.38) mg/dL Assessment and Plan Plan: Assessment: 1. Acute kidney injury likely ATN. Serologies negative so far. Urine eosinophils positive. Creatinine over 8 this admission. Noted to be 1.05 July 2024. No hydronephrosis noted on kidney ultrasound. Started on dialysis August 10, 2024. Last treatment was August 11, 2024. Creatinine stable at 4.56 today. Nonoliguric. 2. Chronic kidney disease stage IIIa with baseline creatinine 1-1.2. 3. Hyperkalemia secondary to acute kidney injury and lisinopril. Improved postdialysis. 4. Hypercalcemia secondary to volume contraction and vitamin D. Improved. PTH appropriately suppressed at 8.2. Vitamin D level 78. 125 D3 level 29. Immunofixation positive for lambda light chain. 5. Anemia. Iron replete. Plan: Maintain IV fluids. Continue to hold dialysis and monitor for renal recovery. Avoid calcium and vitamin D supplementation. PPI discontinued. On Pepcid. Prednisone added August 13, 2024. Maintain Worrell catheter. Strict I's and O's. Consult oncology due to immunofixation findings. Add Aranesp.
--- NOTE | 2024-08-14 11:29 | P.PN ---
Subjective Progress Note Date: 08/14/24 88-year-old man with PMH of atrial fibrillation currently on Eliquis, non- Hodgkin's lymphoma s/p chemotherapy in 2013 now in remission, hypertension, hypothyroidism, Systolic CHF, compression fractures in his back and GERD. Presenting to the emergency department to be sent from his retirement due to elevation of his BUN/creatinine and potassium. Additionally, he was placed in the retirement for rehabilitation purposes due to his chronic back pain due to multiple compression fractures. He endorses having had decreased urge to urinate over the past week or so. He denies chest pain, difficulty breathing, shortness of breath, fever, chills or cough. 08/09/24 - Patient seen and examined at bedside this morning. Resting comfortably in bed. Stating he has no acute complaints. Overnight his potassium remained persistently elevated at 6.0 and he received 10 units IV insulin, one 50 mL IVP dextrose 50% syringe and 10 g Lokelma. Overnight course was uneventful. CBC and BMP this morning significant for Hgb 9.6, hct 28.2, MCV 101.2, sodium 132, potassium 5.5, chloride 94, BUN 75, creatinine 8.33, glucose 48, calcium 10.9, magnesium 2.7. As result of his glucose being 48 he received another one 50 mg IVP dextrose 50% syringe. Since placement, 500 cc urine collected from Worrell catheter. Fluid balance since arrival +1.4 L. Urinalysis completed yesterday showed 1+ urine protein, moderate urine blood, 38 urine RBCs. 08/10/24 - Patient seen and examined at bedside this morning. Resting comfortably in bed. Stating he has no acute complaints. His potassium, calcium, magnesium continue to all be elevated. BMP this morning significant for sodium 133, potassium 5.5, chloride 95, BUN 77, creatinine 7.84, calcium 10.4, phosphorus 6.4, magnesium 2.5. As of the past 24 hours he continues to have Worrell catheter which produced 775 cc urine. Had hemodialysis catheter placed in the right femoral vein yesterday preparation for dialysis today. Worrell catheter remains in place. 08/11/24 - Patient seen and examined at bedside this morning. Resting comfortably in bed, stating he has no acute complaints. Patient underwent hemodialysis yesterday which tolerated without incident with all goals met, 0 UF. BMP this morning significant for. Worrell catheter continues to be in place. Per nephrology's recommendation he will receive hemodialysis again today. 08/12/24 - Patient seen and examined. No new complaints today. No acute events overnight. 08/13/24 - Patient seen and examined at bedside this morning. He has no acute complaints today. Plan is to hold hemodialysis today with reevaluation tomorrow a renal recovery. 08/14/24 - Patient seen and examined at bedside this morning. He has no acute complaints today. Per nephrology's recommendation Pepcid and prednisone were added, and the patient's PPI was discontinued. After holding dialysis session his creatinine remained relatively stable. Urine free kappa light chain was elevated at 4.1 and urine free lambda light chain was elevated at 995.03, oncology team has been consulted. REVIEW OF SYSTEMS: Pertinent positives and negatives noted in HPI. Physical Exam: General: nontoxic, no distress, appears at stated age; Worrell catheter in place Derm: warm, dry, intact Head: atraumatic, normocephalic, symmetric Eyes: EOMI, anicteric sclera ENT: Patient has bilateral ear tubes Mouth: no lip lesion, mucus membranes moist Cardiovascular: Irregularly irregular rhythm Lungs: CTA bilateral, bilateral rhonchi, no rales, no accessory muscle use Abdominal: soft, non-tender to palpataion, no appreciable organomegaly Extremities: no gross muscle atrophy, no edema, no contractures. Back pain reproducible with twisting/movement. Neuro: Alert, Oriented, CNII-XII grossly intact, gait normal. Psych: well appearing, appropriate affect Data Received Today: Labs: WBCs 4.1, hemoglobin 8.4, hematocrit 25.0, MCV 103.1, platelet 183; sodium 134, potassium 4.4, bicarb 21, BUN 36, creatinine 4.56, calcium 9.2 -Iron studies: Iron 61, TIBC 193, percent saturation 31.6%, transferrin 138, ferritin 548 Imagining: N/A Assessment and plan 88-year-old PMH atrial fibrillation currently on Eliquis, non-Hodgkin's lymphoma s/p chemotherapy in 2013 on admission, hypertension, systolic CHF, compression fractures in his back, hypothyroidism, and GERD. Presents to the emergency department after being sent by his retirement due to an elevation of his BUN/creatinine and potassium. #Oliguric or Non-oliguric Acute Kidney Injury in the setting of stage IIIa chronic kidney disease #Hyperkalemia #Hyponatremia #Hypercalcemia #Hypermagnesemia -Maintain Worrell catheter -Hold dialysis today, continue monitoring for renal recovery -Recheck BMP tomorrow a.m. -Strict Is & O's -Continue with normal saline 75 cc/h -Cardiac monitoring -Nephrology consulted -Add Aranesp 40 mcg every 7 days -Urine free kappa light chain elevated at 4.11; urine free lambda light chain elevated at 995.03 -Oncology consulted #Episodic hypoglycemia -Multiple episodes of serum glucose <65 -Accu-Cheks ACHS ordered #Chronic anemia #Macrocytosis -Continue to monitor CBC daily -Most recent vitamin B12 381 (07/28/2024) -Most recent serum folate 18.2 (07/28/2024) -Iron 61, TIBC 193, percent saturation 31.6%, transferrin 138, ferritin 548 #Systolic CHF, not in exacerbation -Continue current home medications -Most recent echocardiogram (03/03/2023) showed EF 35-40% #Chronic low back pain, secondary to compression fractures -Continue with lidocaine patch daily and Voltaren gel -Tylenol 650 mg every 6 hours as needed for pain #Hypothyroidism -Continue Synthroid 150 mcg daily #Hypertension -Continue to monitor vital signs -Continue home Lopressor 12.5 mg twice daily -Hold home lisinopril 2.5 mg daily secondary to HUNTER #GERD -Continue home omeprazole 20 mg daily #Benign prostatic hyperplasia -Continue home Flomax 0.4 mg daily GI prophylaxis: Famotidine 40 mg daily DVT prophylaxis: Eliquis 2.5 mg twice daily Code status: No code F: Normal saline 75 cc per E: Replete as needed N: Renal diet A: Ambulatory Anticipated discharge place: Pending clinical course Anticipated discharge time: Pending clinical course Dictation was produced using [employer] dictation software. please excuse any grammatical, word or spelling errors. I saw and evaluated the patient during the hicks and critical portions of this encounter, and discussed the case in detail with the resident author of this note, I agree with the Assessment and Plan, and my changes, if any, are highlighted in blue. Objective - Vital Signs Vital signs: Vital Signs Temp 98.4 F 08/14/24 01:37 Pulse 72 08/14/24 01:37 Resp 14 08/14/24 01:37 BP 152/88 08/14/24 01:37 Pulse Ox 96 08/14/24 01:37 FiO2 Intake & Output 08/13/24 08/14/24 08/14/24 18:59 06:59 18:59 Intake Total 240 Output Total 675 Balance -435 Weight 78.018 kg Intake: Oral 240 Output: Urine 675 Other: Voiding Method Indwelling Catheter Indwelling Catheter - Labs CBC & Chem 7: 08/14/24 05:04 08/14/24 05:04 Labs: Abnormal Lab Results - Last 24 Hours (Table) 08/09/24 08/13/24 08/13/24 Range/Units 07:00 08:20 08:20 RBC 2.67 L (4.30-5.90) m/uL Hgb 9.1 L (13.0-17.5) gm/dL Hct 27.1 L (39.0-53.0) % MCV 101.8 H (80.0-100.0) fL Lymphocytes # (1.0-4.8) k/uL Sodium 134 L (137-145) mmol/L Carbon Dioxide (22-30) mmol/L BUN 32 H (9-20) mg/dL Creatinine 4.50 H (0.66-1.25) mg/dL Glucose 102 H (74-99) mg/dL POC Glucose (mg/dL) (70-110) mg/dL Iron (65-175) UG/DL TIBC (228-460) UG/DL Transferrin (204.0-354.0) mg/dL Ferritin (22.0-322.0) ng/mL Albumin (PEP) 3.29 L (3.80-4.90) g/dL Beta Globulins 0.54 L (0.60-1.30) g/dL Gamma Globulins 0.62 L (0.70-1.50) g/dL 08/13/24 08/13/24 08/14/24 Range/Units 08:20 20:00 02:04 RBC (4.30-5.90) m/uL Hgb (13.0-17.5) gm/dL Hct (39.0-53.0) % MCV (80.0-100.0) fL Lymphocytes # (1.0-4.8) k/uL Sodium (137-145) mmol/L Carbon Dioxide (22-30) mmol/L BUN (9-20) mg/dL Creatinine (0.66-1.25) mg/dL Glucose (74-99) mg/dL POC Glucose (mg/dL) 127 H 131 H (70-110) mg/dL Iron 61 L (65-175) UG/DL TIBC 193 L (228-460) UG/DL Transferrin 138.0 L (204.0-354.0) mg/dL Ferritin 548.0 H (22.0-322.0) ng/mL Albumin (PEP) (3.80-4.90) g/dL Beta Globulins (0.60-1.30) g/dL Gamma Globulins (0.70-1.50) g/dL 08/14/24 08/14/24 08/14/24 Range/Units 05:04 05:04 07:25 RBC 2.42 L (4.30-5.90) m/uL Hgb 8.4 L (13.0-17.5) gm/dL Hct 25.0 L (39.0-53.0) % MCV 103.1 H (80.0-100.0) fL Lymphocytes # 0.9 L (1.0-4.8) k/uL Sodium 134 L (137-145) mmol/L Carbon Dioxide 21 L (22-30) mmol/L BUN 36 H (9-20) mg/dL Creatinine 4.56 H (0.66-1.25) mg/dL Glucose 125 H (74-99) mg/dL POC Glucose (mg/dL) 261 H (70-110) mg/dL Iron (65-175) UG/DL TIBC (228-460) UG/DL Transferrin (204.0-354.0) mg/dL Ferritin (22.0-322.0) ng/mL Albumin (PEP) (3.80-4.90) g/dL Beta Globulins (0.60-1.30) g/dL Gamma Globulins (0.70-1.50) g/dL
[2024-08-14 12:16] LABS: Glucose,Whole Blood 147 mg/dL (70-110)
[2024-08-14] MEDS: FAMOTIDINE 20 MG TAB PO SCH (12:20)
[2024-08-14] MEDS: DARBEPOETIN ALFA 40 MCG/0.4 ML SYRINGE SQ SCH (12:43)
[2024-08-14 16:29] LABS: Influenza A Not Detected (Not Detectd); Influenza B Not Detected (Not Detectd); RSV Not Detected (Not Detectd)
[2024-08-14 17:00] LABS: Glucose,Whole Blood 155 mg/dL (70-110)
[2024-08-14 20:39] LABS: Glucose,Whole Blood 226 mg/dL (70-110)
[2024-08-15 05:21] LABS: Basophils % (A) 0 %; Eosinophils % (A) 0 %; HCT 26.8 % (39.0-53.0); HGB 9.1 gm/dL (13.0-17.5); Lymphocytes # (A) 1.1 k/uL (1.0-4.8); Lymphocytes % (A) 17 %; MCH 34.5 pg (25.0-35.0); MCHC 33.7 g/dL (31.0-37.0); MCV 102.2 fL (80.0-100.0); Macrocytosis Slight; Mean Platelet Volume 7.9; Monocytes # (A) 0.2 k/uL (0-1.0); Monocytes % (A) 3 %; Neutrophils # (A) 5.1 k/uL (1.3-7.7); Neutrophils % (A) 79 %; Platelet Count 187 k/uL (150-450); RBC 2.63 m/uL (4.30-5.90); RDW 13.2 % (11.5-15.5); WBC 6.5 k/uL (3.8-10.6)
[2024-08-15 07:18] LABS: Glucose,Whole Blood 152 mg/dL (70-110)
[2024-08-15 08:43] LABS: Magnesium 1.6 mg/dL (1.5-2.4)
[2024-08-15 08:51] LABS: BUN/Creat Ratio 8.88 Ratio (12.00-20.00); Blood Urea Nitrogen 38.2 mg/dL (9.0-27.0); Glucose 130 mg/dL (70-110)
[2024-08-15 08:52] LABS: Calcium 8.9 mg/dL (8.7-10.3); Chloride 106 mmol/L (96-109); Potassium 4.4 mmol/L (3.5-5.5); Sodium 138 mmol/L (135-145)
--- NOTE | 2024-08-15 10:15 | P.PN ---
Subjective Patient is seen in follow-up for acute kidney injury. Underwent first treatment of hemodialysis August 10, 2024. Last treatment was August 11, 2024. Nonoliguric. Denies chest pain or shortness of breath. Creatinine slightly better at 4.3. Oral intake fair. Vital signs are stable. General: No acute distress. HEENT: Head exam is unremarkable. LUNGS: No audible rhonchi or wheezes. HEART: Rate and Rhythm are regular. ABDOMEN: Nontender. EXTREMITITES: No edema. Objective - Vital Signs Vital signs: Vital Signs Temp 97.7 F 08/15/24 08:00 Pulse 72 08/15/24 08:00 Resp 15 08/15/24 08:00 BP 143/89 08/15/24 08:00 Pulse Ox 97 08/15/24 08:00 FiO2 Intake & Output 08/14/24 08/15/24 08/15/24 18:59 06:59 18:59 Intake Total 900 760 Output Total 900 400 Balance 0 360 Intake: Intake, IV Titration 900 Amount Sodium Chloride 0.9% 1, 900 000 ml @ 75 mls/hr IV . [id number] [facility] Rx#:[id number] Oral 760 Output: Urine 900 400 Other: Voiding Method Indwelling Catheter Indwelling Catheter # Bowel Movements 2 1 - Labs CBC & Chem 7: 08/15/24 04:58 08/15/24 04:58 Labs: Abnormal Lab Results - Last 24 Hours (Table) 08/10/24 08/14/24 08/14/24 Range/Units 13:46 12:15 16:58 RBC (4.30-5.90) m/uL Hgb (13.0-17.5) gm/dL Hct (39.0-53.0) % MCV (80.0-100.0) fL BUN (9.0-27.0) mg/dL Creatinine (0.6-1.5) mg/dL Est GFR (CKD-EPI) (>=60) BUN/Creatinine Ratio (12.00-20.00) Ratio Glucose (70-110) mg/dL POC Glucose (mg/dL) 147 H 155 H (70-110) mg/dL U Free [place] Ch 4.11 H (0.00-3.29) mg/dL U Free [place]ambda Light Ch 995.03 H (0.00-0.38) mg/dL 08/14/24 08/15/24 08/15/24 Range/Units 20:37 04:58 04:58 RBC 2.63 L (4.30-5.90) m/uL Hgb 9.1 L (13.0-17.5) gm/dL Hct 26.8 L (39.0-53.0) % MCV 102.2 H (80.0-100.0) fL BUN 38.2 H (9.0-27.0) mg/dL Creatinine 4.3 H (0.6-1.5) mg/dL Est GFR (CKD-EPI) 13 L (>=60) BUN/Creatinine Ratio 8.88 L (12.00-20.00) Ratio Glucose 130 H (70-110) mg/dL POC Glucose (mg/dL) 226 H (70-110) mg/dL U Free [place] Ch (0.00-3.29) mg/dL U Free [place]ambda Light Ch (0.00-0.38) mg/dL 08/15/24 Range/Units 07:16 RBC (4.30-5.90) m/uL Hgb (13.0-17.5) gm/dL Hct (39.0-53.0) % MCV (80.0-100.0) fL BUN (9.0-27.0) mg/dL Creatinine (0.6-1.5) mg/dL Est GFR (CKD-EPI) (>=60) BUN/Creatinine Ratio (12.00-20.00) Ratio Glucose (70-110) mg/dL POC Glucose (mg/dL) 152 H (70-110) mg/dL U Free [place] Ch (0.00-3.29) mg/dL U Free [place]ambda Light Ch (0.00-0.38) mg/dL Assessment and Plan Plan: Assessment: 1. Acute kidney injury likely ATN. Serologies negative so far. Urine eosinophils positive. Creatinine over 8 this admission. Noted to be 1.05 July 2024. No hydronephrosis noted on kidney ultrasound. Started on dialysis August 10, 2024. Last treatment was August 11, 2024. Creatinine little better at 4.3 today. Nonoliguric. 2. Chronic kidney disease stage IIIa with baseline creatinine 1-1.2. 3. Hyperkalemia secondary to acute kidney injury and lisinopril. Improved postdialysis. 4. Hypercalcemia secondary to volume contraction and vitamin D. Improved. PTH appropriately suppressed at 8.2. Vitamin D level 78. 125 D3 level 29. Immunofixation positive for lambda light chain. Oncology following. Calcium level now normal. 5. Anemia. Iron replete. On Aranesp. Plan: Maintain IV fluids. Continue to hold dialysis and monitor for renal recovery. Avoid calcium and vitamin D supplementation. PPI discontinued. On Pepcid. Prednisone added August 13, 2024. Maintain Worrell catheter. Strict I's and O's. Replace magnesium.
[2024-08-15] MEDS: MAGNESIUM SULFATE-D5W PMX 1 GM in DEXTROSE/WATER 1 100ML.BAG IVPB SCH (11:35)
[2024-08-15 12:00] LABS: Glucose,Whole Blood 138 mg/dL (70-110)
--- NOTE | 2024-08-15 16:51 | P.PN ---
Subjective Progress Note Date: 08/15/24 Subjective: Patient seen and examined at bedside. No acute events overnight. Denies any new complaints. Pertinent positives and negatives as discussed above, a complete review of systems was performed and all other systems are negative. Vitals Signs Reviewed. General: Nontoxic, no distress, appears at stated age Derm: Warm, dry Head: Atraumatic, normocephalic, symmetric Eyes: EOMI, no lid lag, anicteric sclera Mouth: No lip lesion, mucus membranes moist Cardiovascular: S1S2 reg, no murmur Lungs: CTA bilateral, no rhonchi, no rales, no accessory muscle use Abdominal: Soft, nontender to palpation, no guarding, no appreciable organomegaly Ext: No gross muscle atrophy, no edema, no contractures Neuro: CN II-XI grossly intact, no focal neuro deficits Psych: Alert, oriented, appropriate affect Data Reviewed Today: Pertinent Labs: WBC 6.5, hemoglobin 9.1, sodium 138, creatinine 4.3, blood sugars range between 1 30-1 38 Imaging: No new imaging Assessment and Plan: #Oliguric or Non-oliguric Acute Kidney Injury in the setting of stage IIIa chronic kidney disease #Hyperkalemia, resolved #Hyponatremia, resolved #Hypercalcemia, resolved #Hypermagnesemia, resolved -Maintain Worrell catheter -Nephrology note reviewed, hold dialysis , continue monitoring for renal recovery, maintain prednisone 30 twice daily -Recheck BMP tomorrow a.m. -Strict Is & O's -Continue with normal saline 75 cc/h -Cardiac monitoring -Urine free kappa light chain elevated at 4.11; urine free lambda light chain elevated at 995.03 -Oncology consulted #Episodic hypoglycemia -Multiple episodes of serum glucose <65 -Accu-Cheks ACHS ordered #Chronic anemia #Macrocytosis -Continue to monitor CBC daily -Most recent vitamin B12 381 (07/28/2024) -Most recent serum folate 18.2 (07/28/2024) -Iron 61, TIBC 193, percent saturation 31.6%, transferrin 138, ferritin 548 -Add Aranesp 40 mcg every 7 days #Systolic CHF, not in exacerbation -Continue current home medications -Most recent echocardiogram (03/03/2023) showed EF 35-40% #Chronic low back pain, secondary to compression fractures -Continue with lidocaine patch daily and Voltaren gel -Tylenol 650 mg every 6 hours as needed for pain #Hypothyroidism -Continue Synthroid 150 mcg daily #Hypertension -Continue to monitor vital signs -Continue home Lopressor 12.5 mg twice daily -Hold home lisinopril 2.5 mg daily secondary to HUNTER #GERD -Continue famotidine 20 daily, hold PPI #Benign prostatic hyperplasia -Continue home Flomax 0.4 mg daily DVT ppx: eliquis Code status: FC Anticipated discharge place: pending clinical course Anticipated discharge time: pending clinical course Objective - Vital Signs Vital signs: Vital Signs Temp 97.4 F L 08/15/24 11:00 Pulse 70 08/15/24 11:00 Resp 16 08/15/24 11:00 BP 124/58 08/15/24 11:00 Pulse Ox 97 08/15/24 11:00 FiO2 Intake & Output 08/14/24 08/15/24 08/15/24 18:59 06:59 18:59 Intake Total 900 760 761 Output Total 900 400 Balance 0 360 761 Intake: Intake, IV Titration 900 Amount Sodium Chloride 0.9% 1, 900 000 ml @ 75 mls/hr IV . [id number] [facility] Rx#:[id number] Oral 760 761 Output: Urine 900 400 Other: Voiding Method Indwelling Catheter Indwelling Catheter # Bowel Movements 2 1 - Labs CBC & Chem 7: 08/15/24 04:58 08/15/24 04:58 Labs: Abnormal Lab Results - Last 24 Hours (Table) 08/14/24 08/14/24 08/15/24 Range/Units 16:58 20:37 04:58 RBC (4.30-5.90) m/uL Hgb (13.0-17.5) gm/dL Hct (39.0-53.0) % MCV (80.0-100.0) fL BUN 38.2 H (9.0-27.0) mg/dL Creatinine 4.3 H (0.6-1.5) mg/dL Est GFR (CKD-EPI) 13 L (>=60) BUN/Creatinine Ratio 8.88 L (12.00-20.00) Ratio Glucose 130 H (70-110) mg/dL POC Glucose (mg/dL) 155 H 226 H (70-110) mg/dL 08/15/24 08/15/24 08/15/24 Range/Units 04:58 07:16 11:58 RBC 2.63 L (4.30-5.90) m/uL Hgb 9.1 L (13.0-17.5) gm/dL Hct 26.8 L (39.0-53.0) % MCV 102.2 H (80.0-100.0) fL BUN (9.0-27.0) mg/dL Creatinine (0.6-1.5) mg/dL Est GFR (CKD-EPI) (>=60) BUN/Creatinine Ratio (12.00-20.00) Ratio Glucose (70-110) mg/dL POC Glucose (mg/dL) 152 H 138 H (70-110) mg/dL
[2024-08-15 17:24] LABS: Glucose,Whole Blood 100 mg/dL (70-110)
--- NOTE | 2024-08-15 17:35 | P.CONS ---
History of Present Illness - Reason for Consult Consult date: 08/15/24 hypercalcemia, immunofixation + Requesting physician: Ghassan Nix - Chief Complaint abn labs, ARF - History of Present Illness Mr Richmond is a pleasant male pt of Dr. العلي, initially seen in consult at [facility] on 03/10/14. He presented with abdominal pain, ongoing for 4-5 mths, worsened by eating, due to which he lost 40+ lbs. He had come in with resultant dehydration. He was also c/o cough with whitish expectoration intermittently, over that period of time. Imaging studies revealed prominent mediastinal adenopathy, and intrabdominal adenopathy, with splenomegaly. There were no definite palpable nodes. Auto immune and SPEP labs were negative. The pt improved with hydrat ion,was discharged and readmitted with similiar complaints. He had a bronchoscopy with transbronchial biopsy on 03/13/14, by Dr John. He was then discharged and seen for his 1st OV on 04/03/14. Bx was suspicious, but not diagnostic for Hodgkin's Lymphoma. Thus he was referred to Dr. Doshi and had a scalene node biopsy on 04/08/14. This confirmed classical Hodgkins's lymphoma, mixed cellularity type. He was started on ABVD, completed 6 cycles 10/01/14. He had complete metabolic response on PET. He cont on f/u. His labs in 08/21 and 11/18 showed increased WBC with lymphocytosis. Flow cytometry confirmed a clonal CD 5 + population, with atypical CLL favored, but other etiologies, such as MCL not ruled out. 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 He was thus continued on observation as he appeared to have asymptomatic disease. He had a hospital admission in 05/24 for new onset A. fib. He had a MARLENY followed by cardioversion. He has since been on eliquis. He had a hospital admission in 03/26 for CHF. He had an ER visit in 05/26 for diarrhea due to giardiasis. Had another hospital admission in 01/24 for intractable back pain after chiropractic adjustment. Last seen in located within [facility] 02/29/24 and was stable at that time. Pt currently admitted with acute renal failure, 07/29/2024 creatinine was 1.2, 08/08/2024 creatinine 7.88. Patient has been seen and evaluated by Nephrology additional laboratory workup showed elevated urine lambda light chain of 995 only is slightly elevated urine kappa light chain of 4.11. He denies any specific symptoms to report other then some urinary incontinence at times. He does report about 30lb wt loss over the last several months-he weighted 92 kg in office 02/29/24. He is 78 kg here. He denies N,V, D, bleeding, new or unusual pain Review of Systems 10 point review of systems is negative except as stated in HPI Past Medical History Past Medical History: Atrial Fibrillation, Cancer, GERD/Reflux, Hypertension, Osteoarthritis (OA), Thyroid Disorder Additional Past Medical History / Comment(s): hx kidney stones, hodgkins lymphoma,. 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 hx rapid heart rate History of Any Multi-Drug Resistant Organisms: MRSA Year Discovered:: 2014 MDRO Source:: lung Past Surgical History: Joint Replacement Additional Past Surgical History / Comment(s): right knee replacement, sinan knee scope, sinan carpal tunnel lymph node biopsy, lt shoulder rotator cuff Past Anesthesia/Blood Transfusion Reactions: No Reported Reaction Past Psychological History: No Psychological Hx Reported Additional Psychological History / Comment(s): . Lives with family home with his . She is status post stroke and he has a usual caregiver. 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 Smoking Status: Former smoker Past Alcohol Use History: None Reported Additional Past Alcohol Use History / Comment(s): SMOKED 26 YEARS, < 1/2 PPD. quit 1984 Past Drug Use History: None Reported - Past Family History Sister(s) Family Medical History: Cancer Mother Family Medical History: No Reported History Father Family Medical History: Hypertension Medications and Allergies Home Medications Medication Instructions Recorded Confirmed Type Omeprazole [PriLOSEC] 20 mg PO DAILY 11/14/13 08/08/24 History Apixaban [Eliquis] 5 mg PO BID 03/30/21 08/08/24 History Levothyroxine Sodium [Synthroid] 150 mcg PO HS 03/30/21 08/08/24 History lisinopriL [Zestril] 2.5 mg PO DAILY #30 tab 03/06/23 08/08/24 Rx Metoprolol Tartrate [Lopressor] 12.5 mg PO BID 04/27/24 08/08/24 History Cyclobenzaprine [Flexeril] 5 mg PO HS #20 tab 07/21/24 08/08/24 Rx Cholecalciferol [Vitamin D3 (125 125 mcg PO HS 07/28/24 08/08/24 History Mcg = 5000 Iu)] Diclofenac Sodium Gel [Voltaren 1% 1 applic TOPICAL DAILY 07/28/24 08/08/24 History Gel] Docusate [Colace] 100 mg PO BID@0800,1600 07/28/24 08/08/24 History Magnesium Oxide [Mag-Ox] 400 mg PO HS 07/28/24 08/08/24 History Acetaminophen Tab [Tylenol] 650 mg PO Q6HR PRN tab 08/01/24 08/08/24 Rx polyethylene glycoL 3350 [Miralax] 17 gm PO DAILY packet 08/01/24 08/08/24 Rx Lidocaine 4% Patch 1 patch TOPICAL DAILY 08/08/24 08/08/24 History Magnesium Hydroxide [Milk of 2,400 mg PO DAILY PRN 08/08/24 08/08/24 History Magnesia] Naloxone HCl [Narcan] 4 mg NASAL DIRECTED PRN 08/08/24 08/08/24 History Tamsulosin [Flomax] 0.4 mg PO DAILY 08/08/24 08/08/24 History bisacodyL [Dulcolax] 10 mg RECTAL DAILY PRN 08/08/24 08/08/24 History oxyCODONE-APAP 7.5-325MG [Percocet 1 tab PO Q6HR PRN 08/08/24 08/08/24 History 7.5-325 mg] Allergies Allergy/AdvReac Type Severity Reaction Status Date / Time celecoxib [From Celebrex] AdvReac muscle Verified 08/08/24 15:18 cramps niacin AdvReac muscle Verified 08/08/24 15:18 cramps nystatin AdvReac muscle Verified 08/08/24 15:18 cramps Egfthdw-XBS-PzL Reductase AdvReac muscle Verified 08/08/24 15:18 Inhibitor cramps [Bzpwlpp-Cvj-Msp Reductase Inhibitor] Physical Exam Vitals: Vital Signs Temp Pulse Resp BP BP Pulse Ox 08/15/24 11:00 97.4 F L 70 16 124/58 97 08/15/24 10:33 72 08/15/24 08:00 97.7 F 72 15 143/89 97 08/15/24 02:00 98.0 F 73 14 138/90 95 08/14/24 20:00 98.1 F 84 14 87/53 96 Intake and Output 08/15/24 08/15/24 08/15/24 06:59 14:59 22:59 Intake Total 540 761 Output Total 400 Balance 140 761 Intake: Oral 540 761 Output: Urine 400 Other: # Bowel Movements 1 - Constitutional General appearance: average body habitus, cooperative, no acute distress - EENT Eyes: anicteric sclerae, EOMI ENT: hearing grossly normal, normal oropharynx - Neck Neck: no lymphadenopathy - Respiratory Respiratory: bilateral: CTA - Cardiovascular Rhythm: regular Heart sounds: normal: S1, S2 Abnormal Heart Sounds: no systolic murmur, no diastolic murmur, no rub, no S3 Gallop, no S4 Gallop, no click, no other leg Peripheral Edema: bilateral: None - Gastrointestinal General gastrointestinal: normal bowel sounds, soft - Integumentary Integumentary: normal - Neurologic Neurologic: CNII-XII intact - Musculoskeletal Musculoskeletal: generalized weakness, strength equal bilaterally - Psychiatric Psychiatric: A&O x's 3, appropriate affect, intact judgment & insight Results CBC & Chem 7: 08/15/24 04:58 08/15/24 04:58 Labs: Abnormal Lab Results - Last 24 Hours (Table) 08/14/24 08/14/24 08/15/24 Range/Units 16:58 20:37 04:58 RBC (4.30-5.90) m/uL Hgb (13.0-17.5) gm/dL Hct (39.0-53.0) % MCV (80.0-100.0) fL BUN 38.2 H (9.0-27.0) mg/dL Creatinine 4.3 H (0.6-1.5) mg/dL Est GFR (CKD-EPI) 13 L (>=60) BUN/Creatinine Ratio 8.88 L (12.00-20.00) Ratio Glucose 130 H (70-110) mg/dL POC Glucose (mg/dL) 155 H 226 H (70-110) mg/dL 08/15/24 08/15/24 08/15/24 Range/Units 04:58 07:16 11:58 RBC 2.63 L (4.30-5.90) m/uL Hgb 9.1 L (13.0-17.5) gm/dL Hct 26.8 L (39.0-53.0) % MCV 102.2 H (80.0-100.0) fL BUN (9.0-27.0) mg/dL Creatinine (0.6-1.5) mg/dL Est GFR (CKD-EPI) (>=60) BUN/Creatinine Ratio (12.00-20.00) Ratio Glucose (70-110) mg/dL POC Glucose (mg/dL) 152 H 138 H (70-110) mg/dL Assessment and Plan (1) Acute renal failure Current Visit: Yes Status: Acute Priority: High Code(s): N17.9 - ACUTE KIDNEY FAILURE, UNSPECIFIED SNOMED Code(s): 86340402 (2) NHL (non-Hodgkin's lymphoma) Current Visit: No Status: Chronic Priority: Low Code(s): C85.90 - NON- HODGKIN LYMPHOMA, UNSPECIFIED, UNSPECIFIED SITE SNOMED Code(s): 006980112 Plan: Acute renal failure -currently admitted with acute renal failure. -Nephrology is following and working patient up Significantly elevated urine lambda light chain -Found on additional workup by Nephrology for acute renal failure -Additional labs have been ordered to further clarify the abnormal findings. -Concern is for a monoclonal gammopathy/myeloma. -Bone marrow biopsy was discussed with the patient. This would help to clarify the findings in the urine and provide more information and help give a diagnosis, which we could then discuss prognosis and treatment options. Procedure was described, risks vs benefits. Pt was willing to do the same. We will work on scheduling. Hopefully able to do bone marrow biopsy Tuesday morning. Doctor attests: I performed a history and physical examination of this patient, developed impression and plan of care. Discussed with dictator. I agree with dictators note, documented as a scribe.
[2024-08-15 20:41] LABS: Glucose,Whole Blood 142 mg/dL (70-110)
[2024-08-15 21:04] LABS: Immunoglobulin M <35.0 mg/dL (40.0-280.0)
[2024-08-16 07:46] LABS: Glucose,Whole Blood 113 mg/dL (70-110)
[2024-08-16] MEDS: FAMOTIDINE 20 MG TAB PO SCH (08:27)
[2024-08-16 08:48] LABS: BUN/Creat Ratio 11.26 Ratio (12.00-20.00); Blood Urea Nitrogen 43.9 mg/dL (9.0-27.0); Carbon Dioxide 20.8 mmol/L (21.6-31.8); Chloride 104 mmol/L (96-109); Glucose 151 mg/dL (70-110); Magnesium 2.2 mg/dL (1.5-2.4); Potassium 4.2 mmol/L (3.5-5.5); Sodium 138 mmol/L (135-145)
--- NOTE | 2024-08-16 10:16 | P.PN ---
Subjective Patient is seen in follow-up for acute kidney injury. Underwent first treatment of hemodialysis August 10, 2024. Last treatment was August 11, 2024. Nonoliguric. Denies chest pain or shortness of breath. Renal function better today. Oral intake fair. Vital signs are stable. General: No acute distress. HEENT: Head exam is unremarkable. LUNGS: No audible rhonchi or wheezes. HEART: Rate and Rhythm are regular. ABDOMEN: Nontender. EXTREMITITES: No edema. Objective - Vital Signs Vital signs: Vital Signs Temp 97.6 F 08/16/24 07:45 Pulse 85 08/16/24 07:45 Resp 17 08/16/24 07:45 BP 148/91 08/16/24 07:45 Pulse Ox 97 08/16/24 07:45 FiO2 Intake & Output 08/15/24 08/16/24 08/16/24 18:59 06:59 18:59 Intake Total 761 1396 Output Total 650 600 Balance 111 796 Intake: Oral 761 1396 Output: Urine 650 600 Other: Voiding Method Indwelling Catheter # Bowel Movements 1 - Labs CBC & Chem 7: 08/15/24 04:58 08/16/24 04:32 Labs: Abnormal Lab Results - Last 24 Hours (Table) 08/15/24 08/15/24 08/15/24 Range/Units 04:58 11:58 20:39 Carbon Dioxide (21.6-31.8) mmol/L Anion Gap (4.00-12.00) mmol/L BUN (9.0-27.0) mg/dL Creatinine (0.6-1.5) mg/dL Est GFR (CKD-EPI) (>=60) BUN/Creatinine Ratio (12.00-20.00) Ratio Glucose (70-110) mg/dL POC Glucose (mg/dL) 138 H 142 H (70-110) mg/dL IgG 518.0 L (700.0-1600.0) mg/dL IgA <65.0 L (60.0-350.0) mg/dL IgM <35.0 L (40.0-280.0) mg/dL 08/16/24 08/16/24 Range/Units 04:32 07:43 Carbon Dioxide 20.8 L (21.6-31.8) mmol/L Anion Gap 13.20 H (4.00-12.00) mmol/L BUN 43.9 H (9.0-27.0) mg/dL Creatinine 3.9 H (0.6-1.5) mg/dL Est GFR (CKD-EPI) 14 L (>=60) BUN/Creatinine Ratio 11.26 L (12.00-20.00) Ratio Glucose 151 H (70-110) mg/dL POC Glucose (mg/dL) 113 H (70-110) mg/dL IgG (700.0-1600.0) mg/dL IgA (60.0-350.0) mg/dL IgM (40.0-280.0) mg/dL Assessment and Plan Plan: Assessment: 1. Acute kidney injury likely ATN. Urine eosinophils positive. Creatinine over 8 this admission. Noted to be 1.05 July 2024. No hydronephrosis noted on kidney ultrasound. Started on dialysis August 10, 2024. Last treatment was August 11, 2024. Creatinine better at 3.9 today. Nonoliguric. 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 2. Chronic kidney disease stage IIIa with baseline creatinine 1-1.2. 3. Hyperkalemia secondary to acute kidney injury and lisinopril. Improved postdialysis. 4. Hypercalcemia secondary to volume contraction and vitamin D. Improved. PTH appropriately suppressed at 8.2. Vitamin D level 78. 125 D3 level 29. Immunofixation positive for lambda light chain. Urine free lambda light chains significantly elevated. Oncology following. Calcium level now normal. 5. Anemia. Iron replete. On Aranesp. Plan: Maintain IV fluids. Continue to hold dialysis and monitor for renal recovery. Avoid calcium and vitamin D supplementation. PPI discontinued. On Pepcid. Prednisone added August 13, 2024. Maintain Worrell catheter. Strict I's and O's. Patient not an ideal candidate for kidney biopsy. Await oncology recommendations regarding further myeloma workup and treatment.
[2024-08-16] MEDS: ACETAMINOPHEN TAB 325 MG TAB PO PRN (11:50)
[2024-08-16 12:42] LABS: Glucose,Whole Blood 117 mg/dL (70-110)
[2024-08-16 12:44] LABS: Free Kappa Lt Chain Qnt, Serum 3.29 mg/dL (0.33-1.94)
--- NOTE | 2024-08-16 16:05 | P.PN ---
Subjective Progress Note Date: 08/16/24 Subjective: Patient seen and examined at bedside. No acute events overnight. Denies any new complaints. Pertinent positives and negatives as discussed above, a complete review of systems was performed and all other systems are negative. Vitals Signs Reviewed. General: Nontoxic, no distress, appears at stated age Derm: Warm, dry Head: Atraumatic, normocephalic, symmetric Eyes: EOMI, no lid lag, anicteric sclera Mouth: No lip lesion, mucus membranes moist Cardiovascular: S1S2 reg, no murmur Lungs: CTA bilateral, no rhonchi, no rales, no accessory muscle use Abdominal: Soft, nontender to palpation, no guarding, no appreciable organomegaly Ext: No gross muscle atrophy, no edema, no contractures Neuro: CN II-XI grossly intact, no focal neuro deficits Psych: Alert, oriented, appropriate affect Data Reviewed Today: Pertinent Labs: Sodium 138, creatinine 3.9, glucose range between 1 17-1 51, magnesium 2.0 Imaging: No new imaging Assessment and Plan: #Oliguric or Non-oliguric Acute Kidney Injury in the setting of stage IIIa chronic kidney disease #Hyperkalemia, resolved #Hyponatremia, resolved #Hypercalcemia, resolved #Hypermagnesemia, resolved -Maintain Worrell catheter -Nephrology note reviewed, hold dialysis , continue monitoring for renal recovery, maintain prednisone 30 twice daily -Recheck BMP tomorrow a.m. -Strict Is & O's -Continue with normal saline 75 cc/h -Cardiac monitoring -Urine free kappa light chain elevated at 4.11; urine free lambda light chain elevated at 995.03 -Oncology consulted, likely bone marrow biopsy on Tuesday #Episodic hypoglycemia -Multiple episodes of serum glucose <65 -Accu-Cheks ACHS ordered #Chronic anemia #Macrocytosis -Continue to monitor CBC daily -Most recent vitamin B12 381 (07/28/2024) -Most recent serum folate 18.2 (07/28/2024) -Iron 61, TIBC 193, percent saturation 31.6%, transferrin 138, ferritin 548 -Add Aranesp 40 mcg every 7 days #Systolic CHF, not in exacerbation -Continue current home medications -Most recent echocardiogram (03/03/2023) showed EF 35-40% #Chronic low back pain, secondary to compression fractures -Continue with lidocaine patch daily and Voltaren gel -Tylenol 650 mg every 6 hours as needed for pain #Hypothyroidism -Continue Synthroid 150 mcg daily #Hypertension -Continue to monitor vital signs -Continue home Lopressor 12.5 mg twice daily -Hold home lisinopril 2.5 mg daily secondary to HUNTER #GERD -Continue famotidine 20 daily, hold PPI #Benign prostatic hyperplasia -Continue home Flomax 0.4 mg daily DVT ppx: Hold Eliquis Code status: FC Anticipated discharge place: pending clinical course Anticipated discharge time: pending clinical course Objective - Vital Signs Vital signs: Vital Signs Temp 97.6 F 08/16/24 12:38 Pulse 79 08/16/24 12:38 Resp 16 08/16/24 12:38 BP 147/84 08/16/24 12:38 Pulse Ox 98 08/16/24 12:38 FiO2 Intake & Output 08/15/24 08/16/24 08/16/24 18:59 06:59 18:59 Intake Total 761 1396 Output Total 650 600 Balance 111 796 Weight 78.018 kg Intake: Oral 761 1396 Output: Urine 650 600 Other: Voiding Method Indwelling Catheter Indwelling Catheter # Bowel Movements 1 - Labs CBC & Chem 7: 08/15/24 04:58 08/16/24 04:32 Labs: Abnormal Lab Results - Last 24 Hours (Table) 08/15/24 08/15/24 08/16/24 Range/Units 04:58 20:39 04:32 Carbon Dioxide 20.8 L (21.6-31.8) mmol/L Anion Gap 13.20 H (4.00-12.00) mmol/L BUN 43.9 H (9.0-27.0) mg/dL Creatinine 3.9 H (0.6-1.5) mg/dL Est GFR (CKD-EPI) 14 L (>=60) BUN/Creatinine Ratio 11.26 L (12.00-20.00) Ratio Glucose 151 H (70-110) mg/dL POC Glucose (mg/dL) 142 H (70-110) mg/dL IgG 518.0 L (700.0-1600.0) mg/dL IgA <65.0 L (60.0-350.0) mg/dL IgM <35.0 L (40.0-280.0) mg/dL Free [place] LC, Quant 3.29 H (0.33-1.94) mg/dL Free Lambda LC, Quant 516.70 H (0.57-2.63) mg/dL 08/16/24 08/16/24 Range/Units 07:43 12:40 Carbon Dioxide (21.6-31.8) mmol/L Anion Gap (4.00-12.00) mmol/L BUN (9.0-27.0) mg/dL Creatinine (0.6-1.5) mg/dL Est GFR (CKD-EPI) (>=60) BUN/Creatinine Ratio (12.00-20.00) Ratio Glucose (70-110) mg/dL POC Glucose (mg/dL) 113 H 117 H (70-110) mg/dL IgG (700.0-1600.0) mg/dL IgA (60.0-350.0) mg/dL IgM (40.0-280.0) mg/dL Free [place] LC, Quant (0.33-1.94) mg/dL Free Lambda LC, Quant (0.57-2.63) mg/dL
[2024-08-16 17:25] LABS: Glucose,Whole Blood 92 mg/dL (70-110)
--- NOTE | 2024-08-16 18:14 | P.PN ---
Subjective Progress Note Date: 08/16/24 Principal diagnosis: ARF, Hx HD In f/u today pt denies any new c/o, no fevers, N,V, he is getting up to the bathroom. Objective - Vital Signs Vital signs: Vital Signs Temp 97.6 F 08/16/24 12:38 Pulse 79 08/16/24 12:38 Resp 16 08/16/24 12:38 BP 147/84 08/16/24 12:38 Pulse Ox 98 08/16/24 12:38 FiO2 Intake & Output 08/15/24 08/16/24 08/16/24 18:59 06:59 18:59 Intake Total 761 1396 Output Total 650 600 Balance 111 796 Weight 78.018 kg Intake: Oral 761 1396 Output: Urine 650 600 Other: Voiding Method Indwelling Catheter Indwelling Catheter # Bowel Movements 1 - Constitutional General appearance: Present: average body habitus, cooperative, no acute distress - EENT Eyes: Present: anicteric sclerae, EOMI ENT: Present: hearing grossly normal - Respiratory Details: resp unlabored - Cardiovascular Details: skin warm, well perfused - Peripheral edema leg Peripheral Edema: bilateral: None - Neurologic Neurologic: Present: CNII-XII intact - Musculoskeletal Musculoskeletal: Present: generalized weakness - Psychiatric Psychiatric: Present: A&O x's 3, appropriate affect, intact judgment & insight - Labs CBC & Chem 7: 08/15/24 04:58 08/16/24 04:32 Labs: Abnormal Lab Results - Last 24 Hours (Table) 08/15/24 08/15/24 08/16/24 Range/Units 04:58 20:39 04:32 Carbon Dioxide 20.8 L (21.6-31.8) mmol/L Anion Gap 13.20 H (4.00-12.00) mmol/L BUN 43.9 H (9.0-27.0) mg/dL Creatinine 3.9 H (0.6-1.5) mg/dL Est GFR (CKD-EPI) 14 L (>=60) BUN/Creatinine Ratio 11.26 L (12.00-20.00) Ratio Glucose 151 H (70-110) mg/dL POC Glucose (mg/dL) 142 H (70-110) mg/dL IgG 518.0 L (700.0-1600.0) mg/dL IgA <65.0 L (60.0-350.0) mg/dL IgM <35.0 L (40.0-280.0) mg/dL Free [place] LC, Quant 3.29 H (0.33-1.94) mg/dL Free [place]ambda LC, Quant 516.70 H (0.57-2.63) mg/dL 08/16/24 08/16/24 Range/Units 07:43 12:40 Carbon Dioxide (21.6-31.8) mmol/L Anion Gap (4.00-12.00) mmol/L BUN (9.0-27.0) mg/dL Creatinine (0.6-1.5) mg/dL Est GFR (CKD-EPI) (>=60) BUN/Creatinine Ratio (12.00-20.00) Ratio Glucose (70-110) mg/dL POC Glucose (mg/dL) 113 H 117 H (70-110) mg/dL IgG (700.0-1600.0) mg/dL IgA (60.0-350.0) mg/dL IgM (40.0-280.0) mg/dL Free [place] LC, Quant (0.33-1.94) mg/dL Free Lambda LC, Quant (0.57-2.63) mg/dL Assessment and Plan (1) Acute renal failure Current Visit: Yes Status: Acute Priority: High Code(s): N17.9 - ACUTE KIDNEY FAILURE, UNSPECIFIED SNOMED Code(s): 66475299 (2) NHL (non-Hodgkin's lymphoma) Current Visit: No Status: Chronic Priority: Low Code(s): C85.90 - NON- HODGKIN LYMPHOMA, UNSPECIFIED, UNSPECIFIED SITE SNOMED Code(s): 064038558 Plan: Acute renal failure -currently admitted with acute renal failure. -Nephrology is following and working patient up -Cr improved, ca++ improved Significantly elevated urine lambda light chain -Found on additional workup by Nephrology for acute renal failure -Serum lambda light chain elevated 516, M-spike 0.24gm/dl. 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 -Bone marrow biopsy vs renal biopsy-this question was posed by [employer]. -IR consulted for renal biopsy -May consider BM Bx outpt Doctor attests: I performed a history and physical examination of this patient, developed impression and plan of care. Discussed with dictator. I agree with dictators note, documented as a scribe.
[2024-08-16 20:24] LABS: Glucose,Whole Blood 126 mg/dL (70-110)
[2024-08-17 06:17] LABS: Glucose,Whole Blood 110 mg/dL (70-110)
[2024-08-17 07:26] LABS: Glucose,Whole Blood 101 mg/dL (70-110)
[2024-08-17 09:14] LABS: BUN/Creat Ratio 12.22 Ratio (12.00-20.00); Calcium 9.1 mg/dL (8.7-10.3); Carbon Dioxide 20.9 mmol/L (21.6-31.8); Chloride 106 mmol/L (96-109); Glucose 108 mg/dL (70-110); Magnesium 1.7 mg/dL (1.5-2.4); Potassium 4.9 mmol/L (3.5-5.5); Sodium 139 mmol/L (135-145)
[2024-08-17 11:19] LABS: INR 1.1 (<1.2)
[2024-08-17 12:13] LABS: Glucose,Whole Blood 88 mg/dL (70-110)
--- NOTE | 2024-08-17 12:53 | P.PN ---
Subjective Progress Note Date: 08/17/24 Patient is seen in follow-up for acute kidney injury. Underwent first treatment of hemodialysis August 10, 2024. Last treatment was August 11, 2024. Nonoliguric. Denies chest pain or shortness of breath. Renal function better today. Oral intake fair. Vital signs are stable. General: No acute distress. HEENT: Head exam is unremarkable. LUNGS: No audible rhonchi or wheezes. HEART: Rate and Rhythm are regular. ABDOMEN: Nontender. EXTREMITITES: No edema. Objective - Vital Signs Vital signs: Vital Signs Temp 98.4 F 08/17/24 08:10 Pulse 91 08/17/24 08:10 Resp 16 08/17/24 08:10 BP 158/80 08/17/24 08:10 Pulse Ox 93 L 08/17/24 08:10 FiO2 Intake & Output 08/16/24 08/17/24 08/17/24 18:59 06:59 18:59 Intake Total 660 Output Total 750 475 500 Balance -90 -475 -500 Weight 78.018 kg Intake: Oral 660 Output: Urine 750 475 500 Other: Voiding Method Indwelling Catheter Indwelling Catheter - Labs CBC & Chem 7: 08/21/24 03:47 08/21/24 03:47 Labs: Abnormal Lab Results - Last 24 Hours (Table) 08/15/24 08/16/24 08/16/24 Range/Units 04:58 12:40 20:23 Carbon Dioxide (21.6-31.8) mmol/L Anion Gap (4.00-12.00) mmol/L BUN (9.0-27.0) mg/dL Creatinine (0.6-1.5) mg/dL Est GFR (CKD-EPI) (>=60) POC Glucose (mg/dL) 117 H 126 H (70-110) mg/dL Free [place] LC, Quant 3.29 H (0.33-1.94) mg/dL Free [place] LC, Quant 516.70 H (0.57-2.63) mg/dL 08/17/24 Range/Units 04:44 Carbon Dioxide 20.9 L (21.6-31.8) mmol/L Anion Gap 12.10 H (4.00-12.00) mmol/L BUN 44.0 H (9.0-27.0) mg/dL Creatinine 3.6 H (0.6-1.5) mg/dL Est GFR (CKD-EPI) 16 L (>=60) POC Glucose (mg/dL) (70-110) mg/dL Free [place] LC, Quant (0.33-1.94) mg/dL Free Lambda LC, Quant (0.57-2.63) mg/dL Assessment and Plan Plan: Assessment: 1. Acute kidney injury likely ATN. Urine eosinophils positive. Creatinine over 8 this admission. Noted to be 1.05 July 2024. No hydronephrosis noted on kidney ultrasound. Started on dialysis August 10, 2024. Last treatment was August 11, 2024. Creatinine better at 3.6 today. Nonoliguric. 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 2. Chronic kidney disease stage IIIa with baseline creatinine 1-1.2. 3. Hyperkalemia secondary to acute kidney injury and lisinopril. Improved postdialysis. 4. Hypercalcemia secondary to volume contraction and vitamin D. Improved. PTH appropriately suppressed at 8.2. Vitamin D level 78. 125 D3 level 29. Immunofixation positive for lambda light chain. Urine free lambda light chains significantly elevated. Oncology following. Calcium level now normal. 5. Anemia. Iron replete. On Aranesp. Plan: Maintain IV fluids. Continue to hold dialysis and monitor for renal recovery. Avoid calcium and vitamin D supplementation. PPI discontinued. On Pepcid. Prednisone added August 13, 2024. Maintain Worrell catheter. Strict I's and O's. Oncology myeloma workup, possible bone biopsy as outpatient Patient not an ideal candidate for kidney biopsy. Patient was last on eliquis 08/16. IR will need 3 days off prior to biopsy I have seen and examined the patient with resident and agree with A&P as written.
--- NOTE | 2024-08-17 15:34 | P.PN ---
Subjective Progress Note Date: 08/17/24 Subjective: Patient seen and examined at bedside. No acute events overnight. Denies any new complaints. Pertinent positives and negatives as discussed above, a complete review of systems was performed and all other systems are negative. Vitals Signs Reviewed. General: Nontoxic, no distress, appears at stated age Derm: Warm, dry Head: Atraumatic, normocephalic, symmetric Eyes: EOMI, no lid lag, anicteric sclera Mouth: No lip lesion, mucus membranes moist Cardiovascular: S1S2 reg, no murmur Lungs: CTA bilateral, no rhonchi, no rales, no accessory muscle use Abdominal: Soft, nontender to palpation, no guarding, no appreciable organomegaly Ext: No gross muscle atrophy, no edema, no contractures Neuro: CN II-XI grossly intact, no focal neuro deficits Psych: Alert, oriented, appropriate affect Data Reviewed Today: Pertinent Labs: Sodium 139, potassium 4.9, creatinine 0.6, blood sugars range between 88-1 08 Imaging: No new imaging Assessment and Plan: #Oliguric or Non-oliguric Acute Kidney Injury in the setting of stage IIIa chronic kidney disease #Hyperkalemia, resolved #Hyponatremia, resolved #Hypercalcemia, resolved #Hypermagnesemia, resolved -Maintain Worrell catheter -Nephrology note reviewed, hold dialysis , continue monitoring for renal recovery, maintain prednisone 30 twice daily -Recheck BMP tomorrow a.m. -Strict Is & O's -Continue with normal saline 75 cc/h -Cardiac monitoring -Urine free kappa light chain elevated at 4.11; urine free lambda light chain elevated at 995.03 -Oncology consulted, recommending outpatient bone marrow biopsy, renal biopsy pending, continue to hold Eliquis #Episodic hypoglycemia -Multiple episodes of serum glucose <65 -Accu-Cheks ACHS ordered #Chronic anemia #Macrocytosis -Continue to monitor CBC daily -Most recent vitamin B12 381 (07/28/2024) -Most recent serum folate 18.2 (07/28/2024) -Iron 61, TIBC 193, percent saturation 31.6%, transferrin 138, ferritin 548 -Add Aranesp 40 mcg every 7 days #Systolic CHF, not in exacerbation -Continue current home medications -Most recent echocardiogram (03/03/2023) showed EF 35-40% #Chronic low back pain, secondary to compression fractures -Continue with lidocaine patch daily and Voltaren gel -Tylenol 650 mg every 6 hours as needed for pain #Hypothyroidism -Continue Synthroid 150 mcg daily #Hypertension -Continue to monitor vital signs -Continue home Lopressor 12.5 mg twice daily -Hold home lisinopril 2.5 mg daily secondary to HUNTER #GERD -Continue famotidine 20 daily, hold PPI #Benign prostatic hyperplasia -Continue home Flomax 0.4 mg daily DVT ppx: Hold Eliquis Code status: FC Anticipated discharge place: pending clinical course Anticipated discharge time: pending clinical course Objective - Vital Signs Vital signs: Vital Signs Temp 97.8 F 08/17/24 14:06 Pulse 80 08/17/24 14:06 Resp 22 08/17/24 14:06 BP 152/95 08/17/24 14:06 Pulse Ox 99 08/17/24 14:06 FiO2 Intake & Output 08/16/24 08/17/24 08/17/24 18:59 06:59 18:59 Intake Total 660 Output Total 750 135 775 Balance -72 -523 -266 Weight 78.018 kg Intake: Oral 660 Output: Urine 750 475 775 Other: Voiding Method Indwelling Catheter Indwelling Catheter Indwelling Catheter - Labs CBC & Chem 7: 08/15/24 04:58 08/17/24 04:44 Labs: Abnormal Lab Results - Last 24 Hours (Table) 08/16/24 08/17/24 Range/Units 20:23 04:44 Carbon Dioxide 20.9 L (21.6-31.8) mmol/L Anion Gap 12.10 H (4.00-12.00) mmol/L BUN 44.0 H (9.0-27.0) mg/dL Creatinine 3.6 H (0.6-1.5) mg/dL Est GFR (CKD-EPI) 16 L (>=60) POC Glucose (mg/dL) 126 H (70-110) mg/dL
[2024-08-17 17:07] LABS: Glucose,Whole Blood 98 mg/dL (70-110)
--- NOTE | 2024-08-17 18:45 | P.PN ---
Subjective Progress Note Date: 08/17/24 No acute events overnight. Pt resting comfortably in bed. He is generally weak, denies pain. Objective - Vital Signs Vital signs: Vital Signs Temp 97.8 F 08/17/24 13:00 Pulse 73 08/17/24 13:00 Resp 20 08/17/24 13:00 BP 143/84 08/17/24 13:00 Pulse Ox 98 08/17/24 13:00 FiO2 Intake & Output 08/16/24 08/17/24 08/17/24 18:59 06:59 18:59 Intake Total 660 Output Total 750 475 775 Balance -03 -771 -007 Weight 78.018 kg Intake: Oral 660 Output: Urine 750 475 775 Other: Voiding Method Indwelling Catheter Indwelling Catheter Indwelling Catheter - Constitutional General appearance: Present: average body habitus, no acute distress - EENT Eyes: Present: anicteric sclerae, EOMI ENT: Present: hearing grossly normal - Respiratory Details: breathing is even and unlabored - Cardiovascular Details: skin warm and dry - Gastrointestinal General gastrointestinal: Present: soft. Absent: tenderness - Integumentary Integumentary: Absent: cyanotic, jaundiced - Musculoskeletal Musculoskeletal: Present: generalized weakness - Psychiatric Psychiatric: Present: A&O x's 3 - Labs CBC & Chem 7: 08/15/24 04:58 08/17/24 04:44 Labs: Abnormal Lab Results - Last 24 Hours (Table) 08/16/24 08/17/24 Range/Units 20:23 04:44 Carbon Dioxide 20.9 L (21.6-31.8) mmol/L Anion Gap 12.10 H (4.00-12.00) mmol/L BUN 44.0 H (9.0-27.0) mg/dL Creatinine 3.6 H (0.6-1.5) mg/dL Est GFR (CKD-EPI) 16 L (>=60) POC Glucose (mg/dL) 126 H (70-110) mg/dL Assessment and Plan (1) Acute renal failure Current Visit: Yes Status: Acute Priority: High Code(s): N17.9 - ACUTE KIDNEY FAILURE, UNSPECIFIED SNOMED Code(s): 68949381 Plan: Acute renal failure -currently admitted with acute renal failure. -Nephrology is following and working patient up -Cr improved, ca++ improved Significantly elevated urine lambda light chain -Found on additional workup by Nephrology for acute renal failure -Serum lambda light chain elevated 516, M-spike 0.24gm/dl. 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 -Bone marrow biopsy vs renal biopsy-this question was posed by Quality Process Auditor. -IR consulted for renal biopsy, spoke with radiologist, states they are unable to obtain renal biopsy -Will schedule BM Bx for next week. Pt agreeable to the same
[2024-08-17 20:11] LABS: Glucose,Whole Blood 83 mg/dL (70-110)
[2024-08-18 01:31] LABS: Glucose,Whole Blood 119 mg/dL (70-110)
[2024-08-18 07:27] LABS: Glucose,Whole Blood 129 mg/dL (70-110)
[2024-08-18 12:32] LABS: Glucose,Whole Blood 90 mg/dL (70-110)
--- NOTE | 2024-08-18 12:32 | P.PN ---
Subjective Patient is seen for follow-up for acute kidney injury. Status post couple of treatments of hemodialysis. Last hemodialysis treatment was 08/11/2024 Serum creatinine 3.6 yesterday. No labs available from today. No major complaints. Patient is sleeping but arousable Objective - Vital Signs Vital signs: Vital Signs Temp 97.5 F L 08/18/24 07:46 Pulse 75 08/18/24 07:46 Resp 20 08/18/24 07:46 BP 131/74 08/18/24 07:46 Pulse Ox 99 08/18/24 07:46 FiO2 Intake & Output 08/17/24 08/18/24 08/18/24 18:59 06:59 18:59 Intake Total 1365 480 Output Total 975 900 Balance -975 465 480 Intake: Intake, IV Titration 825 Amount Sodium Chloride 0.9% 1, 825 000 ml @ 75 mls/hr IV . [id number] [facility] Rx#:[id number] Oral 540 480 Output: Urine 975 900 Other: Voiding Method Indwelling Catheter Indwelling Catheter Indwelling Catheter # Bowel Movements 1 - Exam Patient is sleeping but arousable. No acute distress. Examination of the heart S1 and S2 Examination of the lungs bilateral breath sounds are heard Abdomen is soft nontender Examination of lower extremities shows no evidence of edema - Labs CBC & Chem 7: 08/15/24 04:58 08/17/24 04:44 Labs: Abnormal Lab Results - Last 24 Hours (Table) 08/18/24 08/18/24 Range/Units 01:29 07:17 POC Glucose (mg/dL) 119 H 129 H (70-110) mg/dL Assessment and Plan Assessment: 1. Acute kidney injury most likely acute interstitial nephritis. Maintained on prednisone. Status post 2 treatments of hemodialysis, dialysis currently on hold with last treatment on 08/11/2024. 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 Being followed by oncology. 2. Chronic kidney disease stage IIIa with with baseline creatinine around 1 to 1.2 mg/dL, proteinuria noted. 3. Hyperkalemia associated with acute kidney injury, improved 4. Hypercalcemia most likely associated with underlying paraproteinemia 5. Anemia, iron replete maintained on Aranesp 6. A-fib maintained on Eliquis Plan: Continue with IV fluids Continue with prednisone Repeat labs today and again in a.m. Continue to avoid nephrotoxic agents. Scheduled for bone marrow biopsy next week.
[2024-08-18 12:42] LABS: BUN/Creat Ratio 13.94 Ratio (12.00-20.00); Blood Urea Nitrogen 43.2 mg/dL (9.0-27.0); Carbon Dioxide 18.5 mmol/L (21.6-31.8); Chloride 109 mmol/L (96-109); Glucose 112 mg/dL (70-110); Magnesium 1.6 mg/dL (1.5-2.4); Potassium 4.3 mmol/L (3.5-5.5); Sodium 139 mmol/L (135-145)
--- NOTE | 2024-08-18 14:09 | P.PN ---
Subjective Progress Note Date: 08/18/24 Subjective: Patient seen and examined at bedside. No acute events overnight. Denies any new complaints. Pertinent positives and negatives as discussed above, a complete review of systems was performed and all other systems are negative. Vitals Signs Reviewed. General: Nontoxic, no distress, appears at stated age Derm: Warm, dry Head: Atraumatic, normocephalic, symmetric Eyes: EOMI, no lid lag, anicteric sclera Mouth: No lip lesion, mucus membranes moist Cardiovascular: S1S2 reg, no murmur Lungs: CTA bilateral, no rhonchi, no rales, no accessory muscle use Abdominal: Soft, nontender to palpation, no guarding, no appreciable organomegaly Ext: No gross muscle atrophy, no edema, no contractures Neuro: CN II-XI grossly intact, no focal neuro deficits Psych: Alert, oriented, appropriate affect Data Reviewed Today: Pertinent Labs: Sodium 139, potassium 4.3, creatinine 3.1, blood sugars range between 90-1 29, magnesium 1.6 Imaging: No new imaging Assessment and Plan: #Oliguric or Non-oliguric Acute Kidney Injury in the setting of stage IIIa chronic kidney disease #Hyperkalemia, resolved #Hyponatremia, resolved #Hypercalcemia, resolved #Hypermagnesemia, resolved -Maintain Worrell catheter -Nephrology note reviewed, hold dialysis , continue monitoring for renal recovery, maintain prednisone 30 twice daily -Recheck BMP tomorrow a.m. -Strict Is & O's -Continue with normal saline 75 cc/h -Cardiac monitoring -Urine free kappa light chain elevated at 4.11; urine free lambda light chain elevated at 995.03 -Oncology consulted, recommending outpatient bone marrow biopsy, renal biopsy pending, continue to hold Eliquis #Episodic hypoglycemia -Multiple episodes of serum glucose <65 -Accu-Cheks ACHS ordered #Chronic anemia #Macrocytosis -Continue to monitor CBC daily -Most recent vitamin B12 381 (07/28/2024) -Most recent serum folate 18.2 (07/28/2024) -Iron 61, TIBC 193, percent saturation 31.6%, transferrin 138, ferritin 548 -Add Aranesp 40 mcg every 7 days #Systolic CHF, not in exacerbation -Continue current home medications -Most recent echocardiogram (03/03/2023) showed EF 35-40% #Chronic low back pain, secondary to compression fractures -Continue with lidocaine patch daily and Voltaren gel -Tylenol 650 mg every 6 hours as needed for pain #Hypothyroidism -Continue Synthroid 150 mcg daily #Hypertension -Continue to monitor vital signs -Continue home Lopressor 12.5 mg twice daily -Hold home lisinopril 2.5 mg daily secondary to HUNTER #GERD -Continue famotidine 20 daily, hold PPI #Benign prostatic hyperplasia -Continue home Flomax 0.4 mg daily DVT ppx: Hold Eliquis Code status: FC Anticipated discharge place: pending clinical course Anticipated discharge time: pending clinical course Objective - Vital Signs Vital signs: Vital Signs Temp 97.5 F L 08/18/24 07:46 Pulse 75 08/18/24 07:46 Resp 20 08/18/24 07:46 BP 131/74 08/18/24 07:46 Pulse Ox 99 08/18/24 07:46 FiO2 Intake & Output 08/17/24 08/18/24 08/18/24 18:59 06:59 18:59 Intake Total 1365 480 Output Total 975 900 Balance -975 465 480 Intake: Intake, IV Titration 825 Amount Sodium Chloride 0.9% 1, 825 000 ml @ 75 mls/hr IV . [id number] [facility] Rx#:[id number] Oral 540 480 Output: Urine 975 900 Other: Voiding Method Indwelling Catheter Indwelling Catheter Indwelling Catheter # Bowel Movements 1 - Labs CBC & Chem 7: 08/15/24 04:58 08/18/24 04:53 Labs: Abnormal Lab Results - Last 24 Hours (Table) 08/18/24 08/18/24 08/18/24 Range/Units 01:29 04:53 07:17 Carbon Dioxide 18.5 L (21.6-31.8) mmol/L BUN 43.2 H (9.0-27.0) mg/dL Creatinine 3.1 H (0.6-1.5) mg/dL Est GFR (CKD-EPI) 19 L (>=60) Glucose 112 H (70-110) mg/dL POC Glucose (mg/dL) 119 H 129 H (70-110) mg/dL
[2024-08-18 17:47] LABS: Glucose,Whole Blood 97 mg/dL (70-110)
[2024-08-18 20:07] LABS: Glucose,Whole Blood 130 mg/dL (70-110)
[2024-08-19 06:56] LABS: Glucose,Whole Blood 103 mg/dL (70-110)
[2024-08-19 10:16] LABS: Blood Urea Nitrogen 42.9 mg/dL (9.0-27.0); Carbon Dioxide 20.6 mmol/L (21.6-31.8); Chloride 108 mmol/L (96-109); Glucose 125 mg/dL (70-110); Magnesium 1.6 mg/dL (1.5-2.4); Potassium 3.9 mmol/L (3.5-5.5); Sodium 139 mmol/L (135-145)
[2024-08-19 10:17] LABS: Calcium 8.7 mg/dL (8.7-10.3)
[2024-08-19 12:14] LABS: Glucose,Whole Blood 150 mg/dL (70-110)
--- NOTE | 2024-08-19 13:11 | P.PN ---
Subjective Progress Note Date: 08/19/24 Subjective: Patient seen and examined at bedside. No acute events overnight. Denies any new complaints. Pertinent positives and negatives as discussed above, a complete review of systems was performed and all other systems are negative. Vitals Signs Reviewed. General: Nontoxic, no distress, appears at stated age Derm: Warm, dry Head: Atraumatic, normocephalic, symmetric Eyes: EOMI, no lid lag, anicteric sclera Mouth: No lip lesion, mucus membranes moist Cardiovascular: S1S2 reg, no murmur Lungs: CTA bilateral, no rhonchi, no rales, no accessory muscle use Abdominal: Soft, nontender to palpation, no guarding, no appreciable organomegaly Ext: No gross muscle atrophy, no edema, no contractures Neuro: CN II-XI grossly intact, no focal neuro deficits Psych: Alert, oriented, appropriate affect Data Reviewed Today: Pertinent Labs: Sodium 139, bicarb 20.6, creatinine 2.6, magnesium 1.6, blood sugars range between 10 3-1 30 Imaging: No new imaging Assessment and Plan: #Oliguric or Non-oliguric Acute Kidney Injury in the setting of stage IIIa chronic kidney disease #Hyperkalemia, resolved #Hyponatremia, resolved #Hypercalcemia, resolved #Hypermagnesemia, resolved -Maintain Worrell catheter -Nephrology following, hold dialysis , continue monitoring for renal recovery, maintain prednisone 30 twice daily -Recheck BMP tomorrow a.m. -Strict Is & O's -Continue with normal saline 75 cc/h -Cardiac monitoring -Urine free kappa light chain elevated at 4.11; urine free lambda light chain elevated at 995.03 -Oncology consulted, recommending outpatient bone marrow biopsy, renal biopsy pending, continue to hold Eliquis #Episodic hypoglycemia -Accu-Cheks ACHS #Chronic anemia #Macrocytosis -Continue to monitor CBC -Most recent vitamin B12 381 (07/28/2024) -Most recent serum folate 18.2 (07/28/2024) -Iron 61, TIBC 193, percent saturation 31.6%, transferrin 138, ferritin 548 -on Aranesp 40 mcg every 7 days #Systolic CHF, not in exacerbation -Continue current home medications -Most recent echocardiogram (03/03/2023) showed EF 35-40% #Chronic low back pain, secondary to compression fractures -Continue with lidocaine patch daily and Voltaren gel -Tylenol 650 mg every 6 hours as needed for pain #Hypothyroidism -Continue Synthroid 150 mcg daily #Hypertension -Continue home Lopressor 12.5 mg twice daily -Hold home lisinopril 2.5 mg daily secondary to HUNTER #GERD -Continue famotidine 20 daily, hold PPI #Benign prostatic hyperplasia -Continue home Flomax 0.4 mg daily DVT ppx: Hold Eliquis Code status: FC Anticipated discharge place: pending clinical course Anticipated discharge time: pending clinical course Objective - Vital Signs Vital signs: Vital Signs Temp 97.8 F 08/19/24 11:51 Pulse 72 08/19/24 11:51 Resp 16 08/19/24 11:51 BP 153/80 08/19/24 11:51 Pulse Ox 96 08/19/24 11:51 FiO2 Intake & Output 08/18/24 08/19/24 08/19/24 18:59 06:59 18:59 Intake Total 480 1090 957 Output Total 750 800 100 Balance -270 290 857 Intake: Oral 480 1090 957 Output: Urine 750 800 100 Uretheral (Worrell) 100 Other: Voiding Method Indwelling Catheter Indwelling Catheter Indwelling Catheter # Bowel Movements 2 - Labs CBC & Chem 7: 08/15/24 04:58 08/19/24 05:17 Labs: Abnormal Lab Results - Last 24 Hours (Table) 08/18/24 08/19/24 08/19/24 Range/Units 20:02 05:17 12:13 Carbon Dioxide 20.6 L (21.6-31.8) mmol/L BUN 42.9 H (9.0-27.0) mg/dL Creatinine 2.6 H (0.6-1.5) mg/dL Est GFR (CKD-EPI) 23 L (>=60) Glucose 125 H (70-110) mg/dL POC Glucose (mg/dL) 130 H 150 H (70-110) mg/dL
[2024-08-19 17:04] LABS: Glucose,Whole Blood 114 mg/dL (70-110)
[2024-08-19 20:25] LABS: Glucose,Whole Blood 142 mg/dL (70-110)
--- NOTE | 2024-08-19 22:10 | P.PN ---
Subjective Patient is seen for follow-up for acute kidney injury. Status post couple of treatments of hemodialysis. Last hemodialysis treatment was 08/11/2024 Serum creatinine 2.6 today. No major complaints. Bone marrow biopsy in the next 1 to 2 days Objective - Vital Signs Vital signs: Vital Signs Temp 98.1 F 08/19/24 17:22 Pulse 80 08/19/24 17:22 Resp 17 08/19/24 17:22 BP 151/77 08/19/24 17:22 Pulse Ox 92 L 08/19/24 17:22 FiO2 Intake & Output 08/19/24 08/19/24 08/20/24 06:59 18:59 06:59 Intake Total 1090 1197 Output Total 800 1300 Balance 290 -103 Intake: Oral 1090 1197 Output: Urine 800 1300 Uretheral (Worrell) 1300 Other: Voiding Method Indwelling Catheter Indwelling Catheter Indwelling Catheter - Exam Patient is awake, comfortable, alert oriented x 3 no acute distress. Examination of the heart S1 and S2 Examination of the lungs bilateral breath sounds are heard Abdomen is soft nontender Examination of lower extremities shows no evidence of edema INSTRUMENTATION MANAGER exam grossly intact - Labs CBC & Chem 7: 08/15/24 04:58 08/19/24 05:17 Labs: Abnormal Lab Results - Last 24 Hours (Table) 08/19/24 08/19/24 08/19/24 Range/Units 05:17 12:13 17:02 Carbon Dioxide 20.6 L (21.6-31.8) mmol/L BUN 42.9 H (9.0-27.0) mg/dL Creatinine 2.6 H (0.6-1.5) mg/dL Est GFR (CKD-EPI) 23 L (>=60) Glucose 125 H (70-110) mg/dL POC Glucose (mg/dL) 150 H 114 H (70-110) mg/dL 08/19/24 Range/Units 20:18 Carbon Dioxide (21.6-31.8) mmol/L BUN (9.0-27.0) mg/dL Creatinine (0.6-1.5) mg/dL Est GFR (CKD-EPI) (>=60) Glucose (70-110) mg/dL POC Glucose (mg/dL) 142 H (70-110) mg/dL Assessment and Plan Assessment: 1. Acute kidney injury most likely acute interstitial nephritis. Maintained on prednisone. Status post 2 treatments of hemodialysis, dialysis currently on hold with last treatment on 08/11/2024. 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 Being followed by oncology. 2. Chronic kidney disease stage IIIa with with baseline creatinine around 1 to 1.2 mg/dL, proteinuria noted. 3. Hyperkalemia associated with acute kidney injury, improved 4. Hypercalcemia most likely associated with underlying paraproteinemia 5. Anemia, iron replete maintained on Aranesp 6. A-fib maintained on Eliquis Plan: Continue with IV fluids Continue with prednisone Repeat labs in a.m. Continue to avoid nephrotoxic agents. Bone marrow biopsy to be scheduled in 1 to 2 days.
[2024-08-20 05:22] LABS: Basophils % (A) 0 %; Eosinophils % (A) 0 %; HCT 27.3 % (39.0-53.0); HGB 8.9 gm/dL (13.0-17.5); Hypochromasia Slight; Lymphocytes # (A) 1.6 k/uL (1.0-4.8); Lymphocytes % (A) 16 %; MCH 34.8 pg (25.0-35.0); MCHC 32.6 g/dL (31.0-37.0); MCV 106.6 fL (80.0-100.0); Macrocytosis Moderate; Mean Platelet Volume 8.3; Monocytes # (A) 0.3 k/uL (0-1.0); Monocytes % (A) 3 %; Neutrophils # (A) 7.9 k/uL (1.3-7.7); Neutrophils % (A) 79 %; Platelet Count 199 k/uL (150-450); RBC 2.56 m/uL (4.30-5.90); WBC 10.1 k/uL (3.8-10.6)
[2024-08-20 06:53] LABS: African American GFR (CKD) 32 (>60 ml/min/1.73 sqM); Anion Gap 12 mmol/L; Blood Urea Nitrogen 44 mg/dL (9-20); Calcium 9.2 mg/dL (8.4-10.2); Carbon Dioxide 14 mmol/L (22-30); Chloride 108 mmol/L (98-107); Glucose 122 mg/dL (74-99); Magnesium 1.5 mg/dL (1.6-2.3); Non-African American GFR(CKD) 27 (>60 ml/min/1.73 sqM); Potassium 4.2 mmol/L (3.5-5.1); Sodium 134 mmol/L (137-145)
[2024-08-20 07:24] LABS: Glucose,Whole Blood 164 mg/dL (70-110)
[2024-08-20 12:08] LABS: Glucose,Whole Blood 113 mg/dL (70-110)
--- NOTE | 2024-08-20 13:59 | P.PN ---
Subjective Progress Note Date: 08/20/24 88-year-old man with PMH of atrial fibrillation currently on Eliquis, non- Hodgkin's lymphoma s/p chemotherapy in 2013 now in remission, hypertension, hypothyroidism, Systolic CHF, compression fractures in his back and GERD. Presenting to the emergency department to be sent from his [facility] due to elevation of his BUN/creatinine and potassium. Additionally, he was placed in the fdc for rehabilitation purposes due to his chronic back pain due to multiple compression fractures. He endorses having had decreased urge to urinate over the past week or so. He denies chest pain, difficulty breathing, shortness of breath, fever, chills or cough. 08/09/24 - Patient seen and examined at bedside this morning. Resting comfortably in bed. Stating he has no acute complaints. Overnight his potassium remained persistently elevated at 6.0 and he received 10 units IV insulin, one 50 mL IVP dextrose 50% syringe and 10 g Lokelma. Overnight course was uneventful. CBC and BMP this morning significant for Hgb 9.6, hct 28.2, MCV 101.2, sodium 132, potassium 5.5, chloride 94, BUN 75, creatinine 8.33, glucose 48, calcium 10.9, magnesium 2.7. As result of his glucose being 48 he received another one 50 mg IVP dextrose 50% syringe. Since placement, 500 cc urine collected from Worrell catheter. Fluid balance since arrival +1.4 L. Urinalysis completed yesterday showed 1+ urine protein, moderate urine blood, 38 urine RBCs. 08/10/24 - Patient seen and examined at bedside this morning. Resting comfortably in bed. Stating he has no acute complaints. His potassium, calcium, magnesium continue to all be elevated. BMP this morning significant for sodium 133, potassium 5.5, chloride 95, BUN 77, creatinine 7.84, calcium 10.4, phosphorus 6.4, magnesium 2.5. As of the past 24 hours he continues to have Worrell catheter which produced 775 cc urine. Had hemodialysis catheter placed in the right femoral vein yesterday preparation for dialysis today. Worrell catheter remains in place. 08/11/24 - Patient seen and examined at bedside this morning. Resting comfortably in bed, stating he has no acute complaints. Patient underwent hemodialysis yesterday which tolerated without incident with all goals met, 0 UF. BMP this morning significant for. Worrell catheter continues to be in place. Per nephrology's recommendation he will receive hemodialysis again today. 08/12/24 - Patient seen and examined. No new complaints today. No acute events overnight. 08/13/24 - Patient seen and examined at bedside this morning. He has no acute complaints today. Plan is to hold hemodialysis today with reevaluation tomorrow a renal recovery. 08/14/24 - Patient seen and examined at bedside this morning. He has no acute complaints today. Per nephrology's recommendation Pepcid and prednisone were added, and the patient's PPI was discontinued. After holding dialysis session his creatinine remained relatively stable. Urine free kappa light chain was elevated at 4.1 and urine free lambda light chain was elevated at 995.03, oncology team has been consulted. 08/15/24 - Patient seen and examined at bedside. No acute events overnight. Denies any new complaints. 08/16/24 - Patient seen and examined at bedside. No acute events overnight. Denies any new complaints. 08/17/24 - Patient seen and examined at bedside. No acute events overnight. Denies any new complaints 08/18/24 - Patient seen and examined at bedside. No acute events overnight. Denies any new complaints. 08/19/24 - Patient seen and examined at bedside. No acute events overnight. Denies any new complaints. 08/20/24 - Patient seen and examined at bedside this morning. No acute events overnight. Denies any new complaints. Patient had been pending completion of a biopsy, which now seems more likely to occur outpatient. Patient's Eliquis to be restarted and he knows to follow-up outpatient. Plan is for patient to be discharged tomorrow. REVIEW OF SYSTEMS: Pertinent positives and negatives noted in HPI. Physical Exam: General: nontoxic, no distress, appears at stated age; Worrell catheter in place Derm: warm, dry, intact Head: atraumatic, normocephalic, symmetric Eyes: EOMI, anicteric sclera ENT: Patient has bilateral ear tubes Mouth: no lip lesion, mucus membranes moist Cardiovascular: Irregularly irregular rhythm Lungs: CTA bilateral, bilateral rhonchi, no rales, no accessory muscle use Abdominal: soft, non-tender to palpataion, no appreciable organomegaly Extremities: no gross muscle atrophy, no edema, no contractures. Back pain reproducible with twisting/movement. Neuro: Alert, Oriented, CNII-XII grossly intact, gait normal. Psych: well appearing, appropriate affect Data Received Today: Labs: WBCs 10.1, hemoglobin 8.9, hematocrit 27.3, MCV 106.6; sodium 134, chloride 108, BUN 44, creatinine 2.11, calcium 9.2, magnesium 1.5 Imagining: No new imaging Assessment and plan 88-year-old PMH atrial fibrillation currently on Eliquis, non-Hodgkin's lymphoma s/p chemotherapy in 2013 on admission, hypertension, systolic CHF, compression fractures in his back, hypothyroidism, and GERD. Presents to the emergency department after being sent by his fdc due to an elevation of his BUN/creatinine and potassium. #Oliguric or Non-oliguric Acute Kidney Injury in the setting of stage IIIa chronic kidney disease, improving #Hyperkalemia, resolved #Hyponatremia, resolved #Hypercalcemia, resolved #Hypermagnesemia, resolved -Consider voiding trial -Discussed with nephrology, likely discharge tomorrow -Recheck BMP tomorrow a.m. -Strict Is & O's -Continue with normal saline 75 cc/h -Cardiac monitoring -Nephrology consulted -continue Aranesp 40 mcg every 7 days -Urine free kappa light chain elevated at 4.11; urine free lambda light chain elevated at 995.03 -Oncology consulted, recommending outpatient bone marrow biopsy #Episodic hypoglycemia -Multiple episodes of serum glucose <65 -Accu-Cheks ACHS #Chronic anemia #Macrocytosis -Continue to monitor CBC daily -Most recent vitamin B12 381 (07/28/2024) -Most recent serum folate 18.2 (07/28/2024) -Iron 61, TIBC 193, percent saturation 31.6%, transferrin 138, ferritin 548 #Systolic CHF, not in exacerbation #A-fib -Continue current home medications including Eliquis 2.5 twice daily -Most recent echocardiogram (03/03/2023) showed EF 35-40% #Chronic low back pain, secondary to compression fractures -Continue with lidocaine patch daily and Voltaren gel -Tylenol 650 mg every 6 hours as needed for pain #Hypothyroidism -Continue Synthroid 150 mcg daily #Hypertension -Continue to monitor vital signs -Continue home Lopressor 12.5 mg twice daily -Hold home lisinopril 2.5 mg daily secondary to HUNTER #GERD -Continue home omeprazole 20 mg daily #Benign prostatic hyperplasia -Continue home Flomax 0.4 mg daily GI prophylaxis: Famotidine 40 mg daily DVT prophylaxis: Continue Eliquis 2.5 mg twice daily Code status: No code F: Normal saline 75 cc per E: Replete as needed N: Renal diet A: Ambulatory Anticipated discharge place: [facility] Anticipated discharge time: Tomorrow Dictation was produced using [employer] dictation software. please excuse any grammatical, word or spelling errors. I have seen and evaluated the patient today. Discussed with the resident and agree with the residents finding and plan as documented in the resident's note. Changes highlighted in blue font. Objective - Vital Signs Vital signs: Vital Signs Temp 98.0 F 08/20/24 01:06 Pulse 82 08/20/24 01:06 Resp 16 08/20/24 01:06 BP 151/89 08/20/24 01:06 Pulse Ox 95 08/20/24 01:06 FiO2 Intake & Output 08/19/24 08/20/24 08/20/24 18:59 06:59 18:59 Intake Total 1197 Output Total 1300 1600 Balance -103 -1600 Intake: Oral 1197 Output: Urine 1300 1600 Uretheral (Worrell) 1300 500 Other: Voiding Method Indwelling Catheter Indwelling Catheter - Labs CBC & Chem 7: 08/20/24 04:51 08/20/24 04:51 Labs: Abnormal Lab Results - Last 24 Hours (Table) 08/19/24 08/19/24 08/19/24 Range/Units 05:17 12:13 17:02 RBC (4.30-5.90) m/uL Hgb (13.0-17.5) gm/dL Hct (39.0-53.0) % MCV (80.0-100.0) fL Neutrophils # (1.3-7.7) k/uL Sodium (137-145) mmol/L Chloride (98-107) mmol/L Carbon Dioxide 20.6 L (21.6-31.8) mmol/L BUN 42.9 H (9.0-27.0) mg/dL Creatinine 2.6 H (0.6-1.5) mg/dL Est GFR (CKD-EPI) 23 L (>=60) Glucose 125 H (70-110) mg/dL POC Glucose (mg/dL) 150 H 114 H (70-110) mg/dL Magnesium (1.6-2.3) mg/dL 08/19/24 08/20/24 08/20/24 Range/Units 20:18 04:51 04:51 RBC 2.56 L (4.30-5.90) m/uL Hgb 8.9 L (13.0-17.5) gm/dL Hct 27.3 L (39.0-53.0) % MCV 106.6 H (80.0-100.0) fL Neutrophils # 7.9 H (1.3-7.7) k/uL Sodium 134 L (137-145) mmol/L Chloride 108 H (98-107) mmol/L Carbon Dioxide 14 L (21.6-31.8) mmol/L BUN 44 H (9.0-27.0) mg/dL Creatinine 2.11 H (0.6-1.5) mg/dL Est GFR (CKD-EPI) (>=60) Glucose 122 H (70-110) mg/dL POC Glucose (mg/dL) 142 H (70-110) mg/dL Magnesium 1.5 L (1.6-2.3) mg/dL
--- NOTE | 2024-08-20 14:33 | P.PN ---
Subjective Progress Note Date: 08/20/24 Patient is seen for follow-up for acute kidney injury. Status post couple of treatments of hemodialysis. Last hemodialysis treatment was 08/11/2024 Serum creatinine 2.1 today. No major complaints. Bone marrow biopsy will be completed as an outpatient Objective - Vital Signs Vital signs: Vital Signs Temp 97.8 F 08/20/24 12:02 Pulse 71 08/20/24 12:02 Resp 16 08/20/24 12:02 BP 150/84 08/20/24 12:02 Pulse Ox 95 08/20/24 12:02 FiO2 Intake & Output 08/19/24 08/20/24 08/20/24 18:59 06:59 18:59 Intake Total 1197 118 Output Total 1300 1600 Balance -103 -1600 118 Intake: Oral 1197 118 Output: Urine 1300 1600 Uretheral (Worrell) 1300 500 Other: Voiding Method Indwelling Catheter Indwelling Catheter Indwelling Catheter - Exam Patient is awake, comfortable, alert oriented x 3 no acute distress. 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 - Labs CBC & Chem 7: 08/21/24 03:47 08/21/24 03:47 Labs: Abnormal Lab Results - Last 24 Hours (Table) 08/19/24 08/19/24 08/20/24 Range/Units 17:02 20:18 04:51 RBC 2.56 L (4.30-5.90) m/uL Hgb 8.9 L (13.0-17.5) gm/dL Hct 27.3 L (39.0-53.0) % MCV 106.6 H (80.0-100.0) fL Neutrophils # 7.9 H (1.3-7.7) k/uL Sodium (137-145) mmol/L Chloride (98-107) mmol/L Carbon Dioxide (22-30) mmol/L BUN (9-20) mg/dL Creatinine (0.66-1.25) mg/dL Glucose (74-99) mg/dL POC Glucose (mg/dL) 114 H 142 H (70-110) mg/dL Magnesium (1.6-2.3) mg/dL 02/17/25 02/17/25 02/17/25 Range/Units 04:51 07:22 12:05 RBC (4.30-5.90) m/uL Hgb (13.0-17.5) gm/dL Hct (39.0-53.0) % MCV (80.0-100.0) fL Neutrophils # (1.3-7.7) k/uL Sodium 134 L (137-145) mmol/L Chloride 108 H (98-107) mmol/L Carbon Dioxide 14 L (22-30) mmol/L BUN 44 H (9-20) mg/dL Creatinine 2.11 H (0.66-1.25) mg/dL Glucose 122 H (74-99) mg/dL POC Glucose (mg/dL) 164 H 113 H (70-110) mg/dL Magnesium 1.5 L (1.6-2.3) mg/dL Assessment and Plan Assessment: 1. Acute kidney injury most likely acute interstitial nephritis. Maintained on prednisone. Status post 2 treatments of hemodialysis, dialysis currently on hold with last treatment on 08/11/2024. 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 Being followed by oncology. 2. Chronic kidney disease stage IIIa with with baseline creatinine around 1 to 1.2 mg/dL, proteinuria noted. 3. Hyperkalemia associated with acute kidney injury, improved 4. Hypercalcemia most likely associated with underlying paraproteinemia 5. Anemia, iron replete maintained on Aranesp 6. A-fib maintained on Eliquis Plan: Continue with IV fluids Continue with prednisone Repeat labs in a.m. Continue to avoid nephrotoxic agents. Renal biopsy can be pursued outpatient Bone marrow biopsy will be performed. Patient is seen and examined. Agree with findings, assessment and plan.
--- NOTE | 2024-08-20 16:14 | P.PN ---
Subjective Progress Note Date: 08/20/24 Principal diagnosis: ARF, Hx HD In f/u today pt is sleepy, he is mildy confused, having trouble finding the words and making it clear what he wants to say. I did speak with his daughter on the phone, she reports that pt is hallucinating. No fevers, N,V, not eating much this AM, he is getting up to the bathroom with help. Objective - Vital Signs Vital signs: Vital Signs Temp 97.5 F L 08/20/24 07:16 Pulse 85 08/20/24 07:16 Resp 16 08/20/24 07:16 BP 175/123 08/20/24 07:16 Pulse Ox 96 08/20/24 07:16 FiO2 Intake & Output 08/19/24 08/20/24 08/20/24 18:59 06:59 18:59 Intake Total 1197 118 Output Total 1300 1600 Balance -103 -1600 118 Intake: Oral 1197 118 Output: Urine 1300 1600 Uretheral (Worrell) 1300 500 Other: Voiding Method Indwelling Catheter Indwelling Catheter - Constitutional General appearance: Present: average body habitus, cooperative, no acute distress - EENT Eyes: Present: anicteric sclerae, EOMI ENT: Present: hearing grossly normal - Respiratory Details: resp unlabored at rest - Cardiovascular Details: skin warm, well perfused, radial pulse2+, regular - Gastrointestinal General gastrointestinal: Present: soft - Neurologic Neurologic: Present: CNII-XII intact - Musculoskeletal Musculoskeletal: Present: generalized weakness - Psychiatric Psychiatric Comment(s): Occasionally confused about recent events, needs reinforcement. Family reports that he is hallucinating, he cannot communicate accurate information to his family Psychiatric: Present: A&O x's 3, appropriate affect - Labs CBC & Chem 7: 08/20/24 04:51 08/20/24 04:51 Labs: Abnormal Lab Results - Last 24 Hours (Table) 08/19/24 08/19/24 08/19/24 Range/Units 12:13 17:02 20:18 RBC (4.30-5.90) m/uL Hgb (13.0-17.5) gm/dL Hct (39.0-53.0) % MCV (80.0-100.0) fL Neutrophils # (1.3-7.7) k/uL Sodium (137-145) mmol/L Chloride (98-107) mmol/L Carbon Dioxide (22-30) mmol/L BUN (9-20) mg/dL Creatinine (0.66-1.25) mg/dL Glucose (74-99) mg/dL POC Glucose (mg/dL) 150 H 114 H 142 H (70-110) mg/dL Magnesium (1.6-2.3) mg/dL 08/20/24 08/20/24 08/20/24 Range/Units 04:51 04:51 07:22 RBC 2.56 L (4.30-5.90) m/uL Hgb 8.9 L (13.0-17.5) gm/dL Hct 27.3 L (39.0-53.0) % MCV 106.6 H (80.0-100.0) fL Neutrophils # 7.9 H (1.3-7.7) k/uL Sodium 134 L (137-145) mmol/L Chloride 108 H (98-107) mmol/L Carbon Dioxide 14 L (22-30) mmol/L BUN 44 H (9-20) mg/dL Creatinine 2.11 H (0.66-1.25) mg/dL Glucose 122 H (74-99) mg/dL POC Glucose (mg/dL) 164 H (70-110) mg/dL Magnesium 1.5 L (1.6-2.3) mg/dL Assessment and Plan (1) Acute renal failure Current Visit: Yes Status: Acute Priority: High Code(s): N17.9 - ACUTE KIDNEY FAILURE, UNSPECIFIED SNOMED Code(s): 09520042 (2) Weakness Current Visit: Yes Status: Acute Priority: High Code(s): R53.1 - WEAKNESS SNOMED Code(s): 16602183 (3) NHL (non-Hodgkin's lymphoma) Current Visit: No Status: Chronic Priority: Low Code(s): C85.90 - NON- HODGKIN LYMPHOMA, UNSPECIFIED, UNSPECIFIED SITE SNOMED Code(s): 175215051 Plan: Acute renal failure -currently admitted with acute renal failure. -Nephrology is following. Pt has had few sessions of dialysis, Cr 2.1 today. Significantly elevated urine lambda light chain -Found on additional workup by Nephrology for acute renal failure -Serum lambda light chain elevated 516, M-spike 0.24gm/dl. [employer] 995, urine immunofixation showing lambda monoclonal proteins. 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 -Bone marrow biopsy is sched for Tuesday, lab support tech not available any sooner. NPO after midnight, hold eliquis. Obtain consent Anemia -Multifactorial including renal failure. CONCETTA started -B12 was low normal end of Jul, oral supplement ordered -Hgb stable in the 8-9 range at this time. Transfuse for a Hgb <7 or if symptomatic Want pt to go back to rehab as soon as BM Bx done as long as he is stable post procedure.
[2024-08-20 17:07] LABS: Glucose,Whole Blood 155 mg/dL (70-110)
[2024-08-20 19:50] LABS: Glucose,Whole Blood 156 mg/dL (70-110)
[2024-08-20] MEDS: APIXABAN 2.5 MG TABLET PO SCH (20:00)
[2024-08-21 04:36] LABS: Basophils % (A) 0 %; Eosinophils % (A) 0 %; HCT 27.5 % (39.0-53.0); HGB 8.9 gm/dL (13.0-17.5); Lymphocytes # (A) 1.6 k/uL (1.0-4.8); Lymphocytes % (A) 16 %; MCH 33.7 pg (25.0-35.0); MCHC 32.3 g/dL (31.0-37.0); MCV 104.2 fL (80.0-100.0); Macrocytosis Slight; Mean Platelet Volume 8.4; Monocytes # (A) 0.3 k/uL (0-1.0); Monocytes % (A) 3 %; Neutrophils # (A) 8.4 k/uL (1.3-7.7); Neutrophils % (A) 80 %; Platelet Count 220 k/uL (150-450); RBC 2.64 m/uL (4.30-5.90); RDW 14.1 % (11.5-15.5); WBC 10.5 k/uL (3.8-10.6)
[2024-08-21 04:54] LABS: African American GFR (CKD) 34 (>60 ml/min/1.73 sqM); Anion Gap 8 mmol/L; Blood Urea Nitrogen 43 mg/dL (9-20); Calcium 8.5 mg/dL (8.4-10.2); Carbon Dioxide 18 mmol/L (22-30); Chloride 108 mmol/L (98-107); Glucose 109 mg/dL (74-99); Non-African American GFR(CKD) 30 (>60 ml/min/1.73 sqM); Sodium 134 mmol/L (137-145)
[2024-08-21 07:23] LABS: Glucose,Whole Blood 111 mg/dL (70-110)
[2024-08-21 12:24] LABS: Glucose,Whole Blood 92 mg/dL (70-110)
--- NOTE | 2024-08-21 13:21 | P.PN ---
Subjective Progress Note Date: 08/21/24 Patient is seen for follow-up for acute kidney injury. Status post couple of treatments of hemodialysis. Last hemodialysis treatment was 08/11/2024 Serum creatinine 1.9 today. He is otherwise well with no major complaints. Bone marrow and kidney biopsy will be completed as an outpatient Objective - Vital Signs Vital signs: Vital Signs Temp 98.3 F 08/21/24 07:49 Pulse 76 08/21/24 07:49 Resp 18 08/21/24 07:49 BP 156/90 08/21/24 07:49 Pulse Ox 96 08/21/24 07:49 FiO2 Intake & Output 08/20/24 08/21/24 08/21/24 18:59 06:59 18:59 Intake Total 658 118 Output Total 1050 500 120 Balance -392 -500 -2 Intake: Oral 658 118 Output: Urine 1050 500 120 Other: Voiding Method Indwelling Catheter Indwelling Catheter Indwelling Catheter # Bowel Movements 0 - Exam Patient is awake, comfortable, alert oriented x 3 no acute distress. 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 - Labs CBC & Chem 7: 08/21/24 03:47 08/21/24 03:47 Labs: Abnormal Lab Results - Last 24 Hours (Table) 08/20/24 08/20/24 08/20/24 Range/Units 12:05 17:04 19:44 RBC (4.30-5.90) m/uL Hgb (13.0-17.5) gm/dL Hct (39.0-53.0) % MCV (80.0-100.0) fL Neutrophils # (1.3-7.7) k/uL Sodium (137-145) mmol/L Chloride (98-107) mmol/L Carbon Dioxide (22-30) mmol/L BUN (9-20) mg/dL Creatinine (0.66-1.25) mg/dL Glucose (74-99) mg/dL POC Glucose (mg/dL) 113 H 155 H 156 H (70-110) mg/dL 08/21/24 08/21/24 08/21/24 Range/Units 03:47 03:47 07:20 RBC 2.64 L (4.30-5.90) m/uL Hgb 8.9 L (13.0-17.5) gm/dL Hct 27.5 L (39.0-53.0) % MCV 104.2 H (80.0-100.0) fL Neutrophils # 8.4 H (1.3-7.7) k/uL Sodium 134 L (137-145) mmol/L Chloride 108 H (98-107) mmol/L Carbon Dioxide 18 L (22-30) mmol/L BUN 43 H (9-20) mg/dL Creatinine 1.97 H (0.66-1.25) mg/dL Glucose 109 H (74-99) mg/dL POC Glucose (mg/dL) 111 H (70-110) mg/dL Assessment and Plan Assessment: 1. Acute kidney injury most likely acute interstitial nephritis. Maintained on prednisone. Status post 2 treatments of hemodialysis, dialysis currently on hold with last treatment on 08/11/2024. 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 Being followed by oncology. 2. Chronic kidney disease stage IIIa with with baseline creatinine around 1 to 1.2 mg/dL, proteinuria noted. 3. Hyperkalemia associated with acute kidney injury, improved 4. Hypercalcemia most likely associated with underlying paraproteinemia 5. Anemia, iron replete maintained on Aranesp 6. A-fib maintained on Eliquis Plan: Discontinue with IV fluids Continue with prednisone Continue to avoid nephrotoxic agents. Renal biopsy and bone marrow biopsy can be pursued outpatient. Patient is stable for discharge nephrology standpoint, follow-up with nephrology as outpatient. Agree with resident's Assessment and Plan
--- NOTE | 2024-08-21 14:51 | P.DS ---
Providers Date of admission: 08/08/24 14:11 Expected date of discharge: 08/21/24 Attending physician: Sanjiv Gentile Consults: 08/08/24 14:11 Consult Physician Urgent Consulting Provider: Heather Thomas Consult Reason/Comments: Acute renal failure Do you want consulting provider notified?: Yes 08/09/24 16:12 Consult Physician Urgent Consulting Provider: Thien Campbell Consult Reason/Comments: dialysis catheter Do you want consulting provider notified?: Already Contacted 08/14/24 11:03 Consult Physician Routine Consulting Provider: Robby العلي Consult Reason/Comments: hypercalcemia, +IF Do you want consulting provider notified?: Yes Primary care physician: [facility] Course: Discharge diagnoses; #Oliguric or Non-oliguric Acute Kidney Injury in the setting of stage IIIa chronic kidney disease, improving #Hyperkalemia, resolved #Hyponatremia, resolved #Hypercalcemia, resolved #Hypermagnesemia, resolved #Chronic anemia #Macrocytosis #Systolic CHF, not in exacerbation #A-fib Hospital course; 88-year-old man with PMH of atrial fibrillation currently on Eliquis, non- Hodgkin's lymphoma s/p chemotherapy in 2013 now in remission, hypertension, hypothyroidism, Systolic CHF, compression fractures in his back and GERD. Presenting to the emergency department to be sent from his snf due to elevation of his BUN/creatinine and potassium. He had persistently elevated potassium despite standard treatment for high potassium being given on multiple occasions. Additionally, his creatinine level continue to be elevated persistently. Catheter was placed for hemodialysis to occur on 08/10/2024, and he underwent 2 days of hemodialysis treatment. Additional testing was completed to determine why the sudden changes in his kidney function. Concern for possible multiple myeloma and amyloidosis. Additionally, he was seen by nephrology and hematology/oncology throughout his stay. He is continued to rest comfortably in his room without any acute complaints. Plan for outpatient bone marrow biopsy. Continue oral steroids. He will return to [facility] with prescription for 2 new medications and discontinuation of 2 others. He is to follow-up with his primary care physician within the next 1-2 days, with his payroll coordinator within 1 week and the hematology/oncology physician within 1-3 weeks. Physical Exam: General: nontoxic, no distress, appears at stated age Derm: warm, dry, intact Head: atraumatic, normocephalic, symmetric Eyes: EOMI, anicteric sclera Mouth: no lip lesion, mucus membranes moist Cardiovascular: S1 S2 reg, no murmur, rubs, or gallops Lungs: CTA bilateral, no rales, no accessory muscle use Abdominal: soft, non-tender to palpataion, no appreciable organomegaly Extremities: no gross muscle atrophy, no edema, no contractures Neuro: Alert, Oriented, CNII-XII grossly intact, gait normal Psych: well appearing, appropriate affect Dictation was produced using Fronto dictation software. please excuse any grammatical, word or spelling errors. A total of 38 minutes of time were spent preparing this complex discharge summary. Patient was discharged on 08/21/2024 at 1147. I have seen and evaluated the patient today. Discussed with the resident and agree with the residents finding and plan as documented in the resident's note. Changes highlighted in blue font. Patient Condition at Discharge: Stable Plan - Discharge Summary Discharge Rx Participant: Yes New Discharge Prescriptions: New Famotidine 20 mg PO DAILY #60 tablet predniSONE 30 mg PO BID #120 tab Continue Levothyroxine Sodium [Synthroid] 150 mcg PO HS Apixaban [Eliquis] 5 mg PO BID Cholecalciferol [Vitamin D3 (125 Mcg = 5000 Iu)] 125 mcg PO HS Docusate [Colace] 100 mg PO BID@0800,1600 bisacodyL [Dulcolax] 10 mg RECTAL DAILY PRN PRN Reason: Constipation Naloxone HCl [Narcan] 4 mg NASAL DIRECTED PRN PRN Reason: Overdose Tamsulosin [Flomax] 0.4 mg PO DAILY Metoprolol Tartrate [Lopressor] 12.5 mg PO BID Cyclobenzaprine [Flexeril] 5 mg PO HS #20 tab Diclofenac Sodium Gel [Voltaren 1% Gel] 1 applic TOPICAL DAILY Magnesium Oxide [Mag-Ox] 400 mg PO HS polyethylene glycoL 3350 [Miralax] 17 gm PO DAILY packet Acetaminophen Tab [Tylenol] 650 mg PO Q6HR PRN tab PRN Reason: Mild Pain Or Fever > 100.5 Magnesium Hydroxide [Milk of Magnesia] 2,400 mg PO DAILY PRN PRN Reason: Constipation Lidocaine 4% Patch 1 patch TOPICAL DAILY oxyCODONE-APAP 7.5-325MG [Percocet 7.5-325 mg] 1 tab PO Q6HR PRN PRN Reason: Moderate Pain (Scale 4 To 6) Discontinued Omeprazole [PriLOSEC] 20 mg PO DAILY lisinopriL [Zestril] 2.5 mg PO DAILY #30 tab Discharge Medication List Apixaban [Eliquis] 5 mg PO BID 03/30/21 [History] Levothyroxine Sodium [Synthroid] 150 mcg PO HS 03/30/21 [History] Metoprolol Tartrate [Lopressor] 12.5 mg PO BID 04/27/24 [History] Cyclobenzaprine [Flexeril] 5 mg PO HS #20 tab 07/21/24 [Rx] Cholecalciferol [Vitamin D3 (125 Mcg = 5000 Iu)] 125 mcg PO HS 07/28/24 [History] Diclofenac Sodium Gel [Voltaren 1% Gel] 1 applic TOPICAL DAILY 07/28/24 [History] Docusate [Colace] 100 mg PO BID@0800,1600 07/28/24 [History] Magnesium Oxide [Mag-Ox] 400 mg PO HS 07/28/24 [History] Acetaminophen Tab [Tylenol] 650 mg PO Q6HR PRN tab 08/01/24 [Rx] polyethylene glycoL 3350 [Miralax] 17 gm PO DAILY packet 08/01/24 [Rx] Lidocaine 4% Patch 1 patch TOPICAL DAILY 08/08/24 [History] Magnesium Hydroxide [Milk of Magnesia] 2,400 mg PO DAILY PRN 08/08/24 [History] Naloxone HCl [Narcan] 4 mg NASAL DIRECTED PRN 08/08/24 [History] Tamsulosin [Flomax] 0.4 mg PO DAILY 08/08/24 [History] bisacodyL [Dulcolax] 10 mg RECTAL DAILY PRN 08/08/24 [History] oxyCODONE-APAP 7.5-325MG [Percocet 7.5-325 mg] 1 tab PO Q6HR PRN 08/08/24 [History] Famotidine 20 mg PO DAILY #60 tablet 08/21/24 [Rx] predniSONE 30 mg PO BID #120 tab 08/21/24 [Rx] Follow up Appointment(s)/Referral(s): Robby العلي [STAFF PHYSICIAN] - 3 Weeks Heather Thomas MD [STAFF PHYSICIAN] - 1 Week Gama Moses DO [Primary Care Provider] - 1-2 days Patient Instructions/Handouts: Acute Kidney Injury (DC) Activity/Diet/Wound Care/Special Instructions: Follow up with nephrology within 1 week and follow up with Hematology/Oncology within 1 week. Discharge Disposition: TRANSFER TO SNF/ECF
--- NOTE | 2024-08-21 15:43 | P.PN ---
Subjective Progress Note Date: 08/21/24 Principal diagnosis: ARF, Hx HD In f/u today pt is in chair, he is more clear today then yesterday. No new c/o, he is needing held tp get to the bathroom. Objective - Vital Signs Vital signs: Vital Signs Temp 97.9 F 08/21/24 11:59 Pulse 70 08/21/24 11:59 Resp 18 08/21/24 11:59 BP 158/82 08/21/24 11:59 Pulse Ox 97 08/21/24 11:59 FiO2 Intake & Output 08/20/24 08/21/24 08/21/24 18:59 06:59 18:59 Intake Total 658 358 Output Total 1050 500 300 Balance -392 -500 58 Intake: Oral 658 358 Output: Urine 1050 500 300 Other: Voiding Method Indwelling Catheter Indwelling Catheter Toilet Urinal # Voids 1 # Bowel Movements 0 1 - Constitutional General appearance: Present: average body habitus, cooperative, no acute distress - EENT Eyes: Present: anicteric sclerae, EOMI, poor dentition - Respiratory Details: resp unlabored - Cardiovascular Details: skin warm and dry, well perfused - Peripheral edema leg Peripheral Edema: bilateral: Trace - Integumentary Integumentary: Present: normal - Neurologic Neurologic: Present: CNII-XII intact - Musculoskeletal Musculoskeletal: Present: generalized weakness - Psychiatric Psychiatric Comment(s): forgetful Psychiatric: Present: A&O x's 3, appropriate affect, intact judgment & insight - Labs CBC & Chem 7: 08/21/24 03:47 08/21/24 03:47 Labs: Abnormal Lab Results - Last 24 Hours (Table) 08/20/24 08/20/24 08/21/24 Range/Units 17:04 19:44 03:47 RBC 2.64 L (4.30-5.90) m/uL Hgb 8.9 L (13.0-17.5) gm/dL Hct 27.5 L (39.0-53.0) % MCV 104.2 H (80.0-100.0) fL Neutrophils # 8.4 H (1.3-7.7) k/uL Sodium (137-145) mmol/L Chloride (98-107) mmol/L Carbon Dioxide (22-30) mmol/L BUN (9-20) mg/dL Creatinine (0.66-1.25) mg/dL Glucose (74-99) mg/dL POC Glucose (mg/dL) 155 H 156 H (70-110) mg/dL 08/21/24 08/21/24 Range/Units 03:47 07:20 RBC (4.30-5.90) m/uL Hgb (13.0-17.5) gm/dL Hct (39.0-53.0) % MCV (80.0-100.0) fL Neutrophils # (1.3-7.7) k/uL Sodium 134 L (137-145) mmol/L Chloride 108 H (98-107) mmol/L Carbon Dioxide 18 L (22-30) mmol/L BUN 43 H (9-20) mg/dL Creatinine 1.97 H (0.66-1.25) mg/dL Glucose 109 H (74-99) mg/dL POC Glucose (mg/dL) 111 H (70-110) mg/dL Assessment and Plan (1) Acute renal failure Current Visit: Yes Status: Acute Priority: High Code(s): N17.9 - ACUTE KIDNEY FAILURE, UNSPECIFIED SNOMED Code(s): 46880032 (2) Weakness Current Visit: Yes Status: Inactive Priority: High Code(s): R53.1 - WEAKNESS SNOMED Code(s): 65975175 (3) NHL (non-Hodgkin's lymphoma) Current Visit: No Status: Chronic Priority: Low Code(s): C85.90 - NON- HODGKIN LYMPHOMA, UNSPECIFIED, UNSPECIFIED SITE SNOMED Code(s): 358746654 Plan: Acute renal failure -currently admitted with acute renal failure. -Nephrology is following. D/W Flexboard Operator today, possible outpt kidney biopsy. There was an opening on the IR sched for 08/30 but, not sure if pt was put in that spot -Pt has had few sessions of dialysis, Cr 1.9 today. Significantly elevated urine lambda light chain -Found on additional workup by Nephrology for acute renal failure -Serum lambda light chain elevated 516, M-spike 0.24gm/dl. [employer] 995, urine immunofixation showing lambda monoclonal proteins. 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 -Bone marrow biopsy will now be sched outpt as pt is being discharged Anemia -Multifactorial including renal failure. COCNETTA started -B12 was low normal end of Jul, oral supplement ordered -Hgb stable in the 8-9 range at this time. Transfuse for a Hgb <7 or if symptomatic
[2024-08-21 16:28] VITALS: TEMP 97.5
[2024-08-21 16:56] LABS: Reticulocyte % 2.3 % (0.5-2.0)
[2024-08-21 17:21] LABS: Glucose,Whole Blood 92 mg/dL (70-110)
[2024-08-21 19:45] VITALS: BP 172/96; PULSE 82; RESP 12
--- NOTE | 2024-08-21 23:05 | OP ---
OPERATIVE REPORT DATE OF SERVICE : PROCEDURE: Removal of dialysis catheter, right femoral approach. DESCRIPTION OF PROCEDURE: The patient was seen in the room. Right groin was prepped and stitches were removed from the catheter and the catheter was removed. Pressures were held. The patient tolerated the procedure well. JAYLENE / THEE: [id number] /
== END 2024-08-21 20:14 | DRG 682 ==
LOC: EC 12:22 → 5NMEDONC 14:11 → 3SCARD 08-16 00:27 → 5NMEDONC 08-16 00:28
PROVIDERS: ADMIT Student in an Organized Health Care Education/Training Program; ATTEND Student in an Organized Health Care Education/Training Program
PROC: 06HM33Z Insertion of Infusion Device into Right Femoral Vein, Percutaneous Approach (ICD-10-PCS; 2024-08-09)
PROC: 5A1D70Z Performance of Urinary Filtration, Intermittent, Less than 6 Hours Per Day (ICD-10-PCS; principal; 2024-08-10)
DX: N17.9 Acute kidney failure, unspecified (principal); I50.23 Acute on chronic systolic (congestive) heart failure; D89.2 Hypergammaglobulinemia, unspecified; Z66 Do not resuscitate; D63.1 Anemia in chronic kidney disease; E86.0 Dehydration; I48.20 Chronic atrial fibrillation, unspecified; C91.10 Chronic lymphocytic leukemia of B-cell type not having achieved remission; I13.0 Hypertensive heart and chronic kidney disease with heart failure and stage 1 through stage 4 chronic kidney disease, or unspecified chronic kidney disease; N18.31 Chronic kidney disease, stage 3a; E03.9 Hypothyroidism, unspecified; E87.1 Hypo-osmolality and hyponatremia; E83.41 Hypermagnesemia; G62.9 Polyneuropathy, unspecified; N10 Acute pyelonephritis; Z11.52 Encounter for screening for COVID-19; E87.5 Hyperkalemia; E83.52 Hypercalcemia; D75.89 Other specified diseases of blood and blood-forming organs; Z79.890 Hormone replacement therapy; G89.29 Other chronic pain; M19.90 Unspecified osteoarthritis, unspecified site; K21.9 Gastro-esophageal reflux disease without esophagitis; N40.0 Benign prostatic hyperplasia without lower urinary tract symptoms; Z79.01 Long term (current) use of anticoagulants; Z79.52 Long term (current) use of systemic steroids; Z79.899 Other long term (current) drug therapy; Z82.49 Family history of ischemic heart disease and other diseases of the circulatory system; Z86.73 Personal history of transient ischemic attack (TIA), and cerebral infarction without residual deficits; Z87.442 Personal history of urinary calculi; Z87.891 Personal history of nicotine dependence; Z92.21 Personal history of antineoplastic chemotherapy; Z96.651 Presence of right artificial knee joint; Z88.8 Allergy status to other drugs, medicaments and biological substances; Z86.19 Personal history of other infectious and parasitic diseases; Z87.311 Personal history of (healed) other pathological fracture
CPT/HCPCS: 36415; 36556; 71045; 76770; 80048; 80053; 81001; 82306; 82533; 82652; 82728; 82784; 83516; 83519; 83540; 83550; 83735; 83883; 83970; 84100; 84132; 84165; 84166; 85025; 85045; 85610; 86038; 86160; 86225; 86255; 86334; 86335; 86706; 86803; 87205; 87324; 87340; 87636; 90935; 93005; 96374; 96375; 99285

== ENCOUNTER 2024-09-16 10:56 | Inpatient (IN) | payer OTHER, MEDICARE ==
--- NOTE | 2024-09-16 11:49 | ED ---
General Adult HPI - General Chief complaint: Altered Mental Status Stated complaint: AMS Time Seen by Provider: 09/16/24 11:00 Source: patient Mode of arrival: EMS Limitations: altered mental status - History of Present Illness Initial comments: Dictation was produced using Ha[employer] dictation software. please excuse any grammatical, word or spelling errors. Chief Complaint: 88-year-old male brought in for altered mental status, positive lung sounds and dyspnea History of Present Illness: Patient is 88-year-old male presents to the emergency department from alf. Patient here for worsening mentation, productive cough, malaise and positive lung sounds. Patient is a poor historian. EMS provides history of present illness. The ROS documented in this emergency department record has been reviewed and confirmed by me. Those systems with pertinent positive or negative responses have been documented in the HPI. All other systems are other negative and/or noncontributory. - Related Data Home Medications Medication Instructions Recorded Confirmed Apixaban [Eliquis] 5 mg PO BID 03/30/21 08/08/24 Levothyroxine Sodium [Synthroid] 150 mcg PO HS 03/30/21 08/08/24 Metoprolol Tartrate [Lopressor] 12.5 mg PO BID 04/27/24 08/08/24 Cholecalciferol [Vitamin D3 (125 125 mcg PO HS 07/28/24 08/08/24 Mcg = 5000 Iu)] Diclofenac Sodium Gel [Voltaren 1% 1 applic TOPICAL DAILY 07/28/24 08/08/24 Gel] Docusate [Colace] 100 mg PO BID@0800,1600 07/28/24 08/08/24 Magnesium Oxide [Mag-Ox] 400 mg PO HS 07/28/24 08/08/24 Lidocaine 4% Patch 1 patch TOPICAL DAILY 08/08/24 08/08/24 Magnesium Hydroxide [Milk of 2,400 mg PO DAILY PRN 08/08/24 08/08/24 Magnesia] Naloxone HCl [Narcan] 4 mg NASAL DIRECTED PRN 08/08/24 08/08/24 Tamsulosin [Flomax] 0.4 mg PO DAILY 08/08/24 08/08/24 bisacodyL [Dulcolax] 10 mg RECTAL DAILY PRN 08/08/24 08/08/24 oxyCODONE-APAP 7.5-325MG [Percocet 1 tab PO Q6HR PRN 08/08/24 08/08/24 7.5-325 mg] Previous Rx's Medication Instructions Recorded Cyclobenzaprine [Flexeril] 5 mg PO HS #20 tab 07/21/24 Acetaminophen Tab [Tylenol] 650 mg PO Q6HR PRN tab 08/01/24 polyethylene glycoL 3350 [Miralax] 17 gm PO DAILY packet 08/01/24 Famotidine 20 mg PO DAILY #60 tablet 08/21/24 predniSONE 30 mg PO BID #120 tab 08/21/24 Allergies Allergy/AdvReac Type Severity Reaction Status Date / Time celecoxib [From Celebrex] AdvReac muscle Verified 08/08/24 15:18 cramps niacin AdvReac muscle Verified 08/08/24 15:18 cramps nystatin AdvReac muscle Verified 08/08/24 15:18 cramps Vkbpslo-QSG-NrL Reductase AdvReac muscle Verified 08/08/24 15:18 Inhibitor cramps [Lyvzajt-Ceo-Ehc Reductase Inhibitor] Review of Systems ROS Statement: Those systems with pertinent positive or pertinent negative responses have been documented in the HPI. ROS Other: All systems not noted in ROS Statement are negative. Past Medical History Past Medical History: Atrial Fibrillation, Cancer, GERD/Reflux, Hypertension, Osteoarthritis (OA), Thyroid Disorder Additional Past Medical History / Comment(s): hx kidney stones, hodgkins lymphoma,. 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 hx rapid heart rate History of Any Multi-Drug Resistant Organisms: MRSA Date of last positivie culture/infection: 2014 MDRO Source:: lung Past Surgical History: Joint Replacement Additional Past Surgical History / Comment(s): right knee replacement, sinan knee scope, sinan carpal tunnel lymph node biopsy, lt shoulder rotator cuff Past Anesthesia/Blood Transfusion Reactions: No Reported Reaction Past Psychological History: No Psychological Hx Reported Smoking Status: Former smoker Past Alcohol Use History: None Reported Past Drug Use History: None Reported - Past Family History Sister(s) Family Medical History: Cancer Mother Family Medical History: No Reported History Father Family Medical History: Hypertension General Exam - General Exam Comments Initial Comments: PHYSICAL EXAM: General Impression: Alert and oriented x2/4, not in acute distress HEENT: Normocephalic atraumatic, extra-ocular movements intact, pupils equal and reactive to light bilaterally, dry mucous membranes Cardiovascular: Heart regular rate and rhythm Chest: Able to complete full sentences, no retractions, no tachypnea Abdomen: abdomen soft, non-tender, non-distended, no organomegaly Musculoskeletal: Pulses present and equal in all extremities, no peripheral edema Motor: no focal deficits noted Neurological: CN II-XII grossly intact, no focal motor or sensory deficits noted Skin: Intact with no visualized rashes Psych: Normal affect and mood Limitations: altered mental status Course Vital Signs 09/16/24 09/16/24 09/16/24 11:00 11:35 12:49 Temperature 102.4 F H Pulse Rate 112 H 88 Respiratory 20 24 18 Rate Blood Pressure 140/100 98/70 O2 Sat by Pulse 97 98 Oximetry 09/16/24 09/16/24 13:00 14:00 Temperature 99 F Pulse Rate 92 Respiratory 18 Rate Blood Pressure 86/66 102/66 O2 Sat by Pulse 98 Oximetry - Reevaluation(s) Reevaluation #1: 09/16/24 13:55 More history was obtained from daughter states that he was recently diagnosed with multiple myeloma after a kidney and bone marrow biopsy. He has been dealing with a productive cough recently that was productive for green sputum. Patient is DNR according to daughter. EKG Findings - EKG Comments: EKG Findings:: My EKG interpretation: Ventricular rate 98, A-fib, QRS 125, QTc 398. NoQTC prolongation, no ST or T-wave changes noted. EKG compared to August 08, 2024 showing no changes. Overall, this EKG is unremarkable Medical Decision Making - Medical Decision Making Was pt. sent in by a medical professional or institution (, PA, NURSE SPECIAL, urgent care, hospital, or alf...) When possible be specific @ -No Did you speak to anyone other than the patient for history (EMS, parent, family, police, friend...)? What history was obtained from this source @ -See above Did you review nursing and triage notes (agree or disagree)? Why? @ -I reviewed and agree with nursing and triage notes Were old charts reviewed (outside hosp., previous admission, EMS record, old EKG, old radiological studies, urgent care reports/EKG's, alf records)? Report findings @ -No old charts were reviewed Differential Diagnosis (chest pain, altered mental status, abdominal pain women, abdominal pain men, vaginal bleeding, musculoskeletal, weakness, fever, dyspnea, syncope, headache, dizziness, GI bleed, back pain, seizure, CVA, palpatations, mental health)? @ -Differential Dyspnea: Coronary syndrome, arrhythmia, tamponade, asthma, COPD, pulmonary embolism, pneumonia, pneumothorax, pulmonary effusion, anaphylaxis, diabetic ketoacidosis, flailed chest, pulmonary contusion, diaphragmatic rupture, anemia, neuromuscular, this is not meant to be an all-inclusive list. EKG interpreted by me (3pts min.). @ -See above X-rays interpreted by me (1pt min.). @ -Chest x-ray shows bibasilar atelectasis versus infiltrate CT interpreted by me (1pt min.). @ -CT brain shows no acute processes U/S interpreted by me (1pt. min.). @ -None done What testing was considered but not performed or refused? (CT, X-rays, U/S, labs)? Why? @ -None What meds were considered but not given or refused? Why? @ -None Was smoking cessation discussed for >3mins.? @ -No Were there social determinants of health that impacted care today? How? (Homelessness, low income, unemployed, alcoholism, drug addiction, transportation, low edu. Level, literacy, decrease access to med. care, m[facility], rehab)? @ -No Was there de-escalation of care discussed even if they declined (Discuss DNR or withdrawal of care, Hospice)? DNR status @ -No What co-morbidities impacted this encounter? (DM, HTN, Smoking, COPD, CAD, Cancer, CVA, ARF, Chemo, Hep., AIDS, mental health diagnosis, sleep apnea, morbid obesity)? @ -Multiple myeloma, A-fib Was patient admitted / discharged? Hospital course, mention meds given and route, prescriptions, significant lab abnormalities, going to OR and other pertinent info. @ -88-year-old male presents to the emergency department from [facility] for productive cough. Daughter states that patient is DNR. Vital signs upon arrival shows temperature of 1-2.4 rectal, heart rate 112. Initial blood pressure 140/100. Patient had soft blood pressures following. Patient given 30 cc/kg bolus. MAP's however still remained above 65, however he did have 1 blood pressure reading with systolic measurement less than 90. Patient started antibiotics for pneumonia. X-ray shows questionable infiltrates to the bases. Laboratory evaluation obtained. No lactic acidosis. Urinalysis is negative. CBC is within acceptable limits. Viral testing positive for RSV. Patient admitted consultation to pulmonology. Did you discuss the management of the patient with other professionals (professionals i.e. , PA, NURSE SPECIAL, lab, RT, psych nurse, social and political studies professor, reinsurance accountant, te acher, district fire management officer, clinical case manager)? Give summary @ -Case discussed with hospitalist for admission Was critical care preformed (if so, how long)? @ -Yes, 33 minutes for severe sepsis Undiagnosed new problem with uncertain prognosis? @ -No Drug Therapy requiring intensive monitoring for toxicity (Heparin, Nitro, Insulin, Cardizem)? @ -No Were any procedures done? @ -No Diagnosis/symptom? Acute, or Chronic, or Acute on Chronic? Uncomplicated (without systemic symptoms) or Complicated (systemic symptoms)? @ -Pneumonia sepsis Side effects of treatment? @ -No Exacerbation, Progression, or Severe Exacerbation? @ -No Poses a threat to life or bodily function? How? (Chest pain, [place], [place], pneumonia, PE, COPD, DKA, ARF, appy, cholecystitis, CVA, Diverticulitis, Homicidal, Suicidal, threat to staff... and all critical care pts) @ -yes - Lab Data Result diagrams: 09/16/24 11:17 09/16/24 11:17 Lab Results 09/16/24 09/16/24 09/16/24 Range/Units 11:17 11:17 11:17 WBC 4.1 (3.8-10.6) k/uL RBC 3.06 L (4.30-5.90) m/uL Hgb 10.1 L (13.0-17.5) gm/dL Hct 31.6 L (39.0-53.0) % MCV 103.4 H (80.0-100.0) fL MCH 33.2 (25.0-35.0) pg MCHC 32.1 (31.0-37.0) g/dL RDW 13.8 (11.5-15.5) % Plt Count 157 (150-450) k/uL MPV 8.5 Neutrophils % 75 % Lymphocytes % 19 % Monocytes % 3 % Eosinophils % 1 % Basophils % 0 % Neutrophils # 3.1 (1.3-7.7) k/uL Lymphocytes # 0.8 L (1.0-4.8) k/uL Monocytes # 0.1 (0-1.0) k/uL Eosinophils # 0.0 (0-0.7) k/uL Basophils # 0.0 (0-0.2) k/uL Hypochromasia Slight Macrocytosis Slight PT 12.7 H (10.0-12.5) sec INR 1.2 H (<1.2) APTT 28.6 (22.0-30.0) sec Sodium 138 (137-145) mmol/L Potassium 4.5 (3.5-5.1) mmol/L Chloride 100 (98-107) mmol/L Carbon Dioxide 32 H (22-30) mmol/L Anion Gap 6 mmol/L BUN 40 H (9-20) mg/dL Creatinine 1.83 H (0.66-1.25) mg/dL Est GFR (CKD-EPI)AfAm 38 (>60 ml/min/1.73 sqM) Est GFR (CKD-EPI)NonAf 33 (>60 ml/min/1.73 sqM) Glucose 87 (74-99) mg/dL Plasma Lactic Acid Adam (0.7-2.0) mmol/L Calcium 8.5 (8.4-10.2) mg/dL Total Bilirubin 1.0 (0.2-1.3) mg/dL AST 28 (17-59) U/L ALT 24 (4-49) U/L Alkaline Phosphatase 88 (38-126) U/L Total Protein 5.4 L (6.3-8.2) g/dL Albumin 3.1 L (3.5-5.0) g/dL Urine Color Urine Appearance (Clear) Urine pH (5.0-8.0) Ur Specific Climax (1.001-1.035) Urine Protein (Negative) Urine Glucose (UA) (Negative) Urine Ketones (Negative) Urine Blood (Negative) Urine Nitrite (Negative) Urine Bilirubin (Negative) Urine Urobilinogen (<2.0) mg/dL Ur Leukocyte Esterase (Negative) Urine RBC (0-5) /hpf Urine WBC (0-5) /hpf Ur Squamous Epith Cells (0-4) /hpf Influenza Type A (PCR) (Not Detectd) Influenza Type B (PCR) (Not Detectd) RSV (PCR) (Not Detectd) SARS-CoV-2 (PCR) (Not Detectd) 09/16/24 09/16/24 09/16/24 Range/Units 11:17 12:00 12:32 WBC (3.8-10.6) k/uL RBC (4.30-5.90) m/uL Hgb (13.0-17.5) gm/dL Hct (39.0-53.0) % MCV (80.0-100.0) fL MCH (25.0-35.0) pg MCHC (31.0-37.0) g/dL RDW (11.5-15.5) % Plt Count (150-450) k/uL MPV Neutrophils % % Lymphocytes % % Monocytes % % Eosinophils % % Basophils % % Neutrophils # (1.3-7.7) k/uL Lymphocytes # (1.0-4.8) k/uL Monocytes # (0-1.0) k/uL Eosinophils # (0-0.7) k/uL Basophils # (0-0.2) k/uL Hypochromasia Macrocytosis PT (10.0-12.5) sec INR (<1.2) APTT (22.0-30.0) sec Sodium (137-145) mmol/L Potassium (3.5-5.1) mmol/L Chloride (98-107) mmol/L Carbon Dioxide (22-30) mmol/L Anion Gap mmol/L BUN (9-20) mg/dL Creatinine (0.66-1.25) mg/dL Est GFR (CKD-EPI)AfAm (>60 ml/min/1.73 sqM) Est GFR (CKD-EPI)NonAf (>60 ml/min/1.73 sqM) Glucose (74-99) mg/dL Plasma Lactic Acid Adam 1.2 (0.7-2.0) mmol/L Calcium (8.4-10.2) mg/dL Total Bilirubin (0.2-1.3) mg/dL AST (17-59) U/L ALT (4-49) U/L Alkaline Phosphatase (38-126) U/L Total Protein (6.3-8.2) g/dL Albumin (3.5-5.0) g/dL Urine Color Light Yellow Urine Appearance Clear (Clear) Urine pH 7.0 (5.0-8.0) Ur Specific [place]ax 1.013 (1.001-1.035) Urine Protein 1+ H (Negative) Urine Glucose (UA) Negative (Negative) Urine Ketones Negative (Negative) Urine Blood Trace H (Negative) Urine Nitrite Negative (Negative) Urine Bilirubin Negative (Negative) Urine Urobilinogen <2.0 (<2.0) mg/dL Ur Leukocyte Esterase Trace H (Negative) Urine RBC 1 (0-5) /hpf Urine WBC 4 (0-5) /hpf Ur Squamous Epith Cells <1 (0-4) /hpf Influenza Type A (PCR) Not Detected (Not Detectd) Influenza Type B (PCR) Not Detected (Not Detectd) RSV (PCR) Detected A (Not Detectd) SARS-CoV-2 (PCR) Not Detected (Not Detectd) Disposition Clinical Impression: Sepsis due to pneumonia Disposition: ADMITTED IP TO THIS [facility] Condition: Critical Referrals: Nuno Cheng DO [STAFF PHYSICIAN] - 1-2 days Decision Time: 14:13
[2024-09-16 12:06] LABS: Basophils % (A) 0 %; Eosinophils % (A) 1 %; HCT 31.6 % (39.0-53.0); HGB 10.1 gm/dL (13.0-17.5); Hypochromasia Slight; Lymphocytes # (A) 0.8 k/uL (1.0-4.8); Lymphocytes % (A) 19 %; MCH 33.2 pg (25.0-35.0); MCHC 32.1 g/dL (31.0-37.0); MCV 103.4 fL (80.0-100.0); Macrocytosis Slight; Mean Platelet Volume 8.5; Monocytes # (A) 0.1 k/uL (0-1.0); Monocytes % (A) 3 %; Neutrophils # (A) 3.1 k/uL (1.3-7.7); Neutrophils % (A) 75 %; Platelet Count 157 k/uL (150-450); RBC 3.06 m/uL (4.30-5.90); RDW 13.8 % (11.5-15.5); WBC 4.1 k/uL (3.8-10.6)
[2024-09-16 12:10] LABS: ALT 24 U/L (4-49); AST 28 U/L (17-59); African American GFR (CKD) 38 (>60 ml/min/1.73 sqM); Albumin 3.1 g/dL (3.5-5.0); Alkaline Phosphatase 88 U/L (38-126); Anion Gap 6 mmol/L; Blood Urea Nitrogen 40 mg/dL (9-20); Calcium 8.5 mg/dL (8.4-10.2); Carbon Dioxide 32 mmol/L (22-30); Chloride 100 mmol/L (98-107); Glucose 87 mg/dL (74-99); Non-African American GFR(CKD) 33 (>60 ml/min/1.73 sqM); Potassium 4.5 mmol/L (3.5-5.1); Sodium 138 mmol/L (137-145); Total Protein 5.4 g/dL (6.3-8.2)
[2024-09-16 12:17] LABS: Appearance,Urine Clear (Clear); Bilirubin,Urine Negative (Negative); Blood,Urine Trace (Negative); Color,Urine Light Yellow; Glucose,Urine (UA) Negative (Negative); Ketones,Urine Negative (Negative); Leukocyte Esterase,Urine Trace (Negative); Nitrite,Urine Negative (Negative); Protein,Urine 1+ (Negative); RBC,Urine 1 /hpf (0-5); Specific Gravity,Urine 1.013 (1.001-1.035); Squamous Epithelial Cell,Urine <1 /hpf (0-4); Urobilinogen,Urine <2.0 mg/dL (<2.0); WBC,Urine 4 /hpf (0-5)
[2024-09-16 12:18] LABS: INR 1.2 (<1.2); Partial Thromboplastin Time 28.6 sec (22.0-30.0); Prothrombin Time 12.7 sec (10.0-12.5)
[2024-09-16] MEDS: ACETAMINOPHEN TAB 500 MG TAB PO STA (12:20)
[2024-09-16] MEDS: LACTATED RINGERS 1,000 ML IV SCH ×2 (12:23→14:34)
--- NOTE | 2024-09-16 12:50 | XR ---
EXAMINATION TYPE: XR chest 2V DATE OF EXAM: 09/16/2024 12:44 PM COMPARISON: Chest radiographs from 08/09/2024 TECHNIQUE: XR chest 2V Frontal and lateral views of the chest. CLINICAL INDICATION:Male, 88 years old with history of Fever; FINDINGS: Lungs/Pleura: There is no evidence of pleural effusion or pneumothorax. Bibasilar subsegmental atelec tasis. Pulmonary vascularity: Unremarkable. Heart/mediastinum: Cardiomediastinal silhouette is enlarged and stable. Atherosclerotic calcificatio ns are seen in the aorta. Musculoskeletal: No acute osseous pathology. Postsurgical changes from left shoulder arthroplasty. Ri ght shoulder arthropathy with high riding humeral head suggesting chronic rotator cuff tear. Other findings: None Lines/Tubes: Right anterior chest subclavian approach Mediport catheter distal tip terminating at the superior cav oatrial junction. IMPRESSION: Bibasilar subsegmental atelectasis. [facility], , 09/16/2024 12:48 PM
--- NOTE | 2024-09-16 13:44 | CT ---
EXAMINATION TYPE: CT brain wo con CT DLP: 1235.4 mGycm, Automated exposure control for dose reduction was used. DATE OF EXAM: 09/16/2024 1:37 PM COMPARISON: CT brain 07/21/2024 CLINICAL INDICATION:Male, 88 years old with history of ams, ams TECHNIQUE: Brain: Multiple axial CT images of the brain were obtained without IV contrast. . Coronal and sagitta l reformats reviewed. FINDINGS: Brain: Extra-axial spaces: No abnormal extra-axial fluid collections. Ventricular system: Within normal limits Cerebral parenchyma: Cerebral atrophy. No acute intraparenchymal hemorrhage or mass effect. The calvillo -white junction is well differentiated. Confluent hypoattenuating areas are seen within the periventr icular and subcortical white matter. Cerebellum: Unremarkable. Mass effect: No evidence of midline shift. Intracranial vasculature: Atherosclerotic calcifications of the intracranial vessels. Soft tissues: Normal. Calvarium/osseous structures: No depressed skull fracture. Paranasal sinuses and mastoid air cells: Mastoid air cells are clear. Mild mucosal thickening of the ethmoid sinuses. Complete opacification of the right frontal sinus. Moderate mucosal thickening of th e right maxillary sinus with hyperostosis. Consistent with chronic sinusitis. The left maxillary sinu s is clear. The sphenoid sinuses are clear. Visualized orbits: Bilateral aphakia IMPRESSION: 1. No acute intracranial process. 2. Advanced nonspecific white matter changes, likely secondary to chronic small vessel ischemic disea se. [facility], , 09/16/2024 1:41 PM
[2024-09-16 13:47] LABS: Influenza A Not Detected (Not Detectd); Influenza B Not Detected (Not Detectd); RSV Detected (Not Detectd)
[2024-09-16] MEDS ORDERED: ONDANSETRON 4 MG/2 ML VIAL IVP PRN (14:14)
[2024-09-16] MEDS ORDERED: NALOXONE 0.4 MG/ML 1 ML VIAL IV PRN (14:14)
[2024-09-16] MEDS ORDERED: ACETAMINOPHEN TAB 325 MG TAB PO PRN (14:14)
--- NOTE | 2024-09-16 14:14 | ED ---
Medical Decision Making - Lab Data Result diagrams: 09/16/24 11:17 09/16/24 11:17 Lab Results 09/16/24 09/16/24 09/16/24 Range/Units 11:17 11:17 11:17 WBC 4.1 (3.8-10.6) k/uL RBC 3.06 L (4.30-5.90) m/uL Hgb 10.1 L (13.0-17.5) gm/dL Hct 31.6 L (39.0-53.0) % MCV 103.4 H (80.0-100.0) fL MCH 33.2 (25.0-35.0) pg MCHC 32.1 (31.0-37.0) g/dL RDW 13.8 (11.5-15.5) % Plt Count 157 (150-450) k/uL MPV 8.5 Neutrophils % 75 % Lymphocytes % 19 % Monocytes % 3 % Eosinophils % 1 % Basophils % 0 % Neutrophils # 3.1 (1.3-7.7) k/uL Lymphocytes # 0.8 L (1.0-4.8) k/uL Monocytes # 0.1 (0-1.0) k/uL Eosinophils # 0.0 (0-0.7) k/uL Basophils # 0.0 (0-0.2) k/uL Hypochromasia Slight Macrocytosis Slight PT 12.7 H (10.0-12.5) sec INR 1.2 H (<1.2) APTT 28.6 (22.0-30.0) sec Sodium 138 (137-145) mmol/L Potassium 4.5 (3.5-5.1) mmol/L Chloride 100 (98-107) mmol/L Carbon Dioxide 32 H (22-30) mmol/L Anion Gap 6 mmol/L BUN 40 H (9-20) mg/dL Creatinine 1.83 H (0.66-1.25) mg/dL Est GFR (CKD-EPI)AfAm 38 (>60 ml/min/1.73 sqM) Est GFR (CKD-EPI)NonAf 33 (>60 ml/min/1.73 sqM) Glucose 87 (74-99) mg/dL Plasma Lactic Acid Adam (0.7-2.0) mmol/L Calcium 8.5 (8.4-10.2) mg/dL Total Bilirubin 1.0 (0.2-1.3) mg/dL AST 28 (17-59) U/L ALT 24 (4-49) U/L Alkaline Phosphatase 88 (38-126) U/L Total Protein 5.4 L (6.3-8.2) g/dL Albumin 3.1 L (3.5-5.0) g/dL Urine Color Urine Appearance (Clear) Urine pH (5.0-8.0) Ur Specific [place] (1.001-1.035) Urine Protein (Negative) Urine Glucose (UA) (Negative) Urine Ketones (Negative) Urine Blood (Negative) Urine Nitrite (Negative) Urine Bilirubin (Negative) Urine Urobilinogen (<2.0) mg/dL Ur Leukocyte Esterase (Negative) Urine RBC (0-5) /hpf Urine WBC (0-5) /hpf Ur Squamous Epith Cells (0-4) /hpf Influenza Type A (PCR) (Not Detectd) Influenza Type B (PCR) (Not Detectd) RSV (PCR) (Not Detectd) SARS-CoV-2 (PCR) (Not Detectd) 09/16/24 09/16/24 09/16/24 Range/Units 11:17 12:00 12:32 WBC (3.8-10.6) k/uL RBC (4.30-5.90) m/uL Hgb (13.0-17.5) gm/dL Hct (39.0-53.0) % MCV (80.0-100.0) fL MCH (25.0-35.0) pg MCHC (31.0-37.0) g/dL RDW (11.5-15.5) % Plt Count (150-450) k/uL MPV Neutrophils % % Lymphocytes % % Monocytes % % Eosinophils % % Basophils % % Neutrophils # (1.3-7.7) k/uL Lymphocytes # (1.0-4.8) k/uL Monocytes # (0-1.0) k/uL Eosinophils # (0-0.7) k/uL Basophils # (0-0.2) k/uL Hypochromasia Macrocytosis PT (10.0-12.5) sec INR (<1.2) APTT (22.0-30.0) sec Sodium (137-145) mmol/L Potassium (3.5-5.1) mmol/L Chloride (98-107) mmol/L Carbon Dioxide (22-30) mmol/L Anion Gap mmol/L BUN (9-20) mg/dL Creatinine (0.66-1.25) mg/dL Est GFR (CKD-EPI)AfAm (>60 ml/min/1.73 sqM) Est GFR (CKD-EPI)NonAf (>60 ml/min/1.73 sqM) Glucose (74-99) mg/dL Plasma Lactic Acid Adam 1.2 (0.7-2.0) mmol/L Calcium (8.4-10.2) mg/dL Total Bilirubin (0.2-1.3) mg/dL AST (17-59) U/L ALT (4-49) U/L Alkaline Phosphatase (38-126) U/L Total Protein (6.3-8.2) g/dL Albumin (3.5-5.0) g/dL Urine Color Light Yellow Urine Appearance Clear (Clear) Urine pH 7.0 (5.0-8.0) Ur Specific [place] 1.013 (1.001-1.035) Urine Protein 1+ H (Negative) Urine Glucose (UA) Negative (Negative) Urine Ketones Negative (Negative) Urine Blood Trace H (Negative) Urine Nitrite Negative (Negative) Urine Bilirubin Negative (Negative) Urine Urobilinogen <2.0 (<2.0) mg/dL Ur Leukocyte Esterase Trace H (Negative) Urine RBC 1 (0-5) /hpf Urine WBC 4 (0-5) /hpf Ur Squamous Epith Cells <1 (0-4) /hpf Influenza Type A (PCR) Not Detected (Not Detectd) Influenza Type B (PCR) Not Detected (Not Detectd) RSV (PCR) Detected A (Not Detectd) SARS-CoV-2 (PCR) Not Detected (Not Detectd) Disposition Clinical Impression: Sepsis due to pneumonia Disposition: ADMITTED IP TO THIS HOSP Condition: Critical Referrals: Nuno Cheng DO [STAFF PHYSICIAN] - 1-2 days Procedures - Sepsis Sepsis Focused Exam #1 Time Sepsis Criteria Met: 14:13 Sepsis Focused Exam Date: 09/16/24 Sepsis Focused Exam Time: 14:14 Sepsis Focused Exam Complete: Yes Vital Signs & RN Notes Reviewed: Yes Capillary Refill: < 2 Seconds: Fingers, Toes Peripheral Pulses: Normal: Radial (R), Radial (L), Posterior Tibialis (R), Posterior Tibialis (L), Dorsalis Pedis (R), Dorsalis Pedis (L) Skin Color: Pallor Respiratory Exam: rales Cardiovascular Exam: regular rate
[2024-09-16] MEDS: cefTRIAXone IN SWFI 1,000 MG/10 ML SYRINGE IVP STA (14:30)
[2024-09-16] MEDS: AZITHROMYCIN 500 MG in SODIUM CHLORIDE 0.9% 250 ML IVPB STA (14:33)
[2024-09-16] MEDS ORDERED: bisacodyL 10 MG SUPP RECTAL PRN (14:50)
--- NOTE | 2024-09-16 15:18 | P.HPIM ---
History of Present Illness H&P Date: 09/16/24 Patient is a 88-year-old male with history of atrial fibrillation, non-Hodgkin's lymphoma status postchemotherapy in 2013, hypertension, hypothyroidism, systolic CHF, compression fractures presenting from nursing facility with productive cough, and altered mental status. Patient is not able to provide any meaningful history. Per EMS report, EMS was called because patient has been having fevers, chills, shortness of breath, productive sputum as well as altered mentation. In the ED, temperature was 102.4, pulse 112, respiratory rate 20, blood pressure 140/100, saturating at 97% on 2 L. WBC 4.1, hemoglobin 10.1 stable, potassium 4.5, bicarb 32, BUN 40, creatinine 1.83 around baseline, calcium 8.5, urinalysis showed trace leukocyte esterase, negative nitrites, RSV positive. Chest x-ray independently interpreted, shows no obvious opacities, some bibasilar atelectasis. EKG independently interpreted, shows atrial fibrillation, right bundle branch block Head CT showed no acute process. Pertinent positives and negatives as discussed in HPI, a complete review of systems was performed and all other systems are negative. Patient seen and examined at bedside. Vital signs reviewed General: nontoxic, no distress, appears at stated age Derm: warm, dry Head: atraumatic, normocephalic, symmetric Eyes: EOMI, no lid lag, anicteric sclera, pupils equal round reactive to light ENT: Nose and ears atraumatic Neck: No thyromegaly, supple Mouth: no lip lesion, mucus membranes moist Cardiovascular: S1S2 reg, no murmur, no edema Lungs: clear to auscultation bilateral, no rhonchi, no rales, no wheeze, no accessory muscle use, supplemental oxygen Abdominal: soft, nontender to palpation, no guarding, no appreciable organomegaly Ext: no gross muscle atrophy, muscle strength muscle strength 5 out of 5 in all 4 extremities, no contractures Neuro: CN II-XII grossly intact Psych: Alert, oriented x 0 Assessment/Plan: Active: RSV tracheobronchitis Sepsis secondary to above Hypotension Acute encephalopathy, likely secondary to above -Supportive treatment -Oxygen as needed, Tylenol as needed for fevers -Was given 3 L of LR in the ED -Patient does have a history of systolic heart failure with EF 35 to 40%, judicious use of IV fluids -Was given 1 dose of IV azithromycin and IV ceftriaxone -Blood cultures pending -Sputum cultures, Legionella urine antigen, and procalcitonin ordered -Pulmonology consulted -Hold home diuretics Chronic: Chronic A-fib Hypothyroidism History of systolic CHF Non-Hodgkin's lymphoma status postchemotherapy Hypertension The patient is admitted with an anticipated greater than 2 midnight stay as inpatient status for evaluation of RSV pneumonia. Surrogate decision-maker: Spouse CODE STATUS: Full code DVT prophylaxis: Eliquis Anticipated discharge date: Pending clinical course Anticipated discharge place: Pending clinical course A total of 65 minutes was spent on the care of this complex patient more than 50% of the time was spent in counseling and care coordination. Past Medical History Past Medical History: Atrial Fibrillation, Cancer, GERD/Reflux, Hypertension, Osteoarthritis (OA), Thyroid Disorder Additional Past Medical History / Comment(s): hx kidney stones, hodgkins lymphoma,. 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 hx rapid heart rate History of Any Multi-Drug Resistant Organisms: MRSA Date of last positivie culture/infection: 2014 MDRO Source:: lung Past Surgical History: Joint Replacement Additional Past Surgical History / Comment(s): right knee replacement, sinan knee scope, sinan carpal tunnel lymph node biopsy, lt shoulder rotator cuff Past Anesthesia/Blood Transfusion Reactions: No Reported Reaction Past Psychological History: No Psychological Hx Reported Smoking Status: Former smoker Past Alcohol Use History: None Reported Past Drug Use History: None Reported - Past Family History Sister(s) Family Medical History: Cancer Mother Family Medical History: No Reported History Father Family Medical History: Hypertension Medications and Allergies Home Medications Medication Instructions Recorded Confirmed Type Apixaban [Eliquis] 5 mg PO BID 03/30/21 09/16/24 History Levothyroxine Sodium [Synthroid] 150 mcg PO HS 03/30/21 09/16/24 History Metoprolol Tartrate [Lopressor] 12.5 mg PO BID 04/27/24 09/16/24 History Cyclobenzaprine [Flexeril] 5 mg PO HS #20 tab 07/21/24 09/16/24 Rx Cholecalciferol [Vitamin D3 (125 125 mcg PO HS 07/28/24 09/16/24 History Mcg = 5000 Iu)] Docusate [Colace] 100 mg PO BID 07/28/24 09/16/24 History Magnesium Oxide [Mag-Ox] 400 mg PO HS 07/28/24 09/16/24 History Acetaminophen Tab [Tylenol] 650 mg PO Q6HR PRN tab 08/01/24 09/16/24 Rx polyethylene glycoL 3350 [Miralax] 17 gm PO DAILY packet 08/01/24 09/16/24 Rx Lidocaine 4% Patch 1 patch TOPICAL DAILY 08/08/24 09/16/24 History Magnesium Hydroxide [Milk of 2,400 mg PO DAILY PRN 08/08/24 09/16/24 History Magnesia] Naloxone HCl [Narcan] 4 mg NASAL DIRECTED PRN 08/08/24 09/16/24 History Tamsulosin [Flomax] 0.4 mg PO DAILY 08/08/24 09/16/24 History bisacodyL [Dulcolax] 10 mg RECTAL DAILY PRN 08/08/24 09/16/24 History oxyCODONE-APAP 7.5-325MG [Percocet 1 tab PO Q6HR PRN 08/08/24 09/16/24 History 7.5-325 mg] Famotidine 20 mg PO DAILY #60 tablet 08/21/24 09/16/24 Rx Darbepoetin Garret [Aranesp] 100 mcg SQ SA 09/16/24 09/16/24 History Furosemide [Lasix] 40 mg PO DAILY 09/16/24 09/16/24 History Magic Cup 1 dose PO BID 09/16/24 09/16/24 History Menthol [Biofreeze] 1 applic TOPICAL TID 09/16/24 09/16/24 History Allergies Allergy/AdvReac Type Severity Reaction Status Date / Time celecoxib [From Celebrex] AdvReac muscle Verified 08/08/24 15:18 cramps niacin AdvReac muscle Verified 08/08/24 15:18 cramps nystatin AdvReac muscle Verified 08/08/24 15:18 cramps Qgthley-[id number]-HkE Reductase AdvReac muscle Verified 08/08/24 15:18 Inhibitor cramps [Rgnitlo-Aym-Uxu Reductase Inhibitor] Physical Exam Vitals: Vital Signs Temp Pulse Resp BP Pulse Ox 09/16/24 14:00 102/66 09/16/24 13:00 99 F 92 18 86/66 98 09/16/24 12:49 88 18 98/70 98 09/16/24 11:35 24 09/16/24 11:00 102.4 F H 112 H 20 140/100 97 Intake and Output 09/15/24 09/16/24 09/16/24 22:59 06:59 14:59 Other: Weight 77.111 kg Results CBC & Chem 7: 09/16/24 11:17 09/16/24 11:17 Labs: Abnormal Lab Results - Last 24 Hours (Table) 09/16/24 09/16/24 09/16/24 Range/Units 11:17 11:17 11:17 RBC 3.06 L (4.30-5.90) m/uL Hgb 10.1 L (13.0-17.5) gm/dL Hct 31.6 L (39.0-53.0) % MCV 103.4 H (80.0-100.0) fL Lymphocytes # 0.8 L (1.0-4.8) k/uL PT 12.7 H (10.0-12.5) sec INR 1.2 H (<1.2) Carbon Dioxide 32 H (22-30) mmol/L BUN 40 H (9-20) mg/dL Creatinine 1.83 H (0.66-1.25) mg/dL Total Protein 5.4 L (6.3-8.2) g/dL Albumin 3.1 L (3.5-5.0) g/dL Urine Protein (Negative) Urine Blood (Negative) Ur Leukocyte Esterase (Negative) RSV (PCR) (Not Detectd) 09/16/24 09/16/24 Range/Units 12:00 12:32 RBC (4.30-5.90) m/uL Hgb (13.0-17.5) gm/dL Hct (39.0-53.0) % MCV (80.0-100.0) fL Lymphocytes # (1.0-4.8) k/uL PT (10.0-12.5) sec INR (<1.2) Carbon Dioxide (22-30) mmol/L BUN (9-20) mg/dL Creatinine (0.66-1.25) mg/dL Total Protein (6.3-8.2) g/dL Albumin (3.5-5.0) g/dL Urine Protein 1+ H (Negative) Urine Blood Trace H (Negative) Ur Leukocyte Esterase Trace H (Negative) RSV (PCR) Detected A (Not Detectd)
[2024-09-16] MEDS: APIXABAN 2.5 MG TABLET PO SCH (20:30)
[2024-09-16] MEDS: LEVOTHYROXINE 75 MCG TAB PO SCH (20:31)
[2024-09-16] MEDS: METOPROLOL TARTRATE 25 MG TAB PO SCH (20:40)
[2024-09-16] MEDS: MAGNESIUM OXIDE 400 MG TAB PO SCH (20:40)
[2024-09-16] MEDS ORDERED: NON FORMULARY DRUG (Magic Cup 1 EACH Ml) PO SCH (21:00)
[2024-09-16] MEDS ORDERED: APIXABAN 5 MG TAB PO SCH (21:00)
[2024-09-16] MEDS: DEXTROSE 5% IN WATER 100 ML with AMIODARONE 150 MG IV ONE (21:19)
[2024-09-16] MEDS: AMIODARONE 360 MG in DEXTROSE 5% IN WATER 200 ML IV ONE (21:34)
[2024-09-16] MEDS: ACETAMINOPHEN IV (For NPO) 1,000 MG in EMPTY BAG 1 BAG IVPB PRN (21:46)
[2024-09-17] MEDS: AMIODARONE 450 MG in DEXTROSE 5% IN WATER 250 ML IV SCH (03:24)
[2024-09-17] MEDS: FAMOTIDINE 20 MG TAB PO SCH (08:02)
[2024-09-17] MEDS: TAMSULOSIN 0.4 MG CAP.ER.24H PO SCH (08:03)
[2024-09-17 08:17] LABS: Basophils % (A) 0 %; Eosinophils % (A) 1 %; HCT 29.3 % (39.0-53.0); HGB 9.1 gm/dL (13.0-17.5); Hypochromasia Slight; Lymphocytes # (A) 0.6 k/uL (1.0-4.8); Lymphocytes % (A) 16 %; MCH 32.6 pg (25.0-35.0); MCHC 31.1 g/dL (31.0-37.0); MCV 104.8 fL (80.0-100.0); Macrocytosis Slight; Mean Platelet Volume 8.5; Monocytes # (A) 0.1 k/uL (0-1.0); Monocytes % (A) 3 %; Neutrophils # (A) 2.9 k/uL (1.3-7.7); Neutrophils % (A) 78 %; Platelet Count 159 k/uL (150-450); RDW 13.7 % (11.5-15.5); WBC 3.7 k/uL (3.8-10.6)
[2024-09-17 08:38] LABS: African American GFR (CKD) 50 (>60 ml/min/1.73 sqM); Anion Gap 5 mmol/L; Blood Urea Nitrogen 37 mg/dL (9-20); Carbon Dioxide 29 mmol/L (22-30); Chloride 102 mmol/L (98-107); Glucose 117 mg/dL (74-99); Magnesium 1.6 mg/dL (1.6-2.3); Non-African American GFR(CKD) 43 (>60 ml/min/1.73 sqM); Potassium 4.5 mmol/L (3.5-5.1); Sodium 136 mmol/L (137-145)
[2024-09-17] MEDS: AZITHROMYCIN 500 MG in SODIUM CHLORIDE 0.9% 250 ML IVPB SCH (10:04)
[2024-09-17] MEDS: methylPREDNISolone SOD SUCCI 125 MG/2 ML VIAL IV SCH (11:12)
--- NOTE | 2024-09-17 12:47 | P.PN ---
Subjective Progress Note Date: 09/17/24 Hospital Course: 88-year-old male with history of atrial fibrillation, non-Hodgkin's lymphoma s tatus postchemotherapy in 2014, hypertension, hypothyroidism, systolic CHF, compression fractures presenting from nursing facility with productive cough, and altered mental status. In the ED, temperature was 102.4, pulse 112, respiratory rate 20, blood pressure 140/100, saturating at 97% on 2 L. WBC 4.1, hemoglobin 10.1 stable, potassium 4.5, bicarb 32, BUN 40, creatinine 1.83 around baseline, calcium 8.5, urinalysis showed trace leukocyte esterase, negative nitrites, RSV positive. Chest x-ray independently interpreted, shows no obvious opacities, some bibasilar atelectasis. EKG independently interpreted, shows atrial fibrillation, right bundle branch block. Head CT showed no acute proce ss. Overnight, patient was in A-fib with RVR. Was started on IV amiodarone drip. Now rate controlled. Mental status is improved. Increase metoprolol dose. Subjective: Patient seen and examined at bedside. Overnight, patient had episode of A-fib with RVR. Pertinent positives and negatives as discussed above, a complete review of systems was performed and all other systems are negative. Vitals Signs Reviewed. General: Nontoxic, no distress, appears at stated age Derm: Warm, dry Head: Atraumatic, normocephalic, symmetric Eyes: EOMI, no lid lag, anicteric sclera Mouth: No lip lesion, mucus membranes moist Cardiovascular: S1S2 irregular, no murmur Lungs: CTA bilateral, no rhonchi, no rales, no accessory muscle use, supplemental oxygen Abdominal: Soft, nontender to palpation, no guarding, no appreciable organomegaly Ext: No gross muscle atrophy, no edema, no contractures Neuro: CN II-XI grossly intact, no focal neuro deficits Psych: Alert, oriented x 3, appropriate affect Data Reviewed Today: Pertinent Labs: WBC 3.7, hemoglobin 9.1, creatinine 1.44, potassium 4.5, magnesium 1.6 Imaging: No new imaging Assessment and Plan: Patient is severely ill, needs close monitoring. Prognosis guarded. Active: Acute hypoxic respiratory failure RSV tracheobronchitis Sepsis secondary to above Hypotension, resolved Dehydration Acute encephalopathy, resolved -Supportive treatment -Oxygen as needed, Tylenol as needed for fevers -Was given 3 L of LR in the ED -Patient does have a history of systolic heart failure with EF 35 to 40%, judicious use of IV fluids -Was given 1 dose of IV azithromycin and IV ceftriaxone -Blood cultures pending -Sputum cultures, Legionella urine antigen pending, and procalcitonin negative -Pulmonology consulted, patient was started on IV ceftriaxone 2 g every 24 hours and IV azithromycin 500 daily, also started on IV steroids 60 mg every 6 hours -Hold home diuretics Chronic atrial fibrillation with RVR -Now rate controlled -Increase metoprolol to 25 twice daily -Discontinue IV amiodarone -Continue Eliquis 2.5 twice daily CKD stage III -Creatinine improving with IV fluids Bicytopenia Chronic macrocytic anemia -Stable -Continue to monitor CBC Chronic: Hypothyroidism History of systolic CHF Non-Hodgkin's lymphoma status postchemotherapy Hypertension DVT ppx: Eliquis Code status: No code Anticipated discharge place: Pending clinical course Anticipated discharge time: Pending clinical course Objective - Vital Signs Vital signs: Vital Signs Temp 97.7 F 09/17/24 03:22 Pulse 88 09/17/24 11:20 Resp 18 09/17/24 11:20 BP 105/74 09/17/24 11:20 Pulse Ox 98 09/17/24 11:20 FiO2 Intake & Output 09/16/24 09/17/24 09/17/24 18:59 06:59 18:59 Weight 77.111 kg Other: Voiding Method Diaper - Labs CBC & Chem 7: 09/17/24 07:59 09/17/24 07:59 Labs: Abnormal Lab Results - Last 24 Hours (Table) 09/16/24 09/17/24 09/17/24 Range/Units 12:32 07:59 07:59 WBC 3.7 L (3.8-10.6) k/uL RBC 2.80 L (4.30-5.90) m/uL Hgb 9.1 L (13.0-17.5) gm/dL Hct 29.3 L (39.0-53.0) % MCV 104.8 H (80.0-100.0) fL Lymphocytes # 0.6 L (1.0-4.8) k/uL Sodium 136 L (137-145) mmol/L BUN 37 H (9-20) mg/dL Creatinine 1.44 H (0.66-1.25) mg/dL Glucose 117 H (74-99) mg/dL Calcium 8.0 L (8.4-10.2) mg/dL RSV (PCR) Detected A (Not Detectd)
[2024-09-17] MEDS: METOPROLOL TARTRATE 12.5 MG TAB PO STA (12:49)
--- NOTE | 2024-09-17 15:31 | P.CNPUL ---
History of Present Illness Consult date: 09/17/24 Requesting physician: Sanjiv Gentile Reason for consult: cough, COPD, pneumonia Chief complaint: Cough, shortness of breath, and altered mental status History of present illness: This is an 88-year-old white male known history of multiple medical problems including non-Hodgkin's lymphoma status postchemotherapy in 2013, history of chronic atrial fibrillation, hypertension, hypothyroidism, chronic systolic congestive heart failure, history of compression fractures, patient is not a great historian, but apparently he was sent from [facility] because of fevers and chills, shortness of breath, cough. And apparently he had some altered mental status. In the ER, patient was noted to be febrile with a temp of 102.4, he was tachycardic, blood pressure was relatively normal. His O2 sat was 97% on 2 L. Patient was noted to be a bit leukopenic, with WBC count of 4.1 hemoglobin is 10.1, his urinalysis showed trace of leukocyte esterase, negative nitrites, patient was found to be RSV positive, chest x-ray showed mostly bibasilar atelectasis. Considering his presentation of RSV tracheobronchitis and sepsis, patient was admitted and this consult was initiated. Again not much history could be obtained from the patient himself. CT of the brain was done because of his altered mental status and there was no acute intracranial process. Review of Systems Unable to get adequate review of systems mostly because of his mental status Past Medical History Past Medical History: Atrial Fibrillation, Cancer, GERD/Reflux, Hypertension, Osteoarthritis (OA), Thyroid Disorder Additional Past Medical History / Comment(s): hx kidney stones, hodgkins lymphoma,. 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 hx rapid heart rate History of Any Multi-Drug Resistant Organisms: MRSA Date of last positivie culture/infection: 2014 MDRO Source:: lung Past Surgical History: Joint Replacement Additional Past Surgical History / Comment(s): right knee replacement, sinan knee scope, sinan carpal tunnel lymph node biopsy, lt shoulder rotator cuff Past Anesthesia/Blood Transfusion Reactions: No Reported Reaction Past Psychological History: No Psychological Hx Reported Smoking Status: Former smoker Past Alcohol Use History: None Reported Past Drug Use History: None Reported - Past Family History Sister(s) Family Medical History: Cancer Mother Family Medical History: No Reported History Father Family Medical History: Hypertension Medications and Allergies Home Medications Medication Instructions Recorded Confirmed Type Apixaban [Eliquis] 5 mg PO BID 03/30/21 09/16/24 History Levothyroxine Sodium [Synthroid] 150 mcg PO HS 03/30/21 09/16/24 History Metoprolol Tartrate [Lopressor] 12.5 mg PO BID 04/27/24 09/16/24 History Cyclobenzaprine [Flexeril] 5 mg PO HS #20 tab 07/21/24 09/16/24 Rx Cholecalciferol [Vitamin D3 (125 125 mcg PO HS 07/28/24 09/16/24 History Mcg = 5000 Iu)] Docusate [Colace] 100 mg PO BID 07/28/24 09/16/24 History Magnesium Oxide [Mag-Ox] 400 mg PO HS 07/28/24 09/16/24 History Acetaminophen Tab [Tylenol] 650 mg PO Q6HR PRN tab 08/01/24 09/16/24 Rx polyethylene glycoL 3350 [Miralax] 17 gm PO DAILY packet 08/01/24 09/16/24 Rx Lidocaine 4% Patch 1 patch TOPICAL DAILY 08/08/24 09/16/24 History Magnesium Hydroxide [Milk of 2,400 mg PO DAILY PRN 08/08/24 09/16/24 History Magnesia] Naloxone HCl [Narcan] 4 mg NASAL DIRECTED PRN 08/08/24 09/16/24 History Tamsulosin [Flomax] 0.4 mg PO DAILY 08/08/24 09/16/24 History bisacodyL [Dulcolax] 10 mg RECTAL DAILY PRN 08/08/24 09/16/24 History oxyCODONE-APAP 7.5-325MG [Percocet 1 tab PO Q6HR PRN 08/08/24 09/16/24 History 7.5-325 mg] Famotidine 20 mg PO DAILY #60 tablet 08/21/24 09/16/24 Rx Darbepoetin Garret [Aranesp] 100 mcg SQ SA 09/16/24 09/16/24 History Furosemide [Lasix] 40 mg PO DAILY 09/16/24 09/16/24 History Magic Cup 1 dose PO BID 09/16/24 09/16/24 History Menthol [Biofreeze] 1 applic TOPICAL TID 09/16/24 09/16/24 History Allergies Allergy/AdvReac Type Severity Reaction Status Date / Time celecoxib [From Celebrex] AdvReac muscle Verified 08/08/24 15:18 cramps niacin AdvReac muscle Verified 08/08/24 15:18 cramps nystatin AdvReac muscle Verified 08/08/24 15:18 cramps Tobajrz-IKC-ZgP Reductase AdvReac muscle Verified 08/08/24 15:18 Inhibitor cramps [Rqtwcgq-Udd-Ohp Reductase Inhibitor] Physical Exam Vitals: Vital Signs Temp Pulse Pulse Resp BP BP Pulse Ox 09/17/24 11:20 88 18 105/74 98 09/17/24 07:41 98 16 113/84 100 09/17/24 03:22 97.7 F 89 12 105/85 98 09/17/24 01:29 97.7 F 135 H 115/59 97 09/17/24 00:34 97.8 F 100 16 113/85 98 09/16/24 23:27 97.9 F 80 16 93/57 94 L 09/16/24 22:43 97.1 F L 110 H 16 98/67 97 09/16/24 22:00 98.2 F 144 H 18 133/92 96 09/16/24 21:30 138 H 16 137/98 96 09/16/24 21:15 155 H 18 144/113 95 09/16/24 21:00 151 H 18 120/107 94 L 09/16/24 20:50 97.6 F 18 120/107 94 L 09/16/24 18:57 93 18 116/86 98 Intake and Output 09/17/24 09/17/24 09/17/24 06:59 14:59 22:59 Other: Voiding Method Diaper General: Revealed 88-year-old white male, confused, not in distress, on 2 L nasal cannula noticed to have intermittent productive cough. Skin: No rashes Head: Atraumatic, normocephalic Eyes: PERRLA, EOMI, nonicteric, ENT: No neck masses no JVD no stridor, dry mucous membranes Mouth: Dry mucous membranes otherwise negative Cardiovascular: Distant S1-S2, no S3 gallop, irregular rhythm. Lungs: Diminished breath sound bilaterally no rhonchi no wheezes Abdominal: Soft nontender no MAG no rebound no guarding Ext: No clubbing edema or cyanosis Neuro: Could not assess, patient is noncooperative and seems to be confused Psych: Patient is confused, could not assess Results - Laboratory Findings CBC and BMP: 09/17/24 07:59 09/17/24 07:59 PT/INR, D-dimer PT 12.7 sec (10.0-12.5) H 09/16/24 11:17 INR 1.2 (<1.2) H 09/16/24 11:17 Abnormal lab findings: Abnormal Labs 09/16/24 09/16/24 09/16/24 11:17 11:17 11:17 WBC RBC 3.06 L Hgb 10.1 L Hct 31.6 L MCV 103.4 H Lymphocytes # 0.8 L PT 12.7 H INR 1.2 H Sodium Carbon Dioxide 32 H BUN 40 H Creatinine 1.83 H Glucose Calcium Total Protein 5.4 L Albumin 3.1 L Urine Protein Urine Blood Ur Leukocyte Esterase RSV (PCR) 09/16/24 09/16/24 09/17/24 12:00 12:32 07:59 WBC 3.7 L RBC 2.80 L Hgb 9.1 L Hct 29.3 L MCV 104.8 H Lymphocytes # 0.6 L PT INR Sodium Carbon Dioxide BUN Creatinine Glucose Calcium Total Protein Albumin Urine Protein 1+ H Urine Blood Trace H Ur Leukocyte Esterase Trace H RSV (PCR) Detected A 09/17/24 07:59 WBC RBC Hgb Hct MCV Lymphocytes # PT INR Sodium 136 L Carbon Dioxide BUN 37 H Creatinine 1.44 H Glucose 117 H Calcium 8.0 L Total Protein Albumin Urine Protein Urine Blood Ur Leukocyte Esterase RSV (PCR) - Diagnostic Findings Chest x-ray: image reviewed (As noted in HPI mostly bibasilar atelectasis) Assessment and Plan Assessment: Impression: Acute RSV tracheobronchitis Acute sepsis Bibasilar atelectasis, possible pneumonia, patient had normal procalcitonin level Acute metabolic encephalopathy History of non-Hodgkin's lymphoma Chronic atrial fibrillation, rate controlled History of hypothyroidism History of hypertension Chronic kidney disease stage III Chronic anemia Recommendation: Continue present supportive care measures Continue antibiotics empirically, patient is on Rocephin and Zithromax Continue Solu-Medrol Continue metoprolol Resume home meds Continue Eliquis for his atrial fibrillation Patient could be admitted to 3 S. Will continue to follow Time with Patient: Greater than 30
[2024-09-17] MEDS: METOPROLOL TARTRATE 25 MG TAB PO SCH (21:32)
[2024-09-18 08:41] LABS: African American GFR (CKD) 54 (>60 ml/min/1.73 sqM); Anion Gap 12 mmol/L; Blood Urea Nitrogen 44 mg/dL (9-20); Carbon Dioxide 20 mmol/L (22-30); Chloride 105 mmol/L (98-107); Glucose 119 mg/dL (74-99); Non-African American GFR(CKD) 46 (>60 ml/min/1.73 sqM); Sodium 137 mmol/L (137-145)
[2024-09-18 08:44] LABS: Magnesium 1.8 mg/dL (1.6-2.3); Potassium 4.8 mmol/L (3.5-5.1)
[2024-09-18 10:04] LABS: Basophils % (A) 0 %; Eosinophils % (A) 0 %; HCT 35.3 % (39.0-53.0); HGB 10.6 gm/dL (13.0-17.5); Hypochromasia Marked; Lymphocytes # (A) 0.7 k/uL (1.0-4.8); Lymphocytes % (A) 20 %; MCH 32.3 pg (25.0-35.0); MCV 107.5 fL (80.0-100.0); Macrocytosis Moderate; Mean Platelet Volume 9.6; Monocytes # (A) 0.1 k/uL (0-1.0); Monocytes % (A) 3 %; Neutrophils # (A) 2.7 k/uL (1.3-7.7); Neutrophils % (A) 74 %; Platelet Count 174 k/uL (150-450); RBC 3.28 m/uL (4.30-5.90); RDW 13.5 % (11.5-15.5); WBC 3.7 k/uL (3.8-10.6)
--- NOTE | 2024-09-18 11:07 | P.PN ---
Subjective Progress Note Date: 09/18/24 Hospital Course: 88-year-old male with history of atrial fibrillation, non-Hodgkin's lymphoma status postchemotherapy in 2013, hypertension, hypothyroidism, systolic CHF, compression fractures presenting from nursing facility with productive cough, and altered mental status. In the ED, temperature was 102.4, pulse 112, respiratory rate 20, blood pressure 140/100, saturating at 97% on 2 L. WBC 4.1, hemoglobin 10.1 stable, potassium 4.5, bicarb 32, BUN 40, creatinine 1.83 around baseline, calcium 8.5, urinalysis showed trace leukocyte esterase, negative nitrites, RSV positive. Chest x-ray independently interpreted, shows no obvious opacities, some bibasilar atelectasis. EKG independently interpreted, shows atrial fibrillation, right bundle branch block. Head CT showed no acute process. Overnight, patient was in A-fib with RVR. Was started on IV amiodarone drip. Now rate controlled. Mental status is improved. Increase metoprolol dose. 09/18/2024 patient seen and examined at bedside. No acute events overnight. Required 4 L nasal cannula of O2 support. Slightly confused today. Labs today: WBC 3.7, hemoglobin 10.6, MCV 107, sodium 137, potassium 4.8, bicarb 20, BUN 44, creatinine 1.36, glucose 119, calcium 8, magnesium 1.8 Review of systems: Pertinent positives and negatives as discussed in HPI, a complete review of systems was performed and all other systems are negative. Physical examination: Vital signs reviewed General: non toxic, no distress, appears at stated age, on nasal cannula Derm: no unusual rashes/lesions, warm Head: atraumatic, normocephalic, symmetric Eyes: EOMI, anicteric sclera, pupils equal round reactive to light ENT: Nose and ears atraumatic Neck: No cervical lymphadenopathy, trachea midline, supple Mouth: no lip lesion, mucus membranes moist Cardiovascular: S1S2 reg, no murmur Lungs: expiratory wheezing in the middle and lower lung ngo, no accessory muscle use Abdominal: soft, nontender to palpation, no guarding Ext: muscle strength 5 out of 5 in all 4 extremities grossly, no gross muscle at rophy, no contractures, positive dorsalis pedis pulse bilateral, no edema Neuro: CN II-XI grossly intact, no gross focal neuro deficits Psych: Alert and oriented x3, appropriate affect and mood Assessment/Plan: 88-year-old male with history of atrial fibrillation, non- Hodgkin's lymphoma status postchemotherapy, systolic CHF, hypothyroidism here for further management of productive cough and altered mental status. Was found to be RSV positive on labs. Found to have atrial fibrillation with RVR during hospital stay. Patient is severely ill, needs close monitoring. Prognosis guarded. Active: #. Acute hypoxic respiratory failure #. RSV tracheobronchitis #. Sepsis secondary to above #. Hypotension, resolved #. Dehydration -Supportive treatment -Oxygen as needed, Tylenol as needed for fevers -Was given 3 L of LR in the ED -Patient does have a history of systolic heart failure with EF 35 to 40%, judicious use of IV fluids -Was given 1 dose of IV azithromycin and IV ceftriaxone -Blood cultures negative so far -Sputum cultures, Legionella urine antigen pending, and procalcitonin negative -Pulmonology consulted, patient was started on IV ceftriaxone 2 g every 24 hours and IV azithromycin 500 daily, also started on IV steroids 60 mg every 6 hours -Hold home diuretics #. Chronic atrial fibrillation with RVR, rate controlled -Continue metoprolol to 25 twice daily -IV amiodarone d/c on 09/17 -Continue Eliquis 2.5 twice daily #. Acute encephalopathy, likely due to delirium -Frequent reorientation -Melatonin 3 mg p.o. at bedtime #. CKD stage III -Creatinine improving with IV fluids #. Bicytopenia #. Chronic macrocytic anemia -Stable -Continue to monitor CBC Chronic: #. Hypothyroidism #. History of systolic CHF #. Non-Hodgkin's lymphoma status postchemotherapy #. Hypertension DVT ppx: Eliquis p.o. Code status: No code Dodie Bansk MD PGY-1/Imaging Aide Dictation was produced using [employer] dictation software. please excuse any gramm atical, word or spelling errors. I have seen and evaluated the patient today. Discussed with the resident and agree with the residents finding and plan as documented in the resident's note. Changes highlighted in blue font. Objective - Vital Signs Vital signs: Vital Signs Temp 98.1 F 09/18/24 05:51 Pulse 80 09/18/24 06:41 Resp 18 09/18/24 06:41 BP 104/69 09/18/24 06:41 Pulse Ox 92 L 09/18/24 06:41 FiO2 - Labs CBC & Chem 7: 09/18/24 08:08 09/18/24 08:08 Labs: Abnormal Lab Results - Last 24 Hours (Table) 09/17/24 09/17/24 Range/Units 07:59 07:59 WBC 3.7 L (3.8-10.6) k/uL RBC 2.80 L (4.30-5.90) m/uL Hgb 9.1 L (13.0-17.5) gm/dL Hct 29.3 L (39.0-53.0) % MCV 104.8 H (80.0-100.0) fL Lymphocytes # 0.6 L (1.0-4.8) k/uL Sodium 136 L (137-145) mmol/L BUN 37 H (9-20) mg/dL Creatinine 1.44 H (0.66-1.25) mg/dL Glucose 117 H (74-99) mg/dL Calcium 8.0 L (8.4-10.2) mg/dL Microbiology - Last 24 Hours (Table) 09/16/24 11:17 Blood Culture - Preliminary Blood 09/16/24 12:01 Blood Culture - Preliminary Blood
--- NOTE | 2024-09-18 15:40 | P.PN ---
Subjective Progress Note Date: 09/18/24 This is an 88-year-old white male known history of multiple medical problems including non-Hodgkin's lymphoma status postchemotherapy in 2013, history of chronic atrial fibrillation, hypertension, hypothyroidism, chronic systolic congestive heart failure, history of compression fractures, patient is not a great historian, but apparently he was sent from [facility] because of fevers and chills, shortness of breath, cough. And apparently he had some altered mental status. In the ER, patient was noted to be febrile with a temp of 102.4, he was tachycardic, blood pressure was relatively normal. His O2 sat was 97% on 2 L. Patient was noted to be a bit leukopenic, with WBC count of 4.1 hemoglobin is 10.1, his urinalysis showed trace of leukocyte esterase, negative nitrites, patient was found to be RSV positive, chest x-ray showed mostly bibasilar atelectasis. Considering his presentation of RSV tracheobronchitis and sepsis, patient was admitted and this consult was initiated. Again not much history could be obtained from the patient himself. CT of the brain was done because of his altered mental status and there was no acute intracranial process. The patient is seen today September 18, 2024 in follow-up in the emergency department. He is currently sitting up on a stretcher. Awake and alert in no acute distress. He is quite weak and debilitated. He has a loose congested cough. Some concerns regarding aspiration. He is maintaining O2 saturation in the low 90s on 4 L/min per nasal cannula. Afebrile. Hemodynamically stable. White count 3.7. Hemoglobin 10.6. Platelets 174. Sodium 137. Potassium 4.8. Bicarb 20. BUN 44. Creatinine 1.36. Glucose 119. He remains on ceftriaxone and azithromycin. Anticoagulated with Eliquis. Remains on Solu-Medrol. Remains in atrial fibrillation. Objective - Vital Signs Vital signs: Vital Signs Temp 97.7 F 09/18/24 15:28 Pulse 77 09/18/24 15:28 Resp 18 09/18/24 15:28 BP 109/75 09/18/24 15:28 Pulse Ox 92 L 09/18/24 15:28 FiO2 - Exam GENERAL EXAM: Alert, weak, debilitated 88-year-old male, on 4 L nasal cannula, fairly comfortable in no apparent distress. HEAD: Normocephalic. EYES: Normal reaction of pupils, equal size. NOSE: Clear with pink turbinates. THROAT: No erythema or exudates. NECK: No masses, no JVD. CHEST: No chest wall deformity. LUNGS: Equal air entry with bilateral scattered rhonchi. CVS: S1 and S2 normal with no audible murmur, regular rhythm. ABDOMEN: No hepatosplenomegaly, normal bowel sounds, no guarding or rigidity. SPINE: No scoliosis or deformity SKIN: No rashes CENTRAL NERVOUS SYSTEM: No focal deficits, tone is normal in all 4 extremities. EXTREMITIES: There is no peripheral edema. No clubbing, no cyanosis. Peripheral pulses are intact. - Labs CBC & Chem 7: 09/18/24 08:08 09/18/24 08:08 Labs: Abnormal Lab Results - Last 24 Hours (Table) 09/18/24 09/18/24 Range/Units 08:08 08:08 WBC 3.7 L (3.8-10.6) k/uL RBC 3.28 L (4.30-5.90) m/uL Hgb 10.6 L (13.0-17.5) gm/dL Hct 35.3 L (39.0-53.0) % MCV 107.5 H (80.0-100.0) fL MCHC 30.0 L (31.0-37.0) g/dL Lymphocytes # 0.7 L (1.0-4.8) k/uL Carbon Dioxide 20 L (22-30) mmol/L BUN 44 H (9-20) mg/dL Creatinine 1.36 H (0.66-1.25) mg/dL Glucose 119 H (74-99) mg/dL Calcium 8.0 L (8.4-10.2) mg/dL Microbiology - Last 24 Hours (Table) 09/16/24 11:17 Blood Culture - Preliminary Blood 09/16/24 12:01 Blood Culture - Preliminary Blood Assessment and Plan Assessment: Acute RSV tracheobronchitis Acute sepsis Bibasilar atelectasis, possible aspiration pneumonia, patient had normal procalcitonin level Acute metabolic encephalopathy History of non-Hodgkin's lymphoma Chronic atrial fibrillation, rate controlled History of hypothyroidism History of hypertension Chronic kidney disease stage III Chronic anemia Plan: The patient was seen and evaluated Remains on 4 L/min per nasal cannula Concerns for possible evaluate aspiration Speech therapy consulted for swallow evaluation Remains on empiric antibiotics Continued on Solu-Medrol Anticoagulated with Eliquis Awaiting admission to 3 S. DNR CODE STATUS We will continue to follow I have personally seen and examined the patient, performed the documentation and the assessment and plan as written. Number of minutes spent on the visit: 10 Dictation was produced using [employer] dictation software. Please excuse any grammatical, word or spelling errors.
[2024-09-18] MEDS: MELATONIN 3 MG TABLET PO SCH (21:38)
[2024-09-19 03:47] LABS: Basophils % (A) 0 %; Eosinophils % (A) 0 %; HCT 31.8 % (39.0-53.0); Hypochromasia Slight; Lymphocytes # (A) 0.6 k/uL (1.0-4.8); Lymphocytes % (A) 8 %; MCH 32.7 pg (25.0-35.0); MCHC 31.5 g/dL (31.0-37.0); MCV 103.9 fL (80.0-100.0); Macrocytosis Slight; Mean Platelet Volume 9.1; Monocytes # (A) 0.1 k/uL (0-1.0); Monocytes % (A) 2 %; Neutrophils # (A) 6.9 k/uL (1.3-7.7); Neutrophils % (A) 89 %; Platelet Count 207 k/uL (150-450); RBC 3.06 m/uL (4.30-5.90); RDW 13.7 % (11.5-15.5); WBC 7.7 k/uL (3.8-10.6)
[2024-09-19 03:51] LABS: African American GFR (CKD) 46 (>60 ml/min/1.73 sqM); Anion Gap 10 mmol/L; Blood Urea Nitrogen 55 mg/dL (9-20); Calcium 7.9 mg/dL (8.4-10.2); Carbon Dioxide 24 mmol/L (22-30); Chloride 102 mmol/L (98-107); Glucose 137 mg/dL (74-99); Non-African American GFR(CKD) 40 (>60 ml/min/1.73 sqM); Potassium 4.3 mmol/L (3.5-5.1); Sodium 136 mmol/L (137-145)
[2024-09-19] MEDS ORDERED: IPRATROPIUM-ALBUTEROL 3 ML NEB INHALATION PRN (14:28)
--- NOTE | 2024-09-19 14:37 | P.PN ---
Subjective Progress Note Date: 09/19/24 This is an 88-year-old white male known history of multiple medical problems including non-Hodgkin's lymphoma status postchemotherapy in 2014, history of chronic atrial fibrillation, hypertension, hypothyroidism, chronic systolic congestive heart failure, history of compression fractures, patient is not a great historian, but apparently he was sent from [facility] because of fevers and chills, shortness of breath, cough. And apparently he had some altered mental status. In the ER, patient was noted to be febrile with a temp of 102.4, he was tachycardic, blood pressure was relatively normal. His O2 sat was 97% on 2 L. Patient was noted to be a bit leukopenic, with WBC count of 4.1 hemoglobin is 10.1, his urinalysis showed trace of leukocyte esterase, negative nitrites, patient was found to be RSV positive, chest x-ray showed mostly bibasilar atelectasis. Considering his presentation of RSV tracheobronchitis and sepsis, patient was admitted and this consult was initiated. Again not much history could be obtained from the patient himself. CT of the brain was done because of his altered mental status and there was no acute intracranial process. The patient is seen today September 18, 2024 in follow-up in the emergency department. He is currently sitting up on a stretcher. Awake and alert in no acute distress. He is quite weak and debilitated. He has a loose congested cough. Some concerns regarding aspiration. He is maintaining O2 saturation in the low 90s on 4 L/min per nasal cannula. Afebrile. Hemodynamically stable. White count 3.7. Hemoglobin 10.6. Platelets 174. Sodium 137. Potassium 4.8. Bicarb 20. BUN 44. Creatinine 1.36. Glucose 119. He remains on ceftriaxone and azithromycin. Anticoagulated with Eliquis. Remains on Solu-Medrol. Remains in atrial fibrillation. The patient is seen today September 19, 2024 in follow-up on the regular medical floor. He is currently resting in bed. Awake and alert in no acute distress. Pending O2 saturations in the 90s on 4 L/min per nasal cannula. He has been afebrile. Hemodynamically stable. Blood cultures revealing no growth to date. White count 7.7. Hemoglobin 10.0. Platelets 207. Sodium 136. Potassium 4.3. Bicarb 24. BUN 55. Creatinine 1.53. Glucose 137. He remains on bronchodilators and Solu-Medrol. Continued on ceftriaxone. Anticoagulated with Eliquis. Objective - Vital Signs Vital signs: Vital Signs Temp 97.4 F L 09/19/24 08:04 Pulse 82 09/19/24 08:04 Resp 18 09/19/24 08:04 BP 115/71 09/19/24 08:04 Pulse Ox 91 L 09/19/24 08:04 FiO2 Intake & Output 09/18/24 09/19/24 09/19/24 18:59 06:59 18:59 Output Total 550 1050 Balance -550 -1050 Weight 77.111 kg Output: Urine 550 1050 Other: Voiding Method External Catheter External Catheter - Exam GENERAL EXAM: Alert, weak, 88-year-old male, on 4 L nasal cannula, comfortable in no apparent distress. HEAD: Normocephalic. EYES: Normal reaction of pupils, equal size. NOSE: Clear with pink turbinates. THROAT: No erythema or exudates. NECK: No masses, no JVD. CHEST: No chest wall deformity. LUNGS: Equal air entry with bilateral scattered rhonchi. CVS: S1 and S2 normal with no audible murmur, regular rhythm. ABDOMEN: No hepatosplenomegaly, normal bowel sounds, no guarding or rigidity. SPINE: No scoliosis or deformity SKIN: No rashes CENTRAL NERVOUS SYSTEM: No focal deficits, tone is normal in all 4 extremities. EXTREMITIES: There is no peripheral edema. No clubbing, no cyanosis. Peripheral pulses are intact. - Labs CBC & Chem 7: 09/19/24 03:13 09/19/24 03:13 Labs: Abnormal Lab Results - Last 24 Hours (Table) 09/19/24 09/19/24 Range/Units 03:13 03:13 RBC 3.06 L (4.30-5.90) m/uL Hgb 10.0 L (13.0-17.5) gm/dL Hct 31.8 L (39.0-53.0) % MCV 103.9 H (80.0-100.0) fL Lymphocytes # 0.6 L (1.0-4.8) k/uL Sodium 136 L (137-145) mmol/L BUN 55 H (9-20) mg/dL Creatinine 1.53 H (0.66-1.25) mg/dL Glucose 137 H (74-99) mg/dL Calcium 7.9 L (8.4-10.2) mg/dL Microbiology - Last 24 Hours (Table) 09/16/24 11:17 Blood Culture - Preliminary Blood 09/16/24 12:01 Blood Culture - Preliminary Blood Assessment and Plan Assessment: Acute RSV tracheobronchitis Acute sepsis Bibasilar atelectasis, possible aspiration pneumonia, patient had normal procalcitonin level Acute metabolic encephalopathy History of non-Hodgkin's lymphoma Chronic atrial fibrillation, rate controlled History of hypothyroidism History of hypertension Chronic kidney disease stage III Chronic anemia Plan: The patient was seen and evaluated Labs and medications reviewed Remains on 4 L/min per nasal cannula Speech therapy evaluation reviewed Recommending dysphagia level 3 chopped diet Remains on empiric antibiotics Continued on duo neb inhalations, Solu-Medrol Anticoagulated with Eliquis DNR CODE STATUS Titrate down the FiO2 as tolerated Plan is to return to [facility] at discharge I have personally seen and examined the patient, performed the documentation and the assessment and plan as written. Number of minutes spent on the visit: 10 Dictation was produced using [employer] dictation software. Please excuse any grammatical, word or spelling errors.
--- NOTE | 2024-09-19 16:33 | P.PN ---
Subjective Progress Note Date: 09/19/24 Hospital Course: 88-year-old male with history of atrial fibrillation, non-Hodgkin's lymphoma status postchemotherapy in 2013, hypertension, hypothyroidism, systolic CHF, compression fractures presenting from nursing facility with productive cough, and altered mental status. In the ED, temperature was 102.4, pulse 112, respiratory rate 20, blood pressure 140/100, saturating at 97% on 2 L. WBC 4.1, hemoglobin 10.1 stable, potassium 4.5, bicarb 32, BUN 40, creatinine 1.83 around baseline, calcium 8.5, urinalysis showed trace leukocyte esterase, negative nitrites, RSV positive. Chest x-ray independently interpreted, shows no obvious opacities, some bibasilar atelectasis. EKG independently interpreted, shows atrial fibrillation, right bundle branch block. Head CT showed no acute process. Overnight, patient was in A-fib with RVR. Was started on IV amiodarone drip. Now rate controlled. Mental status is improved. Increase metoprolol dose. 09/18/2024 patient seen and examined at bedside. No acute events overnight. Required 4 L nasal cannula of O2 support. Slightly confused today. Labs today: WBC 3.7, hemoglobin 10.6, MCV 107, sodium 137, potassium 4.8, bicarb 20, BUN 44, creatinine 1.36, glucose 119, calcium 8, magnesium 1.8 09/19/2024 patient seen and examined at bedside. No acute events overnight. Required 3 liters nasal cannula home O2 support. Patient more cooperative today Labs: WBC 7.7, hemoglobin 10, MCV 103.9, platelet count 207,000, sodium 136, potassium 4.3, chloride 102, bicarb 24, BUN 55, creatinine 1.53, calcium 7.9, glucose 137 Review of systems: Pertinent positives and negatives as discussed in HPI, a complete review of systems was performed and all other systems are negative. Physical examination: Vital signs reviewed General: non toxic, no distress, appears at stated age, on nasal cannula Derm: no unusual rashes/lesions, warm Head: atraumatic, normocephalic, symmetric Eyes: EOMI, anicteric sclera, pupils equal round reactive to light ENT: Nose and ears atraumatic Neck: No cervical lymphadenopathy, trachea midline, supple Mouth: no lip lesion, mucus membranes moist Cardiovascular: S1S2 irregularly irregular, no murmur Lungs: expiratory wheezing in the middle and lower lung ngo, no accessory muscle use Abdominal: soft, nontender to palpation, no guarding Ext: muscle strength 5 out of 5 in all 4 extremities grossly, no gross muscle atrophy, no contractures, positive dorsalis pedis pulse bilateral, no edema Neuro: CN II-XI grossly intact, no gross focal neuro deficits Psych: Alert and oriented x3, appropriate affect and mood Assessment/Plan: 88-year-old male with history of atrial fibrillation, non- Hodgkin's lymphoma status postchemotherapy, systolic CHF, hypothyroidism here for further management of productive cough and altered mental status. Was found to be RSV positive on labs. Found to have atrial fibrillation with RVR during hospital stay. Patient is severely ill, needs close monitoring. Prognosis guarded. Active: #. Acute hypoxic respiratory failure #. RSV tracheobronchitis #. Sepsis secondary to above, improved #. Hypotension, resolved #. Dehydration, improved -Supportive treatment -Oxygen as needed, Tylenol as needed for fevers -Was given 3 L of LR in the ED -Patient does have a history of systolic heart failure with EF 35 to 40%, discontinued IV fluids -Blood cultures negative so far -Sputum cultures -Legionella urine antigen negative -procalcitonin negative -Pulmonology consulted, patient was started on IV ceftriaxone 2 g every 24 hours and IV azithromycin 500 daily, also started on IV steroids 60 mg every 6 hours -Hold home diuretics #. Chronic atrial fibrillation with RVR, rate controlled -Continue metoprolol tartrate 25 twice daily -IV amiodarone d/c on 09/17 -Continue Eliquis 2.5 twice daily #. Acute encephalopathy, likely due to delirium, improved -Frequent reorientation -Melatonin 3 mg p.o. at bedtime #. CKD stage III -Creatinine improving with IV fluids #. Bicytopenia #. Chronic macrocytic anemia -Stable -Continue to monitor CBC Chronic: #. Hypothyroidism #. History of systolic CHF #. Non-Hodgkin's lymphoma status postchemotherapy #. Hypertension DVT ppx: Eliquis p.o. Code status: No code Dodie Banks MD PGY-1/Car Body [employer]ic Dictation was produced using [employer] dictation software. please excuse any grammatical, word or spelling errors. I have seen and evaluated the patient today. Discussed with the resident and agree with the residents finding and plan as documented in the resident's note. Changes highlighted in blue font. Objective - Vital Signs Vital signs: Vital Signs Temp 98.5 F 09/19/24 02:13 Pulse 62 09/19/24 02:13 Resp 15 09/19/24 02:13 BP 110/68 09/19/24 02:13 Pulse Ox 91 L 09/19/24 02:13 FiO2 Intake & Output 09/18/24 09/19/24 09/19/24 18:59 06:59 18:59 Output Total 550 Balance -550 Weight 77.111 kg Output: Urine 550 Other: Voiding Method External Catheter External Catheter - Labs CBC & Chem 7: 09/19/24 03:13 09/19/24 03:13 Labs: Abnormal Lab Results - Last 24 Hours (Table) 09/18/24 09/18/24 09/19/24 Range/Units 08:08 08:08 03:13 WBC 3.7 L (3.8-10.6) k/uL RBC 3.28 L 3.06 L (4.30-5.90) m/uL Hgb 10.6 L 10.0 L (13.0-17.5) gm/dL Hct 35.3 L 31.8 L (39.0-53.0) % MCV 107.5 H 103.9 H (80.0-100.0) fL MCHC 30.0 L (31.0-37.0) g/dL Lymphocytes # 0.7 L 0.6 L (1.0-4.8) k/uL Sodium (137-145) mmol/L Carbon Dioxide 20 L (22-30) mmol/L BUN 44 H (9-20) mg/dL Creatinine 1.36 H (0.66-1.25) mg/dL Glucose 119 H (74-99) mg/dL Calcium 8.0 L (8.4-10.2) mg/dL 09/19/24 Range/Units 03:13 WBC (3.8-10.6) k/uL RBC (4.30-5.90) m/uL Hgb (13.0-17.5) gm/dL Hct (39.0-53.0) % MCV (80.0-100.0) fL MCHC (31.0-37.0) g/dL Lymphocytes # (1.0-4.8) k/uL Sodium 136 L (137-145) mmol/L Carbon Dioxide (22-30) mmol/L BUN 55 H (9-20) mg/dL Creatinine 1.53 H (0.66-1.25) mg/dL Glucose 137 H (74-99) mg/dL Calcium 7.9 L (8.4-10.2) mg/dL Microbiology - Last 24 Hours (Table) 09/16/24 11:17 Blood Culture - Preliminary Blood 09/16/24 12:01 Blood Culture - Preliminary Blood
[2024-09-19] MEDS: IPRATROPIUM-ALBUTEROL 3 ML NEB INHALATION SCH (16:39)
[2024-09-20 06:34] LABS: African American GFR (CKD) 44 (>60 ml/min/1.73 sqM); Anion Gap 5 mmol/L; Blood Urea Nitrogen 56 mg/dL (9-20); Carbon Dioxide 28 mmol/L (22-30); Chloride 101 mmol/L (98-107); Glucose 165 mg/dL (74-99); Non-African American GFR(CKD) 38 (>60 ml/min/1.73 sqM); Potassium 4.3 mmol/L (3.5-5.1); Sodium 134 mmol/L (137-145)
[2024-09-20 07:02] LABS: Basophils % (A) 0 %; Eosinophils % (A) 0 %; HCT 30.2 % (39.0-53.0); HGB 9.3 gm/dL (13.0-17.5); Hypochromasia Slight; Lymphocytes # (A) 0.6 k/uL (1.0-4.8); Lymphocytes % (A) 8 %; MCH 31.8 pg (25.0-35.0); MCHC 30.8 g/dL (31.0-37.0); MCV 103.3 fL (80.0-100.0); Macrocytosis Slight; Mean Platelet Volume 9.3; Monocytes # (A) 0.1 k/uL (0-1.0); Monocytes % (A) 1 %; Neutrophils # (A) 6.2 k/uL (1.3-7.7); Neutrophils % (A) 89 %; Platelet Count 184 k/uL (150-450); RBC 2.92 m/uL (4.30-5.90); RDW 13.7 % (11.5-15.5); WBC 6.9 k/uL (3.8-10.6)
--- NOTE | 2024-09-20 13:39 | P.PN ---
Subjective Progress Note Date: 09/20/24 This is an 88-year-old white male known history of multiple medical problems including non-Hodgkin's lymphoma status postchemotherapy in 2014, history of chronic atrial fibrillation, hypertension, hypothyroidism, chronic systolic congestive heart failure, history of compression fractures, patient is not a great historian, but apparently [facility] because of fevers and chills, shortness of breath, cough. And apparently he had some altered mental status. In the ER, patient was noted to be febrile with a temp of 102.4, he was tachycardic, blood pressure was relatively normal. His O2 sat was 97% on 2 L. Patient was noted to be a bit leukopenic, with WBC count of 4.1 hemoglobin is 10.1, his urinalysis showed trace of leukocyte esterase, negative nitrites, patient was found to be RSV positive, chest x-ray showed mostly bibasilar atelectasis. Considering his presentation of RSV tracheobronchitis and sepsis, patient was admitted and this consult was initiated. Again not much history could be obtained from the patient himself. CT of the brain was done because of his altered mental status and there was no acute intracranial process. The patient is seen today September 18, 2024 in follow-up in the emergency department. He is currently sitting up on a stretcher. Awake and alert in no acute distress. He is quite weak and debilitated. He has a loose congested cough. Some concerns regarding aspiration. He is maintaining O2 saturation in the low 90s on 4 L/min per nasal cannula. Afebrile. Hemodynamically stable. White count 3.7. Hemoglobin 10.6. Platelets 174. Sodium 137. Potassium 4.8. Bicarb 20. BUN 44. Creatinine 1.36. Glucose 119. He remains on ceftriaxone and azithromycin. Anticoagulated with Eliquis. Remains on Solu-Medrol. Remains in atrial fibrillation. The patient is seen today September 19, 2024 in follow-up on the regular medical floor. He is currently resting in bed. Awake and alert in no acute distress. Pending O2 saturations in the 90s on 4 L/min per nasal cannula. He has been afebrile. Hemodynamically stable. Blood cultures revealing no growth to date. White count 7.7. Hemoglobin 10.0. Platelets 207. Sodium 136. Potassium 4.3. Bicarb 24. BUN 55. Creatinine 1.53. Glucose 137. He remains on bronchodilators and Solu-Medrol. Continued on ceftriaxone. Anticoagulated with Eliquis. The patient is seen today September 20, 2024 in follow-up on the regular medical floor. He is currently resting comfortably in bed. Awake and alert in no acute distress. Maintaining good O2 saturations in the 90s on room air. He still has a loose congested cough. Blood culture revealed no growth. White count 6.9. Hemoglobin 9.3. Platelets 184. Sodium 134. Potassium 4.3. Bicarb 28. BUN 56. Creatinine 1.61. Glucose 165. He remains on DuoNeb inhalations, Solu- Medrol. Remains on ceftriaxone. Anticoagulated with Eliquis. Objective - Vital Signs Vital signs: Vital Signs Temp 97.7 F 09/20/24 01:43 Pulse 82 09/20/24 12:27 Resp 18 09/20/24 07:29 BP 122/86 09/20/24 07:29 Pulse Ox 92 L 09/20/24 07:29 FiO2 Intake & Output 09/19/24 09/20/24 09/20/24 18:59 06:59 18:59 Output Total 1050 550 Balance -1050 -550 Output: Urine 1050 550 Other: Voiding Method External Catheter External Catheter # Bowel Movements 1 - Exam GENERAL EXAM: Alert, weak, 88-year-old male, resting in bed, on room air, comfortable in no apparent distress. HEAD: Normocephalic. EYES: Normal reaction of pupils, equal size. NOSE: Clear with pink turbinates. THROAT: No erythema or exudates. NECK: No masses, no JVD. CHEST: No chest wall deformity. LUNGS: Equal air entry with bilateral scattered rhonchi. CVS: S1 and S2 normal with no audible murmur, regular rhythm. ABDOMEN: No hepatosplenomegaly, normal bowel sounds, no guarding or rigidity. SPINE: No scoliosis or deformity SKIN: No rashes CENTRAL NERVOUS SYSTEM: No focal deficits, tone is normal in all 4 extremities. EXTREMITIES: There is no peripheral edema. No clubbing, no cyanosis. Peripheral pulses are intact. - Labs CBC & Chem 7: 09/20/24 05:45 09/20/24 05:45 Labs: Abnormal Lab Results - Last 24 Hours (Table) 09/20/24 09/20/24 Range/Units 05:45 05:45 RBC 2.92 L (4.30-5.90) m/uL Hgb 9.3 L (13.0-17.5) gm/dL Hct 30.2 L (39.0-53.0) % MCV 103.3 H (80.0-100.0) fL MCHC 30.8 L (31.0-37.0) g/dL Lymphocytes # 0.6 L (1.0-4.8) k/uL Sodium 134 L (137-145) mmol/L BUN 56 H (9-20) mg/dL Creatinine 1.61 H (0.66-1.25) mg/dL Glucose 165 H (74-99) mg/dL Calcium 8.0 L (8.4-10.2) mg/dL Microbiology - Last 24 Hours (Table) 09/16/24 11:17 Blood Culture - Preliminary Blood 09/16/24 12:01 Blood Culture - Preliminary Blood Assessment and Plan Assessment: Acute RSV tracheobronchitis Acute sepsis Bibasilar atelectasis, possible aspiration pneumonia, patient had normal procalcitonin level Acute metabolic encephalopathy History of non-Hodgkin's lymphoma Chronic atrial fibrillation, rate controlled History of hypothyroidism History of hypertension Chronic kidney disease stage III Chronic anemia Plan: The patient was seen and evaluated Labs and medications reviewed Stable and on room air Remains on empiric antibiotics Continued on DuoNeb inhalations Discontinue Solu-Medrol Initiated a prednisone taper Anticoagulated with Eliquis DNR CODE STATUS Cleared for discharge from the pulmonary standpoint Plan is to return to [facility] at discharge I have personally seen and examined the patient, performed the documentation and the assessment and plan as written. Number of minutes spent on the visit: 10 Dictation was produced using [employer] dictation software. Please excuse any grammatical, word or spelling errors.
--- NOTE | 2024-09-20 14:51 | P.DS ---
Providers Date of admission: 09/16/24 14:14 Expected date of discharge: 09/20/24 Attending physician: Sanjiv Gentile Consults: 09/16/24 14:14 Consult Physician Routine Consulting Provider: Kylee John Consult Reason/Comments: pneumonia sepsis Do you want consulting provider notified?: Yes Primary care physician: [facility] Course: Hospital Course: Patient is a 88-year-old male with history of atrial fibrillation, non-Hodgkin's lymphoma status postchemotherapy in 2013, hypertension, hypothyroidism, systolic CHF, compression fractures presenting from nursing facility with productive cough, and altered mental status. In the ED, temperature was 102.4, pulse 112, respiratory rate 20, blood pressure 140/100, saturating at 97% on 2 L. WBC 4.1, hemoglobin 10.1 stable, potassium 4.5, bicarb 32, BUN 40, creatinine 1.83 around baseline, calcium 8.5, urinalysis showed trace leukocyte esterase, negative nitrites, RSV positive. Chest x-ray independently interpreted, shows no obvious opacities, some bibasilar atelectasis. EKG independently interpreted, shows atrial fibrillation, right bundle branch block Head CT showed no acute process. Patient was admitted for evaluation of acute hypoxic respiratory failure secondary to tracheobronchitis likely due to RSV with sepsis and acute encephalopathy with dehydration. Sputum cultures, blood cultures, IV fluids, IV antibiotics were ordered. Patient also had atrial fibrillation with RVR and IV amiodarone was given. Pulmonology consulted. Patient's A-fib became rate controlled and the rest of the symptoms improved throughout hospital stay. Metoprolol dose was increased. patient is optimized for discharge today to [facility] and prescribed 1 more day of oral prednisone. We discontinued his lidocaine patch and Percocet. Advised to follow-up with PCP on outpatient basis. Final Diagnosis: #. Acute hypoxic respiratory failure #. RSV tracheobronchitis #. Sepsis secondary to above, improved #. Hypotension, resolved #. Dehydration, improved #. Chronic atrial fibrillation with RVR, rate controlled #. Acute encephalopathy, likely due to delirium, improved #. Bicytopenia #. Chronic macrocytic anemia #. CKD stage III #. Hypothyroidism #. History of systolic CHF #. Non-Hodgkin's lymphoma status postchemotherapy #. Hypertension Physical examination: Vital signs reviewed General: non toxic, no distress Derm: no unusual rashes/lesions, warm Head: atraumatic, normocephalic, symmetric Eyes: EOMI, anicteric sclera, pupils equal round reactive to light ENT: Nose and ears atraumatic Neck: No cervical lymphadenopathy, trachea midline, supple Mouth: no lip lesion, mucus membranes moist Cardiovascular: S1S2 irregularly irregular, no murmur Lungs: CTA bilateral, no rhonchi, no rales, no accessory muscle use Abdominal: soft, nondistended, nontender to palpation, no guarding Ext: muscle strength 5 out of 5 in all 4 extremities grossly, no gross muscle atrophy, no contractures, positive dorsalis pedis pulse bilateral, no edema Neuro: CN II-XI grossly intact, no gross focal neuro deficits Psych: Alert, oriented, appropriate affect and mood A total of 36 minutes of time were spent preparing this complex discharge summary. Patient was discharged on 09/20/2024 at 1330. I have seen and evaluated the patient today. Discussed with the resident and agree with the residents finding and plan as documented in the resident's note. Changes highlighted in blue font. Patient Condition at Discharge: Stable Plan - Discharge Summary New Discharge Prescriptions: New predniSONE [Deltasone] 40 mg PO DAILY #2 tab Metoprolol Tartrate [Lopressor] 25 mg PO BID tab Continue Levothyroxine Sodium [Synthroid] 150 mcg PO HS Apixaban [Eliquis] 5 mg PO BID Cholecalciferol [Vitamin D3 (125 Mcg = 5000 Iu)] 125 mcg PO HS Docusate [Colace] 100 mg PO BID bisacodyL [Dulcolax] 10 mg RECTAL DAILY PRN PRN Reason: Constipation Naloxone HCl [Narcan] 4 mg NASAL DIRECTED PRN PRN Reason: Overdose Tamsulosin [Flomax] 0.4 mg PO DAILY Famotidine 20 mg PO DAILY #60 tablet Furosemide [Lasix] 40 mg PO DAILY Menthol [Biofreeze] 1 applic TOPICAL TID Darbepoetin Garret [Aranesp] 100 mcg SQ SA Cyclobenzaprine [Flexeril] 5 mg PO HS #20 tab Magnesium Oxide [Mag-Ox] 400 mg PO HS polyethylene glycoL 3350 [Miralax] 17 gm PO DAILY packet Acetaminophen Tab [Tylenol] 650 mg PO Q6HR PRN tab PRN Reason: Mild Pain Or Fever > 100.5 Magnesium Hydroxide [Milk of Magnesia] 2,400 mg PO DAILY PRN PRN Reason: Constipation Magic Cup 1 dose PO BID Discontinued Metoprolol Tartrate [Lopressor] 12.5 mg PO BID Lidocaine 4% Patch 1 patch TOPICAL DAILY oxyCODONE-APAP 7.5-325MG [Percocet 7.5-325 mg] 1 tab PO Q6HR PRN PRN Reason: Moderate Pain (Scale 4 To 6) Discharge Medication List Apixaban [Eliquis] 5 mg PO BID 03/30/21 [History] Levothyroxine Sodium [Synthroid] 150 mcg PO HS 03/30/21 [History] Cyclobenzaprine [Flexeril] 5 mg PO HS #20 tab 07/21/24 [Rx] Cholecalciferol [Vitamin D3 (125 Mcg = 5000 Iu)] 125 mcg PO HS 07/28/24 [History] Docusate [Colace] 100 mg PO BID 07/28/24 [History] Magnesium Oxide [Mag-Ox] 400 mg PO HS 07/28/24 [History] Acetaminophen Tab [Tylenol] 650 mg PO Q6HR PRN tab 08/01/24 [Rx] polyethylene glycoL 3350 [Miralax] 17 gm PO DAILY packet 08/01/24 [Rx] Magnesium Hydroxide [Milk of Magnesia] 2,400 mg PO DAILY PRN 08/08/24 [History] Naloxone HCl [Narcan] 4 mg NASAL DIRECTED PRN 08/08/24 [History] Tamsulosin [Flomax] 0.4 mg PO DAILY 08/08/24 [History] bisacodyL [Dulcolax] 10 mg RECTAL DAILY PRN 08/08/24 [History] Famotidine 20 mg PO DAILY #60 tablet 08/21/24 [Rx] Darbepoetin Garret [Aranesp] 100 mcg SQ SA 09/16/24 [History] Furosemide [Lasix] 40 mg PO DAILY 09/16/24 [History] Magic Cup 1 dose PO BID 09/16/24 [History] Menthol [Biofreeze] 1 applic TOPICAL TID 09/16/24 [History] Metoprolol Tartrate [Lopressor] 25 mg PO BID tab 09/20/24 [Rx] predniSONE [Deltasone] 40 mg PO DAILY #2 tab 09/20/24 [Rx] Follow up Appointment(s)/Referral(s): Nuno Cheng DO [STAFF PHYSICIAN] [facility] - As Needed Patient Instructions/Handouts: Respiratory Syncytial Virus (DC) Activity/Diet/Wound Care/Special Instructions: Please see PCP. Discharge Disposition: TRANSFER TO SNF/ECF
[2024-09-20 16:32] VITALS: BP 91/55; PULSE 115; RESP 17; TEMP 98.7
[2024-09-21] MEDS ORDERED: predniSONE 20 MG TAB PO SCH (09:00)
== END 2024-09-20 16:42 | DRG 871 ==
LOC: SUPCPDRO 10:56 → EC 10:56 → 3SCARD 14:14 → 4SSUR 09-18 15:21
PROVIDERS: ADMIT Student in an Organized Health Care Education/Training Program; ATTEND Student in an Organized Health Care Education/Training Program
DX: A41.89 Other specified sepsis (principal); G93.41 Metabolic encephalopathy; J12.1 Respiratory syncytial virus pneumonia; J69.0 Pneumonitis due to inhalation of food and vomit; J96.01 Acute respiratory failure with hypoxia; F05 Delirium due to known physiological condition; Z66 Do not resuscitate; C85.90 Non-Hodgkin lymphoma, unspecified, unspecified site; E86.0 Dehydration; D72.819 Decreased white blood cell count, unspecified; I13.0 Hypertensive heart and chronic kidney disease with heart failure and stage 1 through stage 4 chronic kidney disease, or unspecified chronic kidney disease; J44.0 Chronic obstructive pulmonary disease with (acute) lower respiratory infection; N18.30 Chronic kidney disease, stage 3 unspecified; E03.9 Hypothyroidism, unspecified; D53.9 Nutritional anemia, unspecified; I48.20 Chronic atrial fibrillation, unspecified; I50.22 Chronic systolic (congestive) heart failure; Z11.52 Encounter for screening for COVID-19; I45.10 Unspecified right bundle-branch block; Z79.01 Long term (current) use of anticoagulants; Z79.890 Hormone replacement therapy; Z79.899 Other long term (current) drug therapy; Z82.49 Family history of ischemic heart disease and other diseases of the circulatory system; Z85.71 Personal history of Hodgkin lymphoma; Z87.442 Personal history of urinary calculi; Z87.891 Personal history of nicotine dependence; Z92.21 Personal history of antineoplastic chemotherapy; Z96.651 Presence of right artificial knee joint; Z88.8 Allergy status to other drugs, medicaments and biological substances
CPT/HCPCS: 36415; 70450; 71046; 80048; 80053; 81001; 83605; 83735; 84145; 85025; 85610; 85730; 87040; 87449; 87636; 93005; 94640